=== PATIENT | male | born 1940 | race Caucasian/White ===

== ENCOUNTER 2023-03-07 13:30 | Outpatient (OUT) | payer MEDICARE, OTHER, SELFPAY ==
--- NOTE | 2023-03-07 14:50 | CA_ITS ---
Patient: CHEY DAVENPORT Exam Date: 03/07/2023 : 1940 Gender:M Ordering : DR ANGELINA DEUTSCH M.D. Admission #: [id number] Family : Order #: [id number] CLICK HERE TO VIEW EXAM ECHOCARDIOGRAM REPORT PROCEDURE: CA ECHO DOPPLER COMPLETE INDICATIONS: Mitral valve regurgitation COMPARISON: None. DESCRIPTION: COMPLETE ECHOCARDIOGRAM Real-time transthoracic echocardiography with 2D, M-mode, spectral and color flow Doppler performed. QUALITY: Technical quality was good. LEFT VENTRICLE: Normal chamber size. Borderline left ventricular hypertrophy. LV EF: Global left ventricular systolic function is normal. Visual estimation of left ventricular ejection fraction is 65% DIASTOLIC: Diastolic function is indeterminate. ATRIAL SEPTUM: Inadequately seen. LEFT ATRIUM: Moderate dilatation. RIGHT ATRIUM: Mild dilatation. RIGHT VENTRICLE: Normal chamber size. Normal right ventricular systolic function. TRICUSPID VALVE: Normal mobility and thickness. Mild regurgitation. Mild pulmonary hypertension. RVSP 40mmHg MITRAL VALVE: Normal mobility and thickness. No evidence of mitral valve stenosis. There is no mitral annular calcification. Mild to moderate mitral regurgitation. AORTIC VALVE: Normal trileaflet appearance. Moderately calcified aortic valve. Moderately diminished mobility. Doppler velocity suggests mild to moderate aortic valve stenosis. DVI 0.35, MARQUIS 1.0cm2. Mean gradient 13mmHg, Max velocity 2.7m/s. Moderate aortic regurgitation. AORTIC ROOT: Normal diameter and appearance. PULMONIC VALVE: Normal thickness and mobility. No stenosis. No regurgitation. PERICARDIUM: No evidence of pericardial effusion. IVC: Collapses with inspirations. Normal size. CONCLUSION: 1. Global left ventricular systolic function is normal; visually estimated ejection fraction is 60 to 65%. 2. Borderline left ventricular hypertrophy. 3. Diastolic function is indeterminate. 4. Biatrial enlargement. 5. Right ventricle is normal in size and systolic function. 6. Mild tricuspid regurgitation. Mildly elevated right ventricular systolic pressure. 7. Mild to moderate mitral regurgitation. 8. Mild to moderate aortic valve stenosis. 9. Moderate aortic valve regurgitation. Adult Echocardiography Procedure Report Left Ventricle LVEDD (3.7 - 5.6 cm): 4.44 cm LVESD (2.2 - 4.0 cm): 2.91 cm LVIVS thickness (0.6 - 1.2 cm): 1.12 cm LVPW thickness (0.5 - 1.0 cm): 0.74 cm e': 0.08 m/s E - e': 10.03 LVOT Max Gradient: 3.77 mm[Hg] LVOT Area (cm2): 0.97 m/s Peak Velocity (LVOT): 0.97 m/s Mean Velocity (LVOT): 0.58 m/s LVOT Diameter 1.83 cm Left Ventricular Ejection Fraction: 73.57 % Left Atrium LA Volume Index (2D A2C): 44.00 ml/m2 Left Atrium Systolic Dimension: 4.35 cm Mitral Valve MV E to A Ratio: 1.28 Mitral Valve A-Wave Peak Velocity: 0.66 m/s Mitral Valve E-Wave Peak Velocity: 0.84 m/s Right Ventricle RV Internal Diastolic Dimension: 2.91 cm Aorta AO Root Diam: 3.18 cm Ascending Ao Diam: 3.47 cm Aortic Valve AoV Area (Peak Adolfo): 0.97 cm2, 0.93 cm2, 1.09 cm2, 1.09 cm2 AoV Area (VTI): 1.04 cm2, 1.04 cm2 Deceleration [place]: 2.58 m/s2 Pressure Half-Time: 500.14 ms Peak Velocity(Antegrade Flow): 2.73 m/s, 2.59 m/s, 2.51 m/s, 2.33 m/s Peak Gradient(Antegrade Flow): 29.80 mm[Hg], 26.83 mm[Hg], 25.10 mm[Hg], 21.68 mm[Hg] Mean Velocity(Antegrade Flow): 1.63 m/s, 1.60 m/s, 1.43 m/s Mean Gradient(Antegrade Flow): 12.65 mm[Hg], 12.01 mm[Hg], 10.37 mm[Hg] Velocity Time Integral: 58.16 cm, 54.00 cm, 62.18 cm Tricuspid Valve Peak Velocity (Regurgitant Flow): 3.03 m/s, 3.07 m/s, 2.88 m/s, 2.97 m/s Pulmonic Valve Mean Gradient: 1.53 mm[Hg] Mean Velocity: 0.59 m/s Peak Velocity: 0.77 m/s, 0.71 m/s Peak Gradient: 2.35 mm[Hg], 2.02 mm[Hg] Right Atrium Right Atrium Systolic Pressure: 36.38 ml, 36.38 ml Dictated by: Angelina Deutsch M.D. on 03/08/2023 at 15:31 Approved by: Angelina Deutsch M.D. on 03/08/2023 at 15:36
== END 2023-03-07 13:31 | disposition home or self-care (01) ==
LOC: CARD 13:35
PROVIDERS: PCP Family Medicine; Visit Provider Internal Medicine Interventional Cardiology
DX: I08.3 Combined rheumatic disorders of mitral, aortic and tricuspid valves (principal)
CPT/HCPCS: 93306

== ENCOUNTER 2023-08-12 08:16 | Outpatient (OUT) | payer MEDICARE, OTHER, SELFPAY ==
--- NOTE | 2023-08-12 08:40 | XR_ITS ---
The [address] [address] Patient Name: CHEY DAVENPORT MRN: [id number] date: 1940 Sex: M Assigned Patient Location: LAB Current Patient Location: LAB Accession/Order Number: [id number] Exam Date: 08/12/2023 08:45 Report Date: 08/12/2023 13:48 At the request of: ANG HI Procedure: XR lumbar spine 2-3V EXAM: XR lumbar spine 2-3V HISTORY: Low Back Pain, M54.50. Injury. COMPARISON: Lumbar spine study dated 08/02/2017. TECHNIQUE: 3 views of the lumbar spine were obtained to include AP, lateral, and directed lateral lumbosacral views. FINDINGS: [id number] height loss of the L1 vertebral body similar to the prior study. Mild to moderate disc space narrowing at L3-L4. L5 appears sacralized with a small disc space at L5-S1. Mild anterior spurring at multiple levels. Mild posterior spurring at L3-L4. Moderate to marked degenerative facet changes bilaterally from L3-L4 through L5-S1. No obvious spondylolysis. There is 5 mm anterior offset of L4 vertebral body upon L5 likely related to ligament laxity/degenerative change. No definite acute fracture or dislocation. XR/XR lumbar spine 2-3V IMPRESSION: Lumbar spine study fails to demonstrate definite acute fracture or dislocation. Chronic height loss of L1 vertebral body similar to the prior study. Degenerative changes as noted, overall mildly progressed compared to the prior exam. Follow-up as needed. Electronically authenticated by: YASMEEN LARA Date: 08/12/2023 13:48
[2023-08-12 08:54] LABS: Estimated Average Glucose 111 mg/dL; Glycohemoglobin A1C 5.5 % (4.5-6.2)
[2023-08-12 10:01] LABS: Basophils Absolute Auto 0.1 10^3/uL (0.0-0.1); Basophils Percent Auto 0.6 % (0.2-2.0); Eosinophils Absolute Auto 0.3 10^3/uL (0.0-0.7); Eosinophils Percent Auto 3.9 % (0.9-7.0); Hematocrit 43.3 % (42.0-54.0); Hemoglobin 14.1 g/dL (14.0-18.0); Immature Granulocytes Abs Auto 0.01 10^3/uL (0.00-0.03); Immature Granulocytes Pct Auto 0.1 % (0.0-0.5); Lymphocytes Absolute Auto 2.6 10^3/uL (1.2-3.8); Lymphocytes Percent Auto 31.5 % (20.5-60.0); Mean Corpuscular HGB Conc 32.6 g/dL (29.9-35.2); Mean Corpuscular Hemoglobin 29.9 pg (25.9-34.0); Mean Corpuscular Volume 91.7 fL (80.0-94.0); Mean Platelet Volume 11.9 fL (9.5-13.5); Monocytes Absolute Auto 0.8 10^3/uL (0.3-0.8); Monocytes Percent Auto 9.6 % (1.7-12.0); Neutrophils Absolute Auto 4.5 10^3/uL (1.4-6.5); Neutrophils Percent Auto 54.3 % (43.0-75.0); Platelet Count 144 10^3/uL (150-450); Red Blood Count 4.72 10^6/uL (4.70-6.10); Red Cell Distribution Width 12.7 % (11.0-15.0); White Blood Count 8.3 10^3/uL (4.0-11.0)
[2023-08-12 10:13] LABS: Prostate Specific Antigen Scrn 2.12 ng/mL (<=4.00)
[2023-08-12 11:45] LABS: Alanine Aminotransferase 29 U/L (16-63); Albumin Level 3.3 g/dL (3.4-5.0); Alkaline Phosphatase 61 U/L (46-116); Anion Gap 7.4; Aspartate Amino Transferase 18 U/L (15-37); BUN Creatinine Ratio 20.6; Bilirubin Total 0.8 mg/dL (0.2-1.0); Calcium 8.8 mg/dL (8.5-10.1); Carbon Dioxide 30.1 mmol/L (21.0-32.0); Chloride 110 mmol/L (98-107); Chol HDL Ratio 2.6; Cholesterol 140 mg/dL (<=200); Estimated GFR (African America >60 (>=60); Estimated GFR (Non-African Ame >60 (>=60); Free T3 2.31 pg/mL (2.18-3.98); Globulin 3.4 g/dL; Glucose 97 mg/dL (74-106); HDL Cholesterol 54 mg/dL (40-60); LDL Cholesterol Calculated 72.2 mg/dL; Potassium 4.5 mmol/L (3.5-5.1); Sodium 143 mmol/L (136-145); Thyroid Stimulating Hormone 2.802 uIU/mL (0.358-3.740); Total Protein 6.7 g/dL (6.4-8.2); Triglycerides 69 mg/dL (<=150); VLDL CHOLESTEROL 13.8 mg/dL
== END 2023-08-12 08:17 | disposition home or self-care (01) ==
LOC: LAB 08:18
PROVIDERS: PCP Family Medicine; Visit Provider Family Medicine
DX: M54.50 Low back pain, unspecified (principal); E78.00 Pure hypercholesterolemia, unspecified; I25.10 Atherosclerotic heart disease of native coronary artery without angina pectoris; E78.5 Hyperlipidemia, unspecified; R53.82 Chronic fatigue, unspecified; R73.09 Other abnormal glucose; Z12.5 Encounter for screening for malignant neoplasm of prostate; M47.816 Spondylosis without myelopathy or radiculopathy, lumbar region
CPT/HCPCS: 36415; 72100; 80053; 80061; 83036; 84436; 84443; 84481; 85025; G0103

== ENCOUNTER 2023-08-31 10:30 | Outpatient (OUT) | payer MEDICARE, OTHER, SELFPAY ==
--- OUTSIDE RECORDS SUMMARY | 2023-08-31 10:33 | XMS_ITS | CCD ---
Author Name Unknown Address [id number] [id number] [place] [address] Organization [facility] Care Team Providers Care Appliance Repair Technician Name Role Phone Ang Chilel Primary Care Physician Sotero STEPHEN Attending Unavailable NILLHolli Attending Unavailable Ang Chilel Referring Unavailable NILLHolli Attending Unavailable Sotero STEPHEN Attending Unavailable NILL ., DR DE LA GARZA Admitting Unavailable HOY ., DR FRY Primary Care Unavailable NILL ., DR DE LA GARZA Attending Unavailable NILL ., DR DE LA GARZA Consulting Unavailable HOY ., DR FRY Primary Care Unavailable NILL ., DR DE LA GARZA Admitting Unavailable NILL ., DR DE LA GARZA Attending Unavailable NILL ., DR DE LA GARZA Consulting Unavailable CAYETANO, VAUGHN MORENO Consulting Unava ilable GEMBUS, MERI Consulting Unavailable HOY ., DR FRY Admitting Unavailable HOY ., DR FRY Attending Unavailable HOY ., DR FRY Consulting Unavailable HOY ., DR FRY Primary Care Unavailable ZIFAIZA VARGAS Consulting Unavailable ELTAHAWY, DR ALFARO Attending Unavailable ELTAHAWY, DR ALFARO Consulting Unavailable ELTAHAWY, DR ALFARO Admitting Unavailable HOY ., DR FRY Primary Care Unavailable SOTERO STEPHEN Admitting Unavailable HOY ., DR FRY Primary Care Unavailable SOTERO STEPHEN Attending Unavailable SOTERO STEPHEN Consulting Unavailable HOY ., DR FRY Primary Care Unavailable HOY ., DR FRY Admitting Unavailable HOY ., DR FRY Attending Unavailable HOY ., DR FRY Consulting Unavailable HOY ., DR FRY Admitting Unavailable HOY ., DR FRY Attending Unavailable HOY ., DR FRY Consulting Unavailable HOY ., DR FRY Primary Care Unavailable FAIZA ARECHIGA Consulting Unavailable ELTAHAWLENKA Giles Attending Unavailable Medications Current Medications Medication Drug Class(es) Dates Sig (Normalized) Sig (Original) aspirin 81 mg oral tablet (2 sources) Platelet Aggregation Inhibitor, Nonsteroidal Anti-inflammatory Drug Start: 01-29-2019 take 1 tablet by mouth once daily aspirin 81 mg oral tablet 81 mg = 1 tab(s), Oral, Daily Start Date: 01/29/19 Status: Ordered clopidogrel 75 mg oral tablet (2 sources) [id number] Platelet Inhibitor Start: 01-29-2019 take 1 tablet by mouth once daily Plavix 75 mg Tab 75 mg = 1 tab(s), Oral, Daily Start Date: 01/29/19 Status: Ordered CoQ10 (2 sources) Start: 01-29-2019 take 1 mg by mouth once daily CoQ10 mg, Oral, Daily Start Date: 01/29/19 Status: Ordered lovastatin 40 mg oral tablet (2 sources) HMG-CoA Reductase Inhibitor Start: 01-29-2019 take 2 tablets by mouth once daily for hyperlipidemia lovastatin 40 mg oral tablet TAKE 2 TABLETS BY MOUTH ONCE DAILY FOR CHOLESTEROL Start Date: 01/29/19 Status: Ordered metoprolol tartrate 25 mg oral tablet (2 sources) beta-Adrenergic Amt Start: 05-27-2022 Metoprolol tartrate 25 mg Tab 12.5 mg = 0.5 tab(s), Oral, BID, Refills(s) 0 Start Date: 05/27/22 Status: Ordered Nature's Bounty Red Krill Oil (2 sources) Start: 01-29-2019 take 1 mg by mouth once daily Nature's Bounty Red Krill Oil 1 mg, Oral, Daily Start Date: 01/29/19 Status: Ordered nitroglycerin 0.4 mg sublingual tablet (2 sources) Nitrate Vasodilator Start: 05-27-2022 nitroglycerin 0.4 mg sublingual Tab 0.4 mg = 1 tab(s), SubLingual, q5min, PRN for chest pain, Refills(s) 0 Start Date: 05/27/22 Status: Ordered Vitamin D (2 sources) Start: 01-29-2019 Vitamin D Oral Start Date: 01/29/19 Status: Ordered Completed/Discontinued Medications Medication Drug Class(es) Dates Sig (Normalized) Sig (Original) potassium bicarbonate 20 meq effervescent oral tablet (2 sources) Start: 05-17-2022 take 1 tablet by mouth twice daily Effer-K 20 mEq oral tablet, effervescent 20 mEq = 1 tab(s), Oral, BID, # 60 tab(s), Refills(s) , DAGO, Pharmacy: [facility], 160.3, cm, 08/31/21 9:38:00 EST, Height/Length Dosing, 71, kg, 08/31/21 9:38:00 EST, Weight Dosing Start Date: 05/17/22 Status: Ordered Problems Active Problems Problem Classification Problem Date Documented Da te Episodic/Chronic Calculus of urinary tract (9 sources) History of calculus of kidney; Translations: [Kidney stone] Onset: 09-03-2022 08-18-2020 Episodic Coronary atherosclerosis and other heart disease (7 sources) Coronary arteriosclerosis; Translations: [Ischemic heart disease] Onset: 07-01-2022 05-27-2022 Chronic Disorders of lipid metabolism (4 sources) Hyperlipidemia; Translations: [Pure hypercholesterolemi a, unspecified] Onset: 07-01-2022 01-29-2019 Chronic Essential hypertension (3 sources) Hypertensive disorder; Translations: [Essential (primary) hypertension] Onset: 07-01-2022 01-29-2019 Chronic Gastrointestinal hemorrhage (2 sources) Rectal hemorrhage 05-27-2022 Episodic Genitourinary symptoms and ill-defined conditions (5 sources) Microscopic hematuria; Translations: [Urgent desire to urinate] Onset: 09-03-2022 08-18-2020 Episodic Gout and other crystal arthropathies (2 sources) Gout 05-27-2022 Chronic Heart valve disorders (10 sources) Aortic valve regurgitation; Translations: [Aortic valve sclerosis] Onset: 02-10-2022 05-27-2022 Chronic Hyperplasia of prostate (3 sources) Benign prostatic hypertrophy with outflow obstruction; Translations: [Benign prostatic hyperplasia with lower urinary tract symptoms] Onset: 09-03-2022 12-23-2018 Chronic Malaise and fatigue (4 sources) Chronic fatigue, unspecified; Translations: [CHRONIC FATIGUE UNSPECIFIED] Onset: 11-17-2022 Chronic Nutritional deficiencies (2 sources) Vitamin D deficiency 05-27-2022 Chronic Other male genital disorders (2 sources) 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 Other nutritional; endocrine; and metabolic disorders (2 sources) Overweight in adulthood with body mass index of 25 or more but less than 30 06-01-2022 Episodic Other screening for suspected conditions (not mental disorders or infectious disease) (6 sources) Screening for malignant neoplasm of colon done; Translations: [Encounter for screening for malignant neoplasm of colon] Onset: 06-01-2022 Episodic Other upper respiratory disease (2 sources) Allergic rhinitis 05-27-2022 Chronic Spondylosis; intervertebral disc disorders; other back problems (4 sources) Cervical disc disorder; Translations: [Lumbar spondylosis] 05-27-2022 Chronic Unclassified (2 sources) Patient encounter status 06-01-2022 Unclassified (1 source) Asymptomatic microscopic hematuria 09-03-2022 Unclassified (1 source) CONTACT W/AND (SUSP) EXPOS COVID-19; Translations: [CONTACT W/AND (SUSP) EXPOS COVID-19] Onset: 06-26-2022 Viral infection (2 sources) Genital herpes simplex 05-27-2022 Chronic Past or Other Problems Problem Classification Problem Date Documented Da te Episodic/Chronic Inflammatory conditions of male genital organs (2 sources) Epididymitis Resolved: 01-29-2019 01-29-2019 Episodic Other aftercare (1 source) 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 representative (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) use of antithrombotics/ant iplatelets; Translations: [SKILLED NURSING ANTITHROMBOT/ANTIPL ATLETS] Onset: 07-01-2022 Episodic Other aftercare (1 source) penitentiary (current) use of aspirin; Translations: [SKILLED NURSING CURRENT USE OF ASPIRIN] Onset: 07-01-2022 Episodic Other aftercare (1 source) Other 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 representative (current) drug therapy; Translations: [OTH DIESEL MACHINIST CURRENT DRUG THERAPY] Onset: 07-01-2022 Episodic Other non-traumatic joint disorders (4 sources) Pain in left shoulder; Translations: [PAIN IN LEFT SHOULDER] Onset: 12-17-2021 Episodic Screening and history of mental health and substance abuse codes (1 source) Personal history of nicotine dependence; Translations: [PERSONAL HISTORY OF NICOTINE DEPEND] Onset: 07-01-2022 Episodic Results Test Name Value Interpretation Reference Range Facility Orders Onlyon 04-15-2023 Orders Only [id number] Chey Freire 1940 M Date Provider Department Center 04/15/2023 [facility] Family History Problem Relation Age of Onset Other Mother Hypertension Mother Heart attack Father Family Status - Relation Status Age at Mother Father Normal [facility] Office Visiton 04-06-2023 Follow-up visit [id number] Chey Freire 1940 M Date Provider Department Center 04/06/2023 Richi-TOMMYVIVIANAPAULAChanLENKA [facility] Family History Problem Relation Age of Onset Other Mother Hypertension Mother Heart attack Father Family Status - Relation Status Age at Mother Father Level of Service:62255 HI OFFICE/OUTPATIENT ESTABLISHED LOW MDM 20-29 MIN Normal [facility] CBC AUTO DIFFon 11-17-2022 BASO # 0.0 103/ul Normal 0.0-0.1 [facility] Comment on above: Performed By: #### C BC #### [facility] [address] [place] [address] Dr. Miguel Angel Cassidy Basophils/100 WBC (Bld) 0.4 % Normal 0.2-2.0 [facility] Comment on above: Performed By: #### C BC #### [facility] [address] [place] [address] Dr. Miguel Angel Cassidy EO # 0.2 103/ul Normal 0.0-0.7 [facility] Comment on above: Performed By: #### C BC #### [facility] [address] [place] [address] Dr. Miguel Angel Cassidy Eosinophils/100 WBC (Bld) 2.4 % Normal 0.9-7.0 [facility] Comment on above: Performed By: #### C BC #### [facility] [address] [place] [address] Dr. Miguel Angel Cassidy Erythrocyte distribution width (RBC) [Ratio] 12.5 % Normal 11.0-15.0 [facility] Comment on above: Performed By: #### C BC #### [facility] [address] [place] [address] Dr. Miguel Angel Cassidy Hematocrit (Bld) [Volume fraction] 44.1 % Normal 42.0-54.0 [facility] Comment on above: Performed By: #### C BC #### [facility] [address] [place] [address] Dr. Miguel Angel Cassidy Hemoglobin (Bld) [Mass/Vol] 14.4 g/dL Normal 14.0-18.0 [facility] Comment on above: Performed By: #### C BC #### [facility] [address] [place] [address] Dr. Miguel Angel Cassidy IG # 0.02 10e3/ul Normal 0.00-0.03 [facility] Comment on above: Performed By: #### C BC #### [facility] [address] [place] [address] Dr. Miguel Angel Cassidy IG % 0.3 % Normal 0.0-0.5 [facility] Comment on above: Performed By: #### C BC #### [facility] [address] [place] [address] Dr. Miguel Angel Cassidy LYMPH # 3.0 103/ul Normal 1.2-3.8 [facility] Comment on above: Performed By: #### C BC #### [facility] [address] [place] [address] Dr. Miguel Angel Cassidy Lymphocytes/100 WBC (Bld) 38.3 % Normal 20.5-60.0 [facility] Comment on above: Performed By: #### C BC #### [facility] [address] [place] [address] Dr. Miguel Angel Cassidy MANUAL DIFF REQ NO Normal [facility] Comment on above: Performed By: #### C BC #### [facility] [address] [place] [address] Dr. Miguel Angel Cassidy MCH (RBC) [Entitic mass] 29.3 pg Normal 25.9-34.0 [facility] Comment on above: Performed By: #### C BC #### [facility] [address] [place] [address] Dr. Miguel Angel Cassidy MCHC (RBC) [Mass/Vol] 32.7 g/dL Normal 29.9-35.2 [facility] Comment on above: Performed By: #### C BC #### [facility] [address] [place] [address] Dr. Miguel Angel Cassidy MCV (RBC) [Entitic vol] 89.6 fL Normal 80.0-94.0 [facility] Comment on above: Performed By: #### C BC #### [facility] [address] [address] [address] Miguel Angel Cassidy MONO # 0.8 103/ul Normal 0.3-0.8 [facility] Comment on above: Performed By: #### C BC #### [facility] [address] [address] [address] Miguel Angel Cassidy Monocytes/100 WBC (Bld) 10.2 % Normal 1.7-12.0 [facility] Comment on above: Performed By: #### C BC #### [facility] [address] [place] [address] Dr. Miguel Angel Cassidy NEUT # 3.9 103/ul Normal 1.4-6.5 [facility] Comment on above: Performed By: #### C BC #### [facility] [address] [place] [address] Dr. Miguel Angel Cassidy Neutrophils/100 WBC (Bld) 48.4 % Normal 43.0-75.0 [facility] Comment on above: Performed By: #### C BC #### [facility] [address] [place] [address] Dr. Miguel Angel Cassidy Platelet mean volume (Bld) [Entitic vol] 11.6 fL Normal 9.5-13.5 [facility] Comment on above: Performed By: #### C BC #### [facility] [address] [place] [address] Dr. Miguel Angel Cassidy PLT 148 103/ul Critically low 150-450 [facility] Comment on above: Performed By: #### C BC #### [facility] [address] [place] [address] Dr. Miguel Angel Cassidy RBC 4.92 106/ul Normal 4.70-6.10 [facility] Comment on above: Performed By: #### C BC #### [facility] [address] [place] [address] Dr. Miguel Angel Cassidy WBC 7.9 103/ul Normal 4.0-11.0 [facility] Comment on above: Performed By: #### C BC #### [facility] [address] [address] [address] Miguel Angel Cassidy FREE THYROXINE INDEX T7on FTI 1.75 Normal 1.30-4.50 [facility] Comment on above: Performed By: #### U YESI 24 #### [facility] [address] [place] [address] Dr. Miguel Angel Cassidy T3U 33.0 % Normal 33.0-40.0 [facility] Comment on above: Performed By: #### U YESI 24 #### [facility] [address] [place] [address] Dr. Miguel Angel Cassidy T4 [Mass/Vol] 5.30 ug/dL Normal 4.50-12.10 [facility] Comment on above: Performed By: #### U YESI 24 #### [facility] [address] [place] [address] Dr. Miguel Angel Cassidy LIPID PROFILEon 11-17-2022 CHOL-HDL RATIO NORM SEE BELOW Normal [facility] Comment on above: Result Comment: 3.3 - 4.4 LOW RISK 4.4 - 7.1 AVERAGE RISK 7.1 - 11.0 MODERATE RISK >11.0 HIGH RISK Performed By: #### U YESI 24 #### [facility] [address] [place] [address] Dr. Miguel Angel Cassidy Cholesterol [Mass/Vol] 141 mg/dL Normal <=200 [facility] Comment on above: Performed By: #### U YESI 24 #### [facility] [address] [place] [address] Dr. Miguel Angel Cassidy Cholesterol in HDL [Mass/Vol] 48 mg/dL Normal 40-60 [facility] Comment on above: Performed By: #### U YESI 24 #### [facility] [address] [place] [address] Dr. Miguel Angel Cassidy Cholesterol in LDL [Mass/Vol] 80.4 mg/dL Normal [facility] Comment on above: Performed By: #### U YESI 24 #### [facility] [address] [place] [address] Dr. Miguel Angel Cassidy Cholesterol.total/C holesterol in HDL [Mass ratio] 2.9 {ratio} Normal [facility] Comment on above: Performed By: #### U YESI 24 #### [facility] [address] [address] [address] Miguel Angel Cassidy HDL NORMAL > or = 60 mg/dl - LO W CARDIOVASCULAR RISK <40 mg/dl - HIGH CARDIOVASCULAR RISK Normal [facility] Comment on above: Performed By: #### U YESI 24 #### [facility] [address] [address] [address] Miguel Angel Cassidy LDL CALC NORMAL SEE BELOW Normal [facility] Comment on above: Result Comment: <100 mg/dl OPTIMAL 100 - 129 mg/dl NEAR OR ABOVE OPTIMAL 130 - 159 mg/dl BORDERLINE HIGH 160 - 189 mg/dl HIGH >190 mg/dl VERY HIGH Performed By: #### U YESI 24 #### [facility] [address] [address] [address] Miguel Angel Cassidy Triglyceride [Mass/Vol] 63 mg/dL Normal <=150 [facility] Comment on above: Performed By: #### U YESI 24 #### [facility] [address] [address] [address] Miguel Angel Cassidy VLDL CALC 12.6 mg/dL Normal [facility] Comment on above: Performed By: #### U YESI 24 #### [facility] [address] [place] [address] Dr. Miguel Angel Cassidy PROF CHEM 8 (BAS METB)on Anion gap [Moles/Vol] 13.1 mmol/L Normal [facility] Comment on above: Performed By: #### U YESI 24 #### [facility] [address] [address] [address] Miguel Angel Cassidy Calcium [Mass/Vol] 8.8 mg/dL Normal 8.5-10.1 [facility] Comment on above: Performed By: #### U YESI 24 #### [facility] [address] [address] [address] Miguel Angel Cassidy Chloride [Moles/Vol] 108 mmol/L Critically high 98-107 [facility] Comment on above: Performed By: #### U YESI 24 #### [facility] [address] [address] [address] Miguel Angel Cassidy CO2 [Moles/Vol] 29.7 mmol/L Normal 21.0-32.0 [facility] Comment on above: Performed By: #### U YESI 24 #### [facility] [address] [address] [address] Miguel Angel Cassidy Creatinine [Mass/Vol] 1.03 mg/dL Normal 0.70-1.30 [facility] Comment on above: Performed By: #### U YESI 24 #### [facility] [address] [address] [address] Miguel Angel Cassidy EGFR-AF BRUNEIAN >60 Normal >=60 [facility] Comment on above: Performed By: #### U YESI 24 #### [facility] [address] [place] [address] Dr. Miguel Angel Cassidy EGFR-NON AF BRUNEIAN >60 Normal >=60 [facility] Comment on above: Performed By: #### U YESI 24 #### [facility] [address] [place] [address] Dr. Miguel Angel Cassidy Glucose [Mass/Vol] 106 mg/dL Normal 74-106 [facility] Comment on above: Performed By: #### U YESI 24 #### [facility] [address] [place] [address] Dr. iMguel Angel Cassidy Potassium [Moles/Vol] 4.8 mmol/L Normal 3.5-5.1 [facility] Comment on above: Performed By: #### U YESI 24 #### [facility] [address] [address] [address] Miguel Angel Cassidy Sodium [Moles/Vol] 146 mmol/L Critically high 136-145 [facility] [place] Comment on above: Performed By: #### U YESI 24 #### [facility] [address] [address] [address] Miguel Angel Cassidy Urea nitrogen [Mass/Vol] 14.0 mg/dL Normal 7.0-18.0 [facility] Comment on above: Performed By: #### U YESI 24 #### [facility] [address] [place] [address] Dr. Miguel Angel Cassiyd Urea nitrogen/Creatinine [Mass ratio] 13.6 mg/mg Normal [facility] Comment on above: Performed By: #### U YESI 24 #### [facility] [address] [place] [address] Dr. Miguel Angel Cassidy TSHon 11-17-2022 TSH 2.017 uIU/mL Normal 0.358-3.740 [facility] Comment on above: Performed By: #### U YESI 24 #### [facility] [address] [place] [address] Dr. Miguel Angel Cassidy Lab Reportson 09-27-2022 Lab Reports [id number] Normal [facility] OXALATE 24HR URINEon 023 Oxalates, Urine 34 mg/L Normal Undefined [facility] Comment on above: Performed By: #### O X24HR #### [facility] [address] [place] [address] Dr. Miguel Angel Cassidy Oxalates, Urine 24hr 34 mg/24 hr Normal 7-44 [facility] Comment on above: Performed By: #### O X24HR #### [facility] [address] [place] [address] Dr. Miguel Angel Cassidy CITRATE URINE 24HRon 023 Citric Acid, U, 24hr 1169 mg/24 hr Normal 320-1240 [facility] Comment on above: Result Comment: This test was developed and its performance characteristics determined by [facility]. It has not been cleared or approved by the Food and Drug Administration. Performed By: #### C ITRATU #### [facility] [address] [place] [address] Dr. Miguel Angel Cassidy Citric Acid, Urine 1169 mg/L Normal Undefined [facility] Comment on above: Performed By: #### C ITRATU #### [facility] [address] [place] [address] Dr. Miguel Angel Cassidy MAGNESIUM 24HR URINEon 09-09 Magnesium 24hr Urine 88.0 mg/24 hr Normal 12.0-293.0 [facility] Comment on above: Performed By: #### C ITRATU #### [facility] [address] [place] [address] Dr. Miguel Angel Cassidy Magnesium UR 8.8 mg/dL Normal Not Estab. [facility] Comment on above: Performed By: #### C ITRATU #### [facility] [address] [place] [address] Dr. Miguel Angel Cassidy PHOSPHORUS 24HR URINEon 08-19 Phosphorus, Urine 97.8 mg/dL Normal Not Estab. [facility] Comment on above: Performed By: #### C ITRATU #### [facility] [address] [place] [address] Dr. Miguel Angel Cassidy Phosphorus, Urine 24hr 978 mg/24 hr Normal 390-1425 [facility] Comment on above: Performed By: #### C ITRATU #### [facility] [address] [place] [address] Dr. Miguel Angel Cassidy PTH INTACTon 09-09-2022 PTH, Intact 15 pg/mL Normal 15-65 [facility] Comment on above: Performed By: #### U YESI 24 #### [facility] [address] [place] [address] Dr. Miguel Angel Cassidy URIC ACID 24 HR URINEon 08-19 Uric Acid, Urine 43.6 mg/dL Normal Not Estab. [facility] Comment on above: Performed By: #### U YESI 24 #### [facility] [address] [place] [address] Dr. Miguel Angel Cassidy Uric Acid, Urine 24hr 436.0 mg/24 hr Normal 136.1-771.1 [facility] Comment on above: Performed By: #### U YESI 24 #### [facility] [address] [place] [address] Dr. Miguel Angel Cassidy BUNon 09-08-2022 Urea nitrogen [Mass/Vol] 13.0 mg/dL Normal 7.0-18.0 [facility] Comment on above: Performed By: #### U YESI 24 #### [facility] [address] [place] [address] Dr. Miguel Angel Cassidy CALCIUMon 09-08-2022 Calcium [Mass/Vol] 8.9 mg/dL Normal 8.5-10.1 [facility] Comment on above: Performed By: #### U YESI 24 #### [facility] [address] [place] [address] Dr. Miguel Angel Cassidy CALCIUM 24 HR URINEon 2022 CALC, 24 HR UR 138.0 mg/24 hr Normal 100.0-300.0 [facility] Comment on above: Performed By: #### U YESI 24 #### [facility] [address] [place] [address] Dr. Miguel Angle Cassidy UR CALCIUM 13.8 mg/dL Normal 5.1-21.0 [facility] Comment on above: Performed By: #### U YESI 24 #### [facility] [address] [place] [address] Dr. Miguel Angel Cassidy UR TOT VOL 1000 ml/[address] [facility] Comment on above: Performed By: #### U YESI 24 #### [facility] [address] [place] [address] Dr. Miguel Angel Cassidy Performed By: #### C ITRATU #### [facility] [address] [place] [address] Dr. Miguel Angel Cassidy CHLORIDEon 09-08-2022 Chloride [Moles/Vol] 107 mmol/L Normal 98-107 [facility] Comment on above: Performed By: #### B UN, CL, CO2, CREA, K, URIC, CA, NA #### [facility] [address] [place] [address] Dr. Miguel Angel Cassidy CO2on 09-08-2022 CO2 [Moles/Vol] 31.6 mmol/L Normal 21.0-32.0 [facility] Comment on above: Performed By: #### B UN, CL, CO2, CREA, K, URIC, CA, NA #### [facility] [address] [place] [address] Dr. Miguel Angel Cassidy CREA 24 HR URINEon 3 CREA, 24 HR UR 1343.30 mg/24 hr Normal 1,000.00- 2,000 .00 [facility] Comment on above: Performed By: #### C ITRATU #### [facility] [address] [place] [address] Dr. Miguel Angel Cassidy URINE CREAT 134.33 mg/dL Normal 20.00-300.00 [facility] Comment on above: Performed By: #### C ITRATU #### [facility] [address] [place] [address] Dr. Miguel Angel Cassidy CREATININEon 09-08-2022 Creatinine [Mass/Vol] 0.89 mg/dL Normal 0.70-1.30 [facility] Comment on above: Performed By: #### B UN, CL, CO2, CREA, K, URIC, CA, NA #### [facility] [address] [place] [address] Dr. Miguel Angel Cassidy EGFR-AF BRUNEIAN >60 Normal >=60 [facility] Comment on above: Performed By: #### B UN, CL, CO2, CREA, K, URIC, CA, NA #### [facility] [address] [place] [address] Dr. Miguel Angel Cassidy EGFR-NON AF BRUNEIAN >60 Normal >=60 [facility] Comment on above: Performed By: #### B UN, CL, CO2, CREA, K, URIC, CA, NA #### [facility] [address] [place] [address] Dr. Miguel Angel Cassidy NAon 09-08-2022 Sodium [Moles/Vol] 143 mmol/L Normal 136-145 [facility] Comment on above: Performed By: #### B UN, CL, CO2, CREA, K, URIC, CA, NA #### [facility] [address] [place] [address] Dr. Miguel Angel Cassidy POTASSIUMon 09-08-2022 Potassium [Moles/Vol] 4.3 mmol/L Normal 3.5-5.1 [facility] Comment on above: Performed By: #### B UN, CL, CO2, CREA, K, URIC, CA, NA #### [facility] [address] [address] [address] Miguel Angel Cassidy SODIUM 24 HR URINEon 023 NA, 24 HR UR 127 mmol/24 hr Normal 40-220 [facility] Comment on above: Performed By: #### C ITRATU #### [facility] [address] [address] [address] Miguel Angel Cassidy Sodium (U) [Moles/Vol] 127 mmol/L Critically high 30-90 [facility] Comment on above: Performed By: #### C ITRATU #### [facility] [address] [address] [address] Miguel Angel Cassidy URIC ACID SERUMon 09-08-2022 Urate [Mass/Vol] 5.3 mg/dL Normal 3.5-7.2 [facility] Comment on above: Performed By: #### U YESI 24 #### [facility] [address] [address] [address] Miguel Angel Cassidy Ambulatory Visit Summaryon 0 09-03-2022 Ambulatory Visit Summary ETHEL CHEY C :1940 Visit Date:09/03/2022 Ambulatory Visit Instructions Your Diagnosis BPH with urinary obstruction Kidney stone Asymptomatic microscopic hematuria Tests Performed Urnls Dip Stick Auto w/o Microscopy POC 09713 XR Abdomen 1 View -- Results Pending -- Please visit your patient portal for your results or contact your primary care physician. Your Care Team Attending Physician - Sotero STEPHEN MD Primary Care Physician - Ang Chilel MD This Is Your Medications List potassium bicarbonate (Effer-K 20 mEq oral tablet, effervescent) Contact prescribing physician if questions or concerns aspirin (aspirin 81 mg oral tablet) clopidogrel (Plavix 75 mg Tab) ergocalciferol (Vitamin D) lovastatin (lovastatin 40 mg oral tablet) metoprolol (Metoprolol tartrate 25 mg Tab) nitroglycerin (nitroglycerin 0.4 mg sublingual Tab) omega-3 polyunsaturated fatty acids ([employer]'s Bounty Red Krill Oil) ubiquinone (CoQ10) Procedures Performed cysto w/ stent removal (03/20/2019), ESWL - Extracorporeal shockwave lithotripsy for renal calculus (09/11/2015), ESWL - Extracorporeal shockwave lithotripsy for renal calculus (04/03/2015), Placement of stent in cardiac conduit (2009), History of thoracic spine surgery, Kidney stone, Repair of left inguinal hernia, Tonsillectomy. Discharge Vitals Heart Rate (Peripheral) 70 Respiratory Rate 16 Blood Pressure 130/71 Height 160.3 cm Height 63 in Weight 71.3 kg Weight 156.86 lb BMI 27.75 What to do next You Need to Schedule the Following Appointments Follow Up with TIANA CLAYTON, JAMAAL Hdz When: Where: [address] [place], [place] [id number]- Medications What How Much When Instructions Unchanged potassium bicarbonate (Effer-K 20 mEq oral tablet, effervescent) 1 Tablets By Mouth 2 times a day Unchanged aspirin (aspirin 81 mg oral tablet) 1 Tablets By Mouth Every day Contact prescribing physician if questions or concerns Unchanged clopidogrel (Plavix 75 mg Tab) 1 Tablets By Mouth Every day Contact prescribing physician if questions or concerns Unchanged ergocalciferol (Vitamin D) By Mouth Contact prescribing physician if questions or concerns Unchanged lovastatin (lovastatin 40 mg oral tablet) TAKE 2 TABLETS BY MOUTH ONCE DAILY FOR CHOLESTEROL Contact prescribing physician if questions or concerns Unchanged metoprolol (Metoprolol tartrate 25 mg Tab) 0.5 Tablets By Mouth 2 times a day Contact prescribing physician if questions or concerns Unchanged nitroglycerin (nitroglycerin 0.4 mg sublingual Tab) 1 Tablets Sublingual Every 5 minutes as needed for for chest pain Contact prescribing physician if questions or concerns Unchanged omega-3 polyunsaturated fatty acids (Nature's Bounty Red Krill Oil) 1 Milligram By Mouth Every day Contact prescribing physician if questions or concerns Unchanged ubiquinone (CoQ10) By Mouth Every day Contact prescribing physician if questions or concerns Test Results Urnls Dip Stick Auto w/o Microscopy POC 00614 (09/03/2022) Bilirubin Urine Dipstick - Negative Blood Urine Dipstick - 1+ Small Glucose Urine Dipstick - Trace 100 mg/dl Ketones Urine Dipstick - Negative Leukocytes Urine Dipstick - Negative Nitrite Urine Dipstick - Negative Protein Urine Dipstick - Negative Specific Merom Urine Dipstick - 1.020 Urine Appearance Urine Dipstick - Clear Urine Color Urine Dipstick - Yellow Urobilinogen Urine Dipstick - Normal 0.2-1 EU/dl pH Urine Dipstick - 6 Allergies No Known Allergies Problems Ongoing - Any problem that you are currently receiving treatment for. Allergic rhinitis Aortic insufficiency Aortic valve sclerosis Asymptomatic microscopic hematuria BMI 26.0-26.9,adult BPH with urinary obstruction CAD (coronary artery disease) Cervical disc disease Genital herpes Gout History of kidney stones Hyperlipidemia Hypertension Ischemic heart disease Kidney stone Lumbar spondylosis Microscopic hematuria Mitral valve prolapse Peyronie's disease Rectal bleeding Screening for malignant neoplasm of colon Urgency of urination Vitamin D deficiency Historical - Any problem that you are no longer receiving treatment for. Epididymitis Education Materials Kidney Stones Kidney stones are rock-like masses that form inside of the kidneys. Kidneys are organs that make pee (urine). A kidney stone may move into other parts of the urinary tract, including: ? The tubes that connect the kidneys to the bladder (ureters). ? The bladder. ? The tube that carries urine out of the body (urethra). Kidney stones can cause very bad pain and can block the flow of pee. The stone usually leaves your body (passes) through your pee. You may need to have a doctor take out the stone. What are the causes? Kidney stones may be caused by: ? A condition in which certain glands make too much parathy (more content not included)... Normal [facility] Patient Educationon 09-03-19 Patient Education Urology Kidney Stones Kidney stones are rock-like masses that form inside of the kidneys. Kidneys are organs that make pee (urine). A kidney stone may move into other parts of the urinary tract, including: ? The tubes that connect the kidneys to the bladder (ureters). ? The bladder. ? The tube that carries urine out of the body (urethra). Kidney stones can cause very bad pain and can block the flow of pee. The stone usually leaves your body (passes) through your pee. You may need to have a doctor take out the stone. What are the causes? Kidney stones may be caused by: ? A condition in which certain glands make too much parathyroid hormone (primary hyperparathyroidism). ? A buildup of a type of crystals in the bladder made of a chemical called uric acid. The body makes uric acid when you eat certain foods. ? Narrowing (stricture) of one or both of the ureters. ? A kidney blockage that you were born with. ? Past surgery on the kidney or the ureters, such as gastric bypass surgery. What increases the risk? You are more likely to develop this condition if: ? You have had a kidney stone in the past. ? You have a family history of kidney stones. ? You do not drink enough water. ? You eat a diet that is high in protein, salt (sodium), or sugar. ? You are overweight or very overweight (obese). What are the signs or symptoms? Symptoms of a kidney stone may include: ? Pain in the side of the belly, right below the ribs (flank pain). Pain usually spreads (radiates) to the groin. ? Needing to pee often or right away (urgently). ? Pain when going pee (urinating). ? Blood in your pee (hematuria). ? Feeling like you may vomit (nauseous). ? Vomiting. ? Fever and chills. How is this treated? Treatment depends on the size, location, and makeup of the kidney stones. The stones will often pass out of the body through peeing. You may need to: ? Drink more fluid to help pass the stone. In some cases, you may be given fluids through an IV tube put into one of your veins at the hospital. ? Take medicine for pain. ? Make changes in your diet to help keep kidney stones from coming back. Sometimes, medical procedures are needed to remove a kidney stone. This may involve: ? A procedure to break up kidney stones using a beam of light (laser) or shock waves. ? Surgery to remove the kidney stones. Follow these instructions at home: Medicines ? Take eoyo-oje-lzfxayt and prescription medicines only as told by your doctor. ? Ask your doctor if the medicine prescribed to you requires you to avoid driving or using heavy machinery. Eating and drinking ? Drink enough fluid to keep your pee pale yellow. You may be told to drink at least 8?10 glasses of water each day. This will help you pass the stone. ? If told by your doctor, change your diet. This may include: ? Limiting how much salt you eat. ? Eating more fruits and vegetables. ? Limiting how much meat, poultry, fish, and eggs you eat. ? Follow instructions from your doctor about eating or drinking restrictions. General instructions ? Collect pee samples as told by your doctor. You may need to collect a pee sample: ? 24 hours after a stone comes out. ? 8?12 weeks after a stone comes out, and every 6?12 months after that. ? Strain your pee every time you pee (urinate), for as long as told. Use the strainer that your doctor recommends. ? Do not throw out the stone. Keep it so that it can be tested by your doctor. ? Keep all follow-up visits as told by your doctor. This is important. You may need follow-up tests. How is this prevented? To prevent another kidney stone: ? Drink enough fluid to keep your pee pale yellow. This is the best way to prevent kidney stones. ? Eat healthy foods. ? Avoid certain foods as told by your doctor. You may be told to eat less protein. ? Stay at a healthy weight. Where to find more information ? National Kidney Foundation (NKF): www.kidney.org ? [employer] (UCF): www.urologyhealth.org Contact a doctor if: ? You have pain that gets worse or does not get better with medicine. Get help right away if: ? You have a fever or chills. ? You get very bad pain. ? You get new pain in your belly (abdomen). ? You pass out (faint). ? You cannot pee. Summary ? Kidney stones are rock-like masses that form inside of the kidneys. ? Kidney stones can cause very bad pain and can block the flow of pee. ? The stones will often pass out of the body through peeing. ? Drink enough fluid to keep your pee pale yellow. This information is not intended to replace advice given to you by your health care provider. Make sure you discuss any questions you have with your health care provider. Document Released: 12/20/2008 Document Revised: 11/20/2019 Document Reviewed: 11/20/2019 [employer] Patient Education ? 2019 [employer] Normal [facility] Urology Office/Clinic Noteon 09-03-2022 Urology Office/Clinic Note Chief Complaint kidney stone HPI Staff Pt is here for 2 year f/u with KUB. Previous dx of BPH with urinary obstruction (Rezum 2017) and kidney stone. Pt continues taking Effer-k 20mEq BID. Dysuria: no Incomplete bladder emptying: no Hematuria: no Frequency: no Urgency: no Nocturia: pt does not get Stream: no Leaking: no Post void dripping: no Wearing pads/ Depends: no Urge incontinence: no Stress incontinence: no Incontinence without Sensory Awareness: no Abdominal pain: no Flank pain: pt states that he has back pain from a bad back Sexual complaints: no History of Present Illness Tests reviewed: reviewed UA, kidney/bladder US, and KUB. I have reviewed the previous health record information and history for this patient from Dr. Stephen. I have reviewed and verified the staff HPI to be accurate for this encounter. There have been no associated fever, chills, flank pain, or blood in the urine. Denies any urinary infections since last encounter. Review of Systems PHQ Score Initial Depression Screen Score: 0 ROS - Provider Constitutional: denies weight loss, denies hot flashes. Eyes: denies eye problems. Gastrointestinal: denies nausea, denies vomiting. Cardiovascular: denies chest pain or angina. Integumentary: no dryness Musculoskeletal: denies musculoskeletal symptoms. ENMT: denies otolaryngeal symptoms. Respiratory: no shortness of breath. Heme/Lymph: denies easy bleeding tendency, denies easy bruising tendency. Psychiatric: no confusion, no anxiety. Genitourinary: denies dysuria, denies hematuria, denies discharge, denies urinary frequency, denies urinary hesitancy, denies nocturia, denies incontinence, denies genital sores, denies decreased libido, and denies erectile dysfunction. Physical Exam Vitals & Measurements HR: 70(Peripheral) RR: 16 BP: 130/71 HT: 63 in HT: 160.3 cm WT: 71.3 kg WT: 156.86 lb BMI: 27.75 General Appearance: alert, no distress, well nourished, well developed male. Genitourinary: normal scrotum, normal testes, normal urethra, normal epididymis, normal vas deferens/spermatic cord. Flank Pain: none. Bladder: nonpalpable. Assessment/Plan 1. BPH with urinary obstruction (N40.1: Benign prostatic hyperplasia with lower urinary tract symptoms) S/p REZUM done 04/22/2017. Patient not currently taking any prostate medications. Pt very happy with results of Rezum procedure and has no urinary issues at this time. 2. Kidney stone (N20.0: Calculus of kidney) Latest KUB done 02/05/22 shows a few small calcifications within left kidney. No visible ureteral stones. Stable lower left pelvic calcification compatible w/ a phlebolith. US kidneys/bladder done the same day shows 9 x 8 x 6 mm echogenic structures suspected represent a nonobstructing stone within inferior pole. Minimal cortical thinning. Left kidney - mild hydro. Minimal cortical thinning. Pt states he was experiencing pain at the time of imaging done in January. States he ended up passing the stone. Continues Effer-K 20mEq BID therapy. Metabolic work up last done in 2015. I advised pt that we should repeat testing. Will move forward with met w/up. Pt will be notified of results. Follow up in 1 year w/ KUB. All questions/concerns were discussed. Pt. to call the office if heencounters any issues prior. Pt. acknowledges understanding. 3. Asymptomatic microscopic hematuria (R31.21: Asymptomatic microscopic hematuria) UA today shows SMALL blood. Denies gross hematuria. Pt aware to call our office if he would witness gross blood. Discussed w/ the pt. that there is a possibility that a stone is causing hematuria. Follow-up With When Contact Information TIANA CLAYTON, Sotero Mejia, URL [address] [place] [address]- Additional Instructions: 1 year w/ KUB Patient Education Kidney Stones, Ekfw-zj-Tyfi I, Carolyne Samuel, personally scribed for Dr. Stephen on 09/03/2022 09:46:45. . Documentation recorded by the scribe, Carolyne Samuel, accurately reflects the services(s) I performed and decisions made by me. Authenticated by Dr. Stephen on 09/03/2022 09:49:43. Problem List/Past Medical History Ongoing Allergic rhinitis Aortic insufficiency Aortic valve sclerosis Asymptomatic microscopic hematuria BMI 26.0-26.9,adult BPH with urinary obstruction CAD (coronary artery disease) Cervical disc disease Genital herpes Gout History of kidney stones Hyperlipidemia Hypertension Ischemic heart disease Kidney stone Lumbar spondylosis Microscopic hematuria Mitral valve prolapse Peyronie's disease Rectal bleeding Screening for malignant neoplasm of colon Urgency of urination Vitamin D deficiency Historical Epididymitis Procedure/Surgical History cysto w/ stent removal (03/20/2019), ESWL - Extracorporeal shockwave lithotripsy for renal calculus (09/11/2015), ESWL - Extracorporeal shockwave lithotripsy for david (more content not included)... Normal [facility] Comment on above: Result Comment: Elec tronically Signed By: Sotero STEPHEN MD\.br\Date and Time Signed: 09/03/22 09:50 EST\.br\Electronically Co-Signed By: Carolyne Samuel\.br\Date and Time Co-Signed: 09/03/22 09:47 EST Outside Colonoscopyon 2021 Outside Colonoscopy [id number] .00CD:127 Normal [facility] Lab Reportson 06-23-2022 Lab Reports [id number] .00CD:127 Normal [facility] Covid-19 PCR ([facility])on SARS-CoV-2 (COVID-19) RNA SILVIA+probe Ql (Unsp spec) Not detected Normal NOT DETECTED [facility] Comment on above: Result Comment: This test is not yet approved or cleared by the [place] FDA. When there are no FDA-approved or cleared tests available, and other criteria are met, FDA can make tests available under an emergency access mechanism called an Emergency Use Authorization (EUA). The EUA for this test is supported by the [employer] of Health and Human Service's (HHS's) declaration that circumstances exist to justify the emergency use of in vitro diagnostics for the detection and/or diagnosis of the virus that causes COVID-19. This EUA will remain in effect (meaning this test can be used) for the duration of the COVID-19 declaration justifying emergency of IVDs, unless it is terminated or revoked by FDA (after which the test may no longer be used). When diagnostic testing is negative, the possibility of a false negative should be considered in the context of a patient's recent exposures and the presence of clinical signs and symptoms consistent with SARS-CoV-2. Performed By: #### U YESI 24 #### [facility] [address] [place] [address] Dr. Miguel Angel Cassidy Consent for Procedure/Surger yon 06-02-2022 Consent for Procedure/Surgery [id number] .00CD:127 [facility] Ambulatory Visit Summaryon 1 08-01-2021 Ambulatory Visit Summary CHEY FREIRE :1940 Visit Date:06/01/2022 Ambulatory Visit Instructions Your Care Team Attending Physician - SERGIO CLAYTON, Holli Mejia Primary Care Physician - Ang Chilel MD Referring Physician - Ang Chilel MD This Is Your Medications List Contact prescribing physician if questions or concerns aspirin (aspirin 81 mg oral tablet) clopidogrel (Plavix 75 mg Tab) ergocalciferol (Vitamin D) lovastatin (lovastatin 40 mg oral tablet) metoprolol (Metoprolol tartrate 25 mg Tab) nitroglycerin (nitroglycerin 0.4 mg sublingual Tab) omega-3 polyunsaturated fatty acids ([employer] B[employer] Red Krill Oil) potassium bicarbonate (Effer-K 20 mEq oral tablet, effervescent) ubiquinone (CoQ10) Procedures Performed cysto w/ stent removal (03/20/2019), ESWL - Extracorporeal shockwave lithotripsy for renal calculus (09/11/2015), ESWL - Extracorporeal shockwave lithotripsy for renal calculus (04/03/2015), Placement of stent in cardiac conduit (2009), History of thoracic spine surgery, Kidney stone, Repair of left inguinal hernia, Tonsillectomy. Discharge Vitals Heart Rate (Peripheral) 68 Respiratory Rate 16 Blood Pressure 130/62 Height 160.3 cm Height 63 in Weight 67.4 kg Weight 148.28 lb BMI 26.23 What to do next Scheduled Follow-Up Appointments Tuesday 9:45 AM EST With: TIANA CLAYTON, Sotero Mejia Where: [facility] Physician Referralon 022 Physician Referral [id number] .00CD:127 [facility] RAD - MISCon 02-16-2022 RAD - MISC [id number] .00CD:127 Normal [facility] RAD - Ultrasound Reporton RAD - Ultrasound Report [id number] .00CD:127 Normal [facility] ECHOCARDIO M/2D COMPLETEon 0 02-10-2022 ECHOCARDIO M/2D COMPLETE Patient: CHEY FREIRE Exam Date: 02/10/2022 : 1940 Gender:M Ordering : DR LENKA DEUTSCH M.D. Admission #: [id number] Family : ANG CHILEL . Order #: [id number] CLICK HERE TO VIEW EXAM ECHOCARDIOGRAM REPORT PROCEDURE: CARDIO PULMONARY ECHOCARDIO M/2D COMP INDICATIONS: Mitral valve regurgitation, H/O Stent COMPARISON: None. DESCRIPTION: COMPLETE ECHOCARDIOGRAM Real-time transthoracic echocardiography with 2D, M-mode, spectral and color flow Doppler performed. QUALITY: Technical quality was good. 64 148# 130/46 HR 87 LEFT VENTRICLE: Normal chamber size. Normal left ventricular wall thickness. Global left ventricular systolic function is normal. No regional wall motion abnormalities. LV EF: Visual estimation of left ventricular ejection fraction is 65%. DIASTOLIC: Normal diastolic function. ATRIAL SEPTUM: LEFT ATRIUM: Moderate dilatation. RIGHT ATRIUM: Normal chamber size. RIGHT VENTRICLE: Normal chamber size. Normal right ventricular systolic function. TRICUSPID VALVE: Normal mobility and thickness. No stenosis with trivial regurgitation. Doppler studies reveal mildly (35-45) elevated right sided pressures. RVSP is 38 mmHg MITRAL VALVE: Normal mobility and thickness. No evidence of mitral valve stenosis. Mild mitral regurgitation. AORTIC VALVE: Normal trileaflet appearance. Severely calcified aortic valve. Doppler velocity suggest moderate aortic valve stenosis. Mean gradient 16 mmHg. Aortic valve area 1.3 cm?. DVI 0.42 AI jet/ LVOT 25%. Mild to moderate aortic regurgitation. AORTIC ROOT: Normal diameter and appearance. Ascending aorta is normal in size. PULMONIC VALVE: Not well visualized. No stenosis. Trivial regurgitation. PERICARDIUM: No evidence of pericardial effusion. IVC: Collapses with inspirations. IVC is normal in size. PLEURA: CONCLUSION: 1. Normal ventricular systolic function. LVEF is 65%. 2. Normal diastolic function. 3. Moderate aortic valve stenosis. 4. Mild to moderate aortic valve regurgitation. 5. Mild mitral regurgitation. 6. Mildly elevated right-sided pressures. Adult Echocardiography Procedure Report Left Ventricle Left Atrium Mitral Valve Right Ventricle Aorta Aortic Valve Peak Velocity (Antegrade Flow): 2.87 m/s, 2.88 m/s, 2.87 m/s, 2.88 m/s AoV Area (Peak Adolfo): 1.28 cm2, 1.28 cm2, 1.28 cm2, 1.28 cm2, 1.28 cm2, 1.28 cm2, 1.28 cm2, 1.28 cm2 AoV Area (VTI): 1.37 cm2, 1.37 cm2 Peak Velocity(Antegrade Flow): 2.88 m/s, 2.88 m/s Peak Gradient(Antegrade Flow): 33.20 mm[Hg], 33.20 mm[Hg] Mean Velocity(Antegrade Flow): 1.88 m/s Mean Gradient(Antegrade Flow): 16.27 mm[Hg] Velocity Time Integral: 62.70 cm Tricuspid Valve Peak Velocity (Regurgitant Flow): 2.94 m/s Peak Velocity: 0.36 m/s Pulmonic Valve PV Max Adolfo (0.6 - 0.9 m per sec): 0.85 m/s PV Max Gradient: 2.91 mm[Hg] Right Atrium Dictated by: Devang Daniel M.D. on 02/10/2022 at 15:45 Approved by: Devang Daniel M.D. on 02/10/2022 at 15:50 Normal [facility] US KIDNEYS BLADDERon 07-24-2 022 KIDNEYS BLADDER EXAMINATION: US KIDNEYS BLADDER HISTORY: Kidney stone COMPARISON: No relevant comparison available. TECHNIQUE: Ultrasound examination was performed of the kidneys and urinary bladder. FINDINGS: RIGHT KIDNEY: 9 x 8 x 6 mm echogenic structures suspected represent a nonobstructing stone within inferior pole. Minimal cortical thinning. Color Doppler demonstrates blood flow within the kidney. Kidney: 9.8 x 5.1 x 5.7 cm LEFT KIDNEY: Mild hydronephrosis. No appreciable stones or mass. Minimal cortical thinning. Color Doppler demonstrates blood flow within the kidney. Kidney: 11.6 x 5.1 x 5.0 cm BLADDER: Wall thickness at upper limits of normal. No appreciable focal wall thickening or mass.Prevoid volume: 173 mL. Post void residual: 17 mL URETERAL JETS: Visualized bilaterally. IMPRESSION: 1. Suspect nonobstructing right nephrolithiasis. 2. Mild left hydronephrosis without identifiable cause; possible ureteral stone. Consider CT imaging of the abdomen and pelvis without and with IV contrast for further evaluation. Electronically authenticated by: FAIZA ARECHIGA Date: 2022-02-07 08:09 Normal [facility] XR KUB 1 VIEWon 02-05-2022 XR KUB 1 VIEW EXAMINATION: XR KUB 1 VIEW HISTORY: Kidney stone ; bilateral flank pain COMPARISON: XR KUB 08/29/2021, 08/18/2020 FINDINGS: KIDNEY/URETER - RIGHT: No visible renal or ureteral calcifications. KIDNEY/URETER - LEFT: A few small calcifications within left kidney. PELVIS: No visible ureteral stones. Stable lower left pelvic calcification compatible with a phlebolith. BOWEL: No abnormal dilation or deviation. BONES: L1 compression fracture, grossly stable. OTHER: Negative. No abnormal gaseous collections. IMPRESSION: 1. Left nephrolithiasis, containing fewer calcifications than seen on the prior study. 2. No visible ureteral stones. 3. Limited evaluation due to dense overlying bowel content. Electronically authenticated by: FAIZA ARECHIGA Date: 2022-02-05 12:59 Normal [facility] Vital Signs Date Time Vital Sign Value Performing Clinician Juliette gamble 09-03-2022 09:18-0500 Blood Pressure Location Sotero STEPHEN [facility] 09-03-2022 09:18-0500 Diastolic blood pressure 71 mm[Hg] Sotero STEPHEN [facility] 09-03-2022 09:18-0500 Heart rate 70 /min Sotero STEPHEN [facility] 09-03-2022 09:18-0500 Respiratory rate 16 /min Sotero STEPHEN [facility] 09-03-2022 09:18-0500 Systolic blood pressure 130 mm[Hg] Sotero STEPHEN [facility] 06-01-2022 15:52-0500 Blood Pressure Location Holli BATEMAN [facility] 06-01-2022 15:52-0500 Diastolic blood pressure 62 mm[Hg] Holli BATEMAN [facility] 06-01-2022 15:52-0500 Heart rate 68 /min Holli BATEMAN [facility] 06-01-2022 15:52-0500 Respiratory rate 16 /min Holli BATEMAN [facility] 06-01-2022 15:52-0500 Systolic blood pressure 130 mm[Hg] Holli BATEMAN [facility] Encounters Encounter Date Encounter Type Care Provider Facility Start: 09-02-2023 ambulatory Sotero STEPHEN [facility] ty:[facility] Start: 04-06-2023 End: 04-06-[address] [facility] Start: 11-17-2022 End: 11-18-[address] ANG CHILEL . Facility:[facility] Start: 09-08-2022 End: 09-09-2022 ambulatory SOTERO STEPHEN Facility: Start: 09-03-2022 End: 09-04-2022 ambulatory Sotero STEPHEN Facility:[facility] Start: 09-03-2022 End: 09-03-2022 Patient encounter procedure Sotero STEPHEN [facility] Start: 06-26-2022 Encounter for preprocedural laboratory examination DR HOLLI Escalante [facility] Start: 06-25-2022 End: 06-26-2022 ambulatory Holli BATEMAN Facility:[id number] Start: 06-22-2022 End: 06-23-[address] HOLLI Escalante Facility:[facility] Start: 06-22-2022 End: 06-23-2022 Encounter for preprocedural laboratory examination DR HOLLI BATEMAN . Facility: Start: 06-01-2022 End: 06-02-2022 ambulatory Holli BATEMAN Facility: [facility] Start: 06-01-2022 End: 06-01-2022 Patient encounter procedure Holli BATEMAN [facility] Start: 05-27-2022 [facility] Start: 05-26-2022 ambulatory Sotero STEPHEN Facility : [facility] Start: 02-10-2022 End: 02-11-[address] LENKA DEUTSCH Facility: Start: 02-05-2022 End: 02-06-[address] ANG CHILEL . Facility: Start: 12-17-2021 End: 12-18-[address] ANG CHILEL . Facility: Procedures Date Procedure Procedure Detail Performing Clinician Start: 11-17-[address] MARIELA BATEMAN . Comment on above: Performed By: #### P [facility] #### [facility] [address] [place] [address] Dr. Miguel Angel Cassidy Start: 03-20-2019 cysto w/ stent removal Holli BATEMAN Start: 09-11-2015 Extracorporeal shock wave lithotripsy of calculus of kidney Holli BATEMAN Start: 04-03-2015 Extracorporeal shock wave lithotripsy of calculus of kidney Holli BATEMAN Start: 07-18-2009 Placement of stent i n cardiac conduit Holli BATEMAN History of operative procedure on thoracic spinal structure Holli KENTL Kidney stone (disorder) Flako BATEMAN Comment on above: Surgery per Dr. Webster Repair of left ingui nal hernia Holli BATEMAN Tonsillectomy Holli KENTL Immunizations Immunization Date Immunization Notes Care Provider Fa cility 07-18-2020 SARS-CoV-2 (COVID-19 ) [id number] vaccine Holli BATEMAN [facility] Comment on above: Result Comment: Pt s jordan he has had 3 shots to date but does not have his card for the dates today 03-10-2020 influenza virus vaccine, unspecified formulation Holli BATEMAN [facility] Payers Date Payer Category Payer Medicare [id number] 1957 Unknown [id number] 1940 Unknown [id number] 2.16.8 [id number] 1940 Unknown [id number] 2.16.8 [id number] 1942 Unknown [id number] 2.16.8 [id number] 1942 Unknown [id number] 2.16.8 [id number] 1942 Unknown [id number] 2.16.84 [id number] 1942 Unknown [id number] 2.16.84 [id number] 1942 Unknown [id number] 2.16.84 [id number] 1942 Unknown [id number] 2.16.84 [id number] 1942 Unknown [id number] 2.16.84 [id number] 1942 Unknown [id number] 2.16.84 [id number] 1942 Unknown [id number] 2.16.84 [id number] Social History Date Type Detail Facility Start: 06-01-2022 Tobacco smoking status Ex-smoker (fi nding) [facility] Tobacco smoking status Never [facility] Sex Assigned At Male [facility] Functional Status Date Assessment Result Facility 09-03-2022 Functional Status N/A [facility] 06-01-2022 Functional Status N/A [facility] Progress note 04-06-2023 Note Date & Type Note Facility 04-06-2023 Note [facility] Note Chief Complaint: Patient here for 1 year follow up aortic valve disorder, CAD, and mitral valve regurgitation. Had echo last month. He walks an hour on his treadmill every morning. Doing great. Denies chest pain, SOB, and palpitations. HPI: Chey Freire is a 82 y.o. male with a history of coronary artery disease and prior stent placement as well as valvular heart disease here in routine follow-up He is doing well and has no new cardiac Cardiology ROS: Review of Systems All other systems reviewed and are negative. Past Medical History He has no past medical history on file. Surgical History He has no past surgical history on file. Social History He has no history on file for tobacco use, alcohol use, and drug use. Family History No family history on file. Allergies Patient has no allergy information on record. Medications No current outpatient medications on file. Last Recorded Vitals BP 147/56 (BP Location: Left arm, Patient Position: Sitting) Pulse (!) 48 Ht 1.626 m (5' 4 ) Wt 63.5 kg (140 lb) SpO2 99% BMI 24.03 kg/m??? Physical Examination: GENERAL: alert and oriented x3, well developed, in no acute distress. HEAD: atraumatic, normocephalic. EYES: JEANIE, EOMI. NECK: trachea midline, no JVD present, no carotid bruits present. CARDIAC: S1, S2 present. RRR. No murmur, rubs, or gallops. RESPIRATORY: CTAB, no increased effort of breathing, no rales, rhonchi, or wheezing. ABDOMEN: soft, nontender, nondistended. EXTREMITIES: no lower extremity edema, peripheral pulses are 2+ bilaterally. No rash/skin discoloration present. NEURO: strength/sensation equal and symmetric in bilateral upper and lower extremities. PSYCH: appropriate mood, affect, and judgement. Investigations: Echocardiogram 01/12/2019 Global left ventricular systolic function is normal. Normal right ventricular systolic function. Mild to moderate right regurgitation. Mild aortic valve stenosis. Mild aortic valve regurgitation. Doppler study suggest normal right-sided pressures. Treadmill stress test 12/17/2020 SUMMARY: Myocardial perfusion imaging study is NORMAL. CONCLUSION: 1. No reversible ischemia, normal myocardial profusion scan 2. Abnormal exercise test secondary to EKG changes Echocardiogram 02/10/2022: CONCLUSION: 1. Normal ventricular systolic function. LVEF is 65%. 2. Normal diastolic function. 3. Moderate aortic valve stenosis. 4. Mild to moderate aortic valve regurgitation. 5. Mild mitral regurgitation. 6. Mildly elevated right-sided pressures. Echocardiogram 03/07/2023: Global left ventricular systolic function is normal; EF 60 to 65%. Borderline left ventricular hypertrophy. Diastolic function is indeterminate. Biatrial enlargement. The right ventricle is normal in size and systolic function. Mild tricuspid regurgitation. Mildly elevated right ventricular systolic pressure. Mild to moderate mitral regurgitation. Mild to moderate aortic valve stenosis. Moderate aortic valve regurgitation. Assessment: 1. Coronary atherosclerosis - S/p PCI/stents I25.10: Atherosclerotic heart disease of [place] coronary artery without angina pectoris 2. 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 Mitral valve regurgitation - Mild to moderate 2018 I34.0: Nonrheumatic mitral (valve) insufficiency MITRAL VALVE REGURGITATION: CARE INSTRUCTIONS 4. Systolic murmur R01.1: Cardiac murmur, unspecified 5. Cardiovascular stress test abnormal - EKG changes, normal perfusion R94.39: Abnormal result of other cardiovascular function study Plan: Continue medical therapy for coronary artery disease including aspirin, statin, and a beta-mat It has been a number of years since his stent placement; we can discontinue his Plavix He will need serial monitoring for his valvular heart disease; we will repeat an echocardiogram in a year or sooner should he have any worsening symptoms Return to clinic in 1 year or sooner should problems arise Lenka Deutsch MD, MPH, FACC, [facility], [facility] Interventional Cardiology Pager Email: [email or web address] Discharge instructions 09-03-2022 Note Date & Type Note Facility 09-03-2022 Hospital Discharg e instructions Patient Education 09/03/2022 09:39:28 Kidney Stones, [id number] Kidney Stones Kidney stones are rock-like masses that form inside of the kidneys. Kidneys are organs that make pee (urine). A kidney stone may move into other parts of the urinary tract, including: The tubes that connect the kidneys to the bladder (ureters). The bladder. The tube that carries urine out of the body (urethra). Kidney stones can cause very bad pain and can block the flow of pee. The stone usually leaves your body (passes) through your pee. You may need to have a doctor take out the stone. What are the causes? Kidney stones may be caused by: A condition in which certain glands make too much parathyroid hormone (primary hyperparathyroidism). A buildup of a type of crystals in the bladder made of a chemical called uric acid. The body makes uric acid when you eat certain foods. Narrowing (stricture) of one or both of the ureters. A kidney blockage that you were born with. Past surgery on the kidney or the ureters, such as gastric bypass surgery. What increases the risk? You are more likely to develop this condition if: You have had a kidney stone in the past. You have a family history of kidney stones. You do not drink enough water. You eat a diet that is high in protein, salt (sodium), or sugar. You are overweight or very overweight (obese). What are the signs or symptoms? Symptoms of a kidney stone may include: Pain in the side of the belly, right below the ribs (flank pain). Pain usually spreads (radiates) to the groin. Needing to pee often or right away (urgently). Pain when going pee (urinating). Blood in your pee (hematuria). Feeling like you may vomit (nauseous). Vomiting. Fever and chills. How is this treated? Treatment depends on the size, location, and makeup of the kidney stones. The stones will often pass out of the body through peeing. You may need to: Drink more fluid to help pass the stone. In some cases, you may be given fluids through an IV tube put into one of your veins at the hospital. Take medicine for pain. Make changes in your diet to help keep kidney stones from coming back. Sometimes, medical procedures are needed to remove a kidney stone. This may involve: A procedure to break up kidney stones using a beam of light (laser) or shock waves. Surgery to remove the kidney stones. Follow these instructions at home: Medicines Take qzjs-oov-auityfy and prescription medicines only as told by your doctor. Ask your doctor if the medicine prescribed to you requires you to avoid driving or using heavy machinery. Eating and drinking Drink enough fluid to keep your pee pale yellow. You may be told to drink at least 8 10 glasses of water each day. This will help you pass the stone. If told by your doctor, change your diet. This may include: ?Limiting how much salt you eat. ?Eating more fruits and vegetables. ?Limiting how much meat, poultry, fish, and eggs you eat. Follow instructions from your doctor about eating or drinking restrictions. General instructions Collect pee samples as told by your doctor. You may need to collect a pee sample: ?24 hours after a stone comes out. ?8 12 weeks after a stone comes out, and every 6 12 months after that. Strain your pee every time you pee (urinate), for as long as told. Use the strainer that your doctor recommends. Do not throw out the stone. Keep it so that it can be tested by your doctor. Keep all follow-up visits as told by your doctor. This is important. You may need follow-up tests. How is this prevented? To prevent another kidney stone: Drink enough fluid to keep your pee pale yellow. This is the best way to prevent kidney stones. Eat healthy foods. Avoid certain foods as told by your doctor. You may be told to eat less protein. Stay at a healthy weight. Where to find more information National Kidney Foundation (NKF): www.kidney.org [employer] (UCF): www.urologyhealth.org Contact a doctor if: You have pain that gets worse or does not get better with medicine. Get help right away if: You have a fever or chills. You get very bad pain. You get new pain in your belly (abdomen). You pass out (faint). You cannot pee. Summary Kidney stones are rock-like masses that form inside of the kidneys. Kidney stones can cause very bad pain and can block the flow of pee. The stones will often pass out of the body through peeing. Drink enough fluid to keep your pee pale yellow. This information is not intended to replace advice given to you by your health care provider. Make sure you discuss any questions you have with your health care provider. Document Released: 12/20/2008 Document Revised: 11/20/2019 Document Reviewed: 11/20/2019 [employer] Patient Education 2019 [employer]. Follow Up Care 08/31/2021 10:41:08 With:TIANA CLAYTON, Sotero Mejia, URL Address: [address] [place] [id number] When: Unknown [facility] Clinical Note 06-25-2022 Note Date & Type Note Facility 06-25-2022 Note OPERATIVE NOTE OPERATION DATE: 06/25/2022 PREOPERATIVE DIAGNOSIS: Colorectal screening. POSTOPERATIVE DIAGNOSIS: Normal colon. PROCEDURE: Colonoscopy to cecum. SURGEON: Holli Bateman M.D. ANESTHESIA: Monitored anesthesia care. ESTIMATED BLOOD LOSS: Zero. INDICATIONS AND CONSENT: Patient is an 82-year-old male who presents for colorectal screening. Indications, risks, benefits, alternatives of proceeding with colonoscopy were explained extensively to the patient, including the risks of bleeding, colon perforation or anesthetic complications. All of his questions were answered. Informed consent was obtained. PROCEDURE: Patient brought to the operating room, placed in the left lateral decubitus position. Monitored anesthesia care was provided. Rectal exam was performed which showed no masses or blood. The scope was inserted into the anal canal. Under direct visualization was advanced. It was advanced to the cecum where cecal markings were clearly identified. There was noted to be a good prep. Upon withdrawal of the scope, mucosal surfaces were carefully examined. There were no mass lesions or polyps. No inflammatory changes or ulcerations. No significant diverticulosis. The scope was retroflexed in the anal canal. There was no significant hemorrhoidal disease. Scope was then withdrawn. Patient tolerated procedure well, was sent to recovery room in good condition. Patient should not require further screening. CC: Ang Chilel M.D. [facility] Clinical Note 06-01-2022 Note Date & Type Note Facility 06-01-2022 Note Chief Complaint consultation for rectal bleeding HPI Staff 81 year old male presents on consultation from Dr. Chilel for rectal bleeding. Reports one time episode of blood on toilet tissue with wiping after straining for bowel movement. Denies abdominal or rectal pain. No change in bowel habits. No nausea or vomiting. No unexplained weight loss. Last colonoscopy completed 01/2011, for complaint of rectal bleeding, was normal. No known family history of colon cancer. History of Present Illness 81 yo male with h/o CAD, htn, hyperlipidemia, referred for colorectal screening; had one episode of minimal blood on toilet paper after episodes of diarrhea; none since, no melena or hematochezia; no abdominal complaints; on plavix and baby asa daily; no NSAIDs; last colonoscopy 2010, wnl; abdominal operations significant for LIHR; no fmhx of GI malignancy or IBD. no tobacco use. Review of Systems PHQ Score Initial Depression Screen Score: 0 ROS - Provider Constitutional: no fever, no sweats, no weight loss. Eyes: no glasses, no blurred vision, no visual loss. ENMT: no dentures, no hoarseness, no swallowing difficulties, no hearing loss, no ear infection(s), no nose bleeds. Cardiovascular: normal blood pressure, no chest pain, regular heartbeat, no heart murmur. Respiratory: no shortness of breath, no cough, no asthma, no wheezing. Gastrointestinal: no nausea, no vomiting, no diarrhea, no constipation, no blood in stool, no change in bowel habits, no abdominal pain, no hepatitis. Genitourinary: no kidney stones, no urine infection, no dysuria. Musculoskeletal: no pain, no weakness. Skin: no changing moles, no rash, no skin lumps. Neurologic: no seizures, no epilepsy, no headache. Psychiatric: no emotional or psychiatric problem. Heme/Lymph: no bleeding problems, no anemia, no blood clots, no transfusions. Allergy/Immunologic: no swollen lymph nodes/glands, no IV drug abuse. Other: Additional ROS info: Except as noted in the above Review of Systems and in the History of Present Illness, all other systems have been reviewed and are negative or noncontributory. Physical Exam Vitals & Measurements HR: 68(Peripheral) RR: 16 BP: 130/62 HT: 63 in HT: 160.3 cm WT: 67.4 kg WT: 148.28 lb BMI: 26.23 HEENT: normal conjunctiva, sclera clear, no scleral icterus, EOM intact, PERRLA, oral mucosa moist without lesions. Neck: trachea midline, no mass, symmetric, no thyromegaly or nodules, no adenopathy Respiratory: lungs CTA, respirations non labored. Cardiovascular: regular rate and rhythm, no murmur, no pedal edema or varicosities. Gastrointestinal: soft, non distended, no tenderness, no masses, no palpable hernias, diastasis recti no, no hepatosplenomegaly; normal bs Lymphatic: no cervical adenopathy, no axillary adenopathy, no inguinal adenopathy. Musculoskeletal: normal gait, digits and nails without infection, nodes, cyanosis, clubbing. Skin: no rashes, no lesions, no ulcers, no subcutaneous nodules, induration. Psychiatric/Neuro: oriented to time, place, person, judgement normal, affect appropriate for age, insight intact, no focal deficits. Tests: review of old records completed, Discussed surgical options, risks, and possible complications with patient. Assessment/Plan 1. Screening for malignant neoplasm of colon (Z12.11: Encounter for screening for malignant neoplasm of colon) plan colonoscopy under anesthesia, informed consent obtained. Follow-up No qualifying data available Problem List/Past Medical History Ongoing Allergic rhinitis Aortic insufficiency Aortic valve sclerosis BMI 26.0-26.9,adult BPH with urinary obstruction CAD (coronary artery disease) Cervical disc disease Genital herpes Gout History of kidney stones Hyperlipidemia Hypertension Ischemic heart disease Kidney stone Lumbar spondylosis Microscopic hematuria Mitral valve prolapse Peyronie's disease Rectal bleeding Screening for malignant neoplasm of colon Urgency of urination Vitamin D deficiency Historical Epididymitis Procedure/Surgical History cysto w/ stent removal (03/20/2019), ESWL - Extracorporeal shockwave lithotripsy for renal calculus (09/11/2015), ESWL - Extracorporeal shockwave lithotripsy for renal calculus (04/03/2015), Placement of stent in cardiac conduit (2009), History of thoracic spine surgery, Kidney stone, Repair of left inguinal hernia, Tonsillectomy. Medications aspirin 81 mg oral tablet, 81 mg= 1 tab(s), Oral, Daily CoQ10, Oral, Daily Effer-K 20 mEq oral tablet, effervescent, 20 mEq= 1 tab(s), Oral, BID, 11 refills lovastatin 40 mg oral tablet Metoprolol tartrate 25 mg Tab, 12.5 mg= 0.5 tab(s), Oral, BID Nature's Bounty Red Krill Oil, 1 mg, Oral, Daily nitroglycerin 0.4 mg sublingual Tab, 0.4 mg= 1 tab(s), SubLingual, q5min, PRN Plavix 75 mg Tab, 75 mg= 1 tab(s), Oral, Daily Vitamin D, Oral Allergies No Known Allergies Social History Alcohol - Denies Alcohol Use, (more content not included)... [facility] Comment on above: Result Comment: Elec tronically Signed By: SERGIO CLAYTON, Holli Carballo.felipe\Date and Time Signed: 06/01/22 17:30 EST Clinical Note 12-17-2021 Note Date & Type Note Facility 12-17-2021 Note PROCEDURE: XR SHOULD ER LT 2V or > HISTORY: Pain of left shoulder joint ; chronic lateral shoulder pain at muscle insertion COMPARISON: None. FINDINGS: BONES:Mild degenerative change of the glenohumeral joint without fracture or dislocation. Narrowing of the acromioclavicular joint with small undersurface osteophytes. SOFT TISSUES:No visible soft tissue swelling. EFFUSION:None visible. OTHER: Negative. IMPRESSION: 1. Mild-moderate degenerative changes of the left shoulder without acute or suspicious bone abnormality. 2. Consider MRI of the left shoulder for possible soft tissue injury if symptoms persist. Electronically authenticated by: FAIZA ARECHIGA Date: 2021-12-17 17:22 [facility] Evaluation + Plan note Note Date & Type Note Facility Evaluation + Plan note Future Appointments Appointment Date:09/03/2022 09:45:00 AM Scheduled Provider:Sotero STEPHEN MD Location:[facility] Appointment Type:URO Office Visit General [facility] Evaluation + Plan note Note Date & Type Note Facility Evaluation + Plan note Future Appointments Appointment Date:09/02/2023 09:30:00 AM Scheduled Provider:Sotero STEPHEN MD Location:[facility] Appointment Type:URO Office Visit [facility] Hospital course Narrative Note Date & Type Note Facility Hospital course Narrative No data available for this section [facility] Discharge instructions Note Date & Type Note Facility Hospital Discharge instructions No data available for this section [facility] note Note Date & Type Note Facility Progress note No data available for this section [facility] Summary Purpose Family History No Family History Records FoundNo Family History Records FoundNo Family History Records Found Advance Directives No Advanced Directives Records FoundNo Advanced Directives Records FoundNo Advanced Directives Records Found Additional Source Comments Patient Care team informatio n (unrecognized section and content) Personnel Name: Ang Chilel MD Address: Address: [address] [place] [address] (unrecognized sect ion and content) No Status Records FoundNo Status Records FoundNo Status Records Found INFORMATION SOURCE (unrecogn ized section and content) DATE CREATED AUTHOR 09/26/2022 [facility] DATE CREATED AUTHOR AUTHOR'S ORGANIZ ATION 11/25/2022 [facility] DATE CREATED AUTHOR AUTHOR'S ORGANIZ ATION 04/22/2023 [facility] FOR RECORDS PERTAINING TO PATIENTS WHO ARE OR HAVE BEEN ENROLLED IN A CHEMICAL DEPENDENCY/SUBSTANCEABUSE PROGRAM, SOME INFORMATION MAY BE OMITTED. This clinical summary was aggregated from multiple sources. Caution should be exercised in using it in the provision of clinical care. This summary normalizes information from multiple sources, and as a consequence, information in this document may materially change the coding, format and clinical context of patient data. In addition, data may be omitted in some cases. CLINICAL DECISIONS SHOULD BE BASED ON THE PRIMARY CLINICAL RECORDS. [facility] [employer] [facility]. provides no warranty or guarantee of the accuracy or completeness of information in this document.
--- NOTE | 2023-08-31 10:42 | XR_ITS ---
The [address] [address] Patient Name: CHEY DAVENPORT MRN: [id number] date: 1940 Sex: M Assigned Patient Location: RAD Current Patient Location: [facility] Accession/Order Number: [id number] Exam Date: 08/31/2023 10:38 Report Date: 08/31/2023 21:36 At the request of: PAPO MONTIEL Procedure: XR abdomen 1V EXAM: XR abdomen 1V CLINICAL INDICATION: Kidney Stones N20.0 COMPARISON: None TECHNIQUE: 1 supine view(s) of the abdomen FINDINGS: Bowel: There is a nonobstructive bowel gas pattern. Mild diffuse colonic stool burden. Peritoneum: No evidence of pneumoperitoneum noting limited evaluation on supine view. Osseous/calcific structures: Probable 5 mm lower pole left renal calculus. Evaluation for urinary calculi is limited due to overlying bowel contents. XR/XR abdomen 1V IMPRESSION: Probable 5 mm lower pole left renal calculus. Evaluation for urinary calculi is limited due to overlying bowel contents. Nonspecific bowel gas pattern without signs of obstruction. Mild diffuse colonic stool burden may reflect constipation. Electronically authenticated by: CATRINA OG Date: 08/31/2023 21:36
== END 2023-08-31 10:31 | disposition home or self-care (01) ==
LOC: RAD 10:31
PROVIDERS: PCP Family Medicine; Visit Provider Urology
DX: N20.0 Calculus of kidney (principal)
CPT/HCPCS: 74018

== ENCOUNTER 2024-03-13 13:32 | Outpatient (OUT) | payer MEDICARE, OTHER, SELFPAY ==
--- NOTE | 2024-03-13 | VEIN_ITS ---
The [address] [address] Patient Name: CHEY DAVENPORT MRN: [id number] date: 1940 Sex: M Assigned Patient Location: Current Patient Location: Accession/Order Number: [id number] Exam Date: 03/13/2024 13:48 Report Date: 03/13/2024 18:35 At the request of: ANG HI Procedure: VC SEGMENTAL PRESSURES EXAM: VC SEGMENTAL PRESSURES HISTORY: R09.89 peripheral vascular disease. Rest pain. COMPARISON: None TECHNIQUE: Resting ABIs and segmental limb pressures. FINDINGS: Right resting ZOEY 1.34. Left resting ZOEY 1.26. Waveforms multiphasic. Toe brachial indices are normal. No pressure gradients were demonstrated. VEIN/VC SEGMENTAL PRESSURES IMPRESSION: Normal resting ABIs. No pressure gradients. Electronically authenticated by: Roger CARDONA Date: 03/13/2024 18:35
--- OUTSIDE RECORDS SUMMARY | 2024-03-13 13:49 | XMS_ITS | CCD ---
Author Organization [facility] CliniSynj Care Team Providers Care Security Compliance Engineer Name Role Phone Ang Chilel Primary Care Physician NILL ., DR DE LA GARZA Admitting [...] Consulting Unavailable CAYETANO, VAUGHN MORENO Consulting Unava emigdioable GEMJOSE GUADALUPE, MERI Consulting Unavailable HOY ., DR FRY [...] Unavailable SOTERO STEPHEN Attending Unavailable SOTERO STEPHEN Unavailable HOY ., DR FRY Primary Care Unavailable HOY ., DR FRY Admitting Unavailable HOY ., DR FRY Attending Unavailable HOY ., DR FRY Consulting Unavailable HOY ., DR FRY Admitting Unavailable HOY ., DR FRY Attending Unavailable HOY ., DR RFY Consulting Unavailable HOY ., DR FRY Primary Care Unavailable FAIZA ARECHIGA Consulting Unavailable ELTAHAWLENKA Giles Attending Unavailable Sotero STEPHEN Attending Unavailable Sotero STEPHEN Attending Unavailable Medications Current Medications Medication Drug Class(es) Dates Sig (Normalized) Sig (Original) aspirin 81 mg oral tablet (3 sources) Platelet Aggregation Inhibitor, Nonsteroidal Anti-inflammatory Drug [...] Daily Start Date: 01/29/19 Status: Ordered CoQ10 (3 sources) Start: 01-29-2019 take 1 mg by mouth once daily CoQ10 mg, Oral, Daily Start Date: 01/29/19 Status: Ordered lovastatin 40 mg oral tablet (3 sources) HMG-CoA Reductase Inhibitor Start: 01-29-2019 take 2 tablets by mouth once daily for hyperlipidemia lovastatin 40 mg oral tablet TAKE 2 TABLETS BY MOUTH ONCE DAILY FOR CHOLESTEROL Start Date: 01/29/19 Status: Ordered metoprolol tartrate 25 mg oral tablet (3 sources) beta-Adrenergic Mat Start: 05-27-2022 Metoprolol tartrate 25 mg Tab 12.5 mg = 0.5 tab(s), Oral, BID, Refills(s) 0 Start Date: 05/27/22 Status: Ordered Nature's Bounty Red Krill Oil (3 sources) Start: 01-29-2019 take 1 mg by mouth once daily Nature's Bounty Red Krill Oil 1 mg, Oral, Daily Start Date: 01/29/19 Status: Ordered nitroglycerin 0.4 mg sublingual tablet (3 sources) Nitrate Vasodilator Start: 05-27-2022 nitroglycerin 0.4 mg sublingual Tab 0.4 mg = 1 tab(s), SubLingual, q5min, PRN for chest pain, Refills(s) 0 Start Date: 05/27/22 Status: Ordered Vitamin D (3 sources) Start: 01-29-2019 Vitamin D Oral Start Date: 01/29/19 Status: Ordered Completed/Discontinued Medications Medication Drug Class(es) Dates Sig (Normalized) Sig (Original) potassium bicarbonate 20 meq effervescent oral tablet (3 sources) Start: 09-02-2023 take 1 tablet by mouth twice daily Effer-K 20 mEq oral tablet, effervescent 20 mEq = 1 tab(s), Oral, BID, # 60 tab(s), Refills(s) 11, DAGO, Pharmacy: [facility], 160, cm, 09/02/23 10:00:00 EST, Height/Length Dosing, 63.2, kg, 09/02/23 10:00:00 EST, Weight Dosing Start Date: 09/02/23 Status: Ordered Start: 05-17-2022 take 1 tablet by kassidy twice daily Effer-K 20 mEq oral tablet, effervescent 20 mEq = 1 tab(s), Oral, BID, # 60 tab(s), Refills(s) 11, DAGO, Pharmacy: [facility], 160.3, cm, 08/31/21 9:38:00 EST, Height/Length Dosing, 71, kg, 08/31/21 9:38:00 EST, Weight Dosing Start Date: 05/17/22 Status: Ordered Problems Active Problems Problem Classification Problem Date Documented Da te Episodic/Chronic Calculus of urinary tract (12 sources) History of calculus of kidney; Translations: [Kidney stone] Onset: 09-03-2022 08-18-2020 Episodic Coronary atherosclerosis and other heart disease (9 sources) Coronary arteriosclerosis; Translations: [Ischemic heart disease] Onset: 07-01-2022 05-27-2022 Chronic Disorders of lipid metabolism (5 sources) Hyperlipidemia; Translations: [Pure hypercholesterolemi a, unspecified] Onset: 07-01-2022 01-29-2019 Chronic Essential hypertension (4 sources) Hypertensive disorder; Translations: [Essential (primary) hypertension] Onset: 07-01-2022 01-29-2019 Chronic Gastrointestinal hemorrhage (3 sources) Rectal hemorrhage 05-27-2022 Episodic Genitourinary symptoms and ill-defined conditions (8 sources) Microscopic hematuria; Translations: [Urgent desire to urinate] Onset: 09-03-2022 08-18-2020 Episodic Gout and other crystal arthropathies (3 sources) Gout 05-27-2022 Chronic Heart valve disorders (13 sources) Aortic valve regurgitation; Translations: [Aortic valve sclerosis] Onset: 02-10-2022 05-27-2022 Chronic Hyperplasia of prostate (5 sources) Benign prostatic hypertrophy with outflow obstruction; Translations: [Benign prostatic hyperplasia with lower urinary tract symptoms] Onset: 09-03-2022 12-23-2018 Chronic Malaise and fatigue (4 sources) Chronic fatigue, unspecified; Translations: [CHRONIC FATIGUE UNSPECIFIED] Onset: 11-17-2022 Chronic Nutritional deficiencies (3 sources) Vitamin D deficiency 05-27-2022 Chronic Other male genital disorders (3 sources) 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 Other nutritional; endocrine; and metabolic disorders (3 sources) Overweight in adulthood with body mass index of 25 or more but less than 30 06-01-2022 Episodic Other screening for suspected conditions (not mental disorders or infectious disease) (6 sources) Screening for malignant neoplasm of colon done; Translations: [Encounter for screening for malignant neoplasm of colon] Onset: 06-01-2022 Episodic Other upper respiratory disease (3 sources) Allergic rhinitis 05-27-2022 Chronic Spondylosis; intervertebral disc disorders; other back problems (6 sources) Cervical disc disorder; Translations: [Lumbar spondylosis] 05-27-2022 Chronic Unclassified (3 sources) Patient encounter status 06-01-2022 Unclassified (2 sources) Asymptomatic microscopic hematuria 09-03-2022 Unclassified (1 source) CONTACT W/AND (SUSP) EXPOS COVID-19; Translations: [CONTACT W/AND (SUSP) EXPOS COVID-19] Onset: 06-26-2022 Viral infection (3 sources) Genital herpes simplex 05-27-2022 Chronic Past or Other Problems Problem Classification Problem Date Documented Da te Episodic/Chronic Inflammatory conditions of male genital organs (3 sources) Epididymitis Resolved: 01-29-2019 01-29-2019 Episodic Other aftercare (1 source) senior living (current) use of antithrombotics/ant iplatelets; Translations: [CHILLER OPERATOR ANTITHROMBOT/ANTIPL ATLETS] Onset: 07-01-2022 Episodic Other aftercare (1 source) senior living (current) use of aspirin; Translations: [CHILLER OPERATOR CURRENT USE OF ASPIRIN] Onset: 07-01-2022 Episodic Other aftercare (1 source) Other senior living (current) drug therapy; Translations: [OTH CHILLER OPERATOR CURRENT DRUG THERAPY] Onset: 07-01-2022 Episodic Other non-traumatic joint disorders (4 sources) Pain in left shoulder; Translations: [PAIN IN LEFT SHOULDER] Onset: 12-17-2021 Episodic Screening and history of mental health and substance abuse codes (1 source) Personal history of nicotine dependence; Translations: [PERSONAL HISTORY OF NICOTINE DEPEND] Onset: 07-01-2022 Episodic Results Test Name Value Interpretation Reference Range Facility Ambulatory Visit Summaryon 0 09-02-2023 Ambulatory Visit Summary CHEY FREIRE :1940 Visit Date:09/02/2023 Ambulatory Visit Instructions Your Diagnosis BPH with urinary obstruction Kidney stone Asymptomatic microscopic hematuria Tests Performed XR Abdomen 1 View -- Results Pending [...] concerns aspirin (aspirin 81 mg oral tablet) ergocalciferol (Vitamin D) lovastatin (lovastatin 40 mg [...] hernia, Tonsillectomy. Discharge Vitals Heart Rate (Peripheral) 65 Respiratory Rate 16 Blood Pressure 122/64 Height 160.0 cm Height 63 in Weight 63.2 kg Weight 139.04 lb BMI 24.69 What to do next Scheduled Follow-Up Appointments Tuesday 9:45 AM EST With: Sotero STEPHEN MD Where: [facility] Patient Educationon 09-02-19 24 Patient Education Nephrology Dietary Guidelines to Help Prevent Kidney Stones Kidney stones are deposits of minerals and salts that form inside your kidneys. Your risk of developing kidney stones may be greater depending on your diet, your lifestyle, the medicines you take, and whether you have certain medical conditions. Most people can lower their risks of developing kidney stones by following these dietary guidelines. Your dietitian may give you more specific instructions depending on your overall health and the type of kidney stones you tend to develop. What are tips for following this plan? Reading food labels ? Choose foods with no salt added or low-salt labels. Limit your salt (sodium) intake to less than 1,500 mg a day. ? Choose foods with calcium for each meal and snack. Try to eat about 300 mg of calcium at each meal. Foods that contain 200?500 mg of calcium a serving include: ? 8 oz (237 mL) of milk, wopipxb-rmlnrvyagxwy-b airy milk, and calcium-fortifiedfruit juice. Calcium-fortified means that calcium has been added to these drinks. ? 8 oz (237 mL) of kefir, yogurt, and soy yogurt. ? 4 oz (114 g) of tofu. ? 1 oz (28 g) of cheese. ? 1 cup (150 g) of dried figs. ? 1 cup (91 g) of cooked broccoli. ? One 3 oz (85 g) can of sardines or mackerel. Most people need 1,000?1,500 mg of calcium a day. Talk to your dietitian about how much calcium is recommended for you. Shopping ? Buy plenty of fresh fruits and vegetables. Most people do not need to avoid fruits and vegetables, even if these foods contain nutrients that may contribute to kidney stones. ? When shopping for convenience foods, choose: ? Whole pieces of fruit. ? Pre-made salads with dressing on the side. ? Low-fat fruit and yogurt smoothies. ? Avoid buying frozen meals or prepared deli foods. These can be high in sodium. ? Look for foods with live cultures, such as yogurt and kefir. ? Choose high-fiber grains, such as whole-wheat breads, oat bran, and wheat cereals. Cooking ? Do not add salt to food when cooking. Place a salt shaker on the table and allow each person to add their own salt to taste. ? Use vegetable protein, such as beans, textured vegetable protein (TVP), or tofu, instead of meat in pasta, casseroles, and soups. Meal planning ? Eat less salt, if told by your dietitian. To do this: ? Avoid eating processed or pre-made food. ? Avoid eating fast food. ? Eat less animal protein, including cheese, meat, poultry, or fish, if told by your dietitian. To do this: ? Limit the number of times you have meat, poultry, fish, or cheese each week. Eat a diet free of meat at least 2 days a week. ? Eat only one serving each day of meat, poultry, fish, or seafood. ? When you prepare animal proteins, cut pieces into small portion sizes. For most meat and fish, one serving is about the size of the palm of your hand. ? Eat at least five servings of fresh fruits and vegetables each day. To do this: ? Keep fruits and vegetables on hand for snacks. ? Eat one piece of fruit or a handful of berries with breakfast. ? Have a salad and fruit at lunch. ? Have two kinds of vegetables at dinner. ? You may be told to limit foods that are high in a substance called oxalate. These include: ? Spinach (cooked), rhubarb, beets, sweet potatoes, and [place]er chard. ? Peanuts. ? Potato chips, nepali fries, and baked potatoes with skin on. ? Nuts and nut products. ? Chocolate. ? If you regularly take a diuretic medicine, make sure to eat at least 1 or 2 servings of fruits or vegetables that are high in potassium each day. These include: ? Avocado. ? Banana. ? [place], prune, carrot, or tomato juice. ? Baked potato. ? Cabbage. ? Beans and split peas. Lifestyle ? Drink enough fluid to keep your urine pale yellow. This is the most important thing you can do. Spread your fluid intake throughout the day. ? If you drink alcohol: ? Limit how much you have to: ? 0?1 drink a day for women who are not . ? 0?2 drinks a day for men. ? Know how much alcohol is in your drink. In the [place] one drink equals one 12 oz bottle of beer (355 mL), one 5 oz glass of wine (148 mL), or one 1? oz glass of hard liquor (44 mL). ? Lose weight if told by your health care provider. Work with your dietitian to find an eating plan and weight loss strategies that work best for you. General information ? Talk to your health care provider and dietitian about taking daily supplements. Depending on your health and the cause of your kidney stones, you may be told: ? Do not take high-dose supplements of vitamin C (1,000 mg a day or more). ? To take a calcium supplement. ? To take a daily probiotic supplement. ? To take other supplements such as magnesium, fish oil, or vitamin B6. ? Take sqcw-lku-tytgrdb and prescription medicines only as told by your health care provider. These include supplements. What foods sh (more content not included)... Normal [facility] Urology Office/Clinic Noteon 09-02-2023 Urology Office/Clinic Note Chief Complaint kidney stone HPI Staff 83 yo male here for 1 yr f/u w/ KUB. Previous Dx: BPH with obstruction, kidney stone, microscopic hematuria. *Effer-K 20mEq bid S/p Rezum 04/22/17. Metabolic workup done 09/08/22. Results discussed over the phone, pt was advised to increase fluid intake given low urine volume. Dysuria: no Incomplete bladder emptying: no Hematuria: no Frequency: no Urgency: no Nocturia: pt does not get up Stream: no straining or intermittency Leaking: no Post void dripping: yes Wearing pads/ Depends: no Urge incontinence: no Stress incontinence: no Incontinence without Sensory Awareness: no Abdominal pain: no Flank pain: pt states he has a bad back Sexual complaints: no History of Present Illness Tests reviewed: reviewed UA and KUB. I have reviewed the previous health record information and history for this patient from Dr. Stephen. I have reviewed and verified the staff HPI to be accurate for this encounter. There have been no associated fever, chills, flank pain, or blood in the urine. Denies any urinary infections since last encounter. Review of Systems PHQ Score Initial Depression Screen Score: 0 SCORE ROS - Provider Constitutional: denies weight loss, denies hot flashes. Eyes: denies eye problems. Gastrointestinal: denies nausea, denies vomiting. Cardiovascular: denies chest pain or angina. Integumentary: no dryness Musculoskeletal: denies musculoskeletal symptoms. ENMT: denies otolaryngeal symptoms. Respiratory: no shortness of breath. Heme/Lymph: denies easy bleeding tendency, denies easy bruising tendency. Psychiatric: no confusion, no anxiety. Genitourinary: See HPI. Physical Exam Vitals & Measurements HR: 65(Peripheral) RR: 16 BP: 122/64 HT: 63 in HT: 160.0 cm WT: 63.2 kg WT: 139.04 lb BMI: 24.69 General Appearance: alert, no distress, well nourished, well developed male. Assessment/Plan 1. BPH with urinary obstruction (N40.1: Benign prostatic hyperplasia with lower urinary tract symptoms) S/p REZUM 04/22/17. Not taking any BPH meds. No urinary concerns. Very happy with REZUM. UA today negative. 2. Kidney stone (N20.0: Calculus of kidney) Hx of ESWL. Has passed stones on his own. Taking Effer-K 20mEq bid. Refill sent. Metabolic workup done 09/08/22. Results discussed over the phone, pt was advised to increase fluid intake given low urine volume. KUB 08/31/23 shows probable 5 mm lower pole left renal calculus. Eval is limited due to overlying bowel contents. Reports he more than likely passed a stone since last encounter. Denies pain currently. Will continue to monitor stone. -Continue Effer-K -KUB in 1 year 3. Asymptomatic microscopic hematuria (R31.21: Asymptomatic microscopic hematuria) UA today negative. Denies gross hematuria. Follow-up With When Contact Information TIANA CLAYTON, Sotero Mejia, [place] [id number]- Additional Instructions: 1 year with KUB Patient Education Dietary Guidelines to Help Prevent Kidney Stones Carolyne Morris, personally scribed for Dr. Stephen on 09/02/2023 11:01:27. . Documentation recorded by the scribeCarolyne, accurately reflects the services(s) I performed and decisions made by me. Authenticated by Dr. Stephen on 09/02/2023 11:04:42. Problem List/Past Medical History Ongoing Allergic rhinitis [...] 0.4 mg= 1 tab(s), SubLingual, q5min, PRN Vitamin D, Oral Allergies No Known Allergies Social History Alcohol - Denies Alcohol Use, 01/29/2019 Current, 1-2 times per year, 06/18/2019 Substance Abuse - Denies Substance Abuse, 06/01/2022 Tobacco (more content not included)... Normal [facility] Comment on above: Result Comment: Elec tronically Signed By: Sotero STEPHEN MD\.br\Date and Time Signed: 09/02/23 11:04 EST\.br\Electronically Co-Signed By: Carolyne Samuel.br\Date and Time Co-Signed: 09/02/23 11:01 EST RAD - MISCon 09-01-2023 RAD - MISC [id number] 20 [id number] [facility] Orders Onlyon 04-15-2023 Orders Only [id number] Chey Freire 1940 M Date Provider Department Center 04/15/2023 [facility] Family History Problem Relation Age of Onset Other Mother Hypertension Mother Heart attack Father Family Status - Relation Status Age at Mother Father Normal [facility] Office Visiton 04-06-2023 Follow-up visit [id number] Chey Freire 1940 M Date Provider Department Center 04/06/2023 Richi-TOMMYVIVIANAPAULAChanLENKA CARD [facility] Family History Problem Relation Age of Onset Other Mother Hypertension Mother Heart attack Father Family Status - Relation Status Age at Mother Father Level of Service:86187 SC OFFICE/OUTPATIENT ESTABLISHED LOW MDM 20-29 MIN Normal [facility] CBC AUTO DIFFon 11-17-2022 BASO # 0.0 103/ul Normal 0.0-0.1 [facility] Comment on above: Performed By: #### C BC #### [facility] [address] [place] [address] Dr. Miguel Angel Cassidy Basophils/100 WBC (Bld) 0.4 % Normal 0.2-2.0 [facility] Comment on above: Performed By: #### C BC #### [facility] [address] [place] [address] Dr. Miguel Angel Cassidy EO # 0.2 103/ul Normal 0.0-0.7 [facility] Comment on above: Performed By: #### C BC #### [facility] [address] [place] [address] Dr. Miguel Angel Cassidy Eosinophils/100 WBC (Bld) 2.4 % Normal 0.9-7.0 [facility] Comment on above: Performed By: #### C BC #### [facility] [address] [place] [address] Dr. Miguel Angel Cassidy Erythrocyte distribution width (RBC) [Ratio] 12.5 % Normal 11.0-15.0 [facility] Comment on above: Performed By: #### C BC #### [facility] [address] [place] [address] Dr. Miguel Angel Cassidy Hematocrit (Bld) [Volume fraction] 44.1 % Normal 42.0-54.0 [facility] Comment on above: Performed By: #### C BC #### [facility] [address] [place] [address] Dr. Miguel Angel Cassidy Hemoglobin (Bld) [Mass/Vol] 14.4 g/dL Normal 14.0-18.0 [facility] Comment on above: Performed By: #### C BC #### [facility] [address] [place] [address] Dr. Miguel Angel Cassidy IG # 0.02 10e3/ul Normal 0.00-0.03 [facility] Comment on above: Performed By: #### C BC #### [facility] [address] [place] [address] Dr. Miguel Angel Cassidy IG % 0.3 % Normal 0.0-0.5 [facility] Comment on above: Performed By: #### C BC #### [facility] [address] [place] [address] Dr. Miguel Angel Cassidy LYMPH # 3.0 103/ul Normal 1.2-3.8 [facility] Comment on above: Performed By: #### C BC #### [facility] [address] [place] [address] Dr. Miguel Angel Cassidy Lymphocytes/100 WBC (Bld) 38.3 % Normal 20.5-60.0 [facility] Comment on above: Performed By: #### C BC #### [facility] [address] [place] [address] Dr. Miguel Angel Cassidy MANUAL DIFF REQ NO Normal [facility] Comment on above: Performed By: #### C BC #### [facility] [address] [place] [address] Dr. Miguel Angel Cassidy MCH (RBC) [Entitic mass] 29.3 pg Normal 25.9-34.0 [facility] Comment on above: Performed By: #### C BC #### [facility] [address] [place] [address] Dr. Miguel Angel Cassidy MCHC (RBC) [Mass/Vol] 32.7 g/dL Normal 29.9-35.2 [facility] Comment on above: Performed By: #### C BC #### [facility] [address] [place] [address] Dr. Miguel Angel Cassidy MCV (RBC) [Entitic vol] 89.6 fL Normal 80.0-94.0 [facility] Comment on above: Performed By: #### C BC #### [facility] [address] [address] [address] Miguel Angel Cassidy MONO # 0.8 103/ul Normal 0.3-0.8 [facility] Comment on above: Performed By: #### C BC #### [facility] [address] [address] [address] Miguel Angel Cassidy Monocytes/100 WBC (Bld) 10.2 % Normal 1.7-12.0 [facility] Comment on above: Performed By: #### C BC #### [facility] [address] [place] [address] Dr. Miguel Angel Cassidy NEUT # 3.9 103/ul Normal 1.4-6.5 [facility] Comment on above: Performed By: #### C BC #### [facility] [address] [place] [address] Dr. Miguel Angel Cassidy Neutrophils/100 WBC (Bld) 48.4 % Normal 43.0-75.0 [facility] Comment on above: Performed By: #### C BC #### [facility] [address] [place] [address] Dr. Miguel Angel Cassidy Platelet mean volume (Bld) [Entitic vol] 11.6 fL Normal 9.5-13.5 [facility] Comment on above: Performed By: #### C BC #### [facility] [address] [place] [address] Dr. Miguel Angel Cassidy PLT 148 103/ul Critically low 150-450 [facility] Comment on above: Performed By: #### C BC #### [facility] [address] [place] [address] Dr. Miguel Angel Cassidy RBC 4.92 106/ul Normal 4.70-6.10 [facility] Comment on above: Performed By: #### C BC #### [facility] [address] [place] [address] Dr. Miguel Angel Cassidy WBC 7.9 103/ul Normal 4.0-11.0 [facility] Comment on above: Performed By: #### C BC #### [facility] [address] [address] [address] Miguel Angel Cassidy FREE THYROXINE INDEX T7on FTI 1.75 Normal 1.30-4.50 [facility] Comment on above: Performed By: #### U YESI 24 #### [facility] [address] [place] [address] Dr. Miguel Angel Cassidy T3U 33.0 % Normal 33.0-40.0 [facility] Comment on above: Performed By: #### U YESI 24 #### [facility] [address] [place] [address] Dr. Miguel Angel Cassidy T4 [Mass/Vol] 5.30 ug/dL Normal 4.50-12.10 [facility] Comment on above: Performed By: #### U YEIS 24 #### [facility] [address] [place] [address] Dr. Miguel Angel Cassidy LIPID PROFILEon 11-17-2022 CHOL-HDL RATIO NORM SEE BELOW Normal [facility] Comment on above: Result Comment: 3.3 - 4.4 LOW RISK 4.4 - 7.1 AVERAGE RISK 7.1 - 11.0 MODERATE RISK >11.0 HIGH RISK Performed By: #### U YESI 24 #### [facility] [address] [place] [address] Dr. Miguel Angel Cassidy Cholesterol [Mass/Vol] 141 mg/dL Normal <=200 [facility] Comment on above: Performed By: #### U YESI 24 #### [facility] [address] [place] [address] Dr. Miguel Angel Cassidy Cholesterol in HDL [Mass/Vol] 48 mg/dL Normal 40-60 [facility] Comment on above: Performed By: #### U YESI 24 #### [facility] [address] [place] [address] Dr. Miguel Angel Cassidy Cholesterol in LDL [Mass/Vol] 80.4 mg/dL Normal [facility] Comment on above: Performed By: #### U YESI 24 #### [facility] [address] [place] [address] Dr. Miguel Angel Cassidy Cholesterol.total/ Cholesterol in HDL [Mass ratio] 2.9 {ratio} Normal [facility] Comment on above: Performed By: #### U YESI 24 #### [facility] [address] [address] [address] Miguel Angel Cassidy HDL NORMAL > or = 60 mg/dl - LO W CARDIOVASCULAR RISK <40 mg/dl - HIGH CARDIOVASCULAR RISK Normal [facility] Comment on above: Performed By: #### U YESI 24 #### [facility] [address] [address] [address] Miguel Angel Cassidy LDL CALC NORMAL SEE BELOW Normal [facility] Comment on above: Result Comment: <100 mg/dl OPTIMAL 100 - 129 mg/dl NEAR OR ABOVE OPTIMAL 130 - 159 mg/dl BORDERLINE HIGH 160 - 189 mg/dl HIGH >190 mg/dl VERY HIGH Performed By: #### U YESI 24 #### [facility] [address] [place] [address] Dr. Miguel Angel Cassidy Triglyceride [Mass/Vol] 63 mg/dL Normal <=150 [facility] Comment on above: Performed By: #### U YESI 24 #### [facility] [address] [address] [address] Miguel Angel Cassidy VLDL CALC 12.6 mg/dL Normal [facility] Comment on above: Performed By: #### U YESI 24 #### [facility] [address] [place] [address] Dr. Miguel Angel Cassidy PROF CHEM 8 (BAS METB)on Anion gap [Moles/Vol] 13.1 mmol/L Normal [facility] Comment on above: Performed By: #### U YESI 24 #### [facility] [address] [address] [address] Miguel Angel Cassidy Calcium [Mass/Vol] 8.8 mg/dL Normal 8.5-10.1 [facility] Comment on above: Performed By: #### U YESI 24 #### [facility] [address] [place] [address] Dr. Miguel Angel Cassidy Chloride [Moles/Vol] 108 mmol/L Critically high 98-107 [facility] Comment on above: Performed By: #### U YESI 24 #### [facility] [address] [address] [address] Miguel Angel Cassidy CO2 [Moles/Vol] 29.7 mmol/L Normal 21.0-32.0 [facility] Comment on above: Performed By: #### U YESI 24 #### [facility] [address] [address] [address] Miguel Angel Cassidy Creatinine [Mass/Vol] 1.03 mg/dL Normal 0.70-1.30 [facility] Comment on above: Performed By: #### U YESI 24 #### [facility] [address] [address] [address] Miguel Angel Cassidy EGFR-AF NAURUAN >60 Normal >=60 [facility] Comment on above: Performed By: #### U YESI 24 #### [facility] [address] [place] [address] Dr. Miguel Angel Cassidy EGFR-NON AF NAURUAN >60 Normal >=60 [facility] Comment on above: Performed By: #### U YESI 24 #### [facility] [address] [place] [address] Dr. Miguel Angel Cassidy Glucose [Mass/Vol] 106 mg/dL Normal 74-106 [facility] Comment on above: Performed By: #### U YESI 24 #### [facility] [address] [place] [address] Dr. Miguel Angel Cassidy Potassium [Moles/Vol] 4.8 mmol/L Normal 3.5-5.1 [facility] Comment on above: Performed By: #### U YESI 24 #### [facility] [address] [place] [address] Dr. Miguel Angel Cassidy Sodium [Moles/Vol] 146 mmol/L Critically high 136-145 [facility] Comment on above: Performed By: #### U YESI 24 #### [facility] [address] [address] [address] Miguel Angel Cassidy Urea nitrogen [Mass/Vol] 14.0 mg/dL Normal 7.0-18.0 [facility] Comment on above: Performed By: #### U YESI 24 #### [facility] [address] [place] [address] Dr. Miguel Angel Cassidy Urea nitrogen/Creatinin e [Mass ratio] 13.6 mg/mg Normal [facility] Comment on above: Performed By: #### U YESI 24 #### [facility] [address] [place] [address] Dr. Miguel Angel Cassidy TSHon 11-17-2022 TSH 2.017 uIU/mL Normal 0.358-3.740 [facility] Comment on above: Performed By: #### U YESI 24 #### [facility] [address] [place] [address] Dr. Miguel Angel Cassidy Lab Reportson 09-27-2022 Lab Reports [id number] Normal [facility] OXALATE 24HR URINEon 023 Oxalates, Urine 34 mg/L Normal Undefined [facility] Comment on above: Performed By: #### O X24HR #### [facility] [address] [place] [address] Dr. Miguel Angel Cassidy Oxalates, Urine 24hr 34 mg/24 hr Normal 7-44 [facility] Comment on above: Performed By: #### O X24HR #### [facility] [address] [place] [address] Dr. Miguel Angel Cassidy CITRATE URINE 24HRon 023 Citric Acid, U, 24hr 1169 mg/24 hr Normal 320-1240 [facility] Comment on above: Result Comment: This test was developed and its performance characteristics determined by [facility]. It has not been cleared or approved by the Food and Drug Administration. Performed By: #### C ITRATU #### [facility] [address] [place] [address] Dr. Miguel Angel Cassidy Citric Acid, Urine 1169 mg/L Normal Undefined [facility] Comment on above: Performed By: #### C ITRATU #### [facility] [address] [place] [address] Dr. Miguel Angel Cassidy MAGNESIUM 24HR URINEon 09-09 Magnesium 24hr Urine 88.0 mg/24 hr Normal 12.0-293.0 [facility] Comment on above: Performed By: #### C ITRATU #### [facility] [address] [place] [address] Dr. Miguel Angel Cassidy Magnesium UR 8.8 mg/dL Normal Not Estab. [facility] Comment on above: Performed By: #### C ITRATU #### [facility] [address] [place] [address] Dr. Miguel Angel Cassidy PHOSPHORUS 24HR URINEon 08-19 Phosphorus, Urine 97.8 mg/dL Normal Not Estab. The [facility] Comment on above: Performed By: #### C ITRATU #### [facility] [address] [place] [address] Dr. Miguel Angel Cassidy Phosphorus, Urine 24hr 978 mg/24 hr Normal 390-1425 [facility] Comment on above: Performed By: #### C ITRATU #### [facility] [address] [place] [address] Dr. Miguel Angel Cassidy PTH INTACTon 09-09-2022 PTH, Intact 15 pg/mL Normal 15-65 [facility] Comment on above: Performed By: #### U YESI 24 #### [facility] [address] [place] [address] Dr. Miguel Angel Cassidy URIC ACID 24 HR URINEon 08-19 Uric Acid, Urine 43.6 mg/dL Normal Not Estab. The [facility] Comment on above: Performed By: #### U YESI 24 #### [facility] [address] [place] [address] Dr. Miguel Angel Cassidy Uric Acid, Urine 24hr 436.0 mg/24 hr Normal 136.1-771.1 [facility] Comment on above: Performed By: #### U YESI 24 #### [facility] [address] [place] [address] Dr. Miguel Angel Cassidy BUNon 09-08-2022 Urea nitrogen [Mass/Vol] 13.0 mg/dL Normal 7.0-18.0 [facility] Comment on above: Performed By: #### U YESI 24 #### [facility] [address] [address] [address] Miguel Angel Cassidy CALCIUMon 09-08-2022 Calcium [Mass/Vol] 8.9 mg/dL Normal 8.5-10.1 [facility] Comment on above: Performed By: #### U YESI 24 #### [facility] [address] [place] [address] Dr. Miguel Angel Cassidy CALCIUM 24 HR URINEon 2022 CALC, 24 HR UR 138.0 mg/24 hr Normal 100.0-300.0 [facility] Comment on above: Performed By: #### U YESI 24 #### [facility] [address] [place] [address] Dr. Miguel Angel Cassidy UR CALCIUM 13.8 mg/dL Normal 5.1-21.0 [facility] Comment on above: Performed By: #### U YESI 24 #### [facility] [address] [place] [address] Dr. Miguel Angel Cassidy UR TOT VOL 1000 ml/24 HR Normal [facility] Comment on above: Performed By: #### U YESI 24 #### [facility] [address] [place] [address] Dr. Miguel Angel Cassidy Performed By: #### C ITRATU #### [facility] [address] [place] [address] Dr. Miguel Angel Cassidy CHLORIDEon 09-08-2022 Chloride [Moles/Vol] 107 mmol/L Normal 98-107 [facility] Comment on above: Performed By: #### B UN, CL, CO2, CREA, K, URIC, CA, NA #### [facility] [address] [place] [address] Dr. Miguel Angel Cassidy CO2on 09-08-2022 CO2 [Moles/Vol] 31.6 mmol/L Normal 21.0-32.0 [facility] Comment on above: Performed By: #### B UN, CL, CO2, CREA, K, URIC, CA, NA #### [facility] [address] [place] [address] Dr. Miguel Angel Cassidy CREA 24 HR URINEon CREA, 24 HR UR 1343.30 mg/24 hr Normal 1,000.00- 2,000 .00 [facility] Comment on above: Performed By: #### C ITRATU #### [facility] [address] [place] [address] Dr. Miguel Angel Cassidy URINE CREAT 134.33 mg/dL Normal 20.00-300.00 [facility] Comment on above: Performed By: #### C ITRATU #### [facility] [address] [place] [address] Dr. Miguel Angel Cassidy CREATININEon 09-08-2022 Creatinine [Mass/Vol] 0.89 mg/dL Normal 0.70-1.30 [facility] Comment on above: Performed By: #### B UN, CL, CO2, CREA, K, URIC, CA, NA #### [facility] [address] [place] [address] Dr. Miguel Angel Cassidy EGFR-AF NAURUAN >60 Normal >=60 [facility] Comment on above: Performed By: #### B UN, CL, CO2, CREA, K, URIC, CA, NA #### [facility] [address] [place] [address] Dr. Miguel Angel Cassidy EGFR-NON AF NAURUAN >60 Normal >=60 [facility] Comment on above: Performed By: #### B UN, CL, CO2, CREA, K, URIC, CA, NA #### [facility] [address] [place] [address] Dr. Miguel Angel Cassidy NAon 09-08-2022 Sodium [Moles/Vol] 143 mmol/L Normal 136-145 [facility] Comment on above: Performed By: #### B UN, CL, CO2, CREA, K, URIC, CA, NA #### [facility] [address] [place] [address] Dr. Miguel Angel Cassidy POTASSIUMon 09-08-2022 Potassium [Moles/Vol] 4.3 mmol/L Normal 3.5-5.1 [facility] Comment on above: Performed By: #### B UN, CL, CO2, CREA, K, URIC, CA, NA #### [facility] [address] [address] [address] Miguel Angel Cassidy SODIUM 24 HR URINEon 023 NA, 24 HR UR 127 mmol/24 hr Normal 40-220 [facility] Comment on above: Performed By: #### C ITRATU #### [facility] [address] [address] [address] Miguel Angel Cassidy Sodium (U) [Moles/Vol] 127 mmol/L Critically high 30-90 [facility] Comment on above: Performed By: #### C ITRATU #### [facility] [address] [address] [address] Miguel Angel Cassidy URIC ACID SERUMon 09-08-2022 Urate [Mass/Vol] 5.3 mg/dL Normal 3.5-7.2 [facility] Comment on above: Performed By: #### U YESI 24 #### [facility] [address] [place] [address] Dr. Miguel Angel Cassidy Covid-19 PCR ([facility])on SARS-CoV-2 (COVID-19) RNA SILVIA+probe Ql (Unsp [...] for this test is supported by the [employer] of Health and Human Service's (HHS's) declaration [...] 24 #### [facility] [address] [place], [place] [address] Dr. Miguel Angel Cassidy ECHOCARDIO M/2D COMPLETEon 0 02-10-2022 ECHOCARDIO M/2D COMPLETE Patient: CHEY FREIRE Exam Date: 02/10/2022 : 1940 Gender:M Ordering : DR LENKA DEUTSCH M.D. Admission #: [id number] Family : ANG PENAChan . Order #: [id number] CLICK HERE TO VIEW EXAM ECHOCARDIOGRAM REPORT [...] Daniel M.D. on 02/10/2022 at 15:50 Normal [facility] US KIDNEYS BLADDERon 07-24-2 022 US KIDNEYS BLADDER EXAMINATION: US KIDNEYS BLADDER HISTORY: [...] by: FAIZA ARECHIGA Date: 2022-02-07 08:09 Normal [facility] XR KUB 1 VIEWon 02-05-2022 XR [...] by: FAIZA ARECHIGA Date: 2022-02-05 12:59 Normal [facility] Vital Signs Date Time Vital Sign Value Performing Clinician Juliette gamble 09-02-2023 09:58-0500 Blood Pressure Location Sotero STEPHEN [facility] 09-02-2023 09:58-0500 Diastolic blood pressure 64 mm[Hg] Sotero STEPHEN [facility] 09-02-2023 09:58-0500 Heart rate 65 /min Sotero STEPHEN [facility] 09-02-2023 09:58-0500 Respiratory rate 16 /min Sotero STEPHEN [facility] 09-02-2023 09:58-0500 Systolic blood pressure 122 mm[Hg] Sotero STEPHEN [facility] 09-03-2022 09:18-0500 Blood Pressure Location Sotero STEPHEN [facility] 09-03-2022 09:18-0500 Diastolic blood pressure 71 mm[Hg] Sotero STEPHEN [facility] 09-03-2022 09:18-0500 Heart rate 70 /min Sotero STEPHEN [facility] 09-03-2022 09:18-0500 Respiratory rate 16 /min Sotero STEPHEN [facility] 09-03-2022 09:18-0500 Systolic blood pressure 130 mm[Hg] Sotero STEPHEN [facility] 06-01-2022 15:52-0500 Blood Pressure Location Holli YOLIL [facility] [place] 06-01-2022 15:52-0500 Diastolic blood pressure 62 mm[Hg] Holli KENTL [facility] [place] 06-01-2022 15:52-0500 Heart rate 68 /min Holli NILL [facility] [place] 06-01-2022 15:52-0500 Respiratory rate 16 /min Holli NILL [facility] [place] 06-01-2022 15:52-0500 Systolic blood pressure 130 mm[Hg] Holli NILL [facility] Encounters Encounter Date Encounter Type Care Provider Facility Start: 09-03-2024 ambulatory Sotero STEPHEN Facili ty:[facility] [place] Start: 09-02-2023 End: 09-03-2023 ambulatory Sotero STEPHEN Facility:[facility] Start: 09-02-2023 End: 09-02-2023 Patient encounter procedure Sotero STEPHEN [facility] Start: 04-06-2023 End: 04-06-2023 ambulatory [facility] Start: 11-17-2022 End: 11-18-[address] ANG CHILEL . Facility:[facility] Start: 09-08-2022 End: 09-09-2022 ambulatory SOTERO STEPHEN Facility:[facility] Start: 09-03-2022 End: 09-03-2022 Patient encounter procedure Sotero STEPHEN [facility] Start: 06-26-2022 Encounter for preprocedural laboratory examination DR HOLLI BATEMAN . [facility] Start: 06-25-2022 End: 06-25-[address] ANG CHILEL . Facility:[facility] Start: 06-22-2022 End: 06-23-[address] HOLLI BATEMAN . Facility:[facility] Start: 06-22-2022 End: 06-23-2022 Encounter for preprocedural laboratory examination DR HOLLI BATEMAN . Facility:[facility] Start: 06-01-2022 End: 06-01-2022 Patient encounter procedure Holli BATEMAN [facility] [place] Start: 02-10-2022 End: 02-11-[address] LENKA DEUTSCH Facility:[facility] Start: 02-05-2022 End: 02-06-[address] ANG CHILEL . Facility:[facility] Start: 12-17-2021 End: 12-18-[address] ANG CHILEL . Facility:[facility] Procedures Date Procedure Procedure Detail Performing Clinician Start: 11-17-[address] MARIELA BATEMAN . Comment on above: Performed By: #### P [facility] #### [facility] [address] [place] [address] Dr. Miguel Angel Cassidy Start: 03-20-2019 cysto w/ stent removal Holli BATEMAN Start: 09-11-2015 Extracorporeal shock wave lithotripsy of calculus of kidney Holli BATEMAN Start: 04-03-2015 Extracorporeal shock wave lithotripsy of calculus of kidney Holli NILL Start: 07-18-2009 Placement of stent i n cardiac conduit Holli KENTL History of operative procedure on thoracic spinal structure Holli KENTL Kidney stone (disorder) Flako KENTL Comment on above: Surgery per Dr. Webster Repair of left ingui nal hernia Holli KENTL Tonsillectomy Holli KENTL Immunizations Immunization Date Immunization Notes Care Provider Fa cility 07-18-2020 SARS-CoV-2 (COVID-19 ) [id number] vaccine Holli BATEMAN [facility] Comment on above: Result Comment: Pt s tates he has had 3 shots to date but does not have his card for the dates today 03-10-2020 influenza virus vaccine, unspecified formulation Holli BATEMAN [facility] Payers Date Payer Category Payer Medicare [id number] 1957 Unknown [id number] 1940 Unknown [id number] 2.16.84 [id number] 1940 Unknown [id number] 2.16.84 [id number] 1940 Unknown [id number] 2.16.84 [id number] 1940 Unknown [id number] 2.16.84 [id number] 1940 Unknown [id number] 2.16.84 [id number] 1940 Unknown [id number] 2.16.84 [id number] 1940 Unknown [id number] 2.16.84 [id number] 1940 Unknown [id number] 2.16.8 [id number] 1940 Unknown [id number] 2.16.8 [id number] Social History Date Type Detail Facility Start: 06-01-2022 Tobacco smoking status Ex-smoker (fi nding) [facility] [place] Tobacco smoking status Never [facility] [place] Sex Assigned At Male [facility] Functional Status Date Assessment Result Facility 09-02-2023 Functional Status N/A [facility] 09-03-2022 Functional Status N/A [facility] 06-01-2022 Functional Status N/A [facility] Clinical Notes 12-17-2021 to 09-02-2023 Note Date & Type Note Facility 09-02-2023 Hospital Discharge instructions Patient Education 09/02/2023 10:57:30 Dietary Guidelines to Help Prevent Kidney Stones Dietary Guidelines to Help Prevent Kidney Stones Kidney stones are deposits of minerals and salts that form inside your kidneys. Your risk of developing kidney stones may be greater depending on your diet, your lifestyle, the medicines you take, and whether you have certain medical conditions. Most people can lower their risks of developing kidney stones by following these dietary guidelines. Your dietitian may give you more specific instructions depending on your overall health and the type of kidney stones you tend to develop. What are tips for following this plan? Reading food labels Choose foods with no salt added or low-salt labels. Limit your salt (sodium) intake to less than 1,500 mg a day. Choose foods with calcium for each meal and snack. Try to eat about 300 mg of calcium at each meal. Foods that contain 200 500 mg of calcium a serving include: ?8 oz (237 mL) of milk, yqlpkjw-olhwsuijkkse-igmlt milk, and calcium-fortifiedfruit juice. Calcium-fortified means that calcium has been added to these drinks. ?8 oz (237 mL) of kefir, yogurt, and soy yogurt. ?4 oz (114 g) of tofu. ?1 oz (28 g) of cheese. ?1 cup (150 g) of dried figs. ?1 cup (91 g) of cooked broccoli. ?One 3 oz (85 g) can of sardines or mackerel. Most people need 1,000 1,500 mg of calcium a day. Talk to your dietitian about how much calcium is recommended for you. Shopping Buy plenty of fresh fruits and vegetables. Most people do not need to avoid fruits and vegetables, even if these foods contain nutrients that may contribute to kidney stones. When shopping for convenience foods, choose: ?Whole pieces of fruit. ?Pre-made salads with dressing on the side. ?Low-fat fruit and yogurt smoothies. Avoid buying frozen meals or prepared deli foods. These can be high in sodium. Look for foods with live cultures, such as yogurt and kefir. Choose high-fiber grains, such as whole-wheat breads, oat bran, and wheat cereals. Cooking Do not add salt to food when cooking. Place a salt shaker on the table and allow each person to add their own salt to taste. Use vegetable protein, such as beans, textured vegetable protein (TVP), or tofu, instead of meat in pasta, casseroles, and soups. Meal planning Eat less salt, if told by your dietitian. To do this: ?Avoid eating processed or pre-made food. ?Avoid eating fast food. Eat less animal protein, including cheese, meat, poultry, or fish, if told by your dietitian. To do this: ?Limit the number of times you have meat, poultry, fish, or cheese each week. Eat a diet free of meat at least 2 days a week. ?Eat only one serving each day of meat, poultry, fish, or seafood. ?When you prepare animal proteins, cut pieces into small portion sizes. For most meat and fish, one serving is about the size of the palm of your hand. Eat at least five servings of fresh fruits and vegetables each day. To do this: ?Keep fruits and vegetables on hand for snacks. ?Eat one piece of fruit or a handful of berries with breakfast. ?Have a salad and fruit at lunch. ?Have two kinds of vegetables at dinner. You may be told to limit foods that are high in a substance called oxalate. These include: ?Spinach (cooked), rhubarb, beets, sweet potatoes, and [place]er chard. ?Peanuts. ?Potato chips, nepali fries, and baked potatoes with skin on. ?Nuts and nut products. ?Chocolate. If you regularly take a diuretic medicine, make sure to eat at least 1 or 2 servings of fruits or vegetables that are high in potassium each day. These include: ?Avocado. ?Banana. ?[place], prune, carrot, or tomato juice. ?Baked potato. ?Cabbage. ?Beans and split peas. Lifestyle Drink enough fluid to keep your urine pale yellow. This is the most important thing you can do. Spread your fluid intake throughout the day. If you drink alcohol: ?Limit how much you have to: ?0 1 drink a day for women who are not . ?0 2 drinks a day for men. ?Know how much alcohol is in your drink. In the [place] one drink equals one 12 oz bottle of beer (355 mL), one 5 oz glass of wine (148 mL), or one 1 oz glass of hard liquor (44 mL). Lose weight if told by your health care provider. Work with your dietitian to find an eating plan and weight loss strategies that work best for you. General information Talk to your health care provider and dietitian about taking daily supplements. Depending on your health and the cause of your kidney stones, you may be told: ?Do not take high-dose supplements of vitamin C (1,000 mg a day or more). ?To take a calcium supplement. ?To take a daily probiotic supplement. ?To take other supplements such as magnesium, fish oil, or vitamin B6. Take qchc-gwj-cpjejdm and prescription medicines only as told by your health care provider. These include supplements. What foods should I limit? Limit your intake of the following foods, or eat them as told by your dietitian. Vegetables Spinach. Rhubarb. Beets. Canned vegetables. Pickles. Olives. Baked potatoes with skin. Grains Wheat bran. Baked goods. Salted crackers. Cereals high in sugar. Meats and other proteins Nuts. Nut butters. Large portions of meat, poultry, or fish. Salted, precooked, or cured meats, such as sausages, meat loaves, and hot dogs. Dairy Cheeses. Beverages Regular soft drinks. Regular vegetable juice. Seasonings and condiments Seasoning blends with salt. Salad dressings. Soy sauce. Ketchup. Barbecue sauce. Other foods Canned soups. Canned pasta sauce. Casseroles. Pizza. Lasagna. Frozen meals. Potato chips. Belarusian fries. The items listed above may not be a complete list of foods and beverages you should limit. Contact a dietitian for more information. What foods should I avoid? Talk to your dietitian about specific foods you should avoid based on the type of kidney stones you have and your overall health. Fruits Grapefruit. The item listed above may not be a complete list of foods and beverages you should avoid. Contact a dietitian for more information. Summary Kidney stones are deposits of minerals and salts that form inside your kidneys. You can lower your risk of kidney stones by making changes to your diet. The most important thing you can do is drink enough fluid. Drink enough fluid to keep your urine pale yellow. Talk to your dietitian about how much calcium you should have each day, and eat less salt and animal protein as told by your dietitian. This information is not intended to replace advice given to you by your health care provider. Make sure you discuss any questions you have with your health care provider. Document Revised: 10/14/2022 Document Reviewed: 10/14/2022 [employer] Patient Education 2022 [employer]. 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 Aortic [...] problems arise Lenka Deutsch MD, MPH, FACC, [facility], [facility] Interventional Cardiology Pager Email: [email or web address] 09-03-2022 Hospital Discharge instructions Patient Education 09/03/2022 09:39:28 Kidney Stones, Ujcq-qd-Zxkt Kidney Stones Kidney stones are rock-like masses [...] Follow these instructions at home: Medicines Take aank-qud-spzicrz and prescription medicines only as told by [...] 12/20/2008 Document Revised: 11/20/2019 Document Reviewed: 11/20/2019 [employer] Patient Education 2020 [employer]. Follow Up Care 08/31/2021 10:41:08 With:TIANA CLAYTON, Sotero Mejia, URL Address: [address] [place], [place] [id number]- When: Unknown [facility] 06-25-2022 Note OPERATIVE NOTE OPERATION DATE: 06/25/2022 [...] require further screening. CC: Ang Chilel M.D. [facility] 12-17-2021 Note PROCEDURE: XR SHOULD ER LT [...] authenticated by: FAIZA ARECHIGA Date: 2021-12-17 17:22 [facility] Evaluation + Plan note Future Appointments Appointment Date:09/03/2022 09:45:00 AM Scheduled Provider:Sotero STEPHEN MD Location:[facility] Appointment Type:URO Office Visit General Surgery [place] Evaluation + Plan note Future Appointments Appointment Date:09/02/2023 09:30:00 AM Scheduled Provider:Sotero STEPHEN MD Location:[facility] Appointment Type:URO Office Visit [facility] Evaluation + Plan note Future Appointments Appointment Date:09/03/2024 09:45:00 AM Scheduled Provider:Sotero STEPHEN MD Location:[facility] Appointment Type:URO Office Visit [facility] Hospital course Narrative No data available for this section General Surgery [place] [facility] Discharge instructions No data available for this section General Surgery [place] Progress note No data available for this section General Surgery [place] Summary Purpose Family History No Family History Records FoundNo Family History Records Found No data available for this section No Family History Records Found Advance Directives No Advanced Directives Records FoundNo Advanced Directives Records FoundNo Advanced Directives Records Found Additional Source Comments Patient Care team informatio n (unrecognized section and content) Personnel Name: Ang Chilel MD Address: Address: [address] [place] [address] Personnel Name: Ang Chilel MD Address: Address: [address] [place] [address] (unrecognized sect ion and content) No Status Records FoundNo Status Records FoundNo Status Records Found INFORMATION SOURCE (unrecogn ized section and content) DATE CREATED AUTHOR 11/25/2022 [facility] DATE CREATED AUTHOR AUTHOR'S ORGANIZ ATION 04/22/2023 [facility] DATE CREATED AUTHOR AUTHOR'S ORGANIZ ATION 09/04/2023 [facility] FOR RECORDS PERTAINING TO PATIENTS WHO [...] BE BASED ON THE PRIMARY CLINICAL RECORDS. [employer] provides no warranty or guarantee of the accuracy or completeness of information in this document.
== END 2024-03-13 13:33 | disposition home or self-care (01) ==
LOC: VC 13:32
PROVIDERS: PCP Family Medicine; Visit Provider Family Medicine
DX: R09.89 Other specified symptoms and signs involving the circulatory and respiratory systems (principal)
CPT/HCPCS: 93923

== ENCOUNTER 2024-04-11 13:25 | Outpatient (OUT) | payer MEDICARE, OTHER, SELFPAY ==
--- OUTSIDE RECORDS SUMMARY | 2024-04-11 13:32 | XMS_ITS | CCD ---
Author Organization [facility] Care Team Providers [facility] Name Role Phone Ang Chilel Primary Care Physician [phone] ., [address] DE LA GARZA Admitting [...] Consulting Unavailable CAYETANO, VAUGHN MORENO Consulting Unava MERI Rosado Consulting Unavailable HOY ., DR FRY Admitting [...] STEPHEN Attending Unavailable Sotero STEPHEN Attending Unavailable Abelino Garcia Attending Unavailable Abelino Garcia Attending Unavailable Allergies Allergy Classification Reported Allergen(s) Allergy Type Date of Onset Reaction(s) Facility (2 sources) Bee/Wasp/Ant venom; Translations: [Bee Stings] Propensity to adverse reactions (disorder) Anaphylactic reaction [facility] Repository Medications Current Medications Medication Drug Class(es) Dates Sig (Normalized) Sig (Original) aspirin 81 mg oral tablet (4 sources) Platelet Aggregation Inhibitor, Nonsteroidal Anti-inflammatory Drug [...] Daily Start Date: 01/29/19 Status: Ordered CoQ10 (4 sources) Start: 01-29-2019 take 1 mg by mouth once daily CoQ10 mg, Oral, Daily Start Date: 01/29/19 Status: Ordered lovastatin 40 mg oral tablet (4 sources) HMG-CoA Reductase Inhibitor Start: 01-29-2019 take 2 tablets by mouth once daily for hyperlipidemia lovastatin 40 mg oral tablet TAKE 2 TABLETS BY MOUTH ONCE DAILY FOR CHOLESTEROL Start Date: 01/29/19 Status: Ordered metoprolol tartrate 25 mg oral tablet (4 sources) beta-Adrenergic Mat Start: 05-27-2022 Metoprolol tartrate 25 mg Tab 12.5 mg = 0.5 tab(s), Oral, BID, Refills(s) 0 Start Date: 05/27/22 Status: Ordered Nature's Bounty Red Krill Oil (4 sources) Start: 01-29-2019 take 1 mg by mouth once daily Nature's Bounty Red Krill Oil 1 mg, Oral, Daily Start Date: 01/29/19 Status: Ordered nitroglycerin 0.4 mg sublingual tablet (4 sources) Nitrate Vasodilator Start: 05-27-2022 nitroglycerin 0.4 mg sublingual Tab 0.4 mg = 1 tab(s), SubLingual, q5min, PRN for chest pain, Refills(s) 0 Start Date: 05/27/22 Status: Ordered predniSONE 50 mg oral tablet (1 source) Start: 03-19-2024 End: 03-26-2024 take 1 tablet by mouth once daily predniSONE 50 mg Tab 50 mg = 1 tab(s), Oral, Daily, X 7 day(s), # 7 tab(s), Refills(s) 0, Pharmacy: [facility], 160, cm, 03/19/24 14:08:00 EDT, Height/Length Dosing, 63.3, kg, 03/19/24 14:08:00 EDT, Weight Dosing Start Date: 03/19/24 Stop Date: 03/26/24 Status: Ordered Vitamin D (4 sources) Start: 01-29-2019 Vitamin D Oral Start Date: 01/29/19 Status: Ordered Completed/Discontinued Medications Medication Drug Class(es) Dates Sig (Normalized) Sig (Original) potassium bicarbonate 20 meq effervescent oral tablet (4 sources) Start: 09-02-2023 take 1 tablet by mouth twice daily Effer-K 20 mEq oral tablet, effervescent 20 mEq = 1 tab(s), Oral, BID, # 60 tab(s), Refills(s) , , Pharmacy: [facility], 160, cm, 09/02/23 10:00:00 EST, Height/Length Dosing, 63.2, kg, 09/02/23 10:00:00 EST, Weight Dosing Start Date: 09/02/23 Status: Ordered Start: 05-17-2022 take 1 tablet by kassidy th twice daily Effer-K 20 mEq oral tablet, effervescent 20 mEq = 1 tab(s), Oral, BID, # 60 tab(s), Refills(s) , , Pharmacy: [facility], 160.3, cm, 08/31/21 9:38:00 EST, Height/Length Dosing, 71, kg, 08/31/21 9:38:00 EST, Weight Dosing Start Date: 05/17/22 Status: Ordered Problems Active Problems Problem Classification Problem Date Documented Da te Episodic/Chronic Calculus of urinary tract (14 sources) History of calculus of kidney; Translations: [Kidney stone] Onset: 09-03-2022 08-18-2020 Episodic Coronary atherosclerosis and other heart disease (11 sources) Coronary arteriosclerosis; Translations: [Ischemic heart disease] Onset: 07-01-2022 05-27-2022 Chronic Disorders of lipid metabolism (6 sources) Hyperlipidemia; Translations: [Pure hypercholesterolemi a, unspecified] Onset: 07-01-2022 01-29-2019 Chronic Essential hypertension (5 sources) Hypertensive disorder; Translations: [Essential (primary) hypertension] Onset: 07-01-2022 01-29-2019 Chronic Gastrointestinal hemorrhage (4 sources) Rectal hemorrhage 05-27-2022 Episodic Genitourinary symptoms and ill-defined conditions (10 sources) Microscopic hematuria; Translations: [Urgent desire to urinate] Onset: 09-03-2022 08-18-2020 Episodic Gout and other crystal arthropathies (4 sources) Gout 05-27-2022 Chronic Heart valve disorders (16 sources) Aortic valve regurgitation; Translations: [Aortic valve sclerosis] Onset: 02-10-2022 05-27-2022 Chronic Hyperplasia of prostate (6 sources) Benign prostatic hypertrophy with outflow obstruction; Translations: [Benign prostatic hyperplasia with lower urinary tract symptoms] Onset: 09-03-2022 12-23-2018 Chronic Malaise and fatigue (4 sources) Chronic fatigue, unspecified; Translations: [CHRONIC FATIGUE UNSPECIFIED] Onset: 11-17-2022 Chronic Nutritional deficiencies (4 sources) Vitamin D deficiency 05-27-2022 Chronic Other male genital disorders (4 sources) 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 Other nutritional; endocrine; and metabolic disorders (4 sources) Overweight in adulthood with body mass index of 25 or more but less than 30 06-01-2022 Episodic Other screening for suspected conditions (not mental disorders or infectious disease) (6 sources) Screening for malignant neoplasm of colon done; Translations: [Encounter for screening for malignant neoplasm of colon] Onset: 06-01-2022 Episodic Other upper respiratory disease (4 sources) Allergic rhinitis 05-27-2022 Chronic Poisoning by nonmedicinal substances (1 source) Poisoning by bee sting; Translations: [Toxic effect of venom of bees, accidental (unintentional), initial encounter] Onset: 03-19-2024 Episodic Spondylosis; intervertebral disc disorders; other back problems (8 sources) Cervical disc disorder; Translations: [Lumbar spondylosis] 05-27-2022 Chronic Unclassified (4 sources) Patient encounter status 06-01-2022 Unclassified (3 sources) Asymptomatic microscopic hematuria 09-03-2022 Unclassified (1 source) CONTACT W/AND (SUSP) EXPOS COVID-19; Translations: [CONTACT W/AND (SUSP) EXPOS COVID-19] Onset: 06-26-2022 Viral infection (4 sources) Genital herpes simplex 05-27-2022 Chronic Past or Other Problems Problem Classification Problem Date Documented Da te Episodic/Chronic Inflammatory conditions of male genital organs (4 sources) Epididymitis Resolved: 01-29-2019 01-29-2019 Episodic Other aftercare (1 source) emt intermediate (current) use of antithrombotics/ant iplatelets; Translations: [DIGITAL ASSET COORDINATOR ANTITHROMBOT/ANTIPL ATLETS] Onset: 07-01-2022 Episodic Other aftercare (1 source) nursing home (current) use of aspirin; Translations: [DIGITAL ASSET COORDINATOR CURRENT USE OF ASPIRIN] Onset: 07-01-2022 Episodic Other aftercare (1 source) Other [facility] (current) drug therapy; Translations: [OTH [facility]ISON CURRENT DRUG THERAPY] Onset: 07-01-2022 Episodic Other non-traumatic joint disorders (4 sources) Pain in left shoulder; Translations: [PAIN IN LEFT SHOULDER] Onset: 12-17-2021 Episodic Screening and history of mental health and substance abuse codes (1 source) Personal history of nicotine dependence; Translations: [PERSONAL HISTORY OF NICOTINE DEPEND] Onset: 07-01-2022 Episodic Results Test Name Value Interpretation Reference Range Facility ED Note-Physicianon 03-22-20 ED Note-Physician ED Note-Physician Basic Information Time Seen: Clint GOFF, Jeromy Duran. 03/19/2024 14:08 Chief Complaint Pt presents to ED after being stung by numerous bees in the lip, head and hand. Pt denies RR distress, c/o lump feeling in chest. IM epi administered, oxygen applied. History of Present Illness 83-year-old male reports to the emergency department with complaints of numerous bee stings in his lip, head, and his hand. He states that he feels a lump like sensation in his chest. He states that he also has some abdominal pain. Reports the rash started all over his body. Denies any feeling that his throat is closing. Denies any known allergies to bees ever before. States he is never needed EpiPen before. States otherwise doing okay. Review of Systems No other aggravating or relieving factors no other associated symptoms no other prior treatments or complaints. Family: Reviewed and noncontributory Social: lives at home Review of systems negative unless otherwise specified in the HPI. Physical Exam Vitals & Measurements T: 36.5 ?C(Oral) HR: 60(Monitored) RR: 16 BP: 139/63 SpO2: 96% HT: 160 cm WT: 63.3 kg BMI: 24.73 General: The patient appears well and in no apparent distress. Patient is resting comfortably on bed. Afebrile erythematous rash located patient's chest, abdomen, around his lips. Skin: Warm, dry, no pallor noted. Head: Normocephalic, atraumatic Neck: No JVD Eye: PERRLA, EOMI ENT: Moist mucus membranes. Mild swelling of the lower lip. No oropharyngeal swelling. Cardiovascular: Regular rate normal peripheral perfusion Respiratory: No respiratory distress no accessory muscle use no obvious audible wheezing. Lung sounds clear Chest Wall: no deformity Musculoskeletal: normal ROM, no deformity, no swelling GI: No obvious distention soft mild tenderness generalized throughout the abdomen. Nondistended no guarding rebounding or rigidity Neurological: A&O moves all extremities equal strength and symmetry Psychiatric: Cooperative and appropriate Medical Decision Making MEDICAL DECISION MAKING Number and Complexity of Problems Differential Diagnosis: [] [facility] Data External documents reviewed: [] My EKG interpretation: Reviewed My CT interpretation: [] My X-ray interpretation: Reviewed My Ultrasound interpretation: [] Decision rules/scores evaluated: [] Discussed with: [] Treatment and Disposition ED Course: 83-year-old male reports emergency department with complaints of bee stings. He states that he does have a lump sensation in his chest, his lips are swelling, he is somewhat abdominal discomfort, as well as has a rash spread throughout the body. On initial donation, concern for anaphylaxis. Due to this, we did administer epinephrine, as well as did give the patient Solu-Medrol, Pepcid, and Benadryl. Did greatly improve his symptoms. Patient stated that he did have resolution within 10 minutes. Due to this, we did do lab work. Laboratory noted. No acute changes seen. I discussed the patient I would like to observe him based on his age and new anaphylaxis. Patient was observed for 4 hours, with no return of his symptoms. Patient did feel comfortable going home. Discussed strict return precautions. Follow-up with your primary care provider in 3 to 5 days. If symptoms worsen, do not improve, or new symptoms arise please report back to emergency department for further evaluation. The patient was understanding and agreeable to plan moving forward. Shared decision making: [] Code status: [] Assessment/Plan Bee sting-induced anaphylaxis (T63.441A: Toxic effect of venom of bees, accidental (unintentional), initial encounter) Orders: diphenhydrAMINE, 50 mg = 1 mL, Injection, IV Push, Once, Stop date 03/19/24 14:08:00 EDT, STAT, Start date 03/19/24 14:08:00 EDT, 03/19/24 14:08:00 EDT epinephrine, 0.3 mg = 0.3 mL, Injection, IntraMuscular, Once, Stop date 03/19/24 14:09:00 EDT, STAT, Start date 03/19/24 14:09:00 EDT, 03/19/24 14:09:00 EDT epinephrine, 0.15 mg, SubCutaneous, Once, PRN for anaphylaxis, # 1 EA, Refills(s) 0, Pharmacy: [id number], 160, cm, 03/19/24 14:08:00 EDT, Height/Length Dosing, 63.3, kg, 03/19/24 14:08:00 EDT, Weight Dosing famotidine, 20 mg = 2 mL, Soln-IV, IV Push, Once, Stop date 03/19/24 14:08:00 EDT, STAT, Start date 03/19/24 14:08:00 EDT, 03/19/24 14:08:00 EDT methylPREDNISolone, 125 mg = 2 mL, Injection, IV Push, Once, Stop date 03/19/24 14:08:00 EDT, STAT, Start date 03/19/24 14:08:00 EDT, 03/19/24 14:08:00 EDT predniSONE, 50 mg = 1 tab(s), Oral, Daily, X 7 day(s), # 7 tab(s), Refills(s) 0, Pharmacy: [id number], 160, cm, 03/19/24 14:08:00 EDT, Height/Length Dosing, 63.3, kg, 03/19/24 14:08:00 EDT, Weight Dosing Basic Metabolic Panel CBC w/ Auto Diff ECG 12 Lead Adult ED Cardiac Monitoring eGFR Extra SST Tube Oxygen Saturation Oxygen Therapy PT & PTT Saline Lock Insert Troponin 0 Hr. Troponin 1 Hr. XR Chest Sing (more content not included)... Normal [facility] Comment on above: Result Comment: Elec tronically Signed By: Jeromy Jaramillo PA-C\.br\Date and Time Signed: 03/19/24 18:40 EDT\.br\Electronically Co-Signed By: Abelino Garcia MD\.br\Date and Time Co-Signed: 03/22/24 05:55 EDT BMPon 03-19-2024 Anion gap [Moles/Vol] 9 mmol/L Normal 6-16 [facility] Comment on above: Performed By: #### 2 [id number] #### [facility] [address] [place] [address] Calcium [Mass/Vol] 9.2 mg/dL Normal 8.9-11.1 [facility] Comment on above: Performed By: #### 2 [id number] #### [facility] [address] [place] [address] Chloride [Moles/Vol] 106 mmol/L Normal 101-111 [facility] Comment on above: Performed By: #### 2 [id number] #### [facility] [address] [place] [address] CO2 [Moles/Vol] 32 mmol/L High 21-31 [facility] Comment on above: Performed By: #### 2 [id number] #### [facility] [address] [place] [address] Creatinine [Mass/Vol] 1.1 mg/dL Normal 0.5-1.3 [facility] Comment on above: Performed By: #### 2 [id number] #### [facility] [address] [place] [address] Glucose [Mass/Vol] 134 mg/dL Normal 55-199 [facility] Comment on above: Performed By: #### 2 [id number] #### [facility] [address] [place] [address] Potassium [Moles/Vol] 4.0 mmol/L Normal 3.5-5.3 [facility] Comment on above: Performed By: #### 2 [id number] #### [facility] [address] [place] [address] Sodium [Moles/Vol] 143 mmol/L Normal 135-145 [facility] Comment on above: Performed By: #### 2 [id number] #### [facility] [address] [place] [address] Urea nitrogen [Mass/Vol] 17 mg/dL Normal 5-21 [facility] Comment on above: Performed By: #### 2 [id number] #### [facility] [address] [place] [address] Urea nitrogen/Creatinine [Mass ratio] 16 No Units Normal 10-20 [facility] Comment on above: Performed By: #### 2 [id number] #### [facility] [address] [place] [address] CBC w/ Auto Diffon 4 Basophils/100 WBC (Bld) 0.5 % Normal 0.0-2.0 [facility] Comment on above: Performed By: #### 2 [id number] #### [facility] [address] [place] [address] Basophils/Leukocytes Auto (Bld) [Pure # fraction] 0.0 E9/L Normal 0.0-0.2 [facility] Comment on above: Performed By: #### 2 [id number] #### [facility] [address] [place] [address] Eosinophils (Bld) [#/Vol] 0.2 E9/L Normal 0.0-0.5 [facility] Comment on above: Performed By: #### 2 [id number] #### [facility] [address] [place] [address] Eosinophils/100 WBC (Bld) 3.4 % Normal 0.0-8.0 [facility] Comment on above: Performed By: #### 2 [id number] #### [facility] [address] [place] [address] Erythrocyte distribution width (RBC) [Ratio] 13.7 % Normal 10.9-14.2 [facility] Comment on above: Performed By: #### 2 [id number] #### [facility] [address] [place] [address] Hematocrit (Bld) [Volume fraction] 41.8 % Normal 37.7-49.0 [facility] Comment on above: Performed By: #### 2 [id number] #### [facility] [address] [place] [address] Hemoglobin (Bld) [Mass/Vol] 14.4 g/dL Normal 13.5-17.5 [facility] Comment on above: Performed By: #### 2 [id number] #### [facility] [address] [place] [address] Lymphocytes (Bld) [#/Vol] 2.4 E9/L Normal 1.0-4.0 [facility] Comment on above: Performed By: #### 2 [id number] #### [facility] [address] [place] [address] Lymphocytes/100 WBC (Bld) 40.4 % Normal 14.0-50.0 [facility] Comment on above: Performed By: #### 2 [id number] #### [facility] [address] [place] [address] MCH (RBC) [Entitic mass] 30.6 pg Normal 27.0-34.0 [facility] Comment on above: Performed By: #### 2 [id number] #### [facility] [address] [place] [address] MCHC (RBC) [Mass/Vol] 34.4 g/dL Normal 31.4-36.0 [facility] Comment on above: Performed By: #### 2 [id number] #### [facility] [address] [place] [address] MCV (RBC) [Entitic vol] 88.9 fL Normal 80.0-100.0 [facility] Comment on above: Performed By: #### 2 [id number] #### [facility] [address] [place] [address] Monocytes (Bld) [#/Vol] 0.4 E9/L Normal 0.2-1.0 [facility] Comment on above: Performed By: #### 2 [id number] #### [facility] [address] [place] [address] Neutrophils (Bld) [#/Vol] 2.9 E9/L Normal 2.0-7.5 [facility] Comment on above: Performed By: #### 2 [id number] #### [facility] [address] [place] [address] Neutrophils/100 WBC (Bld) 49.2 % Normal 36.0-75.0 [facility] Comment on above: Performed By: #### 2 [id number] #### [facility] [address] [place] [address] Platelet 183.0 E9/L Normal 150.0-500.0 [facility] Comment on above: Performed By: #### 2 [id number] #### [facility] [address] [place] [address] Platelet mean volume (Bld) [Entitic vol] 9.1 fL Normal 6.4-10.8 [facility] Comment on above: Performed By: #### 2 [id number] #### [facility] [address] [place] [address] RBC (Bld) [#/Vol] 4.7 E12/L Normal 4.3-5.9 [facility] Comment on above: Performed By: #### 2 [id number] #### [facility] [address] [place] [address] WBC corrected for nucl RBC Auto (Bld) [#/Vol] 5.9 E9/L Normal 4.0-11.0 [facility] Comment on above: Performed By: #### 2 [id number] #### [facility] [address] [place] [address] CHEMISTRYOrdered By: SYSTEM SYSTEM on 03-19-2024 Troponin HS 4.90 pg/mL Low 15.90 - 38.40 pg/mL [facility] Comment on above: Interpretive Data: T he 95% CI (Confidence Interval) PPV (Positive Predictive Value) for myocardial infarction in females is 38 pg/mL, in males 51 pg/mL. The results should be used in conjunction with clinical conditions of myocardial infarction. (Access High Sensitivity Troponin I Instructions For Use, [employer], February 2018) Anion gap [Moles/Vol] 9 mmol/L Normal 6 - 16 mEq/L R emisol Chem Calcium [Mass/Vol] 9.2 mg/dL Normal 8.9 - 11. 1 mg/dL [facility] Chloride [Moles/Vol] 106 mmol/L Normal 101 - 1 11 mmol/L [facility] CO2 [Moles/Vol] 32 mmol/L High 21 - 31 mmol/L [facility] Creatinine [Mass/Vol] 1.1 mg/dL Normal 0.5 - 1.3 mg/dL [facility] eGFR 67 mL/min/1.73 m2 Normal >=59mL/min /1 .73 m2 [facility] Glucose [Mass/Vol] 134 mg/dL Normal 55 - 199 mg/dL [facility] Potassium [Moles/Vol] 4.0 mmol/L Normal 3.5 - 5.3 mmol/L [facility] Sodium [Moles/Vol] 143 mmol/L Normal 135 - 145 mmol/L [facility] Troponin HS 4.20 pg/mL Low 15.90 - 38.40 pg/mL [facility] Comment on above: Interpretive Data: T he 95% CI (Confidence Interval) PPV (Positive Predictive Value) for myocardial infarction in females is 38 pg/mL, in males 51 pg/mL. The results should be used in conjunction with clinical conditions of myocardial infarction. (Access High Sensitivity Troponin I Instructions For Use, [employer], February 2018) Urea nitrogen [Mass/Vol] 17 mg/dL Normal 5 - 21 mg/dL [facility] Urea nitrogen/Creatinine [Mass ratio] 16 mg/mg Normal 10 - 20 [facility] COAGULATIONOrdered By: Aurelio Mix on 03-19-2024 aPTT Coag (PPP) [Time] 26.4 s Normal 25.1 - 36.5 second(s) [facility] Comment on above: Interpretive Data: P arameter 15 days - 4 weeks 1 - 5 months 6 - 11 months 1 - 5 years 6 - 10 years 11 - 17 years PTT Mean: 35.4 (27.6-45.6) Mean: 33.5 (24.8-40.7) Mean: 32.4 (25.1-40.7) Mean: 31.6 (24.0-39.2) Mean: 31.6 (26.9-38.7) Mean: 31.0 (24.6-38.4) Pediatric Reference ranges were obtained from a study by klaus Curran al. prepared from 1437 samples obtained at 7 different centers using the same coagulation reagent and instrumentation as [facility]. Currently there are no coagulation studies available worldwide for children to 14 days, and no normal ranges. Heparin therapeutic range (represented by Anti-Factor Xa activity of 0.2 - 0.4 U/mL) corresponds to PTT of 56.6 - 109.0 sec. INR Coag (PPP) [Relative time] 1.13 {INR} Invalid Interpretation Code [facility] Comment on above: Interpretive Data: I NR results are specifically intended to assess patients stabilized on long-term Anticoagulation therapy suggested INR s Less Intensive Anticoagulation 2.0 3.0 Conventional Range 3.0 4.5 PT Coag (PPP) [Time] 12.7 s High 9.4 - 1 2.5 second(s) [facility] Comment on above: Interpretive Data: 1 5 days - 4 weeks 1 - 5 months 6 -11 months 1-5 years 6-10 years 11 -17 years Mean: 11.2 (9.5-12.6) Mean: 11.0 (9.7-12.8) Mean: 11.0 (9.8-13.0) Mean: 11.3 (9.9-13.4) Mean: 11.7 (10.0-14.6) Mean: 11.8 (10.0 - 14.1) Pediatric Reference ranges were obtained from a study by hernan Curran prepared from 1437 samples obtained at 7 different centers using the same coagulation reagent and instrumentation as [facility]. Currently there are no coagulation studies available worldwide for children to 14 days, and no normal ranges. ED Clinical Summaryon 2023 ED Clinical Summary ED Clinical Summary [address] [address] ED Clinical Summary Person Information Name: CHEY FREIRE [place] Age: 83 Years : 1940 Sex: Male Language: Yakut PCP: Ang Chilel MD Marital Status: Visit Id: Visit Reason: Allergic reaction - major; Bee sting; BE STING - POSS ALERGIC REACTION Speciality: Acuity: 1 Enc Type: Emergency Med Service: Emergency Arrival: 03/19/2024 14:01:03 Discharge: 03/19/2024 17:59:52 LOS: 000 03:58 Checkin: 03/19/2024 14:01:03 Checkout: 03/19/2024 17:59:52 Dispo Type: Home (Routine DC) EVENTS: Event Name Event Status Request Date/Time Start Date/Time Complete Date/Time Arrive Complete 03/19/2024 14:01:03 03/19/2024 14:01:03 03/19/2024 14:01:03 Document Home Meds Request 03/19/2024 14:01:03 Triage Complete 03/19/2024 14:01:03 03/19/2024 14:08:05 03/19/2024 14:08:05 Bed Assign Complete 03/19/2024 14:02:21 03/19/2024 14:02:21 03/19/2024 14:02:21 Dr Exam Complete 03/19/2024 14:02:21 03/19/2024 14:08:56 03/19/2024 14:08:56 RN Exam Complete 03/19/2024 14:02:21 03/19/2024 14:24:28 03/19/2024 14:24:28 EKG Complete 03/19/2024 14:08:15 03/19/2024 14:12:01 Pending Labs Complete 03/19/2024 14:08:15 03/19/2024 16:14:49 Lab Complete 03/19/2024 14:08:15 03/19/2024 14:53:38 Patient Care Request 03/19/2024 14:08:15 RT Request 03/19/2024 14:08:15 X-Ray Complete 03/19/2024 14:08:15 03/19/2024 14:15:24 03/19/2024 14:43:12 Meds Admin Complete 03/19/2024 14:08:50 03/19/2024 14:10:06 Registration Complete 03/19/2024 14:08:56 03/19/2024 14:33:18 03/19/2024 14:33:18 Meds Admin Complete 03/19/2024 14:09:24 03/19/2024 14:11:16 Meds Admin Cancel 03/19/2024 14:21:32 03/19/2024 14:22:46 Pending Labs Complete 03/19/2024 14:26:10 03/19/2024 14:26:10 03/19/2024 14:53:38 Lab Complete 03/19/2024 14:26:10 03/19/2024 14:26:10 03/19/2024 14:53:38 Reg Complete Request 03/19/2024 14:33:18 Reg Bed Request Complete 03/19/2024 14:33:18 03/19/2024 14:33:18 03/19/2024 14:33:18 Wet Read Request 03/19/2024 14:43:12 Pending Labs Complete 03/19/2024 17:16:41 03/19/2024 17:16:41 03/19/2024 17:16:41 Discharge Complete 03/19/2024 17:50:04 03/19/2024 17:59:57 03/19/2024 17:59:57 Transfer Complete 03/19/2024 17:59:57 03/19/2024 17:59:57 03/19/2024 17:59:57 ADDRESS: [address] [place] [address] [place] [id number] PHYS DOC NOTES: MEDICAL INFORMATION: Prescriptions Given: New Medications [facility] 1986, [address] [place], [place] [id number], [phone] predniSONE (predniSONE 50 mg Tab) 1 Tablets By Mouth every day for 7 Days. Refills: 0. Medications to Continue with No Changes Other Medications aspirin (aspirin 81 mg oral tablet) 1 Tablets By Mouth every day. ergocalciferol (Vitamin D) By Mouth. lovastatin (lovastatin 40 mg oral tablet) TAKE 2 TABLETS BY MOUTH ONCE DAILY FOR CHOLESTEROL. metoprolol (Metoprolol tartrate 25 mg Tab) 0.5 Tablets By Mouth 2 times a day. nitroglycerin (nitroglycerin 0.4 mg sublingual Tab) 1 Tablets Sublingual every 5 minutes as needed for chest pain. omega-3 polyunsaturated fatty acids ([employer]'s Bounty Red Krill Oil) 1 Milligram By Mouth every day. potassium bicarbonate (Effer-K 20 mEq oral tablet, effervescent) 1 Tablets By Mouth 2 times a day. Refills: 11. ubiquinone (CoQ10) By Mouth every day. PATIENT EDUCATION INFORMATION: Instructions: Anaphylactic Reaction, Adult, Wurr-ph-Jizh Follow up: With: Address: When: Ang Chilel [address] [place], [place] [id number] Business () In 3 days 03/22/2024 Comments: Call Dr for diagnosis based follow up DIAGNOSIS: Bee sting-induced anaphylaxis Normal [facility] ED Patient Summaryon 024 ED Patient Summary ED Patient Summary [place] [id number] Patient Discharge Instructions Person Information Name: CHEY FREIRE Age: 83 Years Arrival Date: 03/19/2024 14:01:03 Discharge Diagnosis: Bee sting-induced anaphylaxis Primary Care Physician: Ang Chilel MD Provider Information Primary Provider: Advanced Patch Driller:None The exam and treatment you received in the Emergency Department were for an urgent problem and are not intended as complete care. It is important that you follow up with a doctor, nurse practitioner, or physician?s ortho assistant for ongoing care. If your symptoms become worse or you do not improve as expected and you are unable to reach your usual health care provider, you should return to the Emergency Department. We are available 24 hours a day. CHEY FREIRE has been given the following list of patient education materials, prescriptions and follow-up instructions: Follow-up Instructions: With: Address: When: Ang Sheth [facility], [address] [place] [id number] Business (1) In 3 days 03/22/2024 Comments: Call Dr for diagnosis based follow up In the event that this physician does not participate in your insurance network, please consult with your insurance company to find a nearby participating provider. Patient Education Materials: Anaphylactic Reaction, Adult, Awiz-xf-Qkua A MESSAGE TO ALL PATIENTS REGARDING OPIOIDS PRESCRIPTION OPIOIDS: WHAT YOU NEED TO KNOW Prescription opioids can be used to help relieve ahmqtsoy-up-jweuwm pain and are often prescribed following a surgery or injury, or for certain health conditions. These medications can be an important part of the treatment but also come with serious risks. It is important to work with your healthcare provider to make sure you are getting the safest, most effective care. WHAT ARE THE RISKS AND SIDE EFFECTS OF OPIOID USE? Prescription opioids carry serious risks of addiction and overdose, especially with prolonged use. An opioid overdose, often marked by slowed breathing, can cause sudden . The use of prescription opioids can have a number of side effects as well, even when taken as directed: ? Tolerance?meaning you might need to take more of the medication for the same pain relief ? Physical dependence?meaning you have symptoms of withdrawal when a medication is stopped ? Increased sensitivity to pain ? Constipation ? Nausea, vomiting, and dry mouth ? Sleepiness and dizziness ? Confusion ? Depression ? Low levels of testosterone that can result in lower sex drive, energy, and strength ? Itching and sweating RISKS ARE GREATER WITH: ? History of drug misuse, substance use disorder, or overdose ? Mental health conditions (such as depression or anxiety) ? Sleep apnea ? Older age (65 years and older) ? Avoid alcohol while taking prescription opioids. Also, unless specifically advised by your health care provider, medications to avoid include: ? Benzodiazepines (such as Xanax or Valium) ? Muscle relaxants (such as Soma or Flexeril) ? Hypnotics (such as Ambien or Lunesta) ? Other prescription opioids KNOW YOUR OPTIONS Talk to your health care provider about ways to manage your pain that don?t involve prescription opioids. Some of these options may actually work better and have fewer risks and side effects. Options may include: ? Pain relievers such as acetaminophen, ibuprofen, and naproxen ? Some medication that are also used for depression or seizures ? Physical therapy and exercise ? Cognitive behavioral therapy, a psychological, goal-directed approach, in which patients learn how to modify physical, behavioral, and emotional triggers of pain and stress. IF YOU ARE PRESCRIBED OPIOIDS FOR PAIN: ? Never take opioids in greater amounts or more often than prescribed. ? Follow up with your primary health care provider. o Work together to create a plan on how to manage your pain. o Talk about ways to help manage your pain that don?t involve prescription opioids. o Talk about any and all concerns and side effects. ? Help prevent misuse and abuse o Never sell or share prescription opioids. o Never use another person?s prescription opioids. ? Store prescription opioids in a secure place and out of reach of others (this may include visitors, children, friends, and family). ? Safely dispose of unused prescription opioids: Find your community drug take-back program or your pharmacy mail-back program, or flush them down the toilet, following guidance from the Food and Drug Administration (www.fda.gov/Drugs/R esourcesForYou). ? Visit www.cdc.gov/drugover dose to learn about the risks of opioids abuse and overdose. ? If you believe you may be struggling with addiction, tell your health career services representative and ask for guidance or c (more content not included)... Normal [facility] HEMATOLOGYOrdered By: SYSTEM SYSTEM on 03-19-2024 Basophils/100 WBC (Bld) 0.5 % Normal 0.0 - 2.0 % Remisol Heme Basophils/Leukocytes Auto (Bld) [Pure # fraction] 0.0 E9/L Normal 0.0 - 0.2 E9/L Remisol Heme Eosinophils (Bld) [#/Vol] 0.2 E9/L Normal 0.0 - 0.5 E9/L Remisol Heme Eosinophils/100 WBC (Bld) 3.4 % Normal 0.0 - 8.0 % Remisol Heme Erythrocyte distribution width (RBC) [Ratio] 13.7 % Normal 10.9 - 14.2 % Remisol Heme Hematocrit (Bld) [Volume fraction] 41.8 % Normal 37.7 - 49.0 % Remisol Heme Hemoglobin (Bld) [Mass/Vol] 14.4 g/dL Normal 13.5 - 17.5 gm/dL Remisol Heme Lymphocytes (Bld) [#/Vol] 2.4 E9/L Normal 1.0 - 4.0 E9/L Remisol Heme Lymphocytes/100 WBC (Bld) 40.4 % Normal 14.0 - 50.0 % Remisol Heme MCH (RBC) [Entitic mass] 30.6 pg Normal 27.0 - 34.0 pg Remisol Heme MCHC (RBC) [Mass/Vol] 34.4 g/dL Normal 31.4 - 36.0 gm/dL Remisol Heme MCV (RBC) [Entitic vol] 88.9 fL Normal 80.0 - 100.0 fL Remisol Heme Monocytes (Bld) [#/Vol] 0.4 E9/L Normal 0.2 - 1.0 E9/L Remisol Heme Monocytes/100 WBC (Bld) 6.5 % Normal 4.0 - 14.0 % Remisol Heme Neutrophils (Bld) [#/Vol] 2.9 E9/L Normal 2.0 - 7.5 E9/L Remisol Heme Neutrophils/100 WBC (Bld) 49.2 % Normal 36.0 - 75.0 % Remisol Heme Platelet 183.0 E9/L Normal 150.0 - 500.0 E9/L Remisol Heme Platelet mean volume (Bld) [Entitic vol] 9.1 fL Normal 6.4 - 10.8 fL Remisol Heme RBC (Bld) [#/Vol] 4.7 E12/L Normal 4.3 - 5.9 E12/L Remisol Heme WBC corrected for nucl RBC Auto (Bld) [#/Vol] 5.9 E9/L Normal 4.0 - 11.0 E9/L Remisol Heme PT & PTTon 03-19-2024 aPTT Coag (PPP) [Time] 26.4 second(s) Normal 25.1-36.5 [facility] Comment on above: Result Comment: Para meter 15 days - 4 weeks 1 - 5 months 6 - 11 months 1 - 5 years 6 - 10 years 11 - 17 years PTT Mean: 35.4 (27.6-45.6) Mean: 33.5 (24.8-40.7) Mean: 32.4 (25.1-40.7) Mean: 31.6 (24.0-39.2) Mean: 31.6 (26.9-38.7) Mean: 31.0 (24.6-38.4) Pediatric Reference ranges were obtained from a study by klaus Curran al. prepared from 1437 samples obtained at 7 different centers using the same coagulation reagent and instrumentation as [facility]. Currently there are no coagulation studies available worldwide for children to 14 days, and no normal ranges. Heparin therapeutic range (represented by Anti-Factor Xa activity of 0.2 - 0.4 U/mL) corresponds to PTT of 56.6 - 109.0 sec. Performed By: #### 1 [id number] #### [facility] [address] [place] [address] INR Coag (PPP) [Relative time] 1.13 {INR} Invalid Interpretation Code [facility] Comment on above: Result Comment: INR results are specifically intended to assess patients stabilized on long-term Anticoagulation therapy suggested INR?s ?Less Intensive Anticoagulation? 2.0 ? 3.0 Conventional Range 3.0 ? 4.5 Performed By: #### 1 [id number] #### [facility] [address] [place] [address] PT Coag (PPP) [Time] 12.7 second(s) High 9.4-12.5 [facility] Comment on above: Result Comment: 15 d ays - 4 weeks 1 - 5 months 6 -11 months 1- 5 years 6-10 years 11 -17 years Mean: 11.2 (9.5-12.6) Mean: 11.0 (9.7-12.8) Mean: 11.0 (9.8-13.0) Mean: 11.3 (9.9-13.4) Mean: 11.7 (10.0-14.6) Mean: 11.8 (10.0 - 14.1) Pediatric Reference ranges were obtained from a study by klaus Curran al. prepared from 1437 samples obtained at 7 different centers using the same coagulation reagent and instrumentation as [facility]. Currently there are no coagulation studies available worldwide for children to 14 days, and no normal ranges. Performed By: #### 1 [id number] #### [facility] [address] [place] [address] Troponin 0 Hr.on 03-19-2024 Troponin HS 4.20 pg/mL Low 15.90-38.40 [facility] Comment on above: Result Comment: The 95% CI (Confidence Interval) PPV (Positive Predictive Value) for myocardial infarction in females is 38 pg/mL, in males 51 pg/mL. The results should be used in conjunction with clinical conditions of myocardial infarction. (Access High Sensitivity Troponin I Instructions For Use, [employer], February 2018) Performed By: #### 1 [id number] #### [facility] [address] [place] [address] Troponin 1 Hr.on 03-19-2024 Troponin HS 4.90 pg/mL Low 15.90-38.40 [facility] Comment on above: Result Comment: The 95% CI (Confidence Interval) PPV (Positive Predictive Value) for myocardial infarction in females is 38 pg/mL, in males 51 pg/mL. The results should be used in conjunction with clinical conditions of myocardial infarction. (Access High Sensitivity Troponin I Instructions For Use, [employer], February 2018) Performed By: #### 1 [id number] #### [facility] [address] [place] [address] XR Chest Single Viewon 03-19 XR Chest Single View Exam Date/Time: 03/19/2024 14:43 EDT Reason for Exam: Chest pain Report IMPRESSION: NO EVIDENCE OF ACTIVE CARDIOPULMONARY DISEASE, BY PORTABLE CHEST RADIOGRAPHY. EXAM: XR Chest Single View DATE: 03/19/2024 2:15 PM CLINICAL HISTORY: Chest pain. COMPARISON: None available. TECHNIQUE: A portable upright AP radiograph of the chest was obtained. FINDINGS: There are shallow inspiratory volumes, without significant pulmonary infiltrate, cardiomegaly, vascular congestion, sizable pleural effusion, pneumothorax, or displaced fractures identified. Ordering Provider: Jeromy Jaramillo FINAL REPORT Dictated: 03/19/2024 3:50 pm Julius Winkler MD Signed (Electronic Signature): 03/19/2024 3:50 pm Signed by: Julius Winkler MD Transcribed by: NIMA Technologist: ANTHONY Technical Comments Radiation Dose: Ka,r in mGy = . DAP = . Normal [facility] eGFRon 03-19-2024 eGFR 67 mL/min/1.73 m2 Normal >=59 [facility] Comment on above: Order Comment: Order added by Discern Expert. Performed By: #### 1 [id number] #### [facility] [address] [place] [address] Ambulatory Visit Summaryon 0 09-02-2023 Ambulatory Visit [...] mg sublingual Tab) omega-3 polyunsaturated fatty acids ([employer]'s Bounty Red Krill Oil) ubiquinone (CoQ10) Procedures [...] CLAYTON, Sotero Mejia Where: [facility] Patient Educationon 09-02-19 24 Patient Education Nephrology [...] ? 8 oz (237 mL) of milk, calcium-fortifiednon -dairy milk, and calcium-fortifiedfru it juice. Calcium-fortified means that calcium has been [...] Spinach (cooked), rhubarb, beets, sweet potatoes, and Italian chard. ? Peanuts. ? Potato chips, burundian fries, and baked potatoes with skin on. ? Nuts and nut products. ? Chocolate. ? If you regularly take a diuretic medicine, make sure to eat at least 1 or 2 servings of fruits or vegetables that are high in potassium each day. These include: ? Avocado. ? Banana. ? [place], prune, carrot, or tomato juice. ? Baked [...] fish oil, or vitamin B6. ? Take tsen-tlx-sqbqbdi and prescription medicines only as told by your health care provider. These include supplements. What foods sh (more content not included)... Normal [facility] Urology Office/Clinic Noteon 09-02-2023 Urology [...] Contact Information TIANA CLAYTON, Sotero Mejia, URL [address] [place] [id number]- Additional Instructions: 1 year with [facility] Patient Education Dietary Guidelines to Help Prevent Kidney Stones I, Carolyne Samuel, personally scribed for Dr. Stephen on 09/02/2023 11:01:27. . Documentation recorded by the scribe, Carolyne [...] 06/01/2022 Tobacco (more content not included)... Normal [facility] Comment on above: Result Comment: Elec tronically Signed By: Sotero STEPHEN MD\.br\Date and Time Signed: 09/02/23 11:04 EST\.br\Electronically Co-Signed By: Carolyne Samuel.br\Date and Time Co-Signed: 09/02/23 11:01 EST RAD - MISCon 09-01-2023 RAD - MISC [id number] #[id number] [facility] Orders Onlyon 04-15-2023 Orders Only [id number] Chey Freire 1940 M Date Provider Department Center 04/15/2023 Bernarda5HAYDER REID CARD [facility] Family History Problem Relation Age of Onset Other Mother Hypertension Mother Heart attack Father Family Status - Relation Status Age at Mother Father Normal [facility] Office Visiton 04-06-2023 Follow-up visit [id number] Chey Freire 1940 M Date Provider Department Center 04/06/2023 LENKA WIGGINS CARD [facility] Family History Problem Relation Age of Onset Other Mother Hypertension Mother Heart attack Father Family Status - Relation Status Age at Mother Father Level of Service:38961 MI OFFICE/OUTPATIENT ESTABLISHED LOW MDM 20-29 MIN Normal [facility] CBC AUTO DIFFon 11-17-2022 BASO # 0.0 103/ul Normal 0.0-0.1 [facility] Comment on above: Performed By: #### C BC #### [facility] [address] [place] [address] Dr. Miguel Angel Cassidy Basophils/100 WBC (Bld) 0.4 % Normal 0.2-2.0 [facility] Comment on above: Performed By: #### C BC #### [facility] [address] [place] [address] Dr. Miguel Angel Cassidy EO # 0.2 103/ul Normal 0.0-0.7 [facility] Comment on above: Performed By: #### C BC #### [facility] [address] [place] [address] Dr. Miguel Angel Cassidy Eosinophils/100 WBC (Bld) 2.4 % Normal 0.9-7.0 [facility] Comment on above: Performed By: #### C BC #### [facility] [address] [place] [address] Dr. Miguel Angel Cassidy Erythrocyte distribution width (RBC) [Ratio] 12.5 % Normal 11.0-15.0 [facility] Comment on above: Performed By: #### C BC #### [facility] [address] [place] [address] Dr. Miguel Angel Cassidy Hematocrit (Bld) [Volume fraction] 44.1 % Normal 42.0-54.0 [facility] Comment on above: Performed By: #### C BC #### [facility] [address] [place] [address] [address] Miguel Angel Cassidy Hemoglobin (Bld) [Mass/Vol] 14.4 g/dL Normal 14.0-18.0 [facility] Comment on above: Performed By: #### C BC #### [facility] [address] [place] [address] [address] Miguel Angel Cassidy IG # 0.02 10e3/ul Normal 0.00-0.03 [facility] Comment on above: Performed By: #### C BC #### [facility] [address] [place] [address] Dr. Miguel Angel Cassidy IG % 0.3 % Normal 0.0-0.5 [facility] Comment on above: Performed By: #### C BC #### [facility] [address] [place] [address] Dr. Miguel Angel Cassidy LYMPH # 3.0 103/ul Normal 1.2-3.8 [facility] Comment on above: Performed By: #### C BC #### [facility] [address] [place] [address] Dr. Miguel Angel Cassidy Lymphocytes/100 WBC (Bld) 38.3 % Normal 20.5-60.0 [facility] Comment on above: Performed By: #### C BC #### [facility] [address] [place] [address] Dr. Miguel Angel Cassidy MANUAL DIFF REQ NO Normal [facility] Comment on above: Performed By: #### C BC #### [facility] [address] [place] [address] Dr. Miguel Angel Cassidy MCH (RBC) [Entitic mass] 29.3 pg Normal 25.9-34.0 [facility] Comment on above: Performed By: #### C BC #### [facility] [address] [place] [address] Dr. Miguel Angel Cassidy MCHC (RBC) [Mass/Vol] 32.7 g/dL Normal 29.9-35.2 [facility] Comment on above: Performed By: #### C BC #### [facility] [address] [place] [address] [address] Miguel Angel Cassidy MCV (RBC) [Entitic vol] 89.6 fL Normal 80.0-94.0 [facility] Comment on above: Performed By: #### C BC #### [facility] [address] [place] [address] [address] Miguel Angel Cassidy MONO # 0.8 103/ul Normal 0.3-0.8 [facility] Comment on above: Performed By: #### C BC #### [facility] [address] [place] [address] [address] Miguel Angel Cassidy Monocytes/100 WBC (Bld) 10.2 % Normal 1.7-12.0 [facility] Comment on above: Performed By: #### C BC #### [facility] [address] [place] [address] [address] Miguel Angel Cassidy NEUT # 3.9 103/ul Normal 1.4-6.5 [facility] Comment on above: Performed By: #### C BC #### [facility] [address] [place] [address] [address] Miguel Angel Cassidy Neutrophils/100 WBC (Bld) 48.4 % Normal 43.0-75.0 [facility] Comment on above: Performed By: #### C BC #### [facility] [address] [place] [address] [address] Miguel Angel Cassidy Platelet mean volume (Bld) [Entitic vol] 11.6 fL Normal 9.5-13.5 [facility] Comment on above: Performed By: #### C BC #### [facility] [address] [place] [address] [address] Miguel Angel Cassidy PLT 148 103/ul Critically low 150-450 [facility] Comment on above: Performed By: #### C BC #### [facility] [address] [place] [address] [address] Miguel Angel Cassidy RBC 4.92 106/ul Normal 4.70-6.10 [facility] Comment on above: Performed By: #### C BC #### [facility] [address] [place] [address] [address] Miguel Angel Cassidy WBC 7.9 103/ul Normal 4.0-11.0 [facility] Comment on above: Performed By: #### C BC #### [facility] [address] [place] [address] Dr. Miguel Angel Cassidy FREE THYROXINE INDEX T7on FTI 1.75 Normal 1.30-4.50 [facility] Comment on above: Performed By: #### U YESI 24 #### [facility] [address] [place] [address] [address] Miguel Angel Cassidy T3U 33.0 % Normal 33.0-40.0 [facility] Comment on above: Performed By: #### U YESI 24 #### [facility] [address] [place] [address] Dr. Miguel Angel Cassidy T4 [Mass/Vol] 5.30 ug/dL Normal 4.50-12.10 [facility] Comment on above: Performed By: #### U YESI 24 #### [facility] [address] [place] [address] Dr. Miguel Angel Cassidy LIPID PROFILEon 11-17-2022 CHOL-HDL RATIO NORM SEE BELOW Normal [facility] Comment on above: Result Comment: 3.3 - 4.4 LOW RISK 4.4 - 7.1 AVERAGE RISK 7.1 - 11.0 MODERATE RISK >11.0 HIGH RISK Performed By: #### U YESI 24 #### [facility] [address] [place] [address] Dr. Miguel Angel Cassidy Cholesterol [Mass/Vol] 141 mg/dL Normal <=200 [facility] Comment on above: Performed By: #### U YESI 24 #### [facility] [address] [place] [address] [address] Miguel Angel Cassidy Cholesterol in HDL [Mass/Vol] 48 mg/dL Normal 40-60 [facility] Comment on above: Performed By: #### U YESI 24 #### [facility] [address] [place] [address] [address] Miguel Angel Cassidy Cholesterol in LDL [Mass/Vol] 80.4 mg/dL Normal [facility] Comment on above: Performed By: #### U YESI 24 #### [facility] [address] [place] [address] [address] Miguel Angel Cassidy Cholesterol.total/Chol esterol in HDL [Mass ratio] 2.9 {ratio} Normal [facility] Comment on above: Performed By: #### U YESI 24 #### [facility] [address] [place] [address] [address] Miguel Angel Cassidy HDL NORMAL > or = 60 mg/dl - LOW CARDIOVASCULAR RISK <40 mg/dl - HIGH CARDIOVASCULAR RISK Normal [facility] Comment on above: Performed By: #### U YESI 24 #### [facility] [address] [place] [address] Dr. Miguel Angel Cassidy LDL CALC NORMAL SEE BELOW Normal [facility] Comment on above: Result Comment: <100 mg/dl OPTIMAL 100 - 129 mg/dl NEAR OR ABOVE OPTIMAL 130 - 159 mg/dl BORDERLINE HIGH 160 - 189 mg/dl HIGH >190 mg/dl VERY HIGH Performed By: #### U YESI 24 #### [facility] [address] [place] [address] Dr. Miguel Angel Cassidy Triglyceride [Mass/Vol] 63 mg/dL Normal <=150 [facility] Comment on above: Performed By: #### U YESI 24 #### [facility] [address] [place] [address] Dr. Miguel Angel Cassidy VLDL CALC 12.6 mg/dL Normal [facility] Comment on above: Performed By: #### U YESI 24 #### [facility] [address] [address] [address] Miguel Angel Cassidy PROF CHEM 8 (BAS METB)on Anion gap [Moles/Vol] 13.1 mmol/L Normal [facility] Comment on above: Performed By: #### U YESI 24 #### [facility] [address] [place] [address] Dr. Miguel Angel Cassidy Calcium [Mass/Vol] 8.8 mg/dL Normal 8.5-10.1 [facility] Comment on above: Performed By: #### U YESI 24 #### [facility] [address] [address] [address] Miguel Angel Cassidy Chloride [Moles/Vol] 108 mmol/L Critically high 98-107 [facility] Comment on above: Performed By: #### U YESI 24 #### [facility] [address] [address] [address] Miguel Angel Cassidy CO2 [Moles/Vol] 29.7 mmol/L Normal 21.0-32.0 [facility] Comment on above: Performed By: #### U YESI 24 #### [facility] [address] [address] [address] Miguel Angel Cassidy Creatinine [Mass/Vol] 1.03 mg/dL Normal 0.70-1.30 [facility] Comment on above: Performed By: #### U YESI 24 #### [facility] [address] [address] [address] Miguel Angel Cassidy EGFR-AF BELARUSIAN >60 Normal >=60 [facility] Comment on above: Performed By: #### U YESI 24 #### [facility] [address] [place] [address] Dr. Miguel Angel Cassidy EGFR-NON AF BELARUSIAN >60 Normal >=60 [facility] Comment on above: Performed By: #### U YESI 24 #### [facility] [address] [address] [address] Miguel Angel Cassidy Glucose [Mass/Vol] 106 mg/dL Normal 74-106 [facility] Comment on above: Performed By: #### U YESI 24 #### [facility] [address] [address] [address] Miguel Angel Cassidy Potassium [Moles/Vol] 4.8 mmol/L Normal 3.5-5.1 [facility] Comment on above: Performed By: #### U YESI 24 #### [facility] [address] [address] [address] Miguel Angel Cassidy Sodium [Moles/Vol] 146 mmol/L Critically high 136-145 [facility] Comment on above: Performed By: #### U YESI 24 #### [facility] [address] [address] [address] Miguel Angel Cassidy Urea nitrogen [Mass/Vol] 14.0 mg/dL Normal 7.0-18.0 [facility] Comment on above: Performed By: #### U YESI 24 #### [facility] [address] [place] [address] Dr. Miguel Angel Cassidy Urea nitrogen/Creatinine [Mass ratio] 13.6 mg/mg Normal [facility] Comment on above: Performed By: #### U YESI 24 #### [facility] [address] [place] [address] Dr. Miguel Angel Cassidy TSHon 11-17-2022 TSH 2.017 uIU/mL Normal 0.358-3.740 [facility] Comment on above: Performed By: #### U YESI 24 #### [facility] [address] [place] [address] Dr. Miguel Angel Cassidy OXALATE 24HR URINEon 023 Oxalates, Urine 34 mg/L Normal Undefined [facility] Comment on above: Performed By: #### O X24HR #### [facility] [address] [place] [address] Dr. Miguel Angel Cassidy Oxalates, Urine 24hr 34 mg/24 hr Normal 7-44 [facility] Comment on above: Performed By: #### O X24HR #### [facility] [address] [place] [address] Dr. Miguel Angel Cassidy CITRATE URINE 24HRon 023 Citric Acid, U, 24hr 1169 mg/24 hr Normal 320-1240 T [facility] Comment on above: Result Comment: This test was developed and its performance characteristics determined by [employer]. It has not been cleared or approved by the Food and Drug Administration. Performed By: #### C ITRATU #### [facility] [address] [place] [address] Dr. Miguel Angel Cassidy Citric Acid, Urine 1169 mg/L Normal Undefined [facility] Comment on above: Performed By: #### C ITRATU #### [facility] [address] [place] [address] Dr. Miguel Angel Cassidy MAGNESIUM 24HR URINEon 02-23 -2023 Magnesium 24hr Urine 88.0 mg/24 hr Normal 12.0-293.0 T [facility] Comment on above: Performed By: #### C ITRATU #### [facility] [address] [place] [address] Dr. Miguel Angel Cassidy Magnesium UR 8.8 mg/dL Normal Not Estab. The [facility] Comment on above: Performed By: #### C ITRATU #### [facility] [address] [place] [address] Dr. Miguel Angel Cassidy PHOSPHORUS 24HR URINEon 08-19 Phosphorus, Urine 97.8 mg/dL Normal Not Estab. The [facility] Comment on above: Performed By: #### C ITRATU #### [facility] [address] [place] [address] Dr. Miguel Angel Cassidy Phosphorus, Urine 24hr 978 mg/24 hr Normal 390-1425 [facility] Comment on above: Performed By: #### C ITRATU #### [facility] [address] [place] [address] Dr. Miguel Angel Cassidy PTH INTACTon 09-09-2022 PTH, Intact 15 pg/mL Normal 15-65 [facility] Comment on above: Performed By: #### U YESI 24 #### [facility] [address] [place] [address] Dr. Miguel Angel Cassidy URIC ACID 24 HR URINEon 08-19 Uric Acid, Urine 43.6 mg/dL Normal Not Estab. The [facility] Comment on above: Performed By: #### U YESI 24 #### [facility] [address] [place] [address] Dr. Miguel Angel Cassidy Uric Acid, Urine 24hr 436.0 mg/24 hr Normal 136.1-771. 1 The [facility] Comment on above: Performed By: #### U YESI 24 #### [facility] [address] [place] [address] Dr. Miguel Angel Cassidy BUNon 09-08-2022 Urea nitrogen [Mass/Vol] 13.0 mg/dL Normal 7.0-18.0 [facility] Comment on above: Performed By: #### U YESI 24 #### [facility] [address] [place] [address] Dr. Miguel Angel Cassidy CALCIUMon 09-08-2022 Calcium [Mass/Vol] 8.9 mg/dL Normal 8.5-10.1 [facility] Comment on above: Performed By: #### U YESI 24 #### [facility] [address] [place] [address] Dr. Miguel Angel Cassidy CALCIUM 24 HR URINEon 2022 CALC, 24 HR UR 138.0 mg/24 hr Normal 100.0-300.0 [facility] Comment on above: Performed By: #### U YESI 24 #### [facility] [address] [place] [address] Dr. Miguel Angel Cassidy UR CALCIUM 13.8 mg/dL Normal 5.1-21.0 [facility] Comment on above: Performed By: #### U YESI 24 #### [facility] [address] [place] [address] Dr. Miguel Angel Cassidy UR TOT VOL 1000 ml/24 HR Normal [facility] Comment on above: Performed By: #### U YESI 24 #### [facility] [address] [place] [address] Dr. Miguel Angel Cassidy Performed By: #### C ITRATU #### [facility] [address] [place] [address] Dr. Miguel Angel Cassidy CHLORIDEon 09-08-2022 Chloride [Moles/Vol] 107 mmol/L Normal 98-107 [facility] Comment on above: Performed By: #### B UN, CL, CO2, CREA, K, URIC, CA, NA #### [facility] [address] [place] [address] Dr. Miguel Angel Cassidy CO2on 09-08-2022 CO2 [Moles/Vol] 31.6 mmol/L Normal 21.0-32.0 [facility] Comment on above: Performed By: #### B UN, CL, CO2, CREA, K, URIC, CA, NA #### [facility] [address] [place] [address] Dr. Miguel Angel Cassidy CREA 24 HR URINEon CREA, 24 HR UR 1343.30 mg/24 hr Normal 1,000.00- 2,0 00.00 [facility] Comment on above: Performed By: #### C ITRATU #### [facility] [address] [place] [address] Dr. Miguel Angel Cassidy URINE CREAT 134.33 mg/dL Normal 20.00-300.00 [facility] Comment on above: Performed By: #### C ITRATU #### [facility] [address] [place] [address] Dr. Miguel Angel Cassidy CREATININEon 09-08-2022 Creatinine [Mass/Vol] 0.89 mg/dL Normal 0.70-1.30 [facility] Comment on above: Performed By: #### B UN, CL, CO2, CREA, K, URIC, CA, NA #### [facility] [address] [place] [address] Dr. Miguel Angel Cassidy EGFR-AF BELARUSIAN >60 Normal >=60 [facility] Comment on above: Performed By: #### B UN, CL, CO2, CREA, K, URIC, CA, NA #### [facility] [address] [place] [address] Dr. Miguel Angel Cassidy EGFR-NON AF BELARUSIAN >60 Normal >=60 [facility] Comment on above: Performed By: #### B UN, CL, CO2, CREA, K, URIC, CA, NA #### [facility] [address] [place] [address] Dr. Miguel Angel Cassidy NAon 09-08-2022 Sodium [Moles/Vol] 143 mmol/L Normal 136-145 [facility] Comment on above: Performed By: #### B UN, CL, CO2, CREA, K, URIC, CA, NA #### [facility] [address] [place] [address] Dr. Miguel Angel Cassidy POTASSIUMon 09-08-2022 Potassium [Moles/Vol] 4.3 mmol/L Normal 3.5-5.1 [facility] Comment on above: Performed By: #### B UN, CL, CO2, CREA, K, URIC, CA, NA #### [facility] [address] [address] [address] Miguel Angel Cassidy SODIUM 24 HR URINEon 023 NA, 24 HR UR 127 mmol/24 hr Normal 40-220 [facility] Comment on above: Performed By: #### C ITRATU #### [facility] [address] [place] [address] Dr. Miguel Angel Cassidy Sodium (U) [Moles/Vol] 127 mmol/L Critically high 30-90 The [facility] Comment on above: Performed By: #### C ITRATU #### [facility] [address] [place] [address] Dr. Miguel Angel Cassidy URIC ACID SERUMon 09-08-2022 Urate [Mass/Vol] 5.3 mg/dL Normal 3.5-7.2 [facility] Comment on above: Performed By: #### U YESI 24 #### [facility] [address] [place] [address] Dr. Miguel Angel Cassidy Covid-19 PCR ([facility])on SARS-CoV-2 (COVID-19) RNA SILVIA+probe Ql (Unsp spec) Not detected Normal NOT DETECTED The [facility] Comment on above: Result Comment: This test is not yet approved or cleared by the [place] FDA. When there are no FDA-approved or cleared tests available, and other criteria are met, FDA can make tests available under an emergency access mechanism called an Emergency Use Authorization (EUA). The EUA for this test is supported by the Membership Administrator of Health and Human Service's (HHS's) declaration [...] Performed By: #### U YESI 24 #### [facility] [address] [address] [address] Miguel Angel Cassidy ECHOCARDIO M/2D COMPLETEon 0 02-10-2022 ECHOCARDIO M/2D COMPLETE Patient: CHEY FREIRE Exam Date: 02/10/2022 : 1940 Gender:M Ordering : DR LENKA DEUTSCH M.D. Admission #: [id number] Family : ANG CHILEL . Order #: [id number] CLICK HERE TO VIEW EXAM ECHOCARDIOGRAM REPORT [...] Daniel M.D. on 02/10/2022 at 15:50 Normal [facility] US KIDNEYS BLADDERon 07-24-2 022 US [...] by: FAIZA ARECHIGA Date: 2022-02-07 08:09 Normal [facility] XR KUB 1 VIEWon 02-05-2022 XR [...] by: FAIZA ARECHIGA Date: 2022-02-05 12:59 Normal [facility] Vital Signs Date Time Vital Sign Value Performing Clinician Juliette gamble 03-19-2024 17:58-0400 Diastolic blood pressure 63 mm[Hg] Abelino Garcia [facility] 03-19-2024 17:58-0400 Heart rate 60 /min Abelino Garcia [facility] 03-19-2024 17:58-0400 Mean blood pressure 88 mm[Hg] Abelino Garcia [facility] 03-19-2024 17:58-0400 Respiratory rate 16 /min Abelino Garcia [facility] 03-19-2024 17:58-0400 SaO2% (BldA) [Mass fraction] 96 % Abelino Garcia [facility] 03-19-2024 17:58-0400 Systolic blood pressure 139 mm[Hg] Abelino Garcia [facility] 03-19-2024 17:00-0400 Heart rate 56 /min Abelino Jose [facility] 03-19-2024 17:00-0400 Mean blood pressure 81 mm[Hg] Abelino Jose [facility] 03-19-2024 17:00-0400 SaO2% (BldA) [Mass fraction] 99 % Abelino Jose [facility] 03-19-2024 17:00-0400 Systolic blood pressure 132 mm[Hg] Abelino Jose [facility] 03-19-2024 16:30-0400 Diastolic blood pressure 56 mm[Hg] Abelino Jose [facility] 03-19-2024 16:30-0400 Heart rate 54 /min Abelino Jose [facility] 03-19-2024 16:30-0400 Mean blood pressure 83 mm[Hg] Abelino Jose [facility] 03-19-2024 16:30-0400 Respiratory rate 19 /min Abelino Jose [facility] 03-19-2024 16:30-0400 SaO2% (BldA) [Mass fraction] 98 % Abelino Jose [facility] 03-19-2024 16:30-0400 Systolic blood pressure 138 mm[Hg] Abelino Jsoe [facility] 03-19-2024 14:13-0400 Respiratory rate 18 /min Abelino Jose [facility] 03-19-2024 14:00-0400 Body temperature 97.7 [degF] Abelino Jose [facility] 03-19-2024 14:00-0400 Heart rate 53 /min Abelino Jose [facility] 03-19-2024 14:00-0400 Respiratory rate 20 /min Abelino Jose [facility] 09-02-2023 09:58-0500 Blood Pressure Location Soteroaminta STEPHEN [facility] 09-02-2023 09:58-0500 Diastolic blood pressure 64 mm[Hg] Sotero STEPHEN [facility] 09-02-2023 09:58-0500 Heart rate 65 /min Sotero STEPHEN [facility] 09-02-2023 09:58-0500 Respiratory rate 16 /min Soteroaminta STEPHEN [facility] 09-02-2023 09:58-0500 Systolic blood pressure 122 mm[Hg] Sotero STEPHEN [facility] 09-03-2022 09:18-0500 Blood Pressure Location Soteroaminta STEPHEN [facility] 09-03-2022 09:18-0500 Diastolic blood pressure 71 mm[Hg] Sotero STEPHEN [facility] 09-03-2022 09:18-0500 Heart rate 70 /min Sotero STEPHEN [facility] 09-03-2022 09:18-0500 Respiratory rate 16 /min Sotero STEPHEN [facility] 09-03-2022 09:18-0500 Systolic blood pressure 130 mm[Hg] Sotero STEPHEN [facility] 06-01-2022 15:52-0500 Blood Pressure Location Holli BATEMAN [facility] 06-01-2022 15:52-0500 Diastolic blood pressure 62 mm[Hg] Holli BATEMAN [facility] [place] 06-01-2022 15:52-0500 Heart rate 68 /min Holli YOLIL [facility] [place] 06-01-2022 15:52-0500 Respiratory rate 16 /min Holli BATEMAN [facility] [place] 06-01-2022 15:52-0500 Systolic blood pressure 130 mm[Hg] Holli BATEMAN [facility] [place] Encounters Encounter Date Encounter Type Care Provider Facility Start: 09-03-2024 [facility] Start: 03-19-2024 End: 03-19-2024 Emergency department patient visit Abelino Garcia Facility:[facility] Start: 09-02-2023 End: 09-02-2023 ambulatory Sotero STEPHEN Facility:[facility] Start: 09-02-2023 End: 09-02-2023 Patient encounter procedure Sotero STEPHEN [facility] Start: 04-06-2023 End: 04-06-2023 ambulatory LENKA [facility] Start: 11-17-2022 End: 11-18-[address] ANG CHILEL . Facility: Start: 09-08-2022 End: 09-09-2022 ambulatory SOTERO STEPHEN Facility: Start: 09-03-2022 End: 09-03-2022 Patient encounter procedure Sotero STEPHEN [facility] Start: 06-26-2022 Encounter for preprocedural laboratory examination DR HOLLI BATEMAN . The [facility] Start: 06-25-2022 End: 06-25-[address] ANG CHILEL . Facility: Start: 06-22-2022 End: 06-23-[address] HOLLI BATEMAN . Facility:[facility] Start: 06-22-2022 End: 06-23-2022 Encounter for preprocedural laboratory examination DR HOLLI BATEMAN . Facility:[facility] Start: 06-01-2022 End: 06-01-2022 Patient encounter procedure Holli BATEMAN [facility] Start: 02-10-2022 End: 02-11-[address] LENKA DEUTSCH Facility:[facility] Start: 02-05-2022 End: 02-06-[address] ANG CHILEL . Facility:[facility] Start: 12-17-2021 End: 12-18-[address] ANG CHILEL . Facility:[facility] Procedures Date Procedure Procedure Detail Performing Clinician Start: 11-17-[address] MARIELA BATEMAN . Comment on above: Performed By: #### P [facility] #### [facility] [address] [place] [address] Dr. Miguel Angel Cassidy Start: 03-20-2019 cysto w/ stent removal Holli BATEMAN Start: 09-11-2015 Extracorporeal shock wave lithotripsy of calculus of kidney Holli BATEMAN Start: 04-03-2015 Extracorporeal shock wave lithotripsy of calculus of kidney Holli BATEMAN Start: 07-18-2009 Placement of stent i n cardiac conduit Holli BATEMAN History of operative procedure on thoracic spinal structure Holli BATEMAN Kidney stone (disorder) Flako BATEMAN Comment on above: Surgery per Dr. Webster Repair of left ingui nal hernia Holli BATEMAN Tonsillectomy Holli BATEMAN Immunizations Immunization Date Immunization Notes Care Provider Fa cility 07-18-2020 SARS-CoV-2 (COVID-19 ) mRNA-1273 vaccine Holli BATEMAN [facility] Comment on above: Result Comment: Pt rohit ortega he has had 3 shots to date but does not have his card for the dates today 03-10-2020 influenza virus vaccine, unspecified formulation Holli SERGIO [facility] Payers Date Payer Category Payer Medicare [id number] 1957 Unknown [id number] 1940 Unknown [id number] 2.16.84 [id number] 1940 Unknown [id number] 2.16.84 [id number] 1940 Unknown [id number] 2.16.84 [id number] 1940 Unknown [id number] 2.16.84 [id number] 1940 Unknown [id number] 2.16.84 [id number] 1940 Unknown [id number] 2.16.84 [id number] 1940 Unknown [id number] 2.16.84 [id number] 1940 Unknown [id number] 2.16.8 [id number] 1940 Unknown [id number] 2.16.8 [id number] 1940 Unknown [id number] 2.16.8 [id number] 1940 Unknown [id number] 2.16.8 [id number] 1940 Unknown [id number] 2.16.8 [id number] Social History Date Type Detail Facility Start: 06-01-2022 Tobacco smoking status Ex-smoker (fi nding) [facility] [place] Tobacco smoking status Never [facility] [place] Sex Assigned At Male [facility] Functional Status Date Assessment Result Facility 03-19-2024 Functional Status N/A [facility] 09-02-2023 Functional Status N/A [facility] 09-03-2022 Functional Status N/A [facility] 06-01-2022 Functional Status N/A [facility] Clinical Notes 12-17-2021 to 03-19-2024 Note Date & Type Note Facility 03-19-2024 Hospital Discharge instructions Patient Education 03/19/2024 17:59:58 Anaphylactic Reaction, Adult, [id number] Anaphylactic Reaction, Adult An anaphylactic reaction is a sudden and very bad allergic reaction. It must be treated right away. What are the causes? Being exposed to things you are allergic to (allergens). These may be: ?Foods, like peanuts, wheat, shellfish, milk, or eggs. ?Medicines. ?Insect bites or stings. ?Blood or parts of blood that have been given to you for treatment (transfusions). ?Chemicals. These include latex and dyes used in food and medical tests. What increases the risk? Having allergies. Having had this kind of reaction before. Having a family history of this kind of reaction. Having asthma or eczema. What are the signs or symptoms? Feeling lesson instructor the face (flushed). Your face may turn red. Hives. These are itchy, red, swollen areas of skin. Swelling of the eyes, lips, face, mouth, tongue, or throat. Trouble breathing or speaking. Trouble swallowing. Feeling dizzy or fainting. Pain or cramps in your belly (abdomen). Vomiting or watery poop (diarrhea). How is this treated? If you are having a bad allergic reaction, you should: Give yourself a shot using a device filled with epinephrine (auto-injector pen). Your doctor will teach you how to use the pen. Call for help. If you use an auto-injector pen, you must still get treated in the hospital. You may be given: ?Medicines. ?Oxygen. ?Fluids in an IV tube. Follow these instructions at home: Safety Always keep an auto-injector pen with you. If you can, carry two pens. Use the pen as told by your doctor. After you use the pen, get more medicine for it right away. Do not drive after you have a reaction. Wait until your doctor says it is safe to drive. Make sure that you, the people who live with you, and your employer know: ?What you are allergic to. ?How to use your auto-injector pen. If told by your doctor, wear a bracelet or necklace that says you have an allergy. Learn the signs of a very bad allergic reaction. Work with your doctors to make a plan for what to do if you have a very bad reaction. General instructions Take [id number] and prescription medicines only as told by your doctor. If you have a rash or itchy skin: ?Use an allergy medicine as told by your doctor. ?Put cold, wet cloths on your skin. ?Take a cool bath or shower. Do not use hot water. Tell all of your doctors that you have an allergy. How is this prevented? Avoid things that have given you a bad reaction before. Tell your food and beverage server about your allergy when you go out to eat. If you are not sure if your meal contains food that you are allergic to, ask your food and beverage server before you eat it. Where to find more information [place] [employer], [employer] (AAAAI): aaaai.org Contact a doctor if: Your auto-injector pen is . Get help right away if: You have a bad allergic reaction. You use your auto-injector pen. You must go to the hospital even if the medicine seems to be working. These symptoms may be an emergency. Use the auto-injector pen right away. Then call 911. Do not wait to see if the symptoms will go away. Do not drive yourself to the hospital. This information is not intended to replace advice given to you by your health care provider. Make sure you discuss any questions you have with your health care provider. Document Revised: 03/18/2023 Document Reviewed: 03/18/2023 [employer] Patient Education 2023 [employer]. Follow Up Care 03/19/2024 14:02:06 With:Ang Chilel Address: [address] [place] [address] [place] [address]- Business (1) When:03/22/2024 17:49:01 Comments:Call Dr for diagnosis based follow up [facility] 03-19-2024 Note ED Patient Education Note Immunology Anaphylactic Reaction, Adult An anaphylactic reaction is a sudden and very bad allergic reaction. It must be treated right away. What are the causes? ? Being exposed to things you are allergic to (allergens). These may be: ? Foods, like peanuts, wheat, shellfish, milk, or eggs. ? Medicines. ? Insect bites or stings. ? Blood or parts of blood that have been given to you for treatment (transfusions). ? Chemicals. These include latex and dyes used in food and medical tests. What increases the risk? ? Having allergies. ? Having had this kind of reaction before. ? Having a family history of this kind of reaction. ? Having asthma or eczema. What are the signs or symptoms? ? Feeling lesson instructor the face (flushed). Your face may turn red. ? Hives. These are itchy, red, swollen areas of skin. ? Swelling of the eyes, lips, face, mouth, tongue, or throat. ? Trouble breathing or speaking. ? Trouble swallowing. ? Feeling dizzy or fainting. ? Pain or cramps in your belly (abdomen). ? Vomiting or watery poop (diarrhea). How is this treated? If you are having a bad allergic reaction, you should: ? Give yourself a shot using a device filled with epinephrine (auto-injector pen). Your doctor will teach you how to use the pen. ? Call for help. If you use an auto-injector pen, you must still get treated in the hospital. You may be given: ? Medicines. ? Oxygen. ? Fluids in an IV tube. Follow these instructions at home: Safety ? Always keep an auto-injector pen with you. If you can, carry two pens. Use the pen as told by your doctor. After you use the pen, get more medicine for it right away. ? Do not drive after you have a reaction. Wait until your doctor says it is safe to drive. ? Make sure that you, the people who live with you, and your employer know: ? What you are allergic to. ? How to use your auto-injector pen. ? If told by your doctor, wear a bracelet or necklace that says you have an allergy. ? Learn the signs of a very bad allergic reaction. ? Work with your doctors to make a plan for what to do if you have a very bad reaction. General instructions ? Take gdxa-rhb-wutaefs and prescription medicines only as told by your doctor. ? If you have a rash or itchy skin: ? Use an allergy medicine as told by your doctor. ? Put cold, wet cloths on your skin. ? Take a cool bath or shower. Do not use hot water. ? Tell all of your doctors that you have an allergy. How is this prevented? ? Avoid things that have given you a bad reaction before. ? Tell your food and beverage server about your allergy when you go out to eat. If you are not sure if your meal contains food that you are allergic to, ask your food and beverage server before you eat it. Where to find more information ? [employer], [employer] (AAAAI): aaaai.org Contact a doctor if: ? Your auto-injector pen is . Get help right away if: ? You have a bad allergic reaction. ? You use your auto-injector pen. You must go to the hospital even if the medicine seems to be working. These symptoms may be an emergency. Use the auto-injector pen right away. Then call 911. ? Do not wait to see if the symptoms will go away. ? Do not drive yourself to the hospital. This information is not intended to replace advice given to you by your health care provider. Make sure you discuss any questions you have with your health care provider. Document Revised: 03/18/2023 Document Reviewed: 03/18/2023 Elsevier Patient Education ? 2023 [employer]. [facility] 09-02-2023 Hospital Discharge instructions Patient Education 09/02/2023 [...] include: ?8 oz (237 mL) of milk, isekewp-qjlxdttrdnlp-xgnxd milk, and calcium-fortifiedfruit juice. Calcium-fortified means that [...] ?Spinach (cooked), rhubarb, beets, sweet potatoes, and Italian chard. ?Peanuts. ?Potato chips, burundian fries, and baked potatoes with skin on. ?Nuts and nut products. ?Chocolate. If you regularly take a diuretic medicine, make sure to eat at least 1 or 2 servings of fruits or vegetables that are high in potassium each day. These include: ?Avocado. ?Banana. ?[place], prune, carrot, or tomato juice. ?Baked potato. [...] magnesium, fish oil, or vitamin B6. Take buae-ols-tqwenlx and prescription medicines only as told by [...] Casseroles. Pizza. Lasagna. Frozen meals. Potato chips. Frisian fries. The items listed above may not [...] provider. Document Revised: 10/14/2022 Document Reviewed: 10/14/2022 Elsevier Patient Education 2022 [employer]. Follow Up Care 09/03/2022 09:56:31 With:TIANA CLAYTON, Sotero Mejia, URL Address: [address] [place], [place] [id number]- When: Unknown [facility] 04-06-2023 Note [facility] Cardiology Clinic Note Chief Complaint: Patient here [...] S/p PCI/stents I25.10: Atherosclerotic heart disease of [place] coronary artery without angina pectoris 2. Aortic [...] problems arise Lenka Deutsch MD, MPH, FACC, [facility] Interventional Cardiology Pager Email: [email or web address] 09-03-2022 Hospital Discharge instructions Patient Education 09/03/2022 09:39:28 Kidney Stones, Dlys-fx-Bzsd Kidney Stones Kidney stones are rock-like masses [...] Follow these instructions at home: Medicines Take gxkx-goq-nayyxfj and prescription medicines only as told by [...] 12/20/2008 Document Revised: 11/20/2019 Document Reviewed: 11/20/2019 [employer] Patient Education 2019 [employer]. Follow Up Care 08/31/2021 10:41:08 With:TIANA CLAYTON, PALMIRA HdzL Address: [address] [place], [place] [id number]- When: Unknown [facility] 06-25-2022 Note OPERATIVE NOTE OPERATION DATE: 06/25/2022 [...] further screening. CC: Ang Chilel M.D. [facility] 12-17-2021 Note PROCEDURE: XR SHOULD ER LT [...] authenticated by: FAIZA ARECHIGA Date: 2021-12-17 17:22 [facility] Evaluation + Plan note Future Appointments Appointment Date:09/03/2022 09:45:00 AM Scheduled Provider:Sotero STEPHEN MD Location:[facility] Appointment Type:URO Office Visit [facility] [place] Evaluation + Plan note Future Appointments Appointment Date:09/02/2023 09:30:00 AM Scheduled Provider:Sotero STEPHEN MD Location:[facility] Appointment Type:URO Office Visit [facility] Evaluation + Plan note Future Appointments Appointment Date:09/03/2024 09:45:00 AM Scheduled Provider:Sotero STEPHEN MD Location:[facility] Appointment Type:URO Office Visit [facility] Hospital course Narrative No data available for this section [facility] [place] [facility] Discharge instructions No data available for this section General Surgery [place] Progress note No data available for this section [facility] [place] Summary Purpose Family History No Family History Records FoundNo Family History Records Found No data available for this section No Family History Records FoundNo Family History [...] Personnel Name: Ang Chilel MD Address: Address: [address] [place], [place] [address], [place] [address]- Personnel Name: Ang Chilel MD Address: Address: [address] [place] [address] [place] [address]- Personnel Name: Ang Chilel MD Address: Address: [address] [place] [address] [place] [address]- (unrecognized sect ion and content) No Status Records FoundNo Status Records FoundNo Status Records FoundNo Status Records FoundNo Status Records FoundNo Status Records FoundNo Status Records FoundNo Status Records FoundNo Status Records FoundNo Status Records Found INFORMATION SOURCE (unrecogn ized section and content) DATE CREATED AUTHOR 11/25/2022 [facility] DATE CREATED AUTHOR AUTHOR'S ORGANIZ ATION 04/22/2023 [facility] DATE CREATED AUTHOR AUTHOR'S ORGANIZ ATION 03/19/2024 [facility] DATE CREATED AUTHOR AUTHOR'S ORGANIZ ATION 03/23/2024 [facility] FOR RECORDS PERTAINING TO PATIENTS WHO [...] BE BASED ON THE PRIMARY CLINICAL RECORDS. [facility] [employer] [facility]. provides no warranty or guarantee of the accuracy or completeness of information in this document.
--- NOTE | 2024-04-11 14:00 | CA_ITS ---
Patient Name: CHEY DAVENPORT MR#: [id number] : 1940 Exam Date: 04/11/2024 Ordering Doctor: DR LENKA DEUTSCH M.D. ECHOCARDIOGRAM REPORT PROCEDURE: CA ECHO DOPPLER COMPLETE INDICATIONS: Aortic valve disorder I35.9, Heart disease, unspec I51.9, hypertension COMPARISON: None. DESCRIPTION: COMPLETE ECHOCARDIOGRAM Real-time transthoracic echocardiography with 2D, M-mode, spectral and color flow Doppler performed. QUALITY: Technical quality was good. LEFT VENTRICLE: Normal chamber size. Mild concentric left ventricular hypertrophy. LV EF: Global left ventricular systolic function is hyperdynamic; visually estimated ejection fraction is 65-70%. No wall motion abnormalities. DIASTOLIC: Diastolic function is indeterminate. ATRIAL SEPTUM: Visually appears intact. LEFT ATRIUM: Mild dilatation. RIGHT ATRIUM: Normal chamber size. RIGHT VENTRICLE: Normal chamber size. Normal right ventricular systolic function. TRICUSPID VALVE: Normal mobility and thickness. No stenosis with mild regurgitation. No evidence of pulmonary hypertension. RVSP 27 mmHg MITRAL VALVE: Normal mobility and thickness. No evidence of mitral valve stenosis. There is no mitral annular calcification. Moderate mitral regurgitation. AORTIC VALVE: Normal trileaflet appearance. Moderately calcified aortic valve with diminished mobility. Doppler velocity suggests mild to moderate aortic stenosis; velocities may be overestimated due to hyperdynamic left ventricular systolic function. DVI 0.35, mean gradient 17 mmHg, max velocity 3.0 m/s. Mild to moderate aortic regurgitation. AORTIC ROOT: Normal diameter and appearance. Ascending aorta is normal in size. PULMONIC VALVE: Normal thickness and mobility. No stenosis. No regurgitation. PERICARDIUM: No evidence of pericardial effusion. CONCLUSION: 1. Global left ventricular systolic function is hyperdynamic; visually estimated ejection fraction is 65 to 70% 2. Normal right ventricular size and systolic function 3. Mild left ventricular hypertrophy 4. The left atrium is mildly dilated 5. Mild tricuspid regurgitation 6. Moderate mitral regurgitation 7. Mild to moderate aortic valve stenosis; mild to moderate aortic valve regurgitation Adult Echocardiography Procedure Report Left Ventricle LVEDD (3.7 - 5.6 cm): 4.71 cm LVESD (2.2 - 4.0 cm): 2.67 cm LVIVS thickness (0.6 - 1.2 cm): 1.20 cm LVPW thickness (0.5 - 1.0 cm): 1.08 cm e': 0.09 m/s E - e': 8.84 LVOT Max Gradient: 4.38 mm[Hg] LVOT Area (cm2): 1.05 m/s Peak Velocity (LVOT): 1.05 m/s Mean Velocity (LVOT): 0.74 m/s LVOT Diameter 1.92 cm Left Atrium LA Volume Index (2D A2C): 37.81 ml/m2 Left Atrium Systolic Dimension: 3.51 cm Mitral Valve MV E to A Ratio: 1.02 Mitral Valve A-Wave Peak Velocity: 0.77 m/s Mitral Valve E-Wave Peak Velocity: 0.79 m/s Right Ventricle Aorta AO Root Diam: 3.39 cm Ascending Ao Diam: 3.18 cm Aortic Valve AoV Area (Peak Adolfo): 1.00 cm2, 1.14 cm2 AoV Area (VTI): 1.01 cm2, 1.18 cm2 Deceleration [place]: 2.12 m/s2, 1.84 m/s2 Pressure Half-Time: 570.49 ms, 614.32 ms Peak Velocity(Antegrade Flow): 2.66 m/s, 3.02 m/s, 2.79 m/s Peak Gradient(Antegrade Flow): 28.34 mm[Hg], 36.58 mm[Hg], 31.16 mm[Hg] Mean Velocity(Antegrade Flow): 1.81 m/s, 1.72 m/s, 1.92 m/s Mean Gradient(Antegrade Flow): 14.72 mm[Hg], 14.94 mm[Hg], 16.72 mm[Hg] Velocity Time Integral: 58.80 cm, 56.84 cm, 68.65 cm Tricuspid Valve Peak Velocity (Regurgitant Flow): 2.47 m/s Pulmonic Valve Peak Velocity: 0.72 m/s Peak Gradient: 2.06 mm[Hg] Right Atrium Right Atrium Systolic Pressure: 37.33 ml, 37.33 ml Dictated by: Lenka Deutsch M.D. on 04/12/2024 at 17:27 Approved by: Lenka Deutshc M.D. on 04/12/2024 at 17:32
== END 2024-04-11 13:26 | disposition home or self-care (01) ==
LOC: CARD 13:25
PROVIDERS: PCP Family Medicine; Visit Provider Internal Medicine Interventional Cardiology
DX: I35.9 Nonrheumatic aortic valve disorder, unspecified (principal); I51.9 Heart disease, unspecified
CPT/HCPCS: 93306

== ENCOUNTER 2024-06-09 08:03 | Outpatient (OUT) | payer MEDICARE, OTHER, SELFPAY ==
--- NOTE | 2024-06-09 | XR_ITS ---
The [address] [address] Patient Name: CHEY DAVENPROT MRN: [id number] date: 1940 Sex: M Assigned Patient Location: LAB Current Patient Location: LAB Accession/Order Number: [id number] Exam Date: 06/09/2024 08:28 Report Date: 06/09/2024 09:19 At the request of: ANG HI Procedure: XR chest 2V EXAMINATION: XR chest 2V HISTORY: I25.10 Atherosclerotic heart disease COMPARISON: No relevant comparison available. FINDINGS: LUNGS: Mild chronic interstitial changes. No acute infiltrates or mass. VASCULATURE: No increased pulmonary vasculature. PLEURA: No pneumothorax, effusion, or pleural thickening. CARDIAC: No cardiomegaly or cardiac silhouette abnormality. MEDIASTINUM: No visible mass or adenopathy. BONES: No fracture or visible bone lesion. OTHER: Negative. XR/XR chest 2V IMPRESSION: 1. No acute cardiac pulmonary process or suspicious findings. 2. Mild chronic, likely age related, changes. Electronically authenticated by: FAIZA ARECHIGA Date: 06/09/2024 09:19
--- OUTSIDE RECORDS SUMMARY | 2024-06-09 08:08 | XMS_ITS | CCD ---
Author Organization [facility] CliniSyme Care Team Providers Care Sample Box Maker Name Role Phone Ang Chilel Primary Care Physician [phone] ., DR DE LA GARZA Admitting [...] HOY ., DR FRY Primary Care Unavailable ZIEBFAIZA VELEZ Consulting Unavailable ELTAHAWY, DR ALFARO Attending Unavailable [...] Primary Care Unavailable FAIZA ARECHIGA Consulting Unavailable Sotero STEPHEN Attending Unavailable Sotero STEPHEN Attending Unavailable Abelino Garcia Attending Unavailable Abelino Garcia Attending Unavailable ELTAANGELINA MATA Attending Unavailable Allergies Allergy Classification Reported Allergen(s) Allergy Type Date of Onset Reaction(s) Facility (2 sources) Bee/Wasp/Ant venom; Translations: [Bee Stings] Propensity to adverse reactions (disorder) Anaphylactic reaction [facility] Repository Medications Current Medications Medication Drug Class(es) [...] day(s), # 7 tab(s), Refills(s) 0, Pharmacy: [facility], 160, cm, 03/19/24 14:08:00 EDT, [...] # 60 tab(s), Refills(s) , DAGO, Pharmacy: [facility], 160, cm, 09/02/23 10:00:00 EST, Height/Length Dosing, 63.2, kg, 09/02/23 10:00:00 EST, Weight Dosing Start Date: 09/02/23 Status: Ordered Start: 05-17-2022 take 1 tablet by kassidy th twice daily Effer-K 20 mEq oral tablet, effervescent 20 mEq = 1 tab(s), Oral, BID, # 60 tab(s), Refills(s) , DAGO, Pharmacy: [facility], 160.3, cm, 08/31/21 9:38:00 EST, [...] sources) Gout 05-27-2022 Chronic Heart valve disorders (18 sources) Aortic valve regurgitation; Translations: [Aortic valve [...] 01-29-2019 01-29-2019 Episodic Other aftercare (1 source) 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; Translations: [ASSISTED LIVING ADMINISTRATOR ANTITHROMBOT/ANTIPL ATLETS] Onset: 07-01-2022 Episodic Other aftercare (1 source) USP (current) use of aspirin; Translations: [HALFWAY CURRENT USE OF ASPIRIN] Onset: 07-01-2022 Episodic Other aftercare (1 source) Other senior living (current) drug therapy; Translations: [OTH HALFWAY CURRENT DRUG THERAPY] Onset: 07-01-2022 Episodic Other non-traumatic joint disorders (4 sources) Pain in left shoulder; Translations: [PAIN IN LEFT SHOULDER] Onset: 12-17-2021 Episodic Screening and history of mental health and substance abuse codes (1 source) Personal history of nicotine dependence; Translations: [PERSONAL HISTORY OF NICOTINE DEPEND] Onset: 07-01-2022 Episodic Results Test Name Value Interpretation Reference Range Facility Office Visiton 05-14-2024 Follow-up visit [id number] Chey Freire 1940 M Date Provider Department Center 05/14/2024 Richi-ANGELINA ZIMMERMAN [facility] Family History Problem Relation Age of Onset Other Mother Hypertension Mother Heart attack Father Family Status - Relation Status Age at Mother Father Level of Service:61851 [place] OFFICE/OUTPATIENT ESTABLISHED LOW MDM 20 MIN Normal [facility] ED Note-Physicianon 03-22-20 ED Note-Physician ED Note-Physician [...] and Complexity of Problems Differential Diagnosis: [] [facility] Data External documents reviewed: [] My EKG [...] anaphylaxis, # 1 EA, Refills(s) 0, Pharmacy: [facility], 160, cm, 03/19/24 14:08:00 EDT, [...] day(s), # 7 tab(s), Refills(s) 0, Pharmacy: [facility], 160, cm, 03/19/24 14:08:00 EDT, Height/Length Dosing, 63.3, kg, 03/19/24 14:08:00 EDT, Weight Dosing Basic Metabolic Panel CBC w/ Auto Diff ECG 12 Lead Adult ED Cardiac Monitoring eGFR Extra SST Tube Oxygen Saturation Oxygen Therapy PT & PTT Saline Lock Insert Troponin 0 Hr. Troponin 1 Hr. XR Chest Sing (more content not included)... Normal [facility] Comment on above: Result Comment: Elec tronically Signed By: Clint GOFF, Jeromy Gamino\.br\Date and Time Signed: 03/19/24 18:40 EDT\.br\Electronically Co-Signed By: Abelino Garcia MD\.br\Date and Time Co-Signed: 03/22/24 05:55 EDT BMPon 03-19-2024 Anion gap [Moles/Vol] 9 mmol/L Normal 6-16 [facility] Comment on above: Performed By: #### 2 [id number] #### [facility] [address] [place] [address] Calcium [Mass/Vol] 9.2 mg/dL Normal 8.9-11.1 [facility] Comment on above: Performed By: #### 2 [id number] #### [facility] [address] [place] [address] Chloride [Moles/Vol] 106 mmol/L Normal 101-111 [facility] Comment on above: Performed By: #### 2 [id number] #### [facility] [address] [place] [address] CO2 [Moles/Vol] 32 mmol/L High 21-31 [facility] Comment on above: Performed By: #### 2 [id number] #### [facility] [address] [place] [address] Creatinine [Mass/Vol] 1.1 mg/dL Normal 0.5-1.3 [facility] Comment on above: Performed By: #### 2 [id number] #### [facility] [address] [place] [address] Glucose [Mass/Vol] 134 mg/dL Normal 55-199 [facility] Comment on above: Performed By: #### 2 [id number] #### [facility] [address] [place] [address] Potassium [Moles/Vol] 4.0 mmol/L Normal 3.5-5.3 [facility] Comment on above: Performed By: #### 2 [id number] #### [facility] [address] [place] [address] Sodium [Moles/Vol] 143 mmol/L Normal 135-145 [facility] Comment on above: Performed By: #### 2 [id number] #### [facility] [address] [place] [address] Urea nitrogen [Mass/Vol] 17 mg/dL Normal 5-21 [facility] Comment on above: Performed By: #### 2 [id number] #### [facility] [address] [place] [address] Urea nitrogen/Creatinine [Mass ratio] 16 No Units Normal 10-20 [facility] Comment on above: Performed By: #### 2 [id number] #### [facility] [address] [place] [address] CBC w/ Auto Diffon 4 Basophils/100 WBC (Bld) 0.5 % Normal 0.0-2.0 [facility] Comment on above: Performed By: #### 2 [id number] #### [facility] [address] [place] [address] Basophils/Leukocytes Auto (Bld) [Pure # fraction] 0.0 E9/L Normal 0.0-0.2 [facility] Comment on above: Performed By: #### 2 [id number] #### [facility] [address] [place] [address] Eosinophils (Bld) [#/Vol] 0.2 E9/L Normal 0.0-0.5 [facility] Comment on above: Performed By: #### 2 [id number] #### [facility] [address] [place] [address] Eosinophils/100 WBC (Bld) 3.4 % Normal 0.0-8.0 [facility] Comment on above: Performed By: #### 2 [id number] #### [facility] [address] [place] [address] Erythrocyte distribution width (RBC) [Ratio] 13.7 % Normal 10.9-14.2 [facility] Comment on above: Performed By: #### 2 [id number] #### [facility] [address] [place] [address] Hematocrit (Bld) [Volume fraction] 41.8 % Normal 37.7-49.0 [facility] Comment on above: Performed By: #### 2 [id number] #### [facility] [address] [place] [address] Hemoglobin (Bld) [Mass/Vol] 14.4 g/dL Normal 13.5-17.5 [facility] Comment on above: Performed By: #### 2 [id number] #### [facility] [address] [place] [address] Lymphocytes (Bld) [#/Vol] 2.4 E9/L Normal 1.0-4.0 [facility] Comment on above: Performed By: #### 2 [id number] #### [facility] [address] [place] [address] Lymphocytes/100 WBC (Bld) 40.4 % Normal 14.0-50.0 [facility] Comment on above: Performed By: #### 2 [id number] #### [facility] [address] [place] [address] MCH (RBC) [Entitic mass] 30.6 pg Normal 27.0-34.0 [facility] Comment on above: Performed By: #### 2 [id number] #### [facility] [address] [place] [address] MCHC (RBC) [Mass/Vol] 34.4 g/dL Normal 31.4-36.0 [facility] Comment on above: Performed By: #### 2 [id number] #### [facility] [address] [place] [address] MCV (RBC) [Entitic vol] 88.9 fL Normal 80.0-100.0 [facility] Comment on above: Performed By: #### 2 [id number] #### [facility] [address] [place] [address] Monocytes (Bld) [#/Vol] 0.4 E9/L Normal 0.2-1.0 [facility] Comment on above: Performed By: #### 2 [id number] #### [facility] [address] [place] [address] Neutrophils (Bld) [#/Vol] 2.9 E9/L Normal 2.0-7.5 [facility] Comment on above: Performed By: #### 2 [id number] #### [facility] [address] [place] [address] Neutrophils/100 WBC (Bld) 49.2 % Normal 36.0-75.0 [facility] Comment on above: Performed By: #### 2 [id number] #### [facility] [address] [place] [address] Platelet 183.0 E9/L Normal 150.0-500.0 [facility] Comment on above: Performed By: #### 2 [id number] #### [facility] [address] [place] [address] Platelet mean volume (Bld) [Entitic vol] 9.1 fL Normal 6.4-10.8 [facility] Comment on above: Performed By: #### 2 [id number] #### [facility] [address] [place] [address] RBC (Bld) [#/Vol] 4.7 E12/L Normal 4.3-5.9 [facility] Comment on above: Performed By: #### 2 [id number] #### [facility] [address] [place] [address] WBC corrected for nucl RBC Auto (Bld) [#/Vol] 5.9 E9/L Normal 4.0-11.0 [facility] Comment on above: Performed By: #### 2 [id number] #### [facility] [address] [place] [address] CHEMISTRYOrdered By: SYSTEM SYSTEM on 03-19-2024 Troponin [...] High Sensitivity Troponin I Instructions For Use, gantto, February 2018) Anion gap [Moles/Vol] 9 mmol/L [...] High Sensitivity Troponin I Instructions For Use, gantto, February 2018) Urea nitrogen [Mass/Vol] 17 mg/dL Normal 5 - 21 mg/dL [facility] Urea nitrogen/Creatinine [Mass ratio] 16 mg/mg Normal 10 - 20 [facility] COAGULATIONOrdered By: Aurelio Mix on 03-19-2024 aPTT Coag (PPP) [Time] 26.4 s Normal 25.1 - 36.5 second(s) [facility] Auto Coag Comment on above: Interpretive Data: Magdy russell 15 days - 4 weeks 1 - 5 months 6 - 11 months 1 - 5 years 6 - 10 years 11 - 17 years PTT Mean: 35.4 (27.6-45.6) Mean: 33.5 (24.8-40.7) Mean: 32.4 (25.1-40.7) Mean: 31.6 (24.0-39.2) Mean: 31.6 (26.9-38.7) Mean: 31.0 (24.6-38.4) Pediatric Reference ranges were obtained from a study by Anthony Dwyer et al. prepared from 1437 samples obtained at 7 different centers using the same coagulation reagent and instrumentation as [facility]. Currently there are no coagulation studies available worldwide for children to 14 days, and no normal ranges. Heparin therapeutic range (represented by Anti-Factor Xa activity of 0.2 - 0.4 U/mL) corresponds to PTT of 56.6 - 109.0 sec. INR Coag (PPP) [Relative time] 1.13 {INR} Invalid Interpretation Code [facility] Comment on above: Interpretive Data: I NR results are specifically intended to assess patients stabilized on long-term Anticoagulation therapy suggested INR s Less Intensive Anticoagulation 2.0 3.0 Conventional Range 3.0 4.5 PT Coag (PPP) [Time] 12.7 s High 9.4 - 1 2.5 second(s) [facility] Comment on above: Interpretive Data: 1 5 days - 4 weeks 1 - 5 months 6 -11 months 1-5 years 6-10 years 11 -17 years Mean: 11.2 (9.5-12.6) Mean: 11.0 (9.7-12.8) Mean: 11.0 (9.8-13.0) Mean: 11.3 (9.9-13.4) Mean: 11.7 (10.0-14.6) Mean: 11.8 (10.0 - 14.1) Pediatric Reference ranges were obtained from a study by Anthony Dwyer et al. prepared from 1437 samples obtained at 7 different centers using the same coagulation reagent and instrumentation as [facility]. Currently there are no coagulation studies available worldwide for children to 14 days, and no normal ranges. ED Clinical Summaryon 2023 ED Clinical Summary ED Clinical Summary [place] [id number] ED Clinical Summary Person Information Name: CHEY FREIRE [facility] Age: 83 Years : 1940 Sex: Male Language: Turkmen PCP: Ang Chilel MD Marital Status: Visit [...] 03/19/2024 17:59:57 03/19/2024 17:59:57 03/19/2024 17:59:57 ADDRESS: [id number] [facility] [place] [id number] PHYS DOC NOTES: MEDICAL INFORMATION: Prescriptions Given: New Medications [facility], [address] [place], [place] [id number], [phone] predniSONE (predniSONE 50 mg Tab) 1 Tablets [...] for chest pain. omega-3 polyunsaturated fatty acids (ZuzuChe's Bounty Red Krill Oil) 1 Milligram By Mouth every day. potassium bicarbonate (Effer-K 20 mEq oral tablet, effervescent) 1 Tablets By Mouth 2 times a day. Refills: 11. ubiquinone (CoQ10) By Mouth every day. PATIENT EDUCATION INFORMATION: Instructions: Anaphylactic Reaction, Adult, [id number] Follow up: With: Address: When: Ang Chilel [address] [place] [address], [facility] [place] [address] Business (1) In 3 days 03/22/2024 Comments: Call Dr for diagnosis based follow up DIAGNOSIS: Bee sting-induced anaphylaxis Normal [facility] ED Patient Summaryon 024 ED Patient Summary ED Patient Summary [address] [address] Patient Discharge Instructions Person Information Name: CHEY FREIRE Age: 83 Years Arrival Date: 03/19/2024 14:01:03 Discharge Diagnosis: Bee sting-induced anaphylaxis Primary Care Physician: Ang Chilel MD Provider Information Primary Provider: Advanced Stripper Cutter Machine:None The exam and treatment you received in the Emergency Department were for an urgent problem and are not intended as complete care. It is important that you follow up with a doctor, nurse practitioner, or physician?s personal banking assistant for ongoing care. If your symptoms become worse or you do not improve as expected and you are unable to reach your usual health care provider, you should return to the Emergency Department. We are available 24 hours a day. CHEY FREIRE has been given the following list of patient education materials, prescriptions and follow-up instructions: Follow-up Instructions: With: Address: When: Ang Chilel [facility] [facility], [place] [address] Business (1) In 3 days 03/22/2024 Comments: Call Dr for diagnosis based follow up In the event that this physician does not participate in your insurance network, please consult with your insurance company to find a nearby participating provider. Patient Education Materials: Anaphylactic Reaction, Adult, Iqkj-pz-Egtg A MESSAGE TO ALL PATIENTS REGARDING OPIOIDS PRESCRIPTION OPIOIDS: WHAT YOU NEED TO KNOW Prescription opioids can be used to help relieve waktbgxz-ey-bsuaxh pain and are often prescribed following a [...] be struggling with addiction, tell your health residential child care counselor and ask for guidance or c (more content not included)... Normal [facility] HEMATOLOGYOrdered By: SYSTEM SYSTEM on 03-19-2024 Basophils/100 [...] Coag (PPP) [Time] 26.4 second(s) Normal 25.1-36.5 [facility] Comment on above: Result Comment: Para meter [...] the same coagulation reagent and instrumentation as [facility]. Currently there are no coagulation studies available worldwide for children to 14 days, and no normal ranges. Heparin therapeutic range (represented by Anti-Factor Xa activity of 0.2 - 0.4 U/mL) corresponds to PTT of 56.6 - 109.0 sec. Performed By: #### 1 [id number] #### [facility] [address] [place] [address] INR Coag (PPP) [Relative time] 1.13 {INR} Invalid Interpretation Code [facility] Comment on above: Result Comment: INR results are specifically intended to assess patients stabilized on long-term Anticoagulation therapy suggested INR?s ?Less Intensive Anticoagulation? 2.0 ? 3.0 Conventional Range 3.0 ? 4.5 Performed By: #### 1 [id number] #### [facility] [address] [place] [address] PT Coag (PPP) [Time] 12.7 second(s) High 9.4-12.5 [facility] Comment on above: Result Comment: 15 d [...] the same coagulation reagent and instrumentation as [facility]. Currently there are no coagulation studies available worldwide for children to 14 days, and no normal ranges. Performed By: #### 1 [id number] #### [facility] [address] [place] [address] Troponin 0 Hr.on 03-19-2024 Troponin HS 4.20 pg/mL Low 15.90-38.40 [facility] Comment on above: Result Comment: The 95% CI (Confidence Interval) PPV (Positive Predictive Value) for myocardial infarction in females is 38 pg/mL, in males 51 pg/mL. The results should be used in conjunction with clinical conditions of myocardial infarction. (Access High Sensitivity Troponin I Instructions For Use, gantto, February 2018) Performed By: #### 1 [id number] #### [facility] [address] [place] [address] Troponin 1 Hr.on 03-19-2024 Troponin HS 4.90 pg/mL Low 15.90-38.40 [facility] Comment on above: Result Comment: The 95% CI (Confidence Interval) PPV (Positive Predictive Value) for myocardial infarction in females is 38 pg/mL, in males 51 pg/mL. The results should be used in conjunction with clinical conditions of myocardial infarction. (Access High Sensitivity Troponin I Instructions For Use, gantto, February 2018) Performed By: #### 1 [id number] #### [facility] [address] [place] [address] XR Chest Single Viewon 03-19 XR Chest [...] NIMA Technologist: ANTHONY Technical Comments Radiation Dose: patel Wharton in mGy = . DAP = . Normal [facility] eGFRon 03-19-2024 eGFR 67 mL/min/1.73 m2 Normal >=59 [facility] Comment on above: Order Comment: Order added by Discern Expert. Performed By: #### 1 [id number] #### [facility] [address] [place] [address] Ambulatory Visit Summaryon 0 09-02-2023 Ambulatory Visit [...] mg sublingual Tab) omega-3 polyunsaturated fatty acids (ZuzuChe's Bounty Red Krill Oil) ubiquinone (CoQ10) Procedures [...] CLAYTON, Sotero Mejia Where: [facility] Diana Hairston [facility] Patient Educationon 09-02-19 Patient Education Nephrology Dietary Guidelines to Help [...] Spinach (cooked), rhubarb, beets, sweet potatoes, and Macanese chard. ? Peanuts. ? Potato chips, libyan fries, and baked potatoes with skin on. ? Nuts and nut products. ? Chocolate. ? If you regularly take a diuretic medicine, make sure to eat at least 1 or 2 servings of fruits or vegetables that are high in potassium each day. These include: ? Avocado. ? Banana. ? Mcleod, prune, carrot, or tomato juice. ? Baked [...] fish oil, or vitamin B6. ? Take srvu-rmq-maxtlkm and prescription medicines only as told by your health care provider. These include supplements. What foods sh (more content not included)... Normal [facility] Urology Office/Clinic Noteon 09-02-2023 Urology Office/Clinic Note [...] Contact Information TIANA CLAYTON, Sotero Mejia, URL [address] [place] [phone]- Additional Instructions: 1 year with [facility] Patient Education Dietary Guidelines to Help Prevent Kidney Stones I, Carolyne Samuel, personally scribed for Dr. Stephen on 09/02/2023 11:01:27. . Documentation recorded by the Carolyne warren, accurately reflects the services(s) I performed and [...] 06/01/2022 Tobacco (more content not included)... Normal [facility] Comment on above: Result Comment: Elec tronically Signed By: TIANA CLAYTON, Sotero Mejia\.br\Date and Time Signed: 09/02/23 11:04 EST\.br\Electronically Co-Signed By: Carolyne Samuel\Date and Time Co-Signed: 09/02/23 11:01 EST RAD - MISCon 09-01-2023 RAD - MISC [id number] #[id number] Normal [facility] CBC AUTO DIFFon 11-17-2022 BASO # 0.0 103/ul Normal 0.0-0.1 [facility] Comment on above: Performed By: #### C BC #### [facility] [address] [address] [address] Miguel Angel Cassidy Basophils/100 WBC (Bld) 0.4 % Normal 0.2-2.0 [facility] Comment on above: Performed By: #### C BC #### [facility] [address] [address] [address] Miguel Angel Cassidy EO # 0.2 103/ul Normal 0.0-0.7 [facility] Comment on above: Performed By: #### C BC #### [facility] [address] [place] [address] Dr. Miguel Angel Cassidy Eosinophils/100 WBC (Bld) 2.4 % Normal 0.9-7.0 [facility] Comment on above: Performed By: #### C BC #### [facility] [address] [address] [address] Miguel Angel Cassidy Erythrocyte distribution width (RBC) [Ratio] 12.5 % Normal 11.0-15.0 [facility] Comment on above: Performed By: #### C BC #### [facility] [address] [place] [address] Dr. Miguel Angel Cassidy Hematocrit (Bld) [Volume fraction] 44.1 % Normal 42.0-54.0 [facility] Comment on above: Performed By: #### C BC #### [facility] [address] [place] [address] Dr. Miguel Angel Cassidy Hemoglobin (Bld) [Mass/Vol] 14.4 g/dL Normal 14.0-18.0 [facility] Comment on above: Performed By: #### C BC #### [facility] [address] [place] [address] Dr. Miguel Angel Cassidy IG # 0.02 10e3/ul Normal 0.00-0.03 [facility] Comment on above: Performed By: #### C BC #### [facility] [address] [place] [address] Dr. Miguel Angel Cassidy IG % 0.3 % Normal 0.0-0.5 [facility] Comment on above: Performed By: #### C BC #### [facility] [address] [place] [address] Dr. Miguel Angel Cassidy LYMPH # 3.0 103/ul Normal 1.2-3.8 [facility] Comment on above: Performed By: #### C BC #### [facility] [address] [place] [address] Dr. Miguel Angel Cassidy Lymphocytes/100 WBC (Bld) 38.3 % Normal 20.5-60.0 [facility] Comment on above: Performed By: #### C BC #### [facility] [address] [place] [address] Dr. Miguel Angel Cassidy MANUAL DIFF REQ NO Normal [place] Comment on above: Performed By: #### C BC #### [facility] [address] [place] [address] Dr. Miguel Angel Cassidy MCH (RBC) [Entitic mass] 29.3 pg Normal 25.9-34.0 [facility] Comment on above: Performed By: #### C BC #### [facility] [address] [place] [address] Dr. Miguel Angel Cassidy MCHC (RBC) [Mass/Vol] 32.7 g/dL Normal 29.9-35.2 [facility] Comment on above: Performed By: #### C BC #### [facility] [address] [place] [address] Dr. Miguel Angel Cassidy MCV (RBC) [Entitic vol] 89.6 fL Normal 80.0-94.0 [facility] Comment on above: Performed By: #### C BC #### [facility] [address] [place] [address] Dr. Miguel Angel Cassidy MONO # 0.8 103/ul Normal 0.3-0.8 [facility] Comment on above: Performed By: #### C BC #### [facility] [address] [place] [address] Dr. Miguel Angel Cassidy Monocytes/100 WBC (Bld) 10.2 % Normal 1.7-12.0 [facility] Comment on above: Performed By: #### C BC #### [facility] [address] [place] [address] Dr. Miguel Angel Cassidy NEUT # 3.9 103/ul Normal 1.4-6.5 [facility] Comment on above: Performed By: #### C BC #### [facility] [address] [place] [address] Dr. Miguel Angel Cassidy Neutrophils/100 WBC (Bld) 48.4 % Normal 43.0-75.0 [facility] Comment on above: Performed By: #### C BC #### [facility] [address] [place] [address] Dr. Miguel Angel Cassidy Platelet mean volume (Bld) [Entitic vol] 11.6 fL Normal 9.5-13.5 [facility] Comment on above: Performed By: #### C BC #### [facility] [address] [place] [address] Dr. Miguel Angel Cassidy PLT 148 103/ul Critically low 150-450 [facility] Comment on above: Performed By: #### C BC #### [facility] [address] [place] [address] Dr. Miguel Angel Cassidy RBC 4.92 106/ul Normal 4.70-6.10 [facility] Comment on above: Performed By: #### C BC #### [facility] [address] [place] [address] Dr. Miguel Angel Cassidy WBC 7.9 103/ul Normal 4.0-11.0 [facility] Comment on above: Performed By: #### C BC #### [facility] [address] [place] [address] Dr. Miguel Angel Cassidy FREE THYROXINE INDEX T7on FTI 1.75 Normal 1.30-4.50 [facility] Comment on above: Performed By: #### U YESI 24 #### [facility] [address] [place] [address] Dr. Miguel Angel Cassidy T3U 33.0 % Normal 33.0-40.0 [facility] Comment on above: Performed By: #### U YESI 24 #### [facility] [address] [place] [address] Dr. Miguel Angel Cassidy T4 [Mass/Vol] 5.30 ug/dL Normal 4.50-12.10 [facility] Comment on above: Performed By: #### U YESI 24 #### [facility] [address] [place] [address] Dr. Miguel Angel Cassidy LIPID PROFILEon 11-17-2022 CHOL-HDL RATIO NORM SEE BELOW Normal [facility] Comment on above: Result Comment: 3.3 - 4.4 LOW RISK 4.4 - 7.1 AVERAGE RISK 7.1 - 11.0 MODERATE RISK >11.0 HIGH RISK Performed By: #### U YESI 24 #### [facility] [address] [place] [address] Dr. Miguel Angel Cassidy Cholesterol [Mass/Vol] 141 mg/dL Normal <=200 [facility] Comment on above: Performed By: #### U YESI 24 #### [facility] [address] [place] [address] Dr. Miguel Angel Cassidy Cholesterol in HDL [Mass/Vol] 48 mg/dL Normal 40-60 [facility] Comment on above: Performed By: #### U YESI 24 #### [facility] [address] [place] [address] Dr. Miguel Angel Cassidy Cholesterol in LDL [Mass/Vol] 80.4 mg/dL Normal [facility] Comment on above: Performed By: #### U YESI 24 #### [facility] [address] [place] [address] Dr. Miguel Angel Cassidy Cholesterol.total/Chol esterol in HDL [Mass ratio] 2.9 {ratio} Normal [facility] Comment on above: Performed By: #### U YESI 24 #### [facility] [address] [address] [address] Miguel Angel Cassidy HDL NORMAL > or = 60 mg/dl - LOW CARDIOVASCULAR RISK <40 mg/dl - HIGH CARDIOVASCULAR RISK Normal [facility] Comment on above: Performed By: #### U YESI 24 #### [facility] [address] [address] [address] Miguel Angel Cassidy LDL CALC NORMAL SEE BELOW Normal [place] Comment on above: Result Comment: <100 mg/dl OPTIMAL 100 - 129 mg/dl NEAR OR ABOVE OPTIMAL 130 - 159 mg/dl BORDERLINE HIGH 160 - 189 mg/dl HIGH >190 mg/dl VERY HIGH Performed By: #### U YESI 24 #### [facility] [address] [address] [address] Miguel Angel Cassidy Triglyceride [Mass/Vol] 63 mg/dL Normal <=150 [facility] Comment on above: Performed By: #### U YESI 24 #### [facility] [address] [address] [address] Miguel Angel Cassidy VLDL CALC 12.6 mg/dL Normal [facility] Comment on above: Performed By: #### U YESI 24 #### [facility] [address] [address] [address] Miguel Angel Cassidy PROF CHEM 8 (BAS METB)on Anion gap [Moles/Vol] 13.1 mmol/L Normal [facility] Comment on above: Performed By: #### U YESI 24 #### [facility] [address] [address] [address] Miguel Angel Cassidy Calcium [Mass/Vol] 8.8 mg/dL Normal 8.5-10.1 [facility] Comment on above: Performed By: #### U YESI 24 #### [facility] [address] [address] [address] Miguel Angel Cassidy Chloride [Moles/Vol] 108 mmol/L Critically high 98-107 [facility] Comment on above: Performed By: #### U YESI 24 #### [facility] [address] [address] [address] Miguel Angel Cassidy CO2 [Moles/Vol] 29.7 mmol/L Normal 21.0-32.0 [facility] Comment on above: Performed By: #### U YESI 24 #### [facility] [address] [address] [address] Miguel Angel Cassidy Creatinine [Mass/Vol] 1.03 mg/dL Normal 0.70-1.30 [facility] Comment on above: Performed By: #### U YESI 24 #### [facility] [address] [address] [address] Miguel Angel Cassidy EGFR-AF PAPUA NEW GUINEAN >60 Normal >=60 [facility] Comment on above: Performed By: #### U YESI 24 #### [facility] [address] [address] [address] Miguel Angel Cassidy EGFR-NON AF PAPUA [place]AN >60 Normal >=60 [facility] Comment on above: Performed By: #### U YESI 24 #### [facility] [address] [place] [address] Dr. Miguel Angel Cassidy Glucose [Mass/Vol] 106 mg/dL Normal 74-106 [facility] Comment on above: Performed By: #### U YESI 24 #### [facility] [address] [address] [address] Miguel Angel Cassidy Potassium [Moles/Vol] 4.8 mmol/L Normal 3.5-5.1 [facility] Comment on above: Performed By: #### U YESI 24 #### [facility] [address] [address] [address] Miguel Angel Cassidy Sodium [Moles/Vol] 146 mmol/L Critically high 136-145 [facility] Comment on above: Performed By: #### U YESI 24 #### [facility] [address] [address] [address] Miguel Angel Cassidy Urea nitrogen [Mass/Vol] 14.0 mg/dL Normal 7.0-18.0 [facility] Comment on above: Performed By: #### U YESI 24 #### [facility] [address] [place] [address] Dr. Miguel Angel Cassidy Urea nitrogen/Creatinine [Mass ratio] 13.6 mg/mg Normal [facility] Comment on above: Performed By: #### U YESI 24 #### [facility] [address] [place] [address] Dr. Miguel Angel Cassidy TSHon 11-17-2022 TSH 2.017 uIU/mL Normal 0.358-3.740 [facility] Comment on above: Performed By: #### U YESI 24 #### [facility] [address] [place] [address] Dr. Miguel Angel Cassidy OXALATE 24HR URINEon 023 Oxalates, Urine 34 mg/L Normal Undefined [place] Comment on above: Performed By: #### O X24HR #### [facility] [address] [place] [address] Dr. Miguel Angel Cassidy Oxalates, Urine 24hr 34 mg/24 hr Normal 7-44 [facility] Comment on above: Performed By: #### O X24HR #### [facility] [address] [place] [address] Dr. Miguel Angel Cassidy CITRATE URINE 24HRon 023 Citric Acid, U, 24hr 1169 mg/24 hr Normal 320-1240 [facility] Comment on above: Result Comment: This test was developed and its performance characteristics determined by [employer]. It has not been cleared or approved by the Food and Drug Administration. Performed By: #### C ITRATU #### [facility] [address] [place] [address] Dr. Miguel Angel Cassidy Citric Acid, Urine 1169 mg/L Normal Undefined [facility] Comment on above: Performed By: #### C ITRATU #### [facility] [address] [place] [address] Dr. Miguel Angel Cassidy MAGNESIUM 24HR URINEon 09-09 Magnesium 24hr Urine 88.0 mg/24 hr Normal 12.0-293.0 [facility] Comment on above: Performed By: #### C ITRATU #### [facility] [address] [place] [address] Dr. Miguel Angel Cassidy Magnesium UR 8.8 mg/dL Normal Not Estab. [facility] Comment on above: Performed By: #### C ITRATU #### [facility] [address] [place] [address] Dr. Miguel Angel Cassidy PHOSPHORUS 24HR URINEon 08-19 Phosphorus, Urine 97.8 mg/dL Normal Not Estab. [facility] Comment on above: Performed By: #### C ITRATU #### [facility] [address] [place] [address] Dr. Miguel Angel Cassidy Phosphorus, Urine 24hr 978 mg/24 hr Normal 390-1425 [facility] Comment on above: Performed By: #### C ITRATU #### [facility] [address] [place] [address] Dr. Miguel Angel Cassidy PTH INTACTon 09-09-2022 PTH, Intact 15 pg/mL Normal 15-65 [facility] Comment on above: Performed By: #### U YESI 24 #### [facility] [address] [place] [address] Dr. Miguel Angel Cassidy URIC ACID 24 HR URINEon 08-19 Uric Acid, Urine 43.6 mg/dL Normal Not Estab. [facility] Comment on above: Performed By: #### U YESI 24 #### [facility] [address] [place] [address] Dr. Miguel Angel Cassidy Uric Acid, Urine 24hr 436.0 mg/24 hr Normal 136.1-771. 1 [facility] Comment on above: Performed By: #### U YESI 24 #### [facility] [address] [place] [address] Dr. Miguel Angel Cassidy BUNon 09-08-2022 Urea nitrogen [Mass/Vol] 13.0 mg/dL Normal 7.0-18.0 [facility] Comment on above: Performed By: #### U YESI 24 #### [facility] [address] [place] [address] Dr. Miguel Angel Cassidy CALCIUMon 09-08-2022 Calcium [Mass/Vol] 8.9 mg/dL Normal 8.5-10.1 [facility] Comment on above: Performed By: #### U YESI 24 #### [facility] [address] [place] [address] Dr. Miguel Angel Cassidy CALCIUM 24 HR URINEon 2022 CALC, 24 HR UR 138.0 mg/24 hr Normal 100.0-300.0 [facility] Comment on above: Performed By: #### U YESI 24 #### [facility] [address] [place] [address] Dr. Miguel Angel Cassidy UR CALCIUM 13.8 mg/dL Normal 5.1-21.0 [facility] Comment on above: Performed By: #### U YESI 24 #### [facility] [address] [place] [address] Dr. Miguel Angel Cassidy UR TOT VOL 1000 ml/24 HR Normal [facility] Comment on above: Performed By: #### U YESI 24 #### [facility] [address] [place] [address] Dr. Miguel Angel Cassidy Performed By: #### C ITRATU #### [facility] [address] [place] [address] Dr. Miguel Angel Cassidy CHLORIDEon 09-08-2022 Chloride [Moles/Vol] 107 mmol/L Normal 98-107 [facility] Comment on above: Performed By: #### B UN, CL, CO2, CREA, K, URIC, CA, NA #### [facility] [address] [place] [address] Dr. Miguel Angel Cassidy CO2on 09-08-2022 CO2 [Moles/Vol] 31.6 mmol/L Normal 21.0-32.0 [facility] Comment on above: Performed By: #### B UN, CL, CO2, CREA, K, URIC, CA, NA #### [facility] [address] [place] [address] Dr. Miguel Angel Cassidy CREA 24 HR URINEon CREA, 24 HR UR 1343.30 mg/24 hr Normal 1,000.00- 2,0 00.00 [facility] Comment on above: Performed By: #### C ITRATU #### [facility] [address] [place] [address] Dr. Miguel Angel Cassidy URINE CREAT 134.33 mg/dL Normal 20.00-300.00 [place] Comment on above: Performed By: #### C ITRATU #### [facility] [address] [place] [address] Dr. Miguel Angel Cassidy CREATININEon 09-08-2022 Creatinine [Mass/Vol] 0.89 mg/dL Normal 0.70-1.30 [facility] Comment on above: Performed By: #### B UN, CL, CO2, CREA, K, URIC, CA, NA #### [facility] [address] [place] [address] Dr. Miguel Angel Cassidy EGFR-AF PAPUA NEW GUINEAN >60 Normal >=60 [facility] Comment on above: Performed By: #### B UN, CL, CO2, CREA, K, URIC, CA, NA #### [facility] [address] [place] [address] Dr. Miguel Angel Cassidy EGFR-NON AF PAPUA NEW GUINEAN >60 Normal >=60 [facility] Comment on above: Performed By: #### B UN, CL, CO2, CREA, K, URIC, CA, NA #### [facility] [address] [place] [address] Dr. Miguel Angel Cassidy NAon 09-08-2022 Sodium [Moles/Vol] 143 mmol/L Normal 136-145 [facility] Comment on above: Performed By: #### B UN, CL, CO2, CREA, K, URIC, CA, NA #### [facility] [address] [place] [address] Dr. Miguel Angel Cassidy POTASSIUMon 09-08-2022 Potassium [Moles/Vol] 4.3 mmol/L Normal 3.5-5.1 [facility] Comment on above: Performed By: #### B UN, CL, CO2, CREA, K, URIC, CA, NA #### [facility] [address] [place] [address] Dr. Miguel Angel Cassidy SODIUM 24 HR URINEon 023 NA, 24 HR UR 127 mmol/24 hr Normal 40-220 [facility] Comment on above: Performed By: #### C ITRATU #### [facility] [address] [place], [place] [id number] Dr. Miguel Angel Cassidy Sodium (U) [Moles/Vol] 127 mmol/L Critically high 30-90 [facility] Comment on above: Performed By: #### C ITRATU #### [facility] [address] [place] [address] Dr. Miguel Angel Cassidy URIC ACID SERUMon 09-08-2022 Urate [Mass/Vol] 5.3 mg/dL Normal 3.5-7.2 [facility] Comment on above: Performed By: #### U YESI 24 #### [facility] [address] [place] [address] Dr. Miguel Angel Cassidy [facility]on SARS-CoV-2 (COVID-19) RNA SILVIA+probe Ql (Unsp spec) Not detected Normal NOT DETECTED [facility] Comment on above: Result Comment: This test is not yet approved or cleared by the [place] FDA. When there are no FDA-approved or cleared tests available, and other criteria are met, FDA can make tests available under an emergency access mechanism called an Emergency Use Authorization (EUA). The EUA for this test is supported by the [place] of Health and Human Service's (HHS's) declaration [...] Performed By: #### U YESI 24 #### [facility] [address] [place] [address] Dr. Miguel Angel Cassidy ECHOCARDIO M/2D COMPLETEon 0 02-10-2022 ECHOCARDIO M/2D COMPLETE Patient: CHEY FREIRE Exam Date: 02/10/2022 : 1940 Gender:M Ordering : DR ANGELINA ZIMMERMAN M.D. Admission #: [id number] Family : DR ANG CHILEL . Order #: [id number] CLICK HERE TO VIEW EXAM ECHOCARDIOGRAM REPORT [...] Daniel M.D. on 02/10/2022 at 15:50 Normal [facility] US KIDNEYS BLADDERon 022 US KIDNEYS BLADDER EXAMINATION: US KIDNEYS [...] by: FAIZA ARECHIGA Date: 2022-02-07 08:09 Normal [facility] XR KUB 1 VIEWon 02-05-2022 XR KUB [...] by: FAIZA ARECHIGA Date: 2022-02-05 12:59 Normal [facility] Vital Signs Date Time Vital Sign Value Performing Clinician Juliette gamble 03-19-2024 17:58-0400 Diastolic blood pressure 63 mm[Hg] Abelino Garcia [facility] 03-19-2024 17:58-0400 Heart rate 60 /min Abelino Garcia [facility] 03-19-2024 17:58-0400 Mean blood pressure 88 mm[Hg] Abelino Garcia [facility] 03-19-2024 17:58-0400 Respiratory rate 16 /min Abelino Garcia [facility] 03-19-2024 17:58-0400 SaO2% (BldA) [Mass fraction] 96 % Abelino Garcia [facility] 03-19-2024 17:58-0400 Systolic blood pressure 139 mm[Hg] Abelino Garcia [facility] 03-19-2024 17:00-0400 Heart rate 56 /min Abelino Garcia [facility] 03-19-2024 17:00-0400 Mean blood pressure 81 mm[Hg] Abelino Garcia [facility] 03-19-2024 17:00-0400 SaO2% (BldA) [Mass fraction] 99 % Abelino Garcia [facility] 03-19-2024 17:00-0400 Systolic blood pressure 132 mm[Hg] Abelino Jose [facility] 03-19-2024 16:30-0400 Diastolic blood pressure 56 mm[Hg] Abelino Jose [facility] 03-19-2024 16:30-0400 Heart rate 54 /min Abelino Jose [facility] 03-19-2024 16:30-0400 Mean blood pressure 83 mm[Hg] Abelino Jose [facility] 03-19-2024 16:30-0400 Respiratory rate 19 /min Abelino Jose [facility] 03-19-2024 16:30-0400 SaO2% (BldA) [Mass fraction] 98 % Abelino Jose [facility] 03-19-2024 16:30-0400 Systolic blood pressure 138 mm[Hg] Abelino Jose [facility] 03-19-2024 14:13-0400 Respiratory rate 18 /min Abelino Jose [facility] 03-19-2024 14:00-0400 Body temperature 97.7 [degF] Abelino Jose [facility] 03-19-2024 14:00-0400 Heart rate 53 /min Abelino Jose [facility] 03-19-2024 14:00-0400 Respiratory rate 20 /min Abelino Jose [facility] 09-02-2023 09:58-0500 Blood Pressure Location Sotero STEPHEN [facility] 09-02-2023 09:58-0500 Diastolic blood pressure 64 mm[Hg] Sotero STEPHEN [facility] 09-02-2023 09:58-0500 Heart rate 65 /min Sotero STEPHEN [facility] 09-02-2023 09:58-0500 Respiratory rate 16 /min Sotero STEPHEN [facility] 09-02-2023 09:58-0500 Systolic blood pressure 122 mm[Hg] Sotero STEPHEN [facility] 09-03-2022 09:18-0500 Blood Pressure Location Sotero STEPHEN [facility] 09-03-2022 09:18-0500 Diastolic blood pressure 71 mm[Hg] Sotero STEPHEN [facility] 09-03-2022 09:18-0500 Heart rate 70 /min Sotero STEPHEN [facility] 09-03-2022 09:18-0500 Respiratory rate 16 /min Sotero STEPHEN [facility] 09-03-2022 09:18-0500 Systolic blood pressure 130 mm[Hg] Sotero STEPHEN [facility] 06-01-2022 15:52-0500 Blood Pressure Location Holli BATEMAN [facility] 06-01-2022 15:52-0500 Diastolic blood pressure 62 mm[Hg] Holli BATEMAN [facility] 06-01-2022 15:52-0500 Heart rate 68 /min Holli BATEMAN [facility] [place] 06-01-2022 15:52-0500 Respiratory rate 16 /min Holli BATEMAN [facility] [place] 06-01-2022 15:52-0500 Systolic blood pressure 130 mm[Hg] Holli BATEMAN [facility] [place] Encounters Encounter Date Encounter Type Care Provider Facility Start: 09-03-2024 ambulatory Sotero Dormani ty:[facility] [place] Start: 05-14-2024 End: 05-14-2024 ambulatory AB [facility] Start: 03-19-2024 End: 03-19-2024 Emergency department patient visit Abelino Garcia Facility:[facility] Start: 09-02-2023 End: 09-02-2023 ambulatory Sotero STEPHEN Facility:[facility] Start: 09-02-2023 End: 09-02-2023 Patient encounter procedure Sotero STEPHEN [facility] Start: 11-17-2022 End: 11-18-[address] ANG CHILEL . Facility:[facility] Start: 09-08-2022 End: 09-09-2022 ambulatory SOTERO STEPHEN Facility:[facility] Start: 09-03-2022 End: 09-03-2022 Patient encounter procedure Sotero STEPHEN [facility] Start: 06-26-2022 Encounter for preprocedural laboratory examination DR HOLLI BATEMAN . [facility] Start: 06-25-2022 End: 06-25-[address] ANG CHILEL . Facility:[facility] Start: 06-22-2022 End: 06-23-[address] HOLLI BATEMAN . Facility:[facility] Start: 06-22-2022 End: 06-23-2022 Encounter for preprocedural laboratory examination DR HOLLI BATEMAN . Facility:[facility] Start: 06-01-2022 End: 06-01-2022 Patient encounter procedure Holli BATEMAN General Surgery [facility] Start: 02-10-2022 End: 02-11-[address] ANGELINA ZIMMERMAN Facility:[facility] Start: 02-05-2022 End: 02-06-[address] ANG CHILEL . Facility:[facility] Start: 12-17-2021 End: 12-18-[address] ANG CHILEL . Facility:[facility] Procedures Date Procedure Procedure Detail Performing Clinician Start: 11-17-[address] MARIELA BATEMAN . Comment on above: Performed By: #### P [facility] #### [facility] [address] [address] [address] Miguel Angel Cassidy Start: 03-20-2019 cysto w/ stent removal Holli NILL Start: 09-11-2015 Extracorporeal shock wave lithotripsy of calculus of kidney Holli NILL Start: 04-03-2015 Extracorporeal shock wave lithotripsy of calculus of kidney Holli NILL Start: 07-18-2009 Placement of stent i n cardiac conduit Holli NILL History of operative procedure on thoracic spinal structure Holli NILL Kidney stone (disorder) Flako KENTL Comment on above: Surgery per Dr. Webster Repair of left ingui nal hernia Holli NILL Tonsillectomy Holli NILL Immunizations Immunization Date Immunization Notes Care Provider Shoshana walsh 07-18-2020 SARS-CoV-2 (COVID-19 ) [id number] vaccine Holli NILL [facility] Comment on above: Result Comment: Pt s jordan he has had 3 shots to date but does not have his card for the dates today 03-10-2020 influenza virus vaccine, unspecified formulation Holli KENTL [facility] Payers Date Payer Category Payer Medicare [id number] 1957 Unknown [id number] 1940 Unknown [id number] 2.16.84 [id number] 1940 Unknown [id number] 2.16.84 [id number] 1940 Unknown [id number] 2.16.84 [id number] 1940 Unknown [id number] 2.16.84 [id number] 1940 Unknown [id number] 2.16.84 [id number] 1940 Unknown [id number] 2.16.84 [id number] 1940 Unknown [id number] 2.16.84 [id number] 1940 Unknown [id number] 2.16.8 [id number] 1940 Unknown [id number] 2.16.8 [id number] 1940 Unknown [id number] 2.16.8 [id number] 1940 Unknown [id number] 2.16.8 [id number] 1940 Unknown [id number] 2.16.8 [id number] Social History Date Type Detail Facility Start: 06-01-2022 Tobacco smoking status Ex-smoker (fi nding) [facility] [place] Tobacco smoking status Never Gener al [facility] [place] Sex Assigned At Male [facility] Functional Status Date Assessment Result Facility 03-19-2024 Functional Status N/A [facility] 09-02-2023 Functional Status N/A [facility] 09-03-2022 Functional Status N/A [facility] 06-01-2022 Functional Status N/A [facility] [place] Clinical Notes 12-17-2021 to 05-14-2024 Note Date & Type Note Facility 05-14-2024 Note [facility] Cardiology Clinic Note Chief Complaint: Patient here for 1 year follow up aortic valve disorder, CAD, and valve disorder. Had echo last month, and routine labs w/ lipid panel in Jul 2023. Still denies chest pain, SOB, and palpitations. Doing very well. HPI: Chey Freire is a 83 y.o. male with a history of coronary artery disease and prior stent placement as well as valvular heart disease here in routine follow-up He is doing well and has no new cardiac symptoms Cardiology ROS: Review of Systems All other systems reviewed and are negative. Past Medical History He has a past medical history of COPD (chronic obstructive pulmonary disease) (CMS/HCC), Coronary artery disease, Heart murmur, Heart valve disease, and Pulmonary hypertension (CMS/HCC). Surgical History He has a past surgical history that includes Cardiac catheterization; Hernia mesh removal; and Kidney stone surgery. Social History He reports that he has quit smoking. His smoking use included cigarettes. He has never used smokeless tobacco. He reports that he does not currently use alcohol. No history on file for drug use. Family History Family History Problem Relation Name Age of Onset Other (brain bleed) Mother Hypertension Mother Heart attack Father Allergies Patient has no known allergies. Medications Current Outpatient Medications: aspirin 81 mg chewable tablet, Chew 1 tablet every day by oral route., Disp: , Rfl: carvedilol (Coreg) 6.25 mg tablet, Take 1 tablet by mouth twice daily, Disp: 180 tablet, Rfl: 3 cholecalciferol, vitamin D3, 50 mcg (2,000 unit) capsule, Take 1 capsule every day by oral route., Disp: , Rfl: clopidogrel (Plavix) 75 mg tablet, Take 1 tablet by mouth in the morning., Disp: , Rfl: lovastatin (Mevacor) 40 mg tablet, Take 2 tablets by mouth in the morning., Disp: , Rfl: potassium bicarb-citric acid (Effer-K) 20 mEq tablet, effervescent, DISSOLVE & TAKE 1 TABLET BY MOUTH TWICE DAILY, Disp: , Rfl: Last Recorded Vitals BP 138/58 (BP Location: Right arm, Patient Position: Sitting) Pulse 58 Ht 1.626 m (5' 4 ) Wt 62.1 kg (137 lb) SpO2 97% BMI 23.52 kg/m??? Physical Examination: GENERAL: alert and oriented [...] aortic valve stenosis. Moderate aortic valve regurgitation. Labs 08/12/2023: Triglycerides 69, cholesterol 140, HDL 54, VLDL 13.8 LFTs normal Echocardiogram 04/13/2024: Global left ventricular systolic function is hyperdynamic; visually estimated ejection fraction is 65 to 70% Normal right ventricular size and systolic function Mild left ventricular branch free The left atrium is mildly dilated Mild tricuspid regurgitation Moderate mitral regurgitation Mild to moderate aortic valve stenosis; mild to moderate aortic valve regurgitation Assessment: 1. Coronary atherosclerosis - S/p PCI/stents I25.10: Atherosclerotic heart disease of [place] coronary artery without angina pectoris 2. 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 Mitral valve regurgitati (more content not included)... [facility] 03-19-2024 Hospital Discharge instructions Patient Education 03/19/2024 17:59:58 Anaphylactic Reaction, Adult, [place] Anaphylactic Reaction, Adult An anaphylactic reaction is [...] What are the signs or symptoms? 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 Your face may turn [...] a very bad reaction. General instructions Take eyzw-lym-zjvommp and prescription medicines only as told by [...] you a bad reaction before. Tell your gravity prospecting observer about your allergy when you go out to eat. If you are not sure if your meal contains food that you are allergic to, ask your gravity prospecting observer before you eat it. Where to find more information [place] [employer] (AAAAI): [...] provider. Document Revised: 03/18/2023 Document Reviewed: 03/18/2023 [place] Patient Education 2023 [employer]. Follow Up Care 03/19/2024 14:02:06 With:Ang Chilel Address: [address] [place] [id number]- Business (1) When:03/22/2024 17:49:01 Comments:Call for diagnosis based follow up [facility] 03-19-2024 Note ED Patient Education Note Immunology [...] are the signs or symptoms? ? 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 Your face may turn [...] very bad reaction. General instructions ? Take qmfu-eei-msryplq and prescription medicines only as told by [...] a bad reaction before. ? Tell your gravity prospecting observer about your allergy when you go out to eat. If you are not sure if your meal contains food that you are allergic to, ask your gravity prospecting observer before you eat it. Where to find more information ? [place] [employer], [employer] (AAAAI): [...] provider. Document Revised: 03/18/2023 Document Reviewed: 03/18/2023 [place] Patient Education ? 2023 [employer]. [facility] 09-02-2023 Hospital Discharge instructions Patient Education 09/02/2023 [...] include: ?8 oz (237 mL) of milk, nbycenj-dchrxjzdimej-qgilt milk, and calcium-fortifiedfruit juice. Calcium-fortified means that [...] ?Spinach (cooked), rhubarb, beets, sweet potatoes, and Macanese chard. ?Peanuts. ?Potato chips, libyan fries, and baked potatoes with skin on. ?Nuts and nut products. ?Chocolate. If you regularly take a diuretic medicine, make sure to eat at least 1 or 2 servings of fruits or vegetables that are high in potassium each day. These include: ?Avocado. ?Banana. ?Mcleod, prune, carrot, or tomato juice. ?Baked potato. [...] magnesium, fish oil, or vitamin B6. Take nvms-nkl-ppjnsiq and prescription medicines only as told by [...] Casseroles. Pizza. Lasagna. Frozen meals. Potato chips. Angolan fries. The items listed above may not [...] provider. Document Revised: 10/14/2022 Document Reviewed: 10/14/2022 [place] Patient Education 2022 [employer]. Follow Up Care 09/03/2022 09:56:31 With:TIANA CLAYTONSotero, URL Address: [address] [place] [id number]- When: Unknown [facility] 09-03-2022 Hospital Discharge instructions Patient Education 09/03/2022 09:39:28 Kidney Stones, Dldy-rg-Iyti Kidney Stones Kidney stones are rock-like masses [...] Follow these instructions at home: Medicines Take lopg-hbh-druvxyk and prescription medicines only as told by [...] 12/20/2008 Document Revised: 11/20/2019 Document Reviewed: 11/20/2019 [place] Patient Education 2019 [employer]. Follow Up Care 08/31/2021 10:41:08 With:TIANA CLAYTON, Sotero Mejia, URL Address: [address] [place] [address]- When: Unknown [facility] 06-25-2022 Note OPERATIVE NOTE OPERATION DATE: 06/25/2022 [...] further screening. CC: Ang Chilel M.D. [facility] 12-17-2021 Note PROCEDURE: XR SHOULD ER LT [...] authenticated by: FAIZA ARECHIGA Date: 2021-12-17 17:22 [facility] Evaluation + Plan note Future Appointments Appointment Date:09/03/2022 09:45:00 AM Scheduled Provider:Sotero STEPHEN MD Location:[facility] Appointment Type:URO Office Visit [facility] [place] Evaluation + Plan note Future Appointments Appointment Date:09/02/2023 09:30:00 AM Scheduled Provider:Sotero STEPHEN MD Location:[facility] Appointment Type:URO Office Visit [facility] Evaluation + Plan note Future Appointments Appointment Date:09/03/2024 09:45:00 AM Scheduled Provider:Sotero STEPHEN MD Location:[facility] Appointment Type:URO Office Visit [facility] Hospital course Narrative No data available for this section General [facility] [place] [facility] Discharge instructions No data available for this section General Surgery [place] Progress note No data available for this section General [facility] [place] Summary Purpose Family History No Family History Records Found No data available [...] Personnel Name: Ang Chilel MD Address: Address: [address] [place] [address] Personnel Name: Ang Chilel MD Address: Address: [address] [place] [address] Personnel Name: Ang Chilel MD Address: Address: [address] [place] [address] (unrecognized sect ion and content) No Status Records FoundNo Status Records FoundNo Status Records FoundNo Status Records FoundNo Status Records FoundNo Status Records FoundNo Status Records FoundNo Status Records FoundNo Status Records FoundNo Status Records Found INFORMATION SOURCE (unrecogn ized section and content) DATE CREATED AUTHOR 11/25/2022 [facility] DATE CREATED AUTHOR AUTHOR'S ORGANIZ ATION 03/19/2024 [facility] DATE CREATED AUTHOR AUTHOR'S ORGANIZ ATION 03/23/2024 [facility] DATE CREATED AUTHOR AUTHOR'S ORGANIZ ATION 05/15/2024 [facility] FOR RECORDS PERTAINING TO PATIENTS WHO [...] BE BASED ON THE PRIMARY CLINICAL RECORDS. [facility]. provides no warranty or guarantee of the accuracy or completeness of information in this document.
[2024-06-09 08:24] LABS: Basophils Absolute Auto 0.1 10^3/uL (0.0-0.1); Basophils Percent Auto 0.7 % (0.2-2.0); Eosinophils Absolute Auto 0.2 10^3/uL (0.0-0.7); Eosinophils Percent Auto 3.1 % (0.9-7.0); Hematocrit 43.2 % (42.0-54.0); Hemoglobin 14.2 g/dL (14.0-18.0); Immature Granulocytes Abs Auto 0.01 10^3/uL (0.00-0.03); Immature Granulocytes Pct Auto 0.1 % (0.0-0.5); Lymphocytes Absolute Auto 2.8 10^3/uL (1.2-3.8); Lymphocytes Percent Auto 37.7 % (20.5-60.0); Mean Corpuscular HGB Conc 32.9 g/dL (29.9-35.2); Mean Corpuscular Hemoglobin 29.7 pg (25.9-34.0); Mean Corpuscular Volume 90.4 fL (80.0-94.0); Mean Platelet Volume 10.7 fL (9.5-13.5); Monocytes Absolute Auto 0.7 10^3/uL (0.3-0.8); Monocytes Percent Auto 8.9 % (1.7-12.0); Neutrophils Absolute Auto 3.7 10^3/uL (1.4-6.5); Neutrophils Percent Auto 49.5 % (43.0-75.0); Platelet Count 148 10^3/uL (150-450); Red Blood Count 4.78 10^6/uL (4.70-6.10); Red Cell Distribution Width 12.7 % (11.0-15.0); White Blood Count 7.4 10^3/uL (4.0-11.0)
[2024-06-09 08:38] LABS: Estimated Average Glucose 123 mg/dL; Glycohemoglobin A1C 5.9 % (4.5-6.2)
[2024-06-09 08:50] LABS: Alanine Aminotransferase 30 U/L (16-63); Albumin Globulin Ratio 1.1; Albumin Level 3.1 g/dL (3.4-5.0); Alkaline Phosphatase 62 U/L (46-116); Anion Gap 11.8; Aspartate Amino Transferase 21 U/L (15-37); BUN Creatinine Ratio 13.4; Bilirubin Total 0.8 mg/dL (0.2-1.0); Calcium 8.5 mg/dL (8.5-10.1); Carbon Dioxide 30.4 mmol/L (21.0-32.0); Chloride 109 mmol/L (98-107); Chol HDL Ratio 2.8; Cholesterol 163 mg/dL (<=200); Estimated GFR (African America >60 (>=60 mL/min/1.73m^2); Estimated GFR (Non-African Ame >60 (>=60 mL/min/1.73m^2); Globulin 2.9 g/dL; Glucose 99 mg/dL (74-106); HDL Cholesterol 58 mg/dL (40-60); LDL Cholesterol Calculated 90.2 mg/dL; Potassium 4.2 mmol/L (3.5-5.1); Sodium 147 mmol/L (136-145); Triglycerides 74 mg/dL (<=150); VLDL CHOLESTEROL 14.8 mg/dL
[2024-06-09 09:15] LABS: Prostate Specific Antigen Scrn 2.27 ng/mL (<=4.00)
== END 2024-06-09 08:04 | disposition home or self-care (01) ==
LOC: LAB 08:05
PROVIDERS: PCP Family Medicine; Visit Provider Family Medicine
DX: I25.10 Atherosclerotic heart disease of native coronary artery without angina pectoris (principal); E78.00 Pure hypercholesterolemia, unspecified; M54.50 Low back pain, unspecified; I10 Essential (primary) hypertension; R53.83 Other fatigue; R73.09 Other abnormal glucose; Z12.12 Encounter for screening for malignant neoplasm of rectum; E03.9 Hypothyroidism, unspecified; Z12.5 Encounter for screening for malignant neoplasm of prostate
CPT/HCPCS: 36415; 71046; 80053; 80061; 83036; 84436; 84443; 84481; 85025; G0103

== ENCOUNTER 2024-06-11 12:37 | Outpatient (REF) | payer MEDICARE, OTHER, SELFPAY ==
--- OUTSIDE RECORDS SUMMARY | 2024-06-11 12:56 | XMS_ITS | CCD ---
Author Organization [facility] CliniSyri Care Team Providers Care Shop Estimator Name Role Phone Ang Chilel Primary Care [...] Propensity to adverse reactions (disorder) Anaphylactic reaction [facility] Repository Medications Current Medications Medication Drug Class(es) [...] day(s), # 7 tab(s), Refills(s) 0, Pharmacy: [facility], 160, cm, 03/19/24 14:08:00 EDT, [...] # 60 tab(s), Refills(s) , DAGO, Pharmacy: [facility], 160, cm, 09/02/23 10:00:00 EST, Height/Length Dosing, 63.2, kg, 09/02/23 10:00:00 EST, Weight Dosing Start Date: 09/02/23 Status: Ordered Start: 05-17-2022 take 1 tablet by kassidy th twice daily Effer-K 20 mEq oral tablet, effervescent 20 mEq = 1 tab(s), Oral, BID, # 60 tab(s), Refills(s) , DAGO, Pharmacy: [facility], 160.3, cm, 08/31/21 9:38:00 EST, [...] 01-29-2019 01-29-2019 Episodic Other aftercare (1 source) 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 antithrombotics/ant iplatelets; Translations: [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 ANTITHROMBOT/ANTIPL ATLETS] Onset: 07-01-2022 Episodic Other aftercare (1 source) care home (current) use of aspirin; Translations: [[facility] CURRENT USE OF ASPIRIN] Onset: 07-01-2022 Episodic Other aftercare (1 source) Other [facility] (current) drug therapy; Translations: [[facility] CURRENT DRUG THERAPY] Onset: 07-01-2022 Episodic Other non-traumatic joint disorders (4 sources) Pain in left shoulder; Translations: [PAIN IN LEFT SHOULDER] Onset: 12-17-2021 Episodic Screening and history of mental health and substance abuse codes (1 source) Personal history of nicotine dependence; Translations: [PERSONAL HISTORY OF NICOTINE DEPEND] Onset: 07-01-2022 Episodic Results Test Name Value Interpretation Reference Range Facility Office Visiton 05-14-2024 Follow-up visit [id number] Chey Freire 1940 M Date Provider Department Center 05/14/2024 Richi-ANGELINA ZIMMERMAN [facility] Family History Problem Relation Age of Onset Other Mother Hypertension Mother Heart attack Father Family Status - Relation Status Age at Mother Father Level of Service:41935 [place] OFFICE/OUTPATIENT ESTABLISHED LOW MDM 20 MIN Normal [facility] ED Note-Physicianon 03-22-20 ED Note-Physician ED [...] and Complexity of Problems Differential Diagnosis: [] [facility] Data External documents reviewed: [] My EKG [...] anaphylaxis, # 1 EA, Refills(s) 0, Pharmacy: [facility], 160, cm, 03/19/24 14:08:00 EDT, [...] day(s), # 7 tab(s), Refills(s) 0, Pharmacy: [facility], 160, cm, 03/19/24 14:08:00 EDT, Height/Length Dosing, 63.3, kg, 03/19/24 14:08:00 EDT, Weight Dosing Basic Metabolic Panel CBC w/ Auto Diff ECG 12 Lead Adult ED Cardiac Monitoring eGFR Extra SST Tube Oxygen Saturation Oxygen Therapy PT & PTT Saline Lock Insert Troponin 0 Hr. Troponin 1 Hr. XR Chest Sing (more content not included)... Normal [facility] Comment on above: Result Comment: Elec tronically Signed By: Clint GOFF, Jeromy Gamino\.br\Date and Time Signed: 03/19/24 18:40 EDT\.br\Electronically Co-Signed By: Abelino Garcia MD\.br\Date and Time Co-Signed: 03/22/24 05:55 EDT BMPon 03-19-2024 Anion gap [Moles/Vol] 9 mmol/L Normal 6-16 [facility] Comment on above: Performed By: #### 2 [id number] #### [facility] [address] [place] [address] Calcium [Mass/Vol] 9.2 mg/dL Normal 8.9-11.1 [facility] Comment on above: Performed By: #### 2 [id number] #### [facility] [address] [place] [address] Chloride [Moles/Vol] 106 mmol/L Normal 101-111 [facility] Comment on above: Performed By: #### 2 [id number] #### [facility] [address] [place] [address] CO2 [Moles/Vol] 32 mmol/L High 21-31 [facility] Comment on above: Performed By: #### 2 [id number] #### [facility] [address] [place] [address] Creatinine [Mass/Vol] 1.1 mg/dL Normal 0.5-1.3 [facility] Comment on above: Performed By: #### 2 [id number] #### [facility] [address] [place] [address] Glucose [Mass/Vol] 134 mg/dL Normal 55-199 [facility] Comment on above: Performed By: #### 2 [id number] #### [facility] [address] [place] [address] Potassium [Moles/Vol] 4.0 mmol/L Normal 3.5-5.3 [facility] Comment on above: Performed By: #### 2 [id number] #### [facility] [address] [place] [address] Sodium [Moles/Vol] 143 mmol/L Normal 135-145 [facility] Comment on above: Performed By: #### 2 [id number] #### [facility] [address] [place] [address] Urea nitrogen [Mass/Vol] 17 mg/dL Normal 5-21 [facility] Comment on above: Performed By: #### 2 [id number] #### [facility] [address] [place] [address] Urea nitrogen/Creatinine [Mass ratio] 16 No Units Normal 10-20 [facility] Comment on above: Performed By: #### 2 [id number] #### [facility] [address] [place] [address] CBC w/ Auto Diffon 4 Basophils/100 WBC (Bld) 0.5 % Normal 0.0-2.0 [facility] Comment on above: Performed By: #### 2 [id number] #### [facility] [address] [place] [address] Basophils/Leukocytes Auto (Bld) [Pure # fraction] 0.0 E9/L Normal 0.0-0.2 [facility] Comment on above: Performed By: #### 2 [id number] #### [facility] [address] [place] [address] Eosinophils (Bld) [#/Vol] 0.2 E9/L Normal 0.0-0.5 [facility] Comment on above: Performed By: #### 2 [id number] #### [facility] [address] [place] [address] Eosinophils/100 WBC (Bld) 3.4 % Normal 0.0-8.0 [facility] Comment on above: Performed By: #### 2 [id number] #### [facility] [address] [place] [address] Erythrocyte distribution width (RBC) [Ratio] 13.7 % Normal 10.9-14.2 [facility] Comment on above: Performed By: #### 2 237303 #### [facility] [address] [place] [address] Hematocrit (Bld) [Volume fraction] 41.8 % Normal 37.7-49.0 [facility] Comment on above: Performed By: #### 2 [id number] #### [facility] [address] [place] [address] Hemoglobin (Bld) [Mass/Vol] 14.4 g/dL Normal 13.5-17.5 [facility] Comment on above: Performed By: #### 2 [id number] #### [facility] [address] [place] [address] Lymphocytes (Bld) [#/Vol] 2.4 E9/L Normal 1.0-4.0 [facility] Comment on above: Performed By: #### 2 463241 #### [facility] [address] [place] [address] Lymphocytes/100 WBC (Bld) 40.4 % Normal 14.0-50.0 [facility] Comment on above: Performed By: #### 2 544453 #### [facility] [address] [place] [address] MCH (RBC) [Entitic mass] 30.6 pg Normal 27.0-34.0 [facility] Comment on above: Performed By: #### 2 [id number] #### [facility] [address] [place] [address] MCHC (RBC) [Mass/Vol] 34.4 g/dL Normal 31.4-36.0 [facility] Comment on above: Performed By: #### 2 750906 #### [facility] [address] [place] [address] MCV (RBC) [Entitic vol] 88.9 fL Normal 80.0-100.0 [facility] Comment on above: Performed By: #### 2 845299 #### [facility] [address] [place] [address] Monocytes (Bld) [#/Vol] 0.4 E9/L Normal 0.2-1.0 [facility] Comment on above: Performed By: #### 2 [id number] #### [facility] [address] [place] [address] Neutrophils (Bld) [#/Vol] 2.9 E9/L Normal 2.0-7.5 [facility] Comment on above: Performed By: #### 2 890805 #### [facility] [address] [place] [address] Neutrophils/100 WBC (Bld) 49.2 % Normal 36.0-75.0 [facility] Comment on above: Performed By: #### 2 536328 #### [facility] [address] [place] [address] Platelet 183.0 E9/L Normal 150.0-500.0 [facility] Comment on above: Performed By: #### 2 [id number] #### [facility] [address] [place] [address] Platelet mean volume (Bld) [Entitic vol] 9.1 fL Normal 6.4-10.8 [facility] Comment on above: Performed By: #### 2 [id number] #### [facility] [address] [place] [address] RBC (Bld) [#/Vol] 4.7 E12/L Normal 4.3-5.9 [facility] Comment on above: Performed By: #### 2 093156 #### [facility] [address] [place] [address] WBC corrected for nucl RBC Auto (Bld) [#/Vol] 5.9 E9/L Normal 4.0-11.0 [facility] Comment on above: Performed By: #### 2 [id number] #### [facility] [address] [place] [address] CHEMISTRYOrdered By: SYSTEM SYSTEM on 03-19-2024 Troponin [...] High Sensitivity Troponin I Instructions For Use, [employer], February 2018) Anion gap [Moles/Vol] 9 mmol/L [...] High Sensitivity Troponin I Instructions For Use, [employer], February 2018) Urea nitrogen [Mass/Vol] 17 mg/dL Normal 5 - 21 mg/dL Remisol Chem Urea nitrogen/Creatinine [Mass ratio] 16 mg/mg Normal 10 - 20 [facility] COAGULATIONOrdered By: Aurelio Mix on 03-19-2024 aPTT Coag (PPP) [Time] 26.4 s Normal 25.1 - 36.5 second(s) [facility] Auto Coag Comment on above: Interpretive Data: [...] the same coagulation reagent and instrumentation as [facility]. Currently there are no coagulation studies available worldwide for children to 14 days, and no normal ranges. Heparin therapeutic range (represented by Anti-Factor Xa activity of 0.2 - 0.4 U/mL) corresponds to PTT of 56.6 - 109.0 sec. INR Coag (PPP) [Relative time] 1.13 {INR} Invalid Interpretation Code [facility] Auto Coag Comment on above: Interpretive Data: I NR results are specifically intended to assess patients stabilized on long-term Anticoagulation therapy suggested INR s Less Intensive Anticoagulation 2.0 3.0 Conventional Range 3.0 4.5 PT Coag (PPP) [Time] 12.7 s High 9.4 - 1 2.5 second(s) [facility] Auto Coag Comment on above: Interpretive Data: [...] the same coagulation reagent and instrumentation as [facility]. Currently there are no coagulation studies available worldwide for children to 14 days, and no normal ranges. ED Clinical Summaryon 2023 ED Clinical Summary ED Clinical Summary [place] [id number] ED Clinical Summary Person Information Name: CHEY FREIRE [facility] Age: 83 Years : 1940 Sex: Male Language: Occitan PCP: Ang Chilel MD Marital Status: Visit [...] 03/19/2024 17:59:57 03/19/2024 17:59:57 03/19/2024 17:59:57 ADDR[place]: [id number] [facility] [place] [id number] PHYS DOC NOTES: MEDICAL INFORMATION: Prescriptions Given: New Medications [facility], [address] [place], [place] [id number], [phone] predniSONE (predniSONE 50 mg Tab) 1 Tablets [...] for chest pain. omega-3 polyunsaturated fatty acids (PagoPago's Bounty Red Krill Oil) 1 Milligram By Mouth every day. potassium bicarbonate (Effer-K 20 mEq oral tablet, effervescent) 1 Tablets By Mouth 2 times a day. Refills: 11. ubiquinone (CoQ10) By Mouth every day. PATIENT EDUCATION INFORMATION: Instructions: Anaphylactic Reaction, Adult, Aptk-gm-Idjz Follow up: With: Address: When: Ang Chilel [address] [place] [address], [facility] [address] Business (1) In 3 days 03/22/2024 Comments: Call Dr for diagnosis based follow up DIAGNOSIS: Bee sting-induced anaphylaxis Normal [facility] ED Patient Summaryon 024 ED Patient Summary ED Patient Summary [address] [address] Patient Discharge Instructions Person Information Name: CHEY FREIRE Age: 83 Years Arrival Date: 03/19/2024 14:01:03 Discharge Diagnosis: Bee sting-induced anaphylaxis Primary Care Physician: Ang Chilel MD Provider Information Primary Provider: Advanced System Software Programmer:None The exam and treatment you received in the Emergency Department were for an urgent problem and are not intended as complete care. It is important that you follow up with a doctor, nurse practitioner, or physician?s critical care physician assistant for ongoing care. If your symptoms [...] Follow-up Instructions: With: Address: When: Ang Chilel [facility] [facility], [place] [address] Business (1) In 3 days 03/22/2024 Comments: Call Dr for diagnosis based follow up In the event that this physician does not participate in your insurance network, please consult with your insurance company to find a nearby participating provider. Patient Education Materials: Anaphylactic Reaction, Adult, Osmo-hb-Tjxx A MESSAGE TO ALL PATIENTS REGARDING OPIOIDS PRESCRIPTION OPIOIDS: WHAT YOU NEED TO KNOW Prescription opioids can be used to help relieve arwjmttm-cq-hvkjrd pain and are often prescribed following a [...] be struggling with addiction, tell your health critical care specialist and ask for guidance or c (more content not included)... Normal [facility] HEMATOLOGYOrdered By: SYSTEM SYSTEM on 03-19-2024 Basophils/100 [...] Coag (PPP) [Time] 26.4 second(s) Normal 25.1-36.5 [facility] Comment on above: Result Comment: Para meter [...] the same coagulation reagent and instrumentation as [facility]. Currently there are no coagulation studies available worldwide for children to 14 days, and no normal ranges. Heparin therapeutic range (represented by Anti-Factor Xa activity of 0.2 - 0.4 U/mL) corresponds to PTT of 56.6 - 109.0 sec. Performed By: #### 1 [id number] #### [facility] [address] [place] [address] INR Coag (PPP) [Relative time] 1.13 {INR} Invalid Interpretation Code [facility] Comment on above: Result Comment: INR results are specifically intended to assess patients stabilized on long-term Anticoagulation therapy suggested INR?s ?Less Intensive Anticoagulation? 2.0 ? 3.0 Conventional Range 3.0 ? 4.5 Performed By: #### 1 [id number] #### [facility] [address] [place] [address] PT Coag (PPP) [Time] 12.7 second(s) High 9.4-12.5 [facility] Comment on above: Result Comment: 15 d [...] the same coagulation reagent and instrumentation as [facility]. Currently there are no coagulation studies available worldwide for children to 14 days, and no normal ranges. Performed By: #### 1 [id number] #### [facility] [address] [place] [address] Troponin 0 Hr.on 03-19-2024 Troponin HS 4.20 pg/mL Low 15.90-38.40 [facility] Comment on above: Result Comment: The 95% CI (Confidence Interval) PPV (Positive Predictive Value) for myocardial infarction in females is 38 pg/mL, in males 51 pg/mL. The results should be used in conjunction with clinical conditions of myocardial infarction. (Access High Sensitivity Troponin I Instructions For Use, [employer], February 2018) Performed By: #### 1 [id number] #### [facility] [address] [place] [address] Troponin 1 Hr.on 03-19-2024 Troponin HS 4.90 pg/mL Low 15.90-38.40 [facility] Comment on above: Result Comment: The 95% CI (Confidence Interval) PPV (Positive Predictive Value) for myocardial infarction in females is 38 pg/mL, in males 51 pg/mL. The results should be used in conjunction with clinical conditions of myocardial infarction. (Access High Sensitivity Troponin I Instructions For Use, [employer], February 2018) Performed By: #### 1 [id number] #### [facility] [address] [place] [address] XR Chest Single Viewon 03-19 XR Chest [...] mGy = . DAP = . Normal [facility] eGFRon 03-19-2024 eGFR 67 mL/min/1.73 m2 Normal >=59 [facility] Comment on above: Order Comment: Order added by Discern Expert. Performed By: #### 1 [id number] #### [facility] [address] [place] [address] Ambulatory Visit Summaryon 0 09-02-2023 Ambulatory Visit [...] mg sublingual Tab) omega-3 polyunsaturated fatty acids (PagoPago's Bounty Red Krill Oil) ubiquinone (CoQ10) Procedures [...] CLAYTON, Sotero Mejia Where: [facility] Diana Hairston [facility] Patient Educationon 09-02-19 Patient Education Nephrology Dietary [...] Spinach (cooked), rhubarb, beets, sweet potatoes, and Nicaraguan chard. ? Peanuts. ? Potato chips, prydeinig fries, and baked potatoes with skin on. ? Nuts and nut products. ? Chocolate. ? If you regularly take a diuretic medicine, make sure to eat at least 1 or 2 servings of fruits or vegetables that are high in potassium each day. These include: ? Avocado. ? Banana. ? Barry, prune, carrot, or tomato juice. ? Baked [...] fish oil, or vitamin B6. ? Take lknb-cpz-tvnzdkt and prescription medicines only as told by your health care provider. These include supplements. What foods sh (more content not included)... Normal [facility] Urology Office/Clinic Noteon 09-02-2023 Urology Office/Clinic Note [...] Contact Information TIANA CLAYTON, Sotero Mejia, URL [address] [place] [phone]- Additional Instructions: 1 year with KUB Patient [...] 06/01/2022 Tobacco (more content not included)... Normal [facility] Comment on above: Result Comment: Elec tronically Signed By: TIANA CLAYTON, Sotero Mejia\.br\Date and Time Signed: 09/02/23 11:04 EST\.br\Electronically Co-Signed By: Carolyne Samuel\Date and Time Co-Signed: 09/02/23 11:01 EST RAD - MISCon 09-01-2023 RAD - MISC [id number] #[id number] Normal [facility] CBC AUTO DIFFon 11-17-2022 BASO # 0.0 103/ul Normal 0.0-0.1 [facility] Comment on above: Performed By: #### C BC #### [facility] [address] [place] [address] [address] Miguel Angel Cassidy Basophils/100 WBC (Bld) 0.4 % Normal 0.2-2.0 [facility] Comment on above: Performed By: #### C BC #### [facility] [address] [place] [address] [address] Miguel Angel Cassidy EO # 0.2 103/ul Normal 0.0-0.7 [facility] Comment on above: Performed By: #### C BC #### [facility] [address] [place] [address] Dr. Miguel Angel Cassidy Eosinophils/100 WBC (Bld) 2.4 % Normal 0.9-7.0 [facility] Comment on above: Performed By: #### C BC #### [facility] [address] [place] [address] [address] Miguel Angel Cassidy Erythrocyte distribution width (RBC) [Ratio] 12.5 % Normal 11.0-15.0 [facility] Comment on above: Performed By: #### C BC #### [facility] [address] [place] [address] Dr. Miguel Angel Cassidy Hematocrit (Bld) [Volume fraction] 44.1 % Normal 42.0-54.0 [facility] Comment on above: Performed By: #### C BC #### [facility] [address] [place] [address] Dr. Miguel Angel Cassidy Hemoglobin (Bld) [Mass/Vol] 14.4 g/dL Normal 14.0-18.0 [facility] Comment on above: Performed By: #### C BC #### [facility] [address] [place] [address] Dr. Miguel Angel Cassidy IG # 0.02 10e3/ul Normal 0.00-0.03 [facility] Comment on above: Performed By: #### C BC #### [facility] [address] [place] [address] Dr. Miguel Angel Cassidy IG % 0.3 % Normal 0.0-0.5 [facility] Comment on above: Performed By: #### C BC #### [facility] [address] [place] [address] Dr. Miguel Angel Cassidy LYMPH # 3.0 103/ul Normal 1.2-3.8 [facility] Comment on above: Performed By: #### C BC #### [facility] [address] [place] [address] Dr. Miguel Angel Cassidy Lymphocytes/100 WBC (Bld) 38.3 % Normal 20.5-60.0 [facility] Comment on above: Performed By: #### C BC #### [facility] [address] [place] [address] Dr. Miguel Angel Cassidy MANUAL DIFF REQ NO Normal [facility] Comment on above: Performed By: #### C BC #### [facility] [address] [place] [address] Dr. Miguel Angel Cassidy MCH (RBC) [Entitic mass] 29.3 pg Normal 25.9-34.0 [facility] Comment on above: Performed By: #### C BC #### [facility] [address] [place] [address] Dr. Miguel Angel Cassidy MCHC (RBC) [Mass/Vol] 32.7 g/dL Normal 29.9-35.2 [facility] Comment on above: Performed By: #### C BC #### [facility] [address] [place] [address] Dr. Miguel Angel Cassidy MCV (RBC) [Entitic vol] 89.6 fL Normal 80.0-94.0 [facility] Comment on above: Performed By: #### C BC #### [facility] [address] [place] [address] Dr. Miguel Angel Cassidy MONO # 0.8 103/ul Normal 0.3-0.8 [facility] Comment on above: Performed By: #### C BC #### [facility] [address] [place] [address] Dr. Miguel Angel Cassidy Monocytes/100 WBC (Bld) 10.2 % Normal 1.7-12.0 [facility] Comment on above: Performed By: #### C BC #### [facility] [address] [place] [address] Dr. Miguel Angel Cassidy NEUT # 3.9 103/ul Normal 1.4-6.5 [facility] Comment on above: Performed By: #### C BC #### [facility] [address] [place] [address] Dr. Miguel Angel Cassidy Neutrophils/100 WBC (Bld) 48.4 % Normal 43.0-75.0 [facility] Comment on above: Performed By: #### C BC #### [facility] [address] [place] [address] Dr. Miguel Angel Cassidy Platelet mean volume (Bld) [Entitic vol] 11.6 fL Normal 9.5-13.5 [facility] Comment on above: Performed By: #### C BC #### [facility] [address] [place] [address] Dr. Miguel Angel Cassidy PLT 148 103/ul Critically low 150-450 [facility] Comment on above: Performed By: #### C BC #### [facility] [address] [place] [address] Dr. Miguel Angel Cassidy RBC 4.92 106/ul Normal 4.70-6.10 [facility] Comment on above: Performed By: #### C BC #### [facility] [address] [place] [address] Dr. Miguel Angel Cassidy WBC 7.9 103/ul Normal 4.0-11.0 [facility] Comment on above: Performed By: #### C BC #### [facility] [address] [place] [address] Dr. Miguel Angel Cassidy FREE THYROXINE INDEX T7on FTI 1.75 Normal 1.30-4.50 [facility] Comment on above: Performed By: #### U YESI 24 #### [facility] [address] [place] [address] Dr. Miguel Angel Cassidy T3U 33.0 % Normal 33.0-40.0 [facility] Comment on above: Performed By: #### U YESI 24 #### [facility] [address] [place] [address] Dr. Miguel Angel Cassidy T4 [Mass/Vol] 5.30 ug/dL Normal 4.50-12.10 [facility] Comment on above: Performed By: #### U YESI 24 #### [facility] [address] [place] [address] Dr. Miguel Angel Cassidy LIPID PROFILEon 11-17-2022 CHOL-HDL RATIO NORM SEE BELOW Normal [facility] Comment on above: Result Comment: 3.3 - 4.4 LOW RISK 4.4 - 7.1 AVERAGE RISK 7.1 - 11.0 MODERATE RISK >11.0 HIGH RISK Performed By: #### U YESI 24 #### [facility] [address] [place] [address] Dr. Miguel Angel Cassidy Cholesterol [Mass/Vol] 141 mg/dL Normal <=200 [facility] Comment on above: Performed By: #### U YESI 24 #### [facility] [address] [place] [address] Dr. Miguel Angel Cassidy Cholesterol in HDL [Mass/Vol] 48 mg/dL Normal 40-60 [facility] Comment on above: Performed By: #### U YESI 24 #### [facility] [address] [place] [address] Dr. Miguel Angel Cassidy Cholesterol in LDL [Mass/Vol] 80.4 mg/dL Normal [facility] Comment on above: Performed By: #### U YESI 24 #### [facility] [address] [place] [address] Dr. Miguel Angel Cassidy Cholesterol.total/Chol esterol in HDL [Mass ratio] 2.9 {ratio} Normal [facility] Comment on above: Performed By: #### U YESI 24 #### [facility] [address] [address] [address] Miguel Angel Cassidy HDL NORMAL > or = 60 mg/dl - LOW CARDIOVASCULAR RISK <40 mg/dl - HIGH CARDIOVASCULAR RISK Normal [facility] Comment on above: Performed By: #### U YESI 24 #### [facility] [address] [address] [address] Miguel Angel Cassidy LDL CALC NORMAL SEE BELOW Normal [facility] Comment on above: Result Comment: <100 mg/dl OPTIMAL 100 - 129 mg/dl NEAR OR ABOVE OPTIMAL 130 - 159 mg/dl BORDERLINE HIGH 160 - 189 mg/dl HIGH >190 mg/dl VERY HIGH Performed By: #### U YESI 24 #### [facility] [address] [address] [address] Miguel Angel Cassidy Triglyceride [Mass/Vol] 63 mg/dL Normal <=150 [facility] Comment on above: Performed By: #### U YESI 24 #### [facility] [address] [address] [address] Miguel Angel Cassidy VLDL CALC 12.6 mg/dL Normal [facility] Comment on above: Performed By: #### U YESI 24 #### [facility] [address] [address] [address] Miguel Angel Cassidy PROF CHEM 8 (BAS METB)on Anion gap [Moles/Vol] 13.1 mmol/L Normal [facility] Comment on above: Performed By: #### U YESI 24 #### [facility] [address] [address] [address] Miguel Angel Cassidy Calcium [Mass/Vol] 8.8 mg/dL Normal 8.5-10.[address] [facility] Comment on above: Performed By: #### U YESI 24 #### [facility] [address] [address] [address] Miguel Angel Cassidy Chloride [Moles/Vol] 108 mmol/L Critically high 98-107 [facility] Comment on above: Performed By: #### U YESI 24 #### [facility] [address] [address] [address] Miguel Angel Cassidy CO2 [Moles/Vol] 29.7 mmol/L Normal 21.0-32.0 [facility] Comment on above: Performed By: #### U YESI 24 #### [facility] [address] [address] [address] Miguel Angel Cassidy Creatinine [Mass/Vol] 1.03 mg/dL Normal 0.70-1.30 [facility] Comment on above: Performed By: #### U YESI 24 #### [facility] [address] [address] [address] Miguel Angel Cassidy EGFR-AF PARAGUAYAN >60 Normal >=60 [facility] Comment on above: Performed By: #### U YESI 24 #### [facility] [address] [address] [address] Miguel Angel Cassidy EGFR-NON AF PARAGUAYAN >60 Normal >=60 [facility] Comment on above: Performed By: #### U YESI 24 #### [facility] [address] [place] [address] Dr. Miguel Angel Cassidy Glucose [Mass/Vol] 106 mg/dL Normal 74-[address] [facility] Comment on above: Performed By: #### U YESI 24 #### [facility] [address] [address] [address] Miguel Angel Cassidy Potassium [Moles/Vol] 4.8 mmol/L Normal 3.5-5.1 [facility] Comment on above: Performed By: #### U YESI 24 #### [facility] [address] [address] [address] Miguel Angel Cassidy Sodium [Moles/Vol] 146 mmol/L Critically high 136-145 [facility] Comment on above: Performed By: #### U YESI 24 #### [facility] [address] [address] [address] Miguel Angel Cassidy Urea nitrogen [Mass/Vol] 14.0 mg/dL Normal 7.0-18.0 [facility] Comment on above: Performed By: #### U YESI 24 #### [facility] [address] [place] [address] Dr. Miguel Angel Cassidy Urea nitrogen/Creatinine [Mass ratio] 13.6 mg/mg Normal [facility] Comment on above: Performed By: #### U YESI 24 #### [facility] [address] [place] [address] Dr. Miguel Angel Cassidy TSHon 11-17-2022 TSH 2.017 uIU/mL Normal 0.358-3.740 [facility] Comment on above: Performed By: #### U YESI 24 #### [facility] [address] [place] [address] Dr. Miguel Angel Cassidy OXALATE 24HR URINEon 023 Oxalates, Urine 34 mg/L Normal Undefined [facility] Comment on above: Performed By: #### O X24HR #### [facility] [address] [place] [address] Dr. Miguel Angel Cassidy Oxalates, Urine 24hr 34 mg/24 hr Normal 7-44 [facility] Comment on above: Performed By: #### O X24HR #### [facility] [address] [place] [address] Dr. Miguel Angel Cassidy CITRATE URINE 24HRon 023 Citric Acid, U, 24hr 1169 mg/24 hr Normal 320-1240 [facility] Comment on above: Result Comment: This test was developed and its performance characteristics determined by [facility]. It has not been cleared or approved by the Food and Drug Administration. Performed By: #### C ITRATU #### [facility] [address] [place] [address] Dr. Miguel Angel Cassidy Citric Acid, Urine 1169 mg/L Normal Undefined [facility] Comment on above: Performed By: #### C ITRATU #### [facility] [address] [place] [address] Dr. Miguel Angel Cassidy MAGNESIUM 24HR URINEon 09-09 Magnesium 24hr Urine 88.0 mg/24 hr Normal 12.0-293.0 [facility] Comment on above: Performed By: #### C ITRATU #### [facility] [address] [place] [address] Dr. Miguel Angel Cassidy Magnesium UR 8.8 mg/dL Normal Not Estab. [facility] Comment on above: Performed By: #### C ITRATU #### [facility] [address] [place] [address] Dr. Miguel Angel Cassidy PHOSPHORUS 24HR URINEon 08-19 Phosphorus, Urine 97.8 mg/dL Normal Not Estab. [facility] Comment on above: Performed By: #### C ITRATU #### [facility] [address] [place] [address] Dr. Miguel Angel Cassidy Phosphorus, Urine 24hr 978 mg/24 hr Normal 390-1425 [facility] Comment on above: Performed By: #### C ITRATU #### [facility] [address] [place] [address] Dr. Miguel Angel Cassidy PTH INTACTon 09-09-2022 PTH, Intact 15 pg/mL Normal 15-65 [facility] Comment on above: Performed By: #### U YESI 24 #### [facility] [address] [place] [address] Dr. Miguel Angel Cassidy URIC ACID 24 HR URINEon 08-19 Uric Acid, Urine 43.6 mg/dL Normal Not Estab. [facility] Comment on above: Performed By: #### U YESI 24 #### [facility] [address] [place] [address] Dr. Miguel Angel Cassidy Uric Acid, Urine 24hr 436.0 mg/24 hr Normal 136.1-771. 1 [facility] Comment on above: Performed By: #### U YESI 24 #### [facility] [address] [place] [address] Dr. Miguel Angel Cassidy BUNon 09-08-2022 Urea nitrogen [Mass/Vol] 13.0 mg/dL Normal 7.0-18.0 [facility] Comment on above: Performed By: #### U YESI 24 #### [facility] [address] [place] [address] Dr. Miguel Angel Cassidy CALCIUMon 09-08-2022 Calcium [Mass/Vol] 8.9 mg/dL Normal 8.5-10.[address] [facility] Comment on above: Performed By: #### U YESI 24 #### [facility] [address] [place] [address] Dr. Miguel Angel Cassidy CALCIUM 24 HR URINEon 2022 CALC, 24 HR UR 138.0 mg/24 hr Normal 100.0-300.0 [facility] Comment on above: Performed By: #### U YESI 24 #### [facility] [address] [place] [address] Dr. Miguel Angel Cassidy UR CALCIUM 13.8 mg/dL Normal 5.1-21.0 [facility] Comment on above: Performed By: #### U YSEI 24 #### [facility] [address] [place] [address] Dr. Miguel Angel Cassidy UR TOT VOL 1000 ml/24 HR Normal [facility] Comment on above: Performed By: #### U YESI 24 #### [facility] [address] [place] [address] Dr. Miguel Angel Cassidy Performed By: #### C ITRATU #### [facility] [address] [place] [address] Dr. Miguel Angel Cassidy CHLORIDEon 09-08-2022 Chloride [Moles/Vol] 107 mmol/L Normal 98-107 [facility] Comment on above: Performed By: #### B UN, CL, CO2, CREA, K, URIC, CA, NA #### [facility] [address] [place] [address] Dr. Miguel Angel Cassidy CO2on 09-08-2022 CO2 [Moles/Vol] 31.6 mmol/L Normal 21.0-32.0 [facility] Comment on above: Performed By: #### B UN, CL, CO2, CREA, K, URIC, CA, NA #### [facility] [address] [place] [address] Dr. Miguel Angel Cassidy CREA 24 HR URINEon CREA, 24 HR UR 1343.30 mg/24 hr Normal 1,000.00- 2,0 00.00 [facility] Comment on above: Performed By: #### C ITRATU #### [facility] [address] [place] [address] Dr. Miguel Angel Cassidy URINE CREAT 134.33 mg/dL Normal 20.00-300.00 [facility] Comment on above: Performed By: #### C ITRATU #### [facility] [address] [place] [address] Dr. Miguel Angel Cassidy CREATININEon 09-08-2022 Creatinine [Mass/Vol] 0.89 mg/dL Normal 0.70-1.30 [facility] Comment on above: Performed By: #### B UN, CL, CO2, CREA, K, URIC, CA, NA #### [facility] [address] [place] [address] Dr. Miguel Angel Cassidy EGFR-AF PARAGUAYAN >60 Normal >=60 [facility] Comment on above: Performed By: #### B UN, CL, CO2, CREA, K, URIC, CA, NA #### [facility] [address] [place] [address] Dr. Miguel Angel Cassidy EGFR-NON AF PARAGUAYAN >60 Normal >=60 [facility] Comment on above: Performed By: #### B UN, CL, CO2, CREA, K, URIC, CA, NA #### [facility] [address] [place] [address] Dr. Miguel Angel Cassidy NAon 09-08-2022 Sodium [Moles/Vol] 143 mmol/L Normal 136-[address] [facility] Comment on above: Performed By: #### B UN, CL, CO2, CREA, K, URIC, CA, NA #### [facility] [address] [place] [address] Dr. Miguel Angel Cassidy POTASSIUMon 09-08-2022 Potassium [Moles/Vol] 4.3 mmol/L Normal 3.5-5.1 [facility] Comment on above: Performed By: #### B UN, CL, CO2, CREA, K, URIC, CA, NA #### [facility] [address] [place] [address] Dr. Miguel Angel Cassidy SODIUM 24 HR URINEon 023 NA, 24 HR UR 127 mmol/24 hr Normal 40-220 [facility] Comment on above: Performed By: #### C ITRATU #### [facility] [address] [place], [place] [id number] Dr. Miguel Angel Cassidy Sodium (U) [Moles/Vol] 127 mmol/L Critically high 30-90 [facility] Comment on above: Performed By: #### C ITRATU #### [facility] [address] [place] [address] Dr. Miguel Angel Cassidy URIC ACID SERUMon 09-08-2022 Urate [Mass/Vol] 5.3 mg/dL Normal 3.5-7.2 [facility] Comment on above: Performed By: #### U YESI 24 #### [facility] [address] [place] [address] Dr. Miguel Angel Cassidy [facility] SARS-CoV-2 (COVID-19) RNA SILVIA+probe Ql (Unsp spec) Not detected Normal NOT DETECTED [facility] Comment on above: Result Comment: This test is not yet approved or cleared by the [place] FDA. When there are no FDA-approved or cleared tests available, and other criteria are met, FDA can make tests available under an emergency access mechanism called an Emergency Use Authorization (EUA). The EUA for this test is supported by the [place] of Health and Human Service's (HHS's) declaration [...] Performed By: #### U YESI 24 #### [facility] [address] [place] [address] Dr. Miguel Angel Cassidy ECHOCARDIO M/2D COMPLETEon 0 02-10-2022 ECHOCARDIO M/2D COMPLETE Patient: CHEY FREIRE Exam Date: 02/10/2022 : 1940 Gender:M Ordering : DR ANGELINA ZIMMERMAN M.D. Admission #: [id number] Family : DR ANG CHILEL . Order #: [id number] CLICK HERE TO VIEW EXAM ECHOCARDIOGRAM REPORT [...] Daniel M.D. on 02/10/2022 at 15:50 Normal [facility] US KIDNEYS BLADDERon 022 US KIDNEYS BLADDER [...] by: FAIZA ARECHIGA Date: 2022-02-07 08:09 Normal [facility] XR KUB 1 VIEWon 02-05-2022 XR KUB [...] by: FAIZA ARECHIGA Date: 2022-02-05 12:59 Normal [facility] Vital Signs Date Time Vital Sign Value Performing Clinician Juliette gamble 03-19-2024 17:58-0400 Diastolic blood pressure 63 mm[Hg] Abelino Garcia [facility] 03-19-2024 17:58-0400 Heart rate 60 /min Abelino Garcia [facility] 03-19-2024 17:58-0400 Mean blood pressure 88 mm[Hg] Abelino Garcia [facility] 03-19-2024 17:58-0400 Respiratory rate 16 /min Abelino Garcia [facility] 03-19-2024 17:58-0400 SaO2% (BldA) [Mass fraction] 96 % Abelino Garcia [facility] 03-19-2024 17:58-0400 Systolic blood pressure 139 mm[Hg] Abelino Garcia [facility] 03-19-2024 17:00-0400 Heart rate 56 /min Abelino Garcia [facility] 03-19-2024 17:00-0400 Mean blood pressure 81 mm[Hg] Abelino Garcia [facility] 03-19-2024 17:00-0400 SaO2% (BldA) [Mass fraction] 99 % Abelino Garcia [facility] 03-19-2024 17:00-0400 Systolic blood pressure 132 mm[Hg] Abelino Jose [facility] 03-19-2024 16:30-0400 Diastolic blood pressure 56 mm[Hg] Abelino Jose [facility] 03-19-2024 16:30-0400 Heart rate 54 /min Abelino Jose [facility] 03-19-2024 16:30-0400 Mean blood pressure 83 mm[Hg] Abelino Jose [facility] 03-19-2024 16:30-0400 Respiratory rate 19 /min Abelino Jose [facility] 03-19-2024 16:30-0400 SaO2% (BldA) [Mass fraction] 98 % Abelino Jose [facility] 03-19-2024 16:30-0400 Systolic blood pressure 138 mm[Hg] Abelino Jose [facility] 03-19-2024 14:13-0400 Respiratory rate 18 /min Abelino Jose [facility] 03-19-2024 14:00-0400 Body temperature 97.7 [degF] Abelino Jose [facility] 03-19-2024 14:00-0400 Heart rate 53 /min Abelino Jose [facility] 03-19-2024 14:00-0400 Respiratory rate 20 /min Abelino Jose [facility] 09-02-2023 09:58-0500 Blood Pressure Location Sotero STEPHEN [facility] 09-02-2023 09:58-0500 Diastolic blood pressure 64 mm[Hg] Sotero STEPHEN [facility] 09-02-2023 09:58-0500 Heart rate 65 /min Sotero STEPHEN [facility] 09-02-2023 09:58-0500 Respiratory rate 16 /min Sotero STEPHEN [facility] 09-02-2023 09:58-0500 Systolic blood pressure 122 mm[Hg] Sotero STEPHEN [facility] 09-03-2022 09:18-0500 Blood Pressure Location Sotero STEPHEN [facility] 09-03-2022 09:18-0500 Diastolic blood pressure 71 mm[Hg] Sotero STEPHEN [facility] 09-03-2022 09:18-0500 Heart rate 70 /min Sotero STEPHEN [facility] 09-03-2022 09:18-0500 Respiratory rate 16 /min Sotero STEPHEN [facility] 09-03-2022 09:18-0500 Systolic blood pressure 130 mm[Hg] Sotero STEPHEN [facility] 06-01-2022 15:52-0500 Blood Pressure Location Holli BATEMAN [facility] 06-01-2022 15:52-0500 Diastolic blood pressure 62 mm[Hg] Holli BATEMAN [facility] 06-01-2022 15:52-0500 Heart rate 68 /min Holli BATEMAN [facility] 06-01-2022 15:52-0500 Respiratory rate 16 /min Holli BATEMAN [facility] 06-01-2022 15:52-0500 Systolic blood pressure 130 mm[Hg] Holli BATEMAN [facility] Encounters Encounter Date Encounter Type Care Provider Facility Start: 09-03-2024 ambulatory Sotero Dormani ty:[facility] Start: 05-14-2024 End: 05-14-2024 ambulatory AB [facility] Start: 03-19-2024 End: 03-19-2024 Emergency department patient visit Abelino Garcia Facility[facility] Start: 09-02-2023 End: 09-02-2023 ambulatory Sotero STEPHEN Facility:[facility] Start: 09-02-2023 End: 09-02-2023 Patient encounter procedure Sotero STEPHEN [facility] Start: 11-17-2022 End: 11-18-[address] ANG CHILEL . Facility:[facility] Start: 09-08-2022 End: 09-09-2022 ambulatory SOTERO STEPHEN Facility:[facility] Start: 09-03-2022 End: 09-03-2022 Patient encounter procedure Sotero STEPHEN [facility] Start: 06-26-2022 Encounter for preprocedural laboratory examination DR HOLLI BATEMAN . [facility] Start: 06-25-2022 End: 06-25-[address] ANG CHILEL . Facility:[facility] Start: 06-22-2022 End: 06-23-[address] HOLLI BATEMAN . Facility:[facility] Start: 06-22-2022 End: 06-23-2022 Encounter for preprocedural laboratory examination DR HOLLI BATEMAN . Facility:[facility] Start: 06-01-2022 End: 06-01-2022 Patient encounter procedure Holli BATEMAN General Surgery [facility] Start: 02-10-2022 End: 02-11-[address] ANGELINA ZIMMERMAN Facility:[facility] Start: 02-05-2022 End: 02-06-[address] ANG CHILEL . Facility:[facility] Start: 12-17-2021 End: 12-18-[address] ANG CHILEL . Facility:[facility] Procedures Date Procedure Procedure Detail Performing Clinician Start: 11-17-[address] MARIELA BATEMAN . Comment on above: Performed By: #### [facility] #### [facility] [address] [address] [address] Miguel Angel Cassidy Start: 03-20-2019 cysto [...] Provider Shoshana walsh 07-18-2020 SARS-CoV-2 (COVID-19 ) [id number] vaccine Holli NILL [facility] Comment on above: Result Comment: Pt s jordan he has had 3 shots to date but does not have his card for the dates today 03-10-2020 influenza virus vaccine, unspecified formulation Holli KENTL [facility] Payers Date Payer Category Payer Medicare [id number] 1957 Unknown [id number] 1940 Unknown [id number] 2.16.84 [id number] 1940 Unknown [id number] 2.16.84 [id number] 1940 Unknown [id number] 2.16.84 [id number] 1940 Unknown [id number] 2.16.84 [id number] 1940 Unknown [id number] 2.16.84 [id number] 1940 Unknown [id number] 2.16.84 [id number] 1940 Unknown [id number] 2.16.84 [id number] 1940 Unknown [id number] 2.16.8 [id number] 1940 Unknown [id number] 2.16.8 [id number] 1940 Unknown [id number] 2.16.8 [id number] 1940 Unknown [id number] 2.16.8 [id number] 1940 Unknown [id number] 2.16.8 [id number] Social History Date Type Detail Facility Start: 06-01-2022 Tobacco smoking status Ex-smoker (fi nding) [facility] Tobacco smoking status Never Gener al [facility] Sex Assigned At Male [facility] Functional Status Date Assessment Result Facility 03-19-2024 Functional Status N/A [facility] 09-02-2023 Functional Status N/A [facility] 09-03-2022 Functional Status N/A [facility] 06-01-2022 Functional Status N/A [facility] Clinical Notes 12-17-2021 to 05-14-2024 Note Date & Type Note Facility 05-14-2024 Note [facility] Note Chief Complaint: Patient here [...] S/p PCI/stents I25.10: Atherosclerotic heart disease of [place] coronary artery without angina pectoris 2. 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 Mitral valve regurgitati (more content not included)... [facility] 03-19-2024 Hospital Discharge instructions Patient Education 03/19/2024 17:59:58 Anaphylactic Reaction, Adult, Itfx-gv-Ssey Anaphylactic Reaction, Adult An anaphylactic reaction is [...] What are the signs or symptoms? Feeling director sterile processing the face (flushed). Your face may turn [...] a very bad reaction. General instructions Take tise-utf-yaewctk and prescription medicines only as told by [...] you a bad reaction before. Tell your cafeteria food server about your allergy when you go out to eat. If you are not sure if your meal contains food that you are allergic to, ask your cafeteria food server before you eat it. Where to find more information [place] [employer], [employer] (AAAAI): [...] provider. Document Revised: 03/18/2023 Document Reviewed: 03/18/2023 [email or web address] Patient Education 2023 [employer]. Follow Up Care 03/19/2024 14:02:06 With:Ang Chilel Address: [address] [place] [phone] Business (1) When:03/22/2024 17:49:01 Comments:Call for diagnosis based follow up [facility] 03-19-2024 Note ED Patient Education Note Immunology [...] are the signs or symptoms? ? Feeling director sterile processing the face (flushed). Your face may turn [...] very bad reaction. General instructions ? Take pqsz-xgi-cuhbdpc and prescription medicines only as told by [...] a bad reaction before. ? Tell your cafeteria food server about your allergy when you go out to eat. If you are not sure if your meal contains food that you are allergic to, ask your cafeteria food server before you eat it. Where to find more information ? [place] [employer], and [employer] (AAAAI): [...] provider. Document Revised: 03/18/2023 Document Reviewed: 03/18/2023 [email or web address] Patient Education ? 2023 [employer]. [facility] 09-02-2023 Hospital Discharge instructions Patient Education 09/02/2023 [...] include: ?8 oz (237 mL) of milk, lbpseor-vuxvrvnokhsy-shjfi milk, and calcium-fortifiedfruit juice. Calcium-fortified means that [...] ?Spinach (cooked), rhubarb, beets, sweet potatoes, and [place] chard. ?Peanuts. ?Potato chips, prydeinig fries, and baked potatoes with skin on. ?Nuts and nut products. ?Chocolate. If you regularly take a diuretic medicine, make sure to eat at least 1 or 2 servings of fruits or vegetables that are high in potassium each day. These include: ?Avocado. ?Banana. ?Barry, prune, carrot, or tomato juice. ?Baked potato. [...] magnesium, fish oil, or vitamin B6. Take jwuk-mbs-rqhoxgo and prescription medicines only as told by [...] Casseroles. Pizza. Lasagna. Frozen meals. Potato chips. [place] fries. The items listed above may not [...] provider. Document Revised: 10/14/2022 Document Reviewed: 10/14/2022 [email or web address] Patient Education 2022 [employer] [employer]. Follow Up Care 09/03/2022 09:56:31 With:TIANA CLAYTONSotero, URL Address: [address] [place] [id number]- When: Unknown [facility] Diana 09-03-2022 Hospital Discharge instructions Patient Education 09/03/2022 09:39:28 Kidney Stones, [id number] Kidney Stones Kidney stones are rock-like masses [...] Follow these instructions at home: Medicines Take [id number] and prescription medicines only as told by [...] 12/20/2008 Document Revised: 11/20/2019 Document Reviewed: 11/20/2019 [email or web address] Patient Education 2019 [employer]. Follow Up Care 08/31/2021 10:41:08 With:TIANA CLAYTON, Sotero Mejia, URL Address: [address] [place] [address]- When: Unknown [facility] 06-25-2022 Note OPERATIVE NOTE OPERATION DATE: [...] further screening. CC: Ang Chilel M.D. [facility] 12-17-2021 Note PROCEDURE: XR SHOULD [...] authenticated by: FAIZA ARECHIGA Date: 2021-12-17 17:22 [facility] Evaluation + Plan note Future Appointments Appointment Date:09/03/2022 09:45:00 AM Scheduled Provider:Sotero STEPHEN MD Location:[facility] Appointment Type:URO Office Visit General Surgery [facility] Evaluation + Plan note Future Appointments Appointment Date:09/02/2023 09:30:00 AM Scheduled Provider:Sotero STEPHEN MD Location:[facility] Appointment Type:URO Office Visit [facility] Evaluation + Plan note Future Appointments Appointment Date:09/03/2024 09:45:00 AM Scheduled Provider:Sotero STEPHEN MD Location:[facility] Appointment Type:URO Office Visit [facility] Hospital course Narrative No data available for this section General Surgery [facility] Hospital Discharge instructions No data available for this section General Surgery [facility] Progress note No data available for this section General Surgery [facility] Summary Purpose Family History No Family History [...] Personnel Name: Ang Chilel MD Address: Address: [address] [place] [address] Personnel Name: Ang Chilel MD Address: Address: [address] [place] [address] Personnel Name: Ang Chilel MD Address: Address: [address] [place] [address] (unrecognized sect ion and content) No Status Records FoundNo Status Records FoundNo Status Records FoundNo Status Records FoundNo Status Records FoundNo Status Records FoundNo Status Records FoundNo Status Records FoundNo Status Records FoundNo Status Records Found INFORMATION SOURCE (unrecogn ized section and content) DATE CREATED AUTHOR 11/25/[address] [facility] DATE CREATED AUTHOR AUTHOR'S ORGANIZ ATION 03/19/2024 [place] [facility] DATE CREATED AUTHOR AUTHOR'S ORGANIZ ATION 03/23/2024 [place] [facility] DATE CREATED AUTHOR AUTHOR'S ORGANIZ ATION 05/15/2024 [facility] FOR RECORDS PERTAINING TO PATIENTS WHO ARE [...] BE BASED ON THE PRIMARY CLINICAL RECORDS. [employer] [facility]. provides no warranty or guarantee of the accuracy or completeness of information in this document.
[2024-06-11 15:32] LABS: Internal Control Within Normal Limits; Occult Blood Positive
== END 2024-06-11 12:38 | disposition home or self-care (01) ==
LOC: LAB 12:37
PROVIDERS: PCP Family Medicine; Visit Provider Family Medicine
DX: E78.00 Pure hypercholesterolemia, unspecified (principal); I25.10 Atherosclerotic heart disease of native coronary artery without angina pectoris; M54.50 Low back pain, unspecified; R53.83 Other fatigue; R73.09 Other abnormal glucose; I10 Essential (primary) hypertension; Z12.12 Encounter for screening for malignant neoplasm of rectum; E03.9 Hypothyroidism, unspecified; Z12.5 Encounter for screening for malignant neoplasm of prostate
CPT/HCPCS: G0328

== ENCOUNTER 2024-09-01 11:11 | Outpatient (OUT) | payer MEDICARE, SELFPAY ==
--- OUTSIDE RECORDS SUMMARY | 2024-09-01 11:17 | XMS_ITS | CCD ---
Author Organization [facility] CliniSynj Care Team Providers Care Dean Of Students Name Role Phone Ang Chilel Primary Care [...] STEPHEN Attending Unavailable Abelino Garcia Attending Unavailable bAelino Garcia Attending Unavailable ELTAANGELINA MATA Attending Unavailable Allergies Allergy Classification Reported Allergen(s) Allergy Type Date of Onset Reaction(s) Facility (2 sources) Bee/Wasp/Ant venom; Translations: [Bee Stings] Propensity to adverse reactions (disorder) Anaphylactic reaction [facility] Repository Medications Current Medications Medication Drug [...] day(s), # 7 tab(s), Refills(s) 0, Pharmacy: [facility], 160, cm, 03/19/24 [...] # 60 tab(s), Refills(s) , DAGO, Pharmacy: [facility], 160, cm, 09/02/23 10:00:00 EST, Height/Length Dosing, 63.2, kg, 09/02/23 10:00:00 EST, Weight Dosing Start Date: 09/02/23 Status: Ordered Start: 05-17-2022 take 1 tablet by kassidy th twice daily Effer-K 20 mEq oral tablet, effervescent 20 mEq = 1 tab(s), Oral, BID, # 60 tab(s), Refills(s) , DAGO, Pharmacy: [facility], 160.3, cm, 08/31/21 [...] Episodic Other aftercare (1 source) 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/ant iplatelets; Translations: [SEISMIC SURVEY ASSISTANT ANTITHROMBOT/ANTIPL ATLETS] Onset: 07-01-2022 Episodic Other aftercare (1 source) penitentiary (current) use of aspirin; Translations: [SKILLED NURSING CURRENT USE OF ASPIRIN] Onset: 07-01-2022 Episodic Other aftercare (1 source) Other [facility] (current) drug therapy; Translations: [OTH SKILLED NURSING CURRENT DRUG THERAPY] Onset: 07-01-2022 Episodic Other non-traumatic joint disorders (4 sources) Pain in left shoulder; Translations: [PAIN IN LEFT SHOULDER] Onset: 12-17-2021 Episodic Screening and history of mental health and substance abuse codes (1 source) Personal history of nicotine dependence; Translations: [PERSONAL HISTORY OF NICOTINE DEPEND] Onset: 07-01-2022 Episodic Results Test Name Value Interpretation Reference Range Facility Office Visiton 05-14-2024 Follow-up visit [id number] Chey Freire 1940 M Date Provider Department Center 05/14/2024 Richi-ANGELINA ZIMMERMAN [facility] Family History Problem Relation Age of Onset Other Mother Hypertension Mother Heart attack Father Family Status - Relation Status Age at Mother Father Level of Service:49431 NM OFFICE/OUTPATIENT ESTABLISHED LOW MDM 20 MIN Normal [facility] ED Note-Physicianon 03-22-20 ED Note-Physician ED Note-Physician [...] and Complexity of Problems Differential Diagnosis: [] [facility] Data External documents reviewed: [] My EKG [...] anaphylaxis, # 1 EA, Refills(s) 0, Pharmacy: [facility], 160, cm, 03/19/24 [...] day(s), # 7 tab(s), Refills(s) 0, Pharmacy: [facility], 160, cm, 03/19/24 14:08:00 EDT, Height/Length Dosing, 63.3, kg, 03/19/24 14:08:00 EDT, Weight Dosing Basic Metabolic Panel CBC w/ Auto Diff ECG 12 Lead Adult ED Cardiac Monitoring eGFR Extra SST Tube Oxygen Saturation Oxygen Therapy PT & PTT Saline Lock Insert Troponin 0 Hr. Troponin 1 Hr. XR Chest Sing (more content not included)... Normal [facility] Comment on above: Result Comment: Elec tronically Signed By: Clint GOFF, Jeromy Gamino\.br\Date and Time Signed: 03/19/24 18:40 EDT\.br\Electronically Co-Signed By: Abelino Garcia MD\.br\Date and Time Co-Signed: 03/22/24 05:55 EDT BMPon 03-19-2024 Anion gap [Moles/Vol] 9 mmol/L Normal 6-16 [facility] Comment on above: Performed By: #### 2 [id number] #### [facility] [address] [place] [address] Calcium [Mass/Vol] 9.2 mg/dL Normal 8.9-11.1 [facility] Comment on above: Performed By: #### 2 [id number] #### [facility] [address] [place] [address] Chloride [Moles/Vol] 106 mmol/L Normal 101-111 [facility] Comment on above: Performed By: #### 2 [id number] #### [facility] [address] [place] [address] CO2 [Moles/Vol] 32 mmol/L High 21-31 [facility] Comment on above: Performed By: #### 2 [id number] #### [facility] [address] [place] [address] Creatinine [Mass/Vol] 1.1 mg/dL Normal 0.5-1.3 [facility] Comment on above: Performed By: #### 2 [id number] #### [facility] [address] [place] [address] Glucose [Mass/Vol] 134 mg/dL Normal 55-199 [facility] Comment on above: Performed By: #### 2 [id number] #### [facility] [address] [place] [address] Potassium [Moles/Vol] 4.0 mmol/L Normal 3.5-5.3 [facility] Comment on above: Performed By: #### 2 [id number] #### [facility] [address] [place] [address] Sodium [Moles/Vol] 143 mmol/L Normal 135-145 [facility] Comment on above: Performed By: #### 2 [id number] #### [facility] [address] [place] [address] Urea nitrogen [Mass/Vol] 17 mg/dL Normal 5-21 [facility] Comment on above: Performed By: #### 2 [id number] #### [facility] [address] [place] [address] Urea nitrogen/Creatinine [Mass ratio] 16 No Units Normal 10-20 [facility] Comment on above: Performed By: #### 2 [id number] #### [facility] [address] [place] [address] CBC w/ Auto Diffon 4 Basophils/100 WBC (Bld) 0.5 % Normal 0.0-2.0 [facility] Comment on above: Performed By: #### 2 [id number] #### [facility] [address] [place] [address] Basophils/Leukocytes Auto (Bld) [Pure # fraction] 0.0 E9/L Normal 0.0-0.2 [facility] Comment on above: Performed By: #### 2 [id number] #### [facility] [address] [place] [address] Eosinophils (Bld) [#/Vol] 0.2 E9/L Normal 0.0-0.5 [facility] Comment on above: Performed By: #### 2 [id number] #### [facility] [address] [place] [address] Eosinophils/100 WBC (Bld) 3.4 % Normal 0.0-8.0 [facility] Comment on above: Performed By: #### 2 [id number] #### [facility] [address] [place] [address] Erythrocyte distribution width (RBC) [Ratio] 13.7 % Normal 10.9-14.2 [facility] Comment on above: Performed By: #### 2 [id number] #### [facility] [address] [place] [address] Hematocrit (Bld) [Volume fraction] 41.8 % Normal 37.7-49.0 [facility] Comment on above: Performed By: #### 2 [id number] #### [facility] [address] [place] [address] Hemoglobin (Bld) [Mass/Vol] 14.4 g/dL Normal 13.5-17.5 [facility] Comment on above: Performed By: #### 2 [id number] #### [facility] [address] [place] [address] Lymphocytes (Bld) [#/Vol] 2.4 E9/L Normal 1.0-4.0 [facility] Comment on above: Performed By: #### 2 [id number] #### [facility] [address] [place] [address] Lymphocytes/100 WBC (Bld) 40.4 % Normal 14.0-50.0 [facility] Comment on above: Performed By: #### 2 [id number] #### [facility] [address] [place] [address] MCH (RBC) [Entitic mass] 30.6 pg Normal 27.0-34.0 [facility] Comment on above: Performed By: #### 2 [id number] #### [facility] [address] [place] [address] MCHC (RBC) [Mass/Vol] 34.4 g/dL Normal 31.4-36.0 [facility] Comment on above: Performed By: #### 2 [id number] #### [facility] [address] [place] [address] MCV (RBC) [Entitic vol] 88.9 fL Normal 80.0-100.0 [facility] Comment on above: Performed By: #### 2 [id number] #### [facility] [address] [place] [address] Monocytes (Bld) [#/Vol] 0.4 E9/L Normal 0.2-1.0 [facility] Comment on above: Performed By: #### 2 385376 #### [facility] [address] [place] [address] Neutrophils (Bld) [#/Vol] 2.9 E9/L Normal 2.0-7.5 [facility] Comment on above: Performed By: #### 2 [id number] #### [facility] [address] [place] [address] Neutrophils/100 WBC (Bld) 49.2 % Normal 36.0-75.0 [facility] Comment on above: Performed By: #### 2 [id number] #### [facility] [address] [place] [address] Platelet 183.0 E9/L Normal 150.0-500.0 [facility] Comment on above: Performed By: #### 2 [id number] #### [facility] [address] [place] [address] Platelet mean volume (Bld) [Entitic vol] 9.1 fL Normal 6.4-10.8 [facility] Comment on above: Performed By: #### 2 [id number] #### [facility] [address] [place] [address] RBC (Bld) [#/Vol] 4.7 E12/L Normal 4.3-5.9 [facility] Comment on above: Performed By: #### 2 [id number] #### [facility] [address] [place] [address] WBC corrected for nucl RBC Auto (Bld) [#/Vol] 5.9 E9/L Normal 4.0-11.0 [facility] Comment on above: Performed By: #### 2 [id number] #### [facility] [address] [place] [address] CHEMISTRYOrdered By: SYSTEM SYSTEM on 03-19-2024 Troponin [...] High Sensitivity Troponin I Instructions For Use, Bitbar, February 2018) Anion gap [Moles/Vol] 9 mmol/L [...] High Sensitivity Troponin I Instructions For Use, Bitbar, February 2018) Urea nitrogen [Mass/Vol] 17 mg/dL Normal 5 - 21 mg/dL [facility] Urea nitrogen/Creatinine [Mass ratio] 16 mg/mg Normal 10 - 20 [facility] COAGULATIONOrdered By: Aurelio Mix on 03-19-2024 aPTT Coag (PPP) [Time] 26.4 s Normal 25.1 - 36.5 second(s) [facility] Auto Coag Comment on above: Interpretive Data: [...] the same coagulation reagent and instrumentation as [facility]. Currently there are no coagulation studies available worldwide for children to 14 days, and no normal ranges. Heparin therapeutic range (represented by Anti-Factor Xa activity of 0.2 - 0.4 U/mL) corresponds to PTT of 56.6 - 109.0 sec. INR Coag (PPP) [Relative time] 1.13 {INR} Invalid Interpretation Code [facility] Comment on above: Interpretive Data: I NR results are specifically intended to assess patients stabilized on long-term Anticoagulation therapy suggested INR s Less Intensive Anticoagulation 2.0 3.0 Conventional Range 3.0 4.5 PT Coag (PPP) [Time] 12.7 s High 9.4 - 1 2.5 second(s) [facility] Comment on above: Interpretive Data: [...] the same coagulation reagent and instrumentation as [facility]. Currently there are no coagulation studies available worldwide for children to 14 days, and no normal ranges. ED Clinical Summaryon 2023 ED Clinical Summary ED Clinical Summary [place] [id number] ED Clinical Summary Person Information Name: CHEY FREIRE [facility] Age: 83 Years : 1940 Sex: Male Language: Slovak PCP: Ang Chilel MD Marital Status: Visit [...] 03/19/2024 17:59:57 03/19/2024 17:59:57 03/19/2024 17:59:57 ADDRESS: [id number] [address] [facility] [place] [id number] PHYS DOC NOTES: MEDICAL INFORMATION: Prescriptions Given: New Medications [facility], [address] [place], [place] [id number], [phone] predniSONE (predniSONE 50 mg Tab) 1 Tablets [...] for chest pain. omega-3 polyunsaturated fatty acids ([employer]ents[employer]'s Bounty Red Krill Oil) 1 Milligram By Mouth every day. potassium bicarbonate (Effer-K 20 mEq oral tablet, effervescent) 1 Tablets By Mouth 2 times a day. Refills: 11. ubiquinone (CoQ10) By Mouth every day. PATIENT EDUCATION INFORMATION: Instructions: Anaphylactic Reaction, Adult, [id number] Follow up: With: Address: When: Ang Chilel [address] [place] [address], [place] [address] Business (1) In 3 days 03/22/2024 Comments: Call Dr for diagnosis based follow up DIAGNOSIS: Bee sting-induced anaphylaxis Normal [facility] ED Patient Summaryon 024 ED Patient Summary ED Patient Summary [address] [address] Patient Discharge Instructions Person Information Name: CHEY FREIRE Age: 83 Years Arrival Date: 03/19/2024 14:01:03 Discharge Diagnosis: Bee sting-induced anaphylaxis Primary Care Physician: Ang Chilel MD Provider Information Primary Provider: Advanced Trim Operator:None The exam and treatment you received in the Emergency Department were for an urgent problem and are not intended as complete care. It is important that you follow up with a doctor, nurse practitioner, or physician?s financial services assistant for ongoing care. If your symptoms [...] Follow-up Instructions: With: Address: When: Ang Chilel [facility] [facility], [place] [address] Business (1) In 3 days 03/22/2024 Comments: Call Dr for diagnosis based follow up In the event that this physician does not participate in your insurance network, please consult with your insurance company to find a nearby participating provider. Patient Education Materials: Anaphylactic Reaction, Adult, Bdqd-vh-Kpmf A MESSAGE TO ALL PATIENTS REGARDING OPIOIDS PRESCRIPTION OPIOIDS: WHAT YOU NEED TO KNOW Prescription opioids can be used to help relieve jzvqprmh-tj-icuujw pain and are often prescribed following a [...] be struggling with addiction, tell your health intensive care nurse and ask for guidance or c (more content not included)... Normal [facility] HEMATOLOGYOrdered By: SYSTEM SYSTEM on 03-19-2024 [...] Coag (PPP) [Time] 26.4 second(s) Normal 25.1-36.5 [facility] Comment on above: Result Comment: Para [...] the same coagulation reagent and instrumentation as [facility]. Currently there are no coagulation studies available worldwide for children to 14 days, and no normal ranges. Heparin therapeutic range (represented by Anti-Factor Xa activity of 0.2 - 0.4 U/mL) corresponds to PTT of 56.6 - 109.0 sec. Performed By: #### 1 [id number] #### [facility] [address] [place] [address] INR Coag (PPP) [Relative time] 1.13 {INR} Invalid Interpretation Code [facility] Comment on above: Result Comment: INR results are specifically intended to assess patients stabilized on long-term Anticoagulation therapy suggested INR?s ?Less Intensive Anticoagulation? 2.0 ? 3.0 Conventional Range 3.0 ? 4.5 Performed By: #### 1 [id number] #### [facility] [address] [place] [address] PT Coag (PPP) [Time] 12.7 second(s) High 9.4-12.5 [facility] Comment on above: Result Comment: 15 [...] the same coagulation reagent and instrumentation as [facility]. Currently there are no coagulation studies available worldwide for children to 14 days, and no normal ranges. Performed By: #### 1 [id number] #### [facility] [address] [place] [address] Troponin 0 Hr.on 03-19-2024 Troponin HS 4.20 pg/mL Low 15.90-38.40 [facility] Comment on above: Result Comment: The 95% CI (Confidence Interval) PPV (Positive Predictive Value) for myocardial infarction in females is 38 pg/mL, in males 51 pg/mL. The results should be used in conjunction with clinical conditions of myocardial infarction. (Access High Sensitivity Troponin I Instructions For Use, Bitbar, February 2018) Performed By: #### 1 [id number] #### [facility] [address] [place] [address] Troponin 1 Hr.on 03-19-2024 Troponin HS 4.90 pg/mL Low 15.90-38.40 [facility] Comment on above: Result Comment: The 95% CI (Confidence Interval) PPV (Positive Predictive Value) for myocardial infarction in females is 38 pg/mL, in males 51 pg/mL. The results should be used in conjunction with clinical conditions of myocardial infarction. (Access High Sensitivity Troponin I Instructions For Use, Bitbar, February 2018) Performed By: #### 1 [id number] #### [facility] [address] [place] [address] XR Chest Single Viewon 03-19 XR Chest [...] mGy = . DAP = . Normal [facility] eGFRon 03-19-2024 eGFR 67 mL/min/1.73 m2 Normal >=59 [facility] Comment on above: Order Comment: Order added by Discern Expert. Performed By: #### 1 [id number] #### [facility] [address] [place] [address] Ambulatory Visit Summaryon 0 09-02-2023 Ambulatory Visit [...] mg sublingual Tab) omega-3 polyunsaturated fatty acids ([employer]'s Bounty Red Krill Oil) ubiquinone (CoQ10) Procedures [...] Mejia Where: [facility] Diana Hairston [facility] Patient Educationon 09-02-19 Patient Education Nephrology [...] Spinach (cooked), rhubarb, beets, sweet potatoes, and Puerto Rican chard. ? Peanuts. ? Potato chips, cuban fries, and baked potatoes with skin on. ? Nuts and nut products. ? Chocolate. ? If you regularly take a diuretic medicine, make sure to eat at least 1 or 2 servings of fruits or vegetables that are high in potassium each day. These include: ? Avocado. ? Banana. ? [place], prune, carrot, or tomato juice. ? Baked [...] fish oil, or vitamin B6. ? Take rciu-afy-pfntgvp and prescription medicines only as told by your health care provider. These include supplements. What foods sh (more content not included)... Normal [facility] Urology Office/Clinic Noteon 09-02-2023 Urology Office/Clinic [...] Contact Information TIANA CLAYTON, Sotero Mejia, URL [address] [place] [phone]- Additional Instructions: 1 year with KUB Patient [...] 06/01/2022 Tobacco (more content not included)... Normal [facility] Comment on above: Result Comment: Elec tronically Signed By: TIANA CLAYTON, Sotero Mejia\.br\Date and Time Signed: 09/02/23 11:04 EST\.br\Electronically Co-Signed By: Carolyne Samuel\Date and Time Co-Signed: 09/02/23 11:01 EST RAD - MISCon 09-01-2023 RAD - MISC [id number] #[id number] Normal [facility] CBC AUTO DIFFon 11-17-2022 BASO # 0.0 103/ul Normal 0.0-0.1 [facility] Comment on above: Performed By: #### C BC #### [facility] [address] [place] [address] [address] Miguel Angel Cassidy Basophils/100 WBC (Bld) 0.4 % Normal 0.2-2.0 [facility] Comment on above: Performed By: #### C BC #### [facility] [address] [place] [address] [address] Miguel Angel Cassidy EO # 0.2 103/ul Normal 0.0-0.7 [facility] Comment on above: Performed By: #### C BC #### [facility] [address] [place] [address] Dr. Miguel Angel Cassidy Eosinophils/100 WBC (Bld) 2.4 % Normal 0.9-7.0 [facility] Comment on above: Performed By: #### C BC #### [facility] [address] [place] [address] [address] Miguel Angel Cassidy Erythrocyte distribution width (RBC) [Ratio] 12.5 % Normal 11.0-15.0 [facility] Comment on above: Performed By: #### C BC #### [facility] [address] [place] [address] Dr. Miguel Angel Cassidy Hematocrit (Bld) [Volume fraction] 44.1 % Normal 42.0-54.0 [facility] Comment on above: Performed By: #### C BC #### [facility] [address] [place] [address] Dr. Miguel Angel Cassidy Hemoglobin (Bld) [Mass/Vol] 14.4 g/dL Normal 14.0-18.0 [facility] Comment on above: Performed By: #### C BC #### [facility] [address] [place] [address] Dr. Miguel Angel Cassidy IG # 0.02 10e3/ul Normal 0.00-0.03 [facility] Comment on above: Performed By: #### C BC #### [facility] [address] [place] [address] Dr. Miguel Angel Cassidy IG % 0.3 % Normal 0.0-0.5 [facility] Comment on above: Performed By: #### C BC #### [facility] [address] [place] [address] Dr. Miguel Angel Cassidy LYMPH # 3.0 103/ul Normal 1.2-3.8 [facility] Comment on above: Performed By: #### C BC #### [facility] [address] [place] [address] Dr. Miguel Angel Cassidy Lymphocytes/100 WBC (Bld) 38.3 % Normal 20.5-60.0 [facility] Comment on above: Performed By: #### C BC #### [facility] [address] [place] [address] Dr. Miguel Angel Cassidy MANUAL DIFF REQ NO Normal [facility] Comment on above: Performed By: #### C BC #### [facility] [address] [place] [address] Dr. Miguel Angel Cassidy MCH (RBC) [Entitic mass] 29.3 pg Normal 25.9-34.0 [facility] Comment on above: Performed By: #### C BC #### [facility] [address] [place] [address] Dr. Miguel Angel Cassidy MCHC (RBC) [Mass/Vol] 32.7 g/dL Normal 29.9-35.2 [facility] Comment on above: Performed By: #### C BC #### [facility] [address] [place] [address] Dr. Miguel Angel Cassidy MCV (RBC) [Entitic vol] 89.6 fL Normal 80.0-94.0 [facility] Comment on above: Performed By: #### C BC #### [facility] [address] [place] [address] Dr. Miguel Angel Cassidy MONO # 0.8 103/ul Normal 0.3-0.8 [facility] Comment on above: Performed By: #### C BC #### [facility] [address] [place] [address] Dr. Miguel Angel Cassidy Monocytes/100 WBC (Bld) 10.2 % Normal 1.7-12.0 [facility] Comment on above: Performed By: #### C BC #### [facility] [address] [place] [address] Dr. Miguel Angel Cassidy NEUT # 3.9 103/ul Normal 1.4-6.5 [facility] Comment on above: Performed By: #### C BC #### [facility] [address] [place] [address] Dr. Miguel Angel Cassidy Neutrophils/100 WBC (Bld) 48.4 % Normal 43.0-75.0 [facility] Comment on above: Performed By: #### C BC #### [facility] [address] [place] [address] Dr. Miguel Angel Cassidy Platelet mean volume (Bld) [Entitic vol] 11.6 fL Normal 9.5-13.5 [facility] Comment on above: Performed By: #### C BC #### [facility] [address] [place] [address] Dr. Miguel Angel Cassidy PLT 148 103/ul Critically low 150-450 [facility] Comment on above: Performed By: #### C BC #### [facility] [address] [place] [address] Dr. Miguel Angel Cassidy RBC 4.92 106/ul Normal 4.70-6.10 [facility] Comment on above: Performed By: #### C BC #### [facility] [address] [place] [address] Dr. Miguel Angel Cassidy WBC 7.9 103/ul Normal 4.0-11.0 [facility] Comment on above: Performed By: #### C BC #### [facility] [address] [place] [address] Dr. Miguel Angel Cassidy FREE THYROXINE INDEX T7on FTI 1.75 Normal 1.30-4.50 [facility] Comment on above: Performed By: #### U YESI 24 #### [facility] [address] [place] [address] Dr. Miguel Angel Cassidy T3U 33.0 % Normal 33.0-40.0 [facility] Comment on above: Performed By: #### U YESI 24 #### [facility] [address] [place] [address] Dr. Miguel Angel Cassidy T4 [Mass/Vol] 5.30 ug/dL Normal 4.50-12.10 [facility] Comment on above: Performed By: #### U YESI 24 #### [facility] [address] [place] [address] Dr. Miguel Angel Cassidy LIPID PROFILEon 11-17-2022 CHOL-HDL RATIO NORM SEE BELOW Normal [facility] Comment on above: Result Comment: 3.3 - 4.4 LOW RISK 4.4 - 7.1 AVERAGE RISK 7.1 - 11.0 MODERATE RISK >11.0 HIGH RISK Performed By: #### U YESI 24 #### [facility] [address] [place] [address] Dr. Miguel Angel Cassidy Cholesterol [Mass/Vol] 141 mg/dL Normal <=200 [facility] Comment on above: Performed By: #### U YESI 24 #### [facility] [address] [place] [address] Dr. Miguel Angel Cassidy Cholesterol in HDL [Mass/Vol] 48 mg/dL Normal 40-60 [facility] Comment on above: Performed By: #### U YESI 24 #### [facility] [address] [place] [address] Dr. Miguel Angel Cassidy Cholesterol in LDL [Mass/Vol] 80.4 mg/dL Normal [facility] Comment on above: Performed By: #### U YESI 24 #### [facility] [address] [place] [address] Dr. Miguel Angel Cassidy Cholesterol.total/Chol esterol in HDL [Mass ratio] 2.9 {ratio} Normal [facility] Comment on above: Performed By: #### U YESI 24 #### [facility] [address] [address] [address] Miguel Angel Cassidy HDL NORMAL > or = 60 mg/dl - LOW CARDIOVASCULAR RISK <40 mg/dl - HIGH CARDIOVASCULAR RISK Normal [facility] Comment on above: Performed By: #### U YESI 24 #### [facility] [address] [address] [address] Miguel Angel Cassidy LDL CALC NORMAL SEE BELOW Normal [facility] Comment on above: Result Comment: <100 mg/dl OPTIMAL 100 - 129 mg/dl NEAR OR ABOVE OPTIMAL 130 - 159 mg/dl BORDERLINE HIGH 160 - 189 mg/dl HIGH >190 mg/dl VERY HIGH Performed By: #### U YESI 24 #### [facility] [address] [address] [address] Miguel Angel Cassidy Triglyceride [Mass/Vol] 63 mg/dL Normal <=150 [facility] Comment on above: Performed By: #### U YESI 24 #### [facility] [address] [address] [address] Miguel Angel Cassidy VLDL CALC 12.6 mg/dL Normal [facility] Comment on above: Performed By: #### U YESI 24 #### [facility] [address] [address] [address] Miguel Angel Cassidy PROF CHEM 8 (BAS METB)on Anion gap [Moles/Vol] 13.1 mmol/L Normal [facility] Comment on above: Performed By: #### U YESI 24 #### [facility] [address] [address] [address] Miguel Angel Cassidy Calcium [Mass/Vol] 8.8 mg/dL Normal 8.5-10.1 [facility] Comment on above: Performed By: #### U YESI 24 #### [facility] [address] [address] [address] Miguel Angel Cassidy Chloride [Moles/Vol] 108 mmol/L Critically high 98-107 [facility] Comment on above: Performed By: #### U YESI 24 #### [facility] [address] [address] [address] Miguel Angel Cassidy CO2 [Moles/Vol] 29.7 mmol/L Normal 21.0-32.0 [facility] Comment on above: Performed By: #### U YESI 24 #### [facility] [address] [address] [address] Miguel Angel Cassidy Creatinine [Mass/Vol] 1.03 mg/dL Normal 0.70-1.30 [facility] Comment on above: Performed By: #### U YESI 24 #### [facility] [address] [address] [address] Miguel Angel Cassidy EGFR-AF BANGLADESHI >60 Normal >=60 [facility] Comment on above: Performed By: #### U YESI 24 #### [facility] [address] [address] [address] Miguel Angel Cassidy EGFR-NON AF BANGLADESHI >60 Normal >=60 [facility] Comment on above: Performed By: #### U YESI 24 #### [facility] [address] [place] [address] Dr. Miguel Angel Cassidy Glucose [Mass/Vol] 106 mg/dL Normal 74-106 [facility] Comment on above: Performed By: #### U YESI 24 #### [facility] [address] [address] [address] Miguel Angel Cassidy Potassium [Moles/Vol] 4.8 mmol/L Normal 3.5-5.1 [facility] Comment on above: Performed By: #### U YESI 24 #### [facility] [address] [address] [address] Miguel Angel Cassidy Sodium [Moles/Vol] 146 mmol/L Critically high 136-145 [facility] Comment on above: Performed By: #### U YESI 24 #### [facility] [address] [address] [address] Miguel Angel Cassidy Urea nitrogen [Mass/Vol] 14.0 mg/dL Normal 7.0-18.0 [facility] Comment on above: Performed By: #### U YESI 24 #### [facility] [address] [place] [address] Dr. Miguel Angel Cassidy Urea nitrogen/Creatinine [Mass ratio] 13.6 mg/mg Normal [facility] Comment on above: Performed By: #### U YESI 24 #### [facility] [address] [place] [address] Dr. Miguel Angel Cassidy TSHon 11-17-2022 TSH 2.017 uIU/mL Normal 0.358-3.740 [facility] Comment on above: Performed By: #### U YESI 24 #### [facility] [address] [place] [address] Dr. Miguel Angel Cassidy OXALATE 24HR URINEon 023 Oxalates, Urine 34 mg/L Normal Undefined [facility] Comment on above: Performed By: #### O X24HR #### [facility] [address] [place] [address] Dr. Miguel Angel Cassidy Oxalates, Urine 24hr 34 mg/24 hr Normal 7-44 [facility] Comment on above: Performed By: #### O X24HR #### [facility] [address] [place] [address] Dr. Miguel Angel Cassidy CITRATE URINE 24HRon 023 Citric Acid, U, 24hr 1169 mg/24 hr Normal 320-1240 [facility] Comment on above: Result Comment: This test was developed and its performance characteristics determined by [facility]. It has not been cleared or approved by the Food and Drug Administration. Performed By: #### C ITRATU #### [facility] [address] [place] [address] Dr. Miguel Angel Cassidy Citric Acid, Urine 1169 mg/L Normal Undefined [facility] Comment on above: Performed By: #### C ITRATU #### [facility] [address] [place] [address] Dr. Miguel Angel Cassidy MAGNESIUM 24HR URINEon 09-09 Magnesium 24hr Urine 88.0 mg/24 hr Normal 12.0-293.0 [facility] Comment on above: Performed By: #### C ITRATU #### [facility] [address] [place] [address] Dr. Miguel Angel Cassidy Magnesium UR 8.8 mg/dL Normal Not Estab. [facility] Comment on above: Performed By: #### C ITRATU #### [facility] [address] [place] [address] Dr. Miguel Angel Cassidy PHOSPHORUS 24HR URINEon 08-19 Phosphorus, Urine 97.8 mg/dL Normal Not Estab. [facility] Comment on above: Performed By: #### C ITRATU #### [facility] [address] [place] [address] Dr. Miguel Angel Cassidy Phosphorus, Urine 24hr 978 mg/24 hr Normal 390-1425 [facility] Comment on above: Performed By: #### C ITRATU #### [facility] [address] [place] [address] Dr. Miguel Angel Cassidy PTH INTACTon 09-09-2022 PTH, Intact 15 pg/mL Normal 15-65 [facility] Comment on above: Performed By: #### U YESI 24 #### [facility] [address] [place] [address] Dr. Miguel Angel Cassidy URIC ACID 24 HR URINEon 08-19 Uric Acid, Urine 43.6 mg/dL Normal Not Estab. [facility] Comment on above: Performed By: #### U YESI 24 #### [facility] [address] [place] [address] Dr. Miguel Angel Cassidy Uric Acid, Urine 24hr 436.0 mg/24 hr Normal 136.1-771. 1 [facility] Comment on above: Performed By: #### U YESI 24 #### [facility] [address] [place] [address] Dr. Miguel Angel Cassidy BUNon 09-08-2022 Urea nitrogen [Mass/Vol] 13.0 mg/dL Normal 7.0-18.0 [facility] Comment on above: Performed By: #### U YESI 24 #### [facility] [address] [place] [address] Dr. Miguel Angel Cassidy CALCIUMon 09-08-2022 Calcium [Mass/Vol] 8.9 mg/dL Normal 8.5-10.1 [facility] Comment on above: Performed By: #### U YESI 24 #### [facility] [address] [place] [address] Dr. Miguel Angel Cassidy CALCIUM 24 HR URINEon 2022 CALC, 24 HR UR 138.0 mg/24 hr Normal 100.0-300.0 [facility] Comment on above: Performed By: #### U YESI 24 #### [facility] [address] [place] [address] Dr. Miguel Angel Cassidy UR CALCIUM 13.8 mg/dL Normal 5.1-21.0 [facility] Comment on above: Performed By: #### U YESI 24 #### [facility] [address] [place] [address] Dr. Miguel Angel Cassidy UR TOT VOL 1000 ml/24 HR Normal [facility] Comment on above: Performed By: #### U YESI 24 #### [facility] [address] [place] [address] Dr. Miguel Angel Cassidy Performed By: #### C ITRATU #### [facility] [address] [place] [address] Dr. Miguel Angel Cassidy CHLORIDEon 09-08-2022 Chloride [Moles/Vol] 107 mmol/L Normal 98-107 [facility] Comment on above: Performed By: #### B UN, CL, CO2, CREA, K, URIC, CA, NA #### [facility] [address] [place] [address] Dr. Miguel Angel Cassidy CO2on 09-08-2022 CO2 [Moles/Vol] 31.6 mmol/L Normal 21.0-32.0 [facility] Comment on above: Performed By: #### B UN, CL, CO2, CREA, K, URIC, CA, NA #### [facility] [address] [place] [address] Dr. Miguel Angel Cassidy CREA 24 HR URINEon CREA, 24 HR UR 1343.30 mg/24 hr Normal 1,000.00- 2,0 00.00 [facility] Comment on above: Performed By: #### C ITRATU #### [facility] [address] [place] [address] Dr. Miguel Angel Cassidy URINE CREAT 134.33 mg/dL Normal 20.00-300.00 [facility] Comment on above: Performed By: #### C ITRATU #### [facility] [address] [place] [address] Dr. Miguel Angel Cassidy CREATININEon 09-08-2022 Creatinine [Mass/Vol] 0.89 mg/dL Normal 0.70-1.30 [facility] Comment on above: Performed By: #### B UN, CL, CO2, CREA, K, URIC, CA, NA #### [facility] [address] [place] [address] Dr. Miguel Angel Cassidy EGFR-AF BANGLADESHI >60 Normal >=60 [facility] Comment on above: Performed By: #### B UN, CL, CO2, CREA, K, URIC, CA, NA #### [facility] [address] [place] [address] Dr. Miguel Angel Cassidy EGFR-NON AF BANGLADESHI >60 Normal >=60 [facility] Comment on above: Performed By: #### B UN, CL, CO2, CREA, K, URIC, CA, NA #### [facility] [address] [place] [address] Dr. Miguel Angel Cassidy NAon 09-08-2022 Sodium [Moles/Vol] 143 mmol/L Normal 136-145 [facility] Comment on above: Performed By: #### B UN, CL, CO2, CREA, K, URIC, CA, NA #### [facility] [address] [place] [address] Dr. Miguel Angel Cassidy POTASSIUMon 09-08-2022 Potassium [Moles/Vol] 4.3 mmol/L Normal 3.5-5.1 [facility] Comment on above: Performed By: #### B UN, CL, CO2, CREA, K, URIC, CA, NA #### [facility] [address] [place] [address] Dr. Miguel Angel Cassidy SODIUM 24 HR URINEon 023 NA, 24 HR UR 127 mmol/24 hr Normal 40-220 [facility] Comment on above: Performed By: #### C ITRATU #### [facility] [address] [place], [place] [id number] Dr. Miguel Angel Cassidy Sodium (U) [Moles/Vol] 127 mmol/L Critically high 30-90 [facility] Comment on above: Performed By: #### C ITRATU #### [facility] [address] [place] [address] Dr. Miguel Angel Cassidy URIC ACID SERUMon 09-08-2022 Urate [Mass/Vol] 5.3 mg/dL Normal 3.5-7.2 [facility] Comment on above: Performed By: #### U YESI 24 #### [facility] [address] [place] [address] Dr. Miguel Angel Cassidy [facility]on SARS-CoV-2 (COVID-19) RNA SILVIA+probe Ql (Unsp spec) Not detected Normal NOT DETECTED [facility] Comment on above: Result Comment: This test is not yet approved or cleared by the [place] FDA. When there are no FDA-approved or cleared tests available, and other criteria are met, FDA can make tests available under an emergency access mechanism called an Emergency Use Authorization (EUA). The EUA for this test is supported by the [place] of Health and Human Service's (HHS's) declaration [...] Performed By: #### U YESI 24 #### [facility] [address] [place] [address] Dr. Miguel Angel Cassidy ECHOCARDIO M/2D COMPLETEon 0 02-10-2022 ECHOCARDIO M/2D COMPLETE Patient: CHEY FREIRE Exam Date: 02/10/2022 : 1940 Gender:M Ordering : DR ANGELINA ZIMMERMAN M.D. Admission #: [id number] Family : DR ANG CHILEL . Order #: [id number] CLICK HERE TO VIEW EXAM ECHOCARDIOGRAM REPORT [...] Daniel M.D. on 02/10/2022 at 15:50 Normal [facility] US KIDNEYS BLADDERon 022 US KIDNEYS BLADDER [...] by: FAIZA ARECHIGA Date: 2022-02-07 08:09 Normal [facility] XR KUB 1 VIEWon 02-05-2022 [...] by: FAIZA ARECHIGA Date: 2022-02-05 12:59 Normal [facility] Vital Signs Date Time Vital Sign Value Performing Clinician Juliette gamble 03-19-2024 17:58-0400 Diastolic blood pressure 63 mm[Hg] Abelino Garcia [facility] 03-19-2024 17:58-0400 Heart rate 60 /min Abelino Garcia [facility] 03-19-2024 17:58-0400 Mean blood pressure 88 mm[Hg] Abelino Garcia [facility] 03-19-2024 17:58-0400 Respiratory rate 16 /min Abelino Garcia [facility] 03-19-2024 17:58-0400 SaO2% (BldA) [Mass fraction] 96 % Abelino Garcia [facility] 03-19-2024 17:58-0400 Systolic blood pressure 139 mm[Hg] Abelino Garcia [facility] 03-19-2024 17:00-0400 Heart rate 56 /min Abelino Garcia [facility] 03-19-2024 17:00-0400 Mean blood pressure 81 mm[Hg] Abelino Garcia [facility] 03-19-2024 17:00-0400 SaO2% (BldA) [Mass fraction] 99 % Abelino Garcia [facility] 03-19-2024 17:00-0400 Systolic blood pressure 132 mm[Hg] Abelino Jose [facility] 03-19-2024 16:30-0400 Diastolic blood pressure 56 mm[Hg] Abelino Jose [facility] 03-19-2024 16:30-0400 Heart rate 54 /min Abelino Jose [facility] 03-19-2024 16:30-0400 Mean blood pressure 83 mm[Hg] Abelino Jose [facility] 03-19-2024 16:30-0400 Respiratory rate 19 /min Abelino Jose [facility] 03-19-2024 16:30-0400 SaO2% (BldA) [Mass fraction] 98 % Abelino Jose [facility] 03-19-2024 16:30-0400 Systolic blood pressure 138 mm[Hg] Abelino Jose [facility] 03-19-2024 14:13-0400 Respiratory rate 18 /min Abelino Jose [facility] 03-19-2024 14:00-0400 Body temperature 97.7 [degF] Abelino Jose [facility] 03-19-2024 14:00-0400 Heart rate 53 /min Abelino Jose [facility] 03-19-2024 14:00-0400 Respiratory rate 20 /min Abelino Jose [facility] 09-02-2023 09:58-0500 Blood Pressure Location Sotero STEPHEN [facility] 09-02-2023 09:58-0500 Diastolic blood pressure 64 mm[Hg] Sotero STEPHEN [facility] 09-02-2023 09:58-0500 Heart rate 65 /min Sotero STEPHEN [facility] 09-02-2023 09:58-0500 Respiratory rate 16 /min Sotero STEPHEN [facility] 09-02-2023 09:58-0500 Systolic blood pressure 122 mm[Hg] Sotero STEPHEN [facility] 09-03-2022 09:18-0500 Blood Pressure Location Sotero STEPHEN [facility] 09-03-2022 09:18-0500 Diastolic blood pressure 71 mm[Hg] Sotero STEPHEN [facility] 09-03-2022 09:18-0500 Heart rate 70 /min Sotero STEPHEN [facility] 09-03-2022 09:18-0500 Respiratory rate 16 /min Sotero STEPHEN [facility] 09-03-2022 09:18-0500 Systolic blood pressure 130 mm[Hg] Sotero STEPHEN [facility] 06-01-2022 15:52-0500 Blood Pressure Location Holli BATEMAN [facility] 06-01-2022 15:52-0500 Diastolic blood pressure 62 mm[Hg] Holli BATEMAN [facility] 06-01-2022 15:52-0500 Heart rate 68 /min Holli BATEMAN [facility] [place] 06-01-2022 15:52-0500 Respiratory rate 16 /min Holli BATEMAN [facility] [place] 06-01-2022 15:52-0500 Systolic blood pressure 130 mm[Hg] Holli BATEMAN [facility] [place] Encounters Encounter Date Encounter Type Care Provider Facility Start: 09-03-2024 ambulatory Sotero Dormani ty:[facility] [place] Start: 05-14-2024 End: 05-14-2024 ambulatory AB [facility] Start: 03-19-2024 End: 03-19-2024 Emergency department patient visit Abelino Garcia Facility:[facility] Start: 09-02-2023 End: 09-02-2023 ambulatory Sotero STEPHEN Facility:[facility] Start: 09-02-2023 End: 09-02-2023 Patient encounter procedure Sotero STEPHEN [facility] Start: 11-17-2022 End: 11-18-[address] ANG CHILEL . Facility:[facility] Start: 09-08-2022 End: 09-09-2022 ambulatory SOTERO STEPHEN Facility:[facility] Start: 09-03-2022 End: 09-03-2022 Patient encounter procedure Sotero STEPHEN [facility] Start: 06-26-2022 Encounter for preprocedural laboratory examination DR HOLLI BATEMAN . [facility] Start: 06-25-2022 End: 06-25-[address] ANG CHILEL . Facility:[facility] Start: 06-22-2022 End: 06-23-[address] HOLLI BATEMAN . Facility:[facility] Start: 06-22-2022 End: 06-23-2022 Encounter for preprocedural laboratory examination DR HOLLI BATEMAN . Facility:[facility] Start: 06-01-2022 End: 06-01-2022 Patient encounter procedure Holli BATEMAN [facility] Start: 02-10-2022 End: 02-11-[address] ANGELINA ZIMMERMAN Facility:[facility] Start: 02-05-2022 End: 02-06-[address] ANG CHILEL . Facility:[facility] Start: 12-17-2021 End: 12-18-[address] ANG CHILEL . Facility:[facility] Procedures Date Procedure Procedure Detail Performing Clinician Start: 11-17-[address] MARIELA BATEMAN . Comment on above: Performed By: #### P [facility] #### [facility] [address] [address] [address] Miguel Angel Cassidy Start: 03-20-2019 cysto [...] Provider Shoshana walsh 07-18-2020 SARS-CoV-2 (COVID-19 ) [id number] vaccine Holli NILL [facility] Comment on above: Result Comment: Pt s jordan he has had 3 shots to date but does not have his card for the dates today 03-10-2020 influenza virus vaccine, unspecified formulation Holli KENTL [facility] Payers Date Payer Category Payer Medicare [id number] 1957 Unknown [id number] 1940 Unknown [id number] 2.16.84 [id number] 1940 Unknown [id number] 2.16.84 [id number] 1940 Unknown [id number] 2.16.84 [id number] 1940 Unknown [id number] 2.16.84 [id number] 1940 Unknown [id number] 2.16.84 [id number] 1940 Unknown [id number] 2.16.84 [id number] 1940 Unknown [id number] 2.16.84 [id number] 1940 Unknown [id number] 2.16.8 [id number] 1940 Unknown [id number] 2.16.8 [id number] 1940 Unknown [id number] 2.16.8 [id number] 1940 Unknown [id number] 2.16.8 [id number] 1940 Unknown [id number] 2.16.8 [id number] Social History Date Type Detail Facility Start: 06-01-2022 Tobacco smoking status Ex-smoker (fi nding) [facility] [place] Tobacco smoking status Never [facility] [place] Sex Assigned At Male [facility] Functional Status Date Assessment Result Facility 03-19-2024 Functional Status N/A [facility] 09-02-2023 Functional Status N/A [facility] 09-03-2022 Functional Status N/A [facility] 06-01-2022 Functional Status N/A [facility] [place] Clinical Notes 12-17-2021 to 05-14-2024 Note Date & Type Note Facility 05-14-2024 Note [facility] Note Chief Complaint: Patient here [...] S/p PCI/stents I25.10: Atherosclerotic heart disease of [place] coronary artery without angina pectoris 2. 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 Mitral valve regurgitati (more content not included)... [facility] 03-19-2024 Hospital Discharge instructions Patient Education 03/19/2024 17:59:58 Anaphylactic Reaction, Adult, Reql-ny-Gbvc Anaphylactic Reaction, Adult An anaphylactic reaction is [...] What are the signs or symptoms? Feeling paint grinder the face (flushed). Your face may turn [...] a very bad reaction. General instructions Take hyze-xbn-bwtgzwy and prescription medicines only as told by [...] you a bad reaction before. Tell your sql server developer about your allergy when you go out to eat. If you are not sure if your meal contains food that you are allergic to, ask your sql server developer before you eat it. Where to find more information [employer], [employer] (AAAAI): [...] provider. Document Revised: 03/18/2023 Document Reviewed: 03/18/2023 [employer] Patient Education 2023 [employer]. Follow Up Care 03/19/2024 14:02:06 With:Ang Chilel Address: [address] [place] [phone] (1) When:03/22/2024 17:49:01 Comments:Call for diagnosis based follow up [facility] 03-19-2024 Note ED Patient Education Note [...] are the signs or symptoms? ? Feeling paint grinder the face (flushed). Your face may turn [...] very bad reaction. General instructions ? Take bmbh-kad-rewyxms and prescription medicines only as told by [...] a bad reaction before. ? Tell your sql server developer about your allergy when you go out to eat. If you are not sure if your meal contains food that you are allergic to, ask your sql server developer before you eat it. Where to find more information ? [employer], [employer] (AAAAI): [...] provider. Document Revised: 03/18/2023 Document Reviewed: 03/18/2023 [employer] Patient Education ? 2023 [employer]. [facility] 09-02-2023 Hospital Discharge instructions Patient Education [...] include: ?8 oz (237 mL) of milk, xuprenl-wptnmuuijagx-fdkbp milk, and calcium-fortifiedfruit juice. Calcium-fortified means that [...] ?Spinach (cooked), rhubarb, beets, sweet potatoes, and [place] chard. ?Peanuts. ?Potato chips, cuban fries, and baked potatoes with skin on. ?Nuts and nut products. ?Chocolate. If you regularly take a diuretic medicine, make sure to eat at least 1 or 2 servings of fruits or vegetables that are high in potassium each day. These include: ?Avocado. ?Banana. ?[place], prune, carrot, or tomato juice. ?Baked potato. [...] magnesium, fish oil, or vitamin B6. Take ewfi-ybi-swkrqjt and prescription medicines only as told by [...] Casseroles. Pizza. Lasagna. Frozen meals. Potato chips. Belgian fries. The items listed above may not [...] provider. Document Revised: 10/14/2022 Document Reviewed: 10/14/2022 [employer] Patient Education 2022 [employer]. Follow Up Care 09/03/2022 09:56:31 With:TIANA CLAYTONSotero, URL Address: [address] [place] [id number]- When: Unknown [facility] Diana 09-03-2022 Hospital Discharge instructions Patient Education 09/03/2022 09:39:28 Kidney Stones, Mxjw-mr-Ygct Kidney Stones Kidney stones are rock-like masses [...] Follow these instructions at home: Medicines Take wuma-vjj-lufxqne and prescription medicines only as told by [...] 12/20/2008 Document Revised: 11/20/2019 Document Reviewed: 11/20/2019 [employer] Patient Education 2019 [employer]. Follow Up Care 08/31/2021 10:41:08 With:TIANA CLAYTON, Sotero Mejia, URL Address: [address] [place] [address]- When: Unknown [facility] 06-25-2022 Note OPERATIVE NOTE OPERATION DATE: 06/25/2022 [...] further screening. CC: Ang Chilel M.D. [facility] 12-17-2021 Note PROCEDURE: XR SHOULD ER [...] authenticated by: FAIZA ARECHIGA Date: 2021-12-17 17:22 [facility] Evaluation + Plan note Future Appointments Appointment Date:09/03/2022 09:45:00 AM Scheduled Provider:Sotero STEPHEN MD Location:[facility] Appointment Type:URO Office Visit General [facility] [place] Evaluation + Plan note Future Appointments Appointment Date:09/02/2023 09:30:00 AM Scheduled Provider:Sotero STEPHEN MD Location:[facility] Appointment Type:URO Office Visit [facility] Evaluation + Plan note Future Appointments Appointment Date:09/03/2024 09:45:00 AM Scheduled Provider:Sotero STEPHEN MD Location:[facility] Appointment Type:URO Office Visit [facility] Hospital course Narrative No data available for this section General [facility] [place] [facility] Discharge instructions No data available for this section General Surgery [place] Progress note No data available for this section General Surgery [place] Summary Purpose Family History No Family History [...] Personnel Name: Ang Chilel MD Address: Address: [address] [place] [address] Personnel Name: Ang Chilel MD Address: Address: [address] [place] [address] Personnel Name: Ang Chilel MD Address: Address: [address] [place] [address] (unrecognized sect ion and content) No Status Records FoundNo Status Records FoundNo Status Records FoundNo Status Records FoundNo Status Records FoundNo Status Records FoundNo Status Records FoundNo Status Records FoundNo Status Records FoundNo Status Records Found INFORMATION SOURCE (unrecogn ized section and content) DATE CREATED AUTHOR 11/25/2022 [facility] DATE CREATED AUTHOR AUTHOR'S ORGANIZ ATION 03/19/2024 [place] [facility] DATE CREATED AUTHOR AUTHOR'S ORGANIZ ATION 03/23/[address] [place] [facility] DATE CREATED AUTHOR AUTHOR'S ORGANIZ ATION 05/15/2024 [facility] FOR RECORDS PERTAINING TO PATIENTS WHO ARE [...] BE BASED ON THE PRIMARY CLINICAL RECORDS. [employer] [facility]. provides no warranty or guarantee of the accuracy or completeness of information in this document.
--- NOTE | 2024-09-01 11:23 | XR_ITS ---
The [address] [address] Patient Name: CHEY DAVENPORT MRN: [id number] date: 1940 Sex: M Assigned Patient Location: RAD Current Patient Location: [facility] Accession/Order Number: [id number] Exam Date: 09/01/2024 11:48 Report Date: 09/03/2024 17:27 At the request of: PAPO MONTIEL Procedure: XR abdomen 1V EXAM: XR abdomen 1V HISTORY: Kidney stone COMPARISON: 08/31/2023. TECHNIQUE: KUB views of the abdomen. FINDINGS: Scattered gas and stool are seen overlying the renal silhouettes. Stable 5 mm calcification overlies the inferior pole of the left kidney. Small calcification overlies the upper pole of the right kidney, not previously seen. No certain calcifications along the expected course of ureters. No bowel obstruction. Convex right curvature of the lumbar spine with moderate degenerative disc disease. Asymmetric left hip joint osteoarthritis. XR/XR abdomen 1V IMPRESSION: 1. Bilateral nonobstructive renal stones. 2. No bowel obstruction. Electronically authenticated by: ZACH FLORES Date: 09/03/2024 17:27
== END 2024-09-01 11:12 | disposition home or self-care (01) ==
LOC: RAD 11:15
PROVIDERS: PCP Family Medicine; Visit Provider Urology
DX: N20.0 Calculus of kidney (principal)
CPT/HCPCS: 74018

== ENCOUNTER 2025-03-28 09:13 | Outpatient (OUT) | payer MEDICARE, SELFPAY ==
--- OUTSIDE RECORDS SUMMARY | 2025-03-28 09:20 | XMS_ITS | CCD ---
Author Organization [facility] CliniSy[facility] Care Team Providers Care Assembly Inspector Helper Name Role Phone Ang Chilel Primary Care Physician [phone] DE LA GARZA Admitting [...] Unavailable CAYETANO, VAUGHN MORENO Consulting Unava emigdioable GEMMERI SHI Consulting Unavailable HOY ., DR FRY Admitting [...] Primary Care Unavailable FAIZA ARECHIGA Consulting Unavailable Abelino Garcia Attending Unavailable TOMMYTAANGELINA MATA Attending Unavailable Sotero STEPHEN Attending Unavailable Sotero STEPHEN Attending Unavailable Abelino Garcia Attending Unavailable Allergies Allergy Classification Reported Allergen(s) Allergy Type Date of Onset Reaction(s) Facility (5 sources) Bee/Wasp/Ant venom; Translations: [Bee Stings] Propensity to adverse reactions (disorder) Anaphylactic reaction [facility] Repository Medications Current Medications Medication Drug Class(es) Dates Sig (Normalized) Sig (Original) aspirin 81 mg oral tablet (5 sources) Platelet Aggregation Inhibitor, Nonsteroidal Anti-inflammatory Drug [...] Daily Start Date: 01/29/19 Status: Ordered CoQ10 (5 sources) Start: 01-29-2019 take 1 mg by mouth once daily CoQ10 mg, Oral, Daily Start Date: 01/29/19 Status: Ordered lovastatin 40 mg oral tablet (5 sources) HMG-CoA Reductase Inhibitor Start: 01-29-2019 take 2 tablets by mouth once daily for hyperlipidemia lovastatin 40 mg oral tablet TAKE 2 TABLETS BY MOUTH ONCE DAILY FOR CHOLESTEROL Start Date: 01/29/19 Status: Ordered metoprolol tartrate 25 mg oral tablet (5 sources) beta-Adrenergic Mat Start: 05-27-2022 Metoprolol tartrate 25 mg Tab 12.5 mg = 0.5 tab(s), Oral, BID, Refills(s) 0 Start Date: 05/27/22 Status: Ordered Nature's Bounty Red Krill Oil (5 sources) Start: 01-29-2019 take 1 mg by mouth once daily Nature's Bounty Red Krill Oil 1 mg, Oral, Daily Start Date: 01/29/19 Status: Ordered nitroglycerin 0.4 mg sublingual tablet (5 sources) Nitrate Vasodilator Start: 05-27-2022 nitroglycerin 0.4 [...] day(s), # 7 tab(s), Refills(s) 0, Pharmacy: [facility], 160, cm, 03/19/24 14:08:00 EDT, Height/Length Dosing, 63.3, kg, 03/19/24 14:08:00 EDT, Weight Dosing Start Date: 03/19/24 Stop Date: 03/26/24 Status: Ordered Vitamin D (5 sources) Start: 01-29-2019 Vitamin D Oral Start Date: 01/29/19 Status: Ordered Completed/Discontinued Medications Medication Drug Class(es) Dates Sig (Normalized) Sig (Original) potassium bicarbonate 20 meq effervescent oral tablet (5 sources) Start: 09-02-2023 take 1 tablet by mouth twice daily Effer-K 20 mEq oral tablet, effervescent 20 mEq = 1 tab(s), Oral, BID, # 60 tab(s), Refills(s) , , Pharmacy: [facility] 1986, 160, cm, 09/02/23 10:00:00 EST, Height/Length Dosing, 63.2, kg, 09/02/23 10:00:00 EST, Weight Dosing Start Date: 09/02/23 Status: Ordered Start: 05-17-2022 take 1 tablet by kassidy th twice daily Effer-K 20 mEq oral tablet, effervescent 20 mEq = 1 tab(s), Oral, BID, # 60 tab(s), Refills(s) , , Pharmacy: [facility] 1986, 160.3, cm, 08/31/21 9:38:00 EST, Height/Length Dosing, 71, kg, 08/31/21 9:38:00 EST, Weight Dosing Start Date: 05/17/22 Status: Ordered Problems Active Problems Problem Classification Problem Date Documented Da te Episodic/Chronic Calculus of urinary tract (17 sources) History of calculus of kidney; Translations: [Kidney stone] Onset: 09-03-2022 08-18-2020 Episodic Coronary atherosclerosis and other heart disease (13 sources) Coronary arteriosclerosis; Translations: [Ischemic heart disease] Onset: 07-01-2022 05-27-2022 Chronic Disorders of lipid metabolism (7 sources) Hyperlipidemia; Translations: [Pure hypercholesterolemi a, unspecified] Onset: 07-01-2022 01-29-2019 Chronic Essential hypertension (6 sources) Hypertensive disorder; Translations: [Essential (primary) hypertension] Onset: 07-01-2022 01-29-2019 Chronic Gastrointestinal hemorrhage (5 sources) Rectal hemorrhage 05-27-2022 Episodic Genitourinary symptoms and ill-defined conditions (12 sources) Microscopic hematuria; Translations: [Urgent desire to urinate] Onset: 09-03-2022 08-18-2020 Episodic Gout and other crystal arthropathies (5 sources) Gout 05-27-2022 Chronic Heart valve disorders (20 sources) Aortic valve regurgitation; Translations: [Aortic valve sclerosis] Onset: 02-10-2022 05-27-2022 Chronic Hyperplasia of prostate (8 sources) Benign prostatic hypertrophy with outflow obstruction; Translations: [Benign prostatic hyperplasia with lower urinary tract symptoms] Onset: 09-03-2022 12-23-2018 Chronic Malaise and fatigue (4 sources) Chronic fatigue, unspecified; Translations: [CHRONIC FATIGUE UNSPECIFIED] Onset: 11-17-2022 Chronic Nutritional deficiencies (5 sources) Vitamin D deficiency 05-27-2022 Chronic Other male genital disorders (5 sources) 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 Other nutritional; endocrine; and metabolic disorders (5 sources) Overweight in adulthood with body mass index of 25 or more but less than 30 06-01-2022 Episodic Other screening for suspected conditions (not mental disorders or infectious disease) (6 sources) Screening for malignant neoplasm of colon done; Translations: [Encounter for screening for malignant neoplasm of colon] Onset: 06-01-2022 Episodic Other upper respiratory disease (5 sources) Allergic rhinitis 05-27-2022 Chronic Poisoning by nonmedicinal substances (1 source) Poisoning by bee sting; Translations: [Toxic effect of venom of bees, accidental (unintentional), initial encounter] Onset: 03-19-2024 Episodic Spondylosis; intervertebral disc disorders; other back problems (10 sources) Cervical disc disorder; Translations: [Lumbar spondylosis] 05-27-2022 Chronic Unclassified (5 sources) Patient encounter status 06-01-2022 Unclassified (4 sources) Asymptomatic microscopic hematuria 09-03-2022 Unclassified (1 source) CONTACT W/AND (SUSP) EXPOS COVID-19; Translations: [CONTACT W/AND (SUSP) EXPOS COVID-19] Onset: 06-26-2022 Viral infection (5 sources) Genital herpes simplex 05-27-2022 Chronic Past or Other Problems Problem Classification Problem Date Documented Da te Episodic/Chronic Inflammatory conditions of male genital organs (5 sources) Epididymitis Resolved: 01-29-2019 01-29-2019 Episodic Other aftercare (1 source) 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; Translations: [STAFF DEVELOPMENT COORDINATOR RN ANTITHROMBOT/ANTIPL ATLETS] Onset: 07-01-2022 Episodic Other aftercare (1 source) USP (current) use of aspirin; Translations: [STAFF DEVELOPMENT COORDINATOR RN CURRENT USE OF ASPIRIN] Onset: 07-01-2022 Episodic Other aftercare (1 source) Other fci (current) drug therapy; Translations: [OTH SNF CURRENT DRUG THERAPY] Onset: 07-01-2022 Episodic Other non-traumatic joint disorders (4 sources) Pain in left shoulder; Translations: [PAIN IN LEFT SHOULDER] Onset: 12-17-2021 Episodic Screening and history of mental health and substance abuse codes (1 source) Personal history of nicotine dependence; Translations: [PERSONAL HISTORY OF NICOTINE DEPEND] Onset: 07-01-2022 Episodic Results Test Name Value Interpretation Reference Range Facility Ambulatory Visit Summaryon 0 09-03-2024 Ambulatory Visit Summary Ambulatory Visit Summary CHEY FREIRE :1940 Visit Date:09/03/2024 Ambulatory Visit Instructions Your Diagnosis BPH with urinary obstruction Kidney stone Tests Performed XR Abdomen 1 View -- [...] of left inguinal hernia, Tonsillectomy. Discharge Vitals Temperature (Oral) 37 ???C Heart Rate (Peripheral) 58 Blood Pressure 150/56 Height 160 cm Height 63 in Weight 65.2 kg Weight 143.741 lb BMI 25.47 What to do next Scheduled Follow-Up Appointments Tuesday2025 10:45 AM EST With: Sotero STEPHEN MD Where: [facility] [address] [place], [place] [id number]- You Need to Schedule the Following Appointments Follow Up with Sotero STEPHEN MD, URL When: Comments: 1 yr w/ KUB Where: [facility] [address], [place] [address] [phone] Medications What How Much When Instructions Unchanged [...] Contact prescribing physician if questions or concerns Allergies Bee Stings (Anaphylactic reaction) Problems Ongoing - Any problem that you [...] are no longer receiving treatment for. Epididymitis Patient Survey You may receive a survey via text or e-mail asking about your office visit. Please share your experience with us by completing your survey. We appreciate your feedback and thank you for choosing us for your care. Education Materials Dietary Guidelines to Help Prevent Kidney Stones [...] for following this plan? Reading food labels ??? Choose foods with no salt added or low-salt labels. Limit your salt (sodium) intake to less than 1,500 mg a day. ??? Choose foods with calcium for each meal and snack. Try to eat about 300 mg of calcium at each meal. Foods that contain 200???500 mg of c (more content not included)... Normal [facility] Urology Office/Clinic Noteon 09-03-2024 Urology Office/Clinic Note Urology Office/Clinic Note Chief Complaint 1 yr kub HPI Staff 83 yo male here for 1 yr f/u w/ KUB. Previous Dx: BPH with obstruction, kidney stone, microscopic hematuria. *Effer-K 20mEq bid S/p Rezum 04/22/17. KUB done 09-01-24 ( image only) Dysuria: _no Incomplete bladder emptying: _no Hematuria: _no Frequency: _q3-4 hrs Urgency: _no Nocturia: _none Stream: _normal Leaking: _no Post void dripping: _no Wearing pads/ Depends: _no Urge incontinence: _no Stress incontinence: _no Incontinence without Sensory Awareness: _no Abdominal pain: _no Flank pain: _no Sexual complaints: _na History of Present Illness Tests reviewed: reviewed UA, KUB I have reviewed the previous health record information and history for this patient from Dr. Stephen. I have reviewed and verified the staff HPI to be accurate for this encounter. Review of Systems PHQ Score Initial [...] See HPI. Physical Exam Vitals & Measurements T: 37 ???C(Oral) HR: 58(Peripheral) BP: 150/56 HT: 63 in HT: 160 cm WT: 65.2 kg WT: 143.741 lb BMI: 25.47 General Appearance: alert, no distress, well nourished, well developed male. Assessment/Plan 1. BPH with urinary obstruction (N40.1: Benign prostatic hyperplasia with lower urinary tract symptoms) S/p Rezum 04/22/17. IPSS 0. UA today negative for blood and infection. Not taking any BPH meds. No urinary habit complaints. Continues to be satisfied with results of Rezum. -Cont sx monitoring. 2. Kidney stone (N20.0: Calculus of kidney) Hx of ESWL. Has passed stones on his own. Shares he was hospitalized in the 1980s for obstructing ureteral stone. Metabolic workup 09/08/22 - low urine volume. KUB 08/31/23 - probable 5 mm lower pole left renal calculus. Eval is limited due to overlying bowel contents. KUB 09/01/24 TB - Report pending. Personal review: stone in left kidney, bowel content limits view on right. Possible small right renal calculus Taking Effer-K 20mEq bid. Denies any stone episodes since last encounter. Reviewed imaging results with pt. Recommended pt to continue current regimen to prevent stone growth/formation. -Cont Effer-K. Pt to call for refills. -KUB in 1 year Follow-up With When Contact Information TIANA CLAYTON, Sotero R, URL [facility] [address], [place] [address] [phone] Additional Instructions: 1 yr w/ KUB Patient Education Dietary Documentation recorded by the scribe, Larissa Oreilly, accurately reflects the services(s) I performed and decisions made by me. Authenticated by Dr. Stephen on 09/03/2024 10:13:43.Guidelines to Help Prevent Kidney Stones I, Larissa Oreilly, personally scribed for Dr. Stephen on 09/03/2024 10:01:01. . .. Problem List/Past Medical History Ongoing Allergic rhinitis [...] SubLingual, q5min, PRN Vitamin D, Oral Allergies Bee Stings (Anaphylactic reaction) Social History Alcohol - Denies Alcohol Use, 01/29/2019 Current, 1-2 times per year, 06/18/2019 Substance Abuse - Denies Substance Abuse, 06/01/2022 Tobacco Former smoker, quit more than 30 days ago Tobacco Use:. Never Smokeless Tobacco Use:. Cig (more content not included)... Normal [facility] Comment on above: Result Comment: Elec tronically Signed By: Sotero STEPHEN MD\.br\Date and Time Signed: 09/03/24 10:13 EST\.br\Electronically Co-Signed By: Larissa Oreilly\.br\Date and Time Co-Signed: 09/03/24 10:05 EST Office Visiton 05-14-2024 Follow-up visit [id number] Chey Freire 1940 M Date Provider Department Center 05/14/2024 [facility], [facility] Family History Problem Relation Age of Onset Other Mother Hypertension Mother Heart attack Father Family Status - Relation Status Age at Mother Father Level of Service:19994 ME OFFICE/OUTPATIENT ESTABLISHED LOW MDM 20 MIN Normal [facility] ED Note-Physicianon 03-22-20 ED Note-Physician ED Note-Physician Basic Information Time Seen: Clint GOFF, Jeromy Gamino 03/19/2024 14:08 Chief Complaint Pt presents to [...] and Complexity of Problems Differential Diagnosis: [] [facility] Data External documents reviewed: [] My [...] anaphylaxis, # 1 EA, Refills(s) 0, Pharmacy: [facility], 160, cm, 03/19/24 14:08:00 EDT, [...] day(s), # 7 tab(s), Refills(s) 0, Pharmacy: [facility], 160, cm, 03/19/24 14:08:00 EDT, Height/Length Dosing, 63.3, kg, 03/19/24 14:08:00 EDT, Weight Dosing Basic Metabolic Panel CBC w/ Auto Diff ECG 12 Lead Adult ED Cardiac Monitoring eGFR Extra SST Tube Oxygen Saturation Oxygen Therapy PT & PTT Saline Lock Insert Troponin 0 Hr. Troponin 1 Hr. XR Chest Sing (more content not included)... Normal [facility] Comment on above: Result Comment: Elec tronically Signed By: Clint GOFF, Jeromy Gamino\.br\Date and Time Signed: 03/19/24 18:40 EDT\.br\Electronically Co-Signed By: Abelino Garcia MD\.br\Date and Time Co-Signed: 03/22/24 05:55 EDT BMPon 03-19-2024 Anion gap [Moles/Vol] 9 mmol/L Normal 6-16 [facility] Comment on above: Performed By: #### 2 [id number] #### [facility] [address] [place] [address] Calcium [Mass/Vol] 9.2 mg/dL Normal 8.9-11.1 [facility] Comment on above: Performed By: #### 2 [id number] #### [facility] [address] [place] [address] Chloride [Moles/Vol] 106 mmol/L Normal 101-111 [facility] Comment on above: Performed By: #### 2 [id number] #### [facility] [address] [place] [address] CO2 [Moles/Vol] 32 mmol/L High 21-31 [facility] Comment on above: Performed By: #### 2 [id number] #### [facility] [address] [place] [address] Creatinine [Mass/Vol] 1.1 mg/dL Normal 0.5-1.3 [facility] Comment on above: Performed By: #### 2 [id number] #### [facility] [address] [place] [address] Glucose [Mass/Vol] 134 mg/dL Normal 55-199 [facility] Comment on above: Performed By: #### 2 [id number] #### [facility] [address] [place] [address] Potassium [Moles/Vol] 4.0 mmol/L Normal 3.5-5.3 [facility] Comment on above: Performed By: #### 2 [id number] #### [facility] [address] [place] [address] Sodium [Moles/Vol] 143 mmol/L Normal 135-145 [facility] Comment on above: Performed By: #### 2 [id number] #### [facility] [address] [place] [address] Urea nitrogen [Mass/Vol] 17 mg/dL Normal 5-21 [facility] Comment on above: Performed By: #### 2 [id number] #### [facility] [address] [place] [address] Urea nitrogen/Creatinine [Mass ratio] 16 No Units Normal 10-20 [facility] Comment on above: Performed By: #### 2 [id number] #### [facility] [address] [place] [address] CBC w/ Auto Diffon 4 Basophils/100 WBC (Bld) 0.5 % Normal 0.0-2.0 [facility] Comment on above: Performed By: #### 2 [id number] #### [facility] [address] [place] [address] Basophils/Leukocytes Auto (Bld) [Pure # fraction] 0.0 E9/L Normal 0.0-0.2 [facility] Comment on above: Performed By: #### 2 [id number] #### [facility] [address] [place] [address] Eosinophils (Bld) [#/Vol] 0.2 E9/L Normal 0.0-0.5 [facility] Comment on above: Performed By: #### 2 [id number] #### [facility] [address] [place] [address] Eosinophils/100 WBC (Bld) 3.4 % Normal 0.0-8.0 [facility] Comment on above: Performed By: #### 2 [id number] #### [facility] [address] [place] [address] Erythrocyte distribution width (RBC) [Ratio] 13.7 % Normal 10.9-14.2 [facility] Comment on above: Performed By: #### 2 [id number] #### [facility] [address] [place] [address] Hematocrit (Bld) [Volume fraction] 41.8 % Normal 37.7-49.0 [facility] Comment on above: Performed By: #### 2 [id number] #### [facility] [address] [place] [address] Hemoglobin (Bld) [Mass/Vol] 14.4 g/dL Normal 13.5-17.5 [facility] Comment on above: Performed By: #### 2 [id number] #### [facility] [address] [place] [address] Lymphocytes (Bld) [#/Vol] 2.4 E9/L Normal 1.0-4.0 [facility] Comment on above: Performed By: #### 2 [id number] #### [facility] [address] [place] [address] Lymphocytes/100 WBC (Bld) 40.4 % Normal 14.0-50.0 [facility] Comment on above: Performed By: #### 2 [id number] #### [facility] [address] [place] [address] MCH (RBC) [Entitic mass] 30.6 pg Normal 27.0-34.0 [facility] Comment on above: Performed By: #### 2 [id number] #### [facility] [address] [place] [address] MCHC (RBC) [Mass/Vol] 34.4 g/dL Normal 31.4-36.0 [facility] Comment on above: Performed By: #### 2 [id number] #### [facility] [address] [place] [address] MCV (RBC) [Entitic vol] 88.9 fL Normal 80.0-100.0 [facility] Comment on above: Performed By: #### 2 [id number] #### [facility] [address] [place] [address] Monocytes (Bld) [#/Vol] 0.4 E9/L Normal 0.2-1.0 [facility] Comment on above: Performed By: #### 2 [id number] #### [facility] [address] [place] [address] Neutrophils (Bld) [#/Vol] 2.9 E9/L Normal 2.0-7.5 [facility] Comment on above: Performed By: #### 2 [id number] #### [facility] [address] [place] [address] Neutrophils/100 WBC (Bld) 49.2 % Normal 36.0-75.0 [facility] Comment on above: Performed By: #### 2 [id number] #### [facility] [address] [place] [address] Platelet 183.0 E9/L Normal 150.0-500.0 [facility] Comment on above: Performed By: #### 2 [id number] #### [facility] [address] [place] [address] Platelet mean volume (Bld) [Entitic vol] 9.1 fL Normal 6.4-10.8 [facility] Comment on above: Performed By: #### 2 [id number] #### [facility] [address] [place] [address] RBC (Bld) [#/Vol] 4.7 E12/L Normal 4.3-5.9 [facility] Comment on above: Performed By: #### 2 [id number] #### [facility] [address] [place] [address] WBC corrected for nucl RBC Auto (Bld) [#/Vol] 5.9 E9/L Normal 4.0-11.0 [facility] Comment on above: Performed By: #### 2 [id number] #### [facility] [address] [place] [address] CHEMISTRYOrdered By: SYSTEM SYSTEM on 03-19-2024 Troponin [...] High Sensitivity Troponin I Instructions For Use, [employer], February 2018) Anion gap [Moles/Vol] 9 mmol/L [...] High Sensitivity Troponin I Instructions For Use, Dennis Celina, February 2018) Urea nitrogen [Mass/Vol] 17 mg/dL Normal 5 - 21 mg/dL Remisol Chem Urea nitrogen/Creatinine [Mass ratio] 16 mg/mg Normal 10 - 20 Remisol [facility] COAGULATIONOrdered By: Aurelio Mix on 03-19-2024 aPTT Coag (PPP) [Time] 26.4 s Normal 25.1 - 36.5 second(s) [facility] Comment on above: Interpretive Data: [...] the same coagulation reagent and instrumentation as [facility]. Currently there are no coagulation studies available worldwide for children to 14 days, and no normal ranges. Heparin therapeutic range (represented by Anti-Factor Xa activity of 0.2 - 0.4 U/mL) corresponds to PTT of 56.6 - 109.0 sec. INR Coag (PPP) [Relative time] 1.13 {INR} Invalid Interpretation Code [facility] Comment on above: Interpretive Data: I NR results are specifically intended to assess patients stabilized on long-term Anticoagulation therapy suggested INR s Less Intensive Anticoagulation 2.0 3.0 Conventional Range 3.0 4.5 PT Coag (PPP) [Time] 12.7 s High 9.4 - 1 2.5 second(s) [facility] Comment on above: Interpretive Data: [...] the same coagulation reagent and instrumentation as [facility]. Currently there are no coagulation studies available worldwide for children to 14 days, and no normal ranges. ED Clinical Summaryon 2023 ED Clinical Summary ED Clinical Summary [address] [address] ED Clinical Summary Person Information Name: CHEY FREIRE/[facility] Age: 83 Years : 1940 Sex: Male Language: French PCP: Ang Chilel MD Marital Status: MRN: [id number] Visit Id: Visit Reason: Allergic reaction - [...] 03/19/2024 17:59:57 03/19/2024 17:59:57 03/19/2024 17:59:57 ADDRESS: [address] [place] [phone] PHYS DOC NOTES: MEDICAL INFORMATION: Prescriptions Given: New Medications [facility], [address] [place], [place] [id number], [phone] predniSONE (predniSONE 50 mg Tab) 1 Tablets [...] for chest pain. omega-3 polyunsaturated fatty acids (Nature's Bounty Red Krill Oil) 1 Milligram By Mouth every day. potassium bicarbonate (Effer-K 20 mEq oral tablet, effervescent) 1 Tablets By Mouth 2 times a day. Refills: 11. ubiquinone (CoQ10) By Mouth every day. PATIENT EDUCATION INFORMATION: Instructions: Anaphylactic Reaction, Adult, [id number] Follow up: With: Address: When: Ang Chilel [address] [place], [place] [id number] [facility] () In 3 days 03/22/2024 Comments: Call Dr for diagnosis based follow up DIAGNOSIS: Bee sting-induced anaphylaxis Normal [facility] ED Patient Summaryon 024 ED Patient Summary ED Patient Summary [place] [id number] Patient Discharge Instructions Person Information Name: CHEY FREIRE Age: 83 Years Arrival Date: 03/19/2024 14:01:03 Discharge Diagnosis: Bee sting-induced anaphylaxis Primary Care Physician: Ang Chilel MD Provider Information Primary Provider: Advanced [employer] Repairer:None The exam and treatment you received in the Emergency Department were for an urgent problem and are not intended as complete care. It is important that you follow up with a doctor, nurse practitioner, or physician?s orthopedic physician assistant for ongoing care. If your [...] Follow-up Instructions: With: Address: When: Ang [place]l [address] [place], [place] [id number] Bait[place] (1) In 3 days 03/22/2024 Comments: Call Dr for diagnosis based follow up In the event that this physician does not participate in your insurance network, please consult with your insurance company to find a nearby participating provider. Patient Education Materials: Anaphylactic Reaction, Adult, Wnxw-dy-Pswx A MESSAGE TO ALL PATIENTS REGARDING OPIOIDS PRESCRIPTION OPIOIDS: WHAT YOU NEED TO KNOW Prescription opioids can be used to help relieve ljaulscq-ch-ixicsh pain and are often prescribed following a [...] be struggling with addiction, tell your health home health care coordinator and ask for guidance or c (more content not included)... Normal [facility] HEMATOLOGYOrdered By: SYSTEM SYSTEM on 03-19-2024 [...] Coag (PPP) [Time] 26.4 second(s) Normal 25.1-36.5 [facility] Comment on above: Result Comment: Para [...] the same coagulation reagent and instrumentation as [facility]. Currently there are no coagulation studies available worldwide for children to 14 days, and no normal ranges. Heparin therapeutic range (represented by Anti-Factor Xa activity of 0.2 - 0.4 U/mL) corresponds to PTT of 56.6 - 109.0 sec. Performed By: #### 1 [id number] #### [facility] [address] [place] [address] INR Coag (PPP) [Relative time] 1.13 {INR} Invalid Interpretation Code [facility] Comment on above: Result Comment: INR results are specifically intended to assess patients stabilized on long-term Anticoagulation therapy suggested INR?s ?Less Intensive Anticoagulation? 2.0 ? 3.0 Conventional Range 3.0 ? 4.5 Performed By: #### 1 [id number] #### [facility] [address] [place] [address] PT Coag (PPP) [Time] 12.7 second(s) High 9.4-12.5 [facility] Comment on above: Result Comment: 15 [...] the same coagulation reagent and instrumentation as [facility]. Currently there are no coagulation studies available worldwide for children to 14 days, and no normal ranges. Performed By: #### 1 [id number] #### [facility] [address] [place] [address] Troponin 0 Hr.on 03-19-2024 Troponin HS 4.20 pg/mL Low 15.90-38.40 [facility] Comment on above: Result Comment: The 95% CI (Confidence Interval) PPV (Positive Predictive Value) for myocardial infarction in females is 38 pg/mL, in males 51 pg/mL. The results should be used in conjunction with clinical conditions of myocardial infarction. (Access High Sensitivity Troponin I Instructions For Use, [employer], February 2018) Performed By: #### 1 [id number] #### [facility] [address] [place] [address] Troponin 1 Hr.on 03-19-2024 Troponin HS 4.90 pg/mL Low 15.90-38.40 [facility] Comment on above: Result Comment: The 95% CI (Confidence Interval) PPV (Positive Predictive Value) for myocardial infarction in females is 38 pg/mL, in males 51 pg/mL. The results should be used in conjunction with clinical conditions of myocardial infarction. (Access High Sensitivity Troponin I Instructions For Use, [employer], February 2018) Performed By: #### 1 [id number] #### [facility] [address] [place] [address] XR Chest Single Viewon 03-19 XR Chest [...] mGy = . DAP = . Normal [facility] eGFRon 03-19-2024 eGFR 67 mL/min/1.73 m2 Normal >=59 [facility] Comment on above: Order Comment: Order added by Discern Expert. Performed By: #### 1 [id number] #### [facility] [address] [place] [address] CBC AUTO DIFFon 11-17-2022 BASO # 0.0 103/ul Normal 0.0-0.1 [facility] Comment on above: Performed By: #### C BC #### [facility] [address] [place] [address] Dr. Miguel Angel Cassidy Basophils/100 WBC (Bld) 0.4 % Normal 0.2-2.0 [facility] Comment on above: Performed By: #### C BC #### [facility] [address] [place] [address] Dr. Miguel Angel Cassidy EO # 0.2 103/ul Normal 0.0-0.7 [facility] Comment on above: Performed By: #### C BC #### [facility] [address] [place] [address] Dr. Miguel Angel Cassidy Eosinophils/100 WBC (Bld) 2.4 % Normal 0.9-7.0 [facility] Comment on above: Performed By: #### C BC #### [facility] [address] [place] [address] Dr. Miguel Angel Cassidy Erythrocyte distribution width (RBC) [Ratio] 12.5 % Normal 11.0-15.0 [facility] Comment on above: Performed By: #### C BC #### [facility] [address] [place] [address] Dr. Miguel Angel Cassidy Hematocrit (Bld) [Volume fraction] 44.1 % Normal 42.0-54.0 [facility] Comment on above: Performed By: #### C BC #### [facility] [address] [place] [address] Dr. Miguel Angel Cassidy Hemoglobin (Bld) [Mass/Vol] 14.4 g/dL Normal 14.0-18.0 [facility] Comment on above: Performed By: #### C BC #### [facility] [address] [place] [address] Dr. Miguel Angel Cassidy IG # 0.02 10e3/ul Normal 0.00-0.03 [facility] Comment on above: Performed By: #### C BC #### [facility] [address] [place] [address] Dr. Miguel Angel Cassidy IG % 0.3 % Normal 0.0-0.5 [facility] Comment on above: Performed By: #### C BC #### [facility] [address] [place] [address] Dr. Miguel Angel Cassidy LYMPH # 3.0 103/ul Normal 1.2-3.8 [facility] Comment on above: Performed By: #### C BC #### [facility] [address] [place] [address] Dr. Miguel Angel Cassidy Lymphocytes/100 WBC (Bld) 38.3 % Normal 20.5-60.0 [facility] Comment on above: Performed By: #### C BC #### [facility] [address] [place] [address] Dr. Miguel Angel Cassidy MANUAL DIFF REQ NO Normal [facility] Comment on above: Performed By: #### C BC #### [facility] [address] [place] [address] Dr. Miguel Angel Cassidy MCH (RBC) [Entitic mass] 29.3 pg Normal 25.9-34.0 [facility] Comment on above: Performed By: #### C BC #### [facility] [address] [place] [address] Dr. Miguel Angel Cassidy MCHC (RBC) [Mass/Vol] 32.7 g/dL Normal 29.9-35.2 [facility] Comment on above: Performed By: #### C BC #### [facility] [address] [place] [address] Dr. Miguel Angel Cassidy MCV (RBC) [Entitic vol] 89.6 fL Normal 80.0-94.0 [facility] Comment on above: Performed By: #### C BC #### [facility] [address] [place] [address] Dr. Miguel Angel Cassiyd MONO # 0.8 103/ul Normal 0.3-0.8 [facility] Comment on above: Performed By: #### C BC #### [facility] [address] [place] [address] Dr. Miguel Angel Cassidy Monocytes/100 WBC (Bld) 10.2 % Normal 1.7-12.0 [facility] Comment on above: Performed By: #### C BC #### [facility] [address] [place] [address] Dr. Migue lAngel Cassidy NEUT # 3.9 103/ul Normal 1.4-6.5 [facility] Comment on above: Performed By: #### C BC #### [facility] [address] [place] [address] Dr. Miguel Angel Cassidy Neutrophils/100 WBC (Bld) 48.4 % Normal 43.0-75.0 [facility] Comment on above: Performed By: #### C BC #### [facility] [address] [place] [address] Dr. Miguel Angel Cassidy Platelet mean volume (Bld) [Entitic vol] 11.6 fL Normal 9.5-13.5 [facility] Comment on above: Performed By: #### C BC #### [facility] [address] [place] [address] Dr. Miguel Angel Cassidy PLT 148 103/ul Critically low 150-450 [facility] Comment on above: Performed By: #### C BC #### [facility] [address] [place] [address] Dr. Miguel Angel Cassidy RBC 4.92 106/ul Normal 4.70-6.10 [facility] Comment on above: Performed By: #### C BC #### [facility] [address] [place] [address] Dr. Miguel Angel Cassidy WBC 7.9 103/ul Normal 4.0-11.0 [facility] Comment on above: Performed By: #### C BC #### [facility] [address] [place] [address] Dr. Miguel Angel Cassidy FREE THYROXINE INDEX T7on FTI 1.75 Normal 1.30-4.50 [facility] Comment on above: Performed By: #### U YESI 24 #### [facility] [address] [place] [address] Dr. Miguel Angel Cassidy T3U 33.0 % Normal 33.0-40.0 [facility] Comment on above: Performed By: #### U YESI 24 #### [facility] [address] [address] [address] Miguel Angel Cassidy T4 [Mass/Vol] 5.30 ug/dL Normal 4.50-12.10 [facility] Comment on above: Performed By: #### U YESI 24 #### [facility] [address] [address] [address] Miguel Angel Cassidy LIPID PROFILEon 11-17-2022 CHOL-HDL RATIO NORM SEE BELOW Normal [facility] Comment on above: Result Comment: 3.3 - 4.4 LOW RISK 4.4 - 7.1 AVERAGE RISK 7.1 - 11.0 MODERATE RISK >11.0 HIGH RISK Performed By: #### U YESI 24 #### [facility] [address] [place] [address] Dr. Miguel Angel Cassidy Cholesterol [Mass/Vol] 141 mg/dL Normal <=200 [facility] Comment on above: Performed By: #### U YESI 24 #### [facility] [address] [place] [address] Dr. Miguel Angel Cassidy Cholesterol in HDL [Mass/Vol] 48 mg/dL Normal 40-60 [facility] Comment on above: Performed By: #### U YESI 24 #### [facility] [address] [place] [address] Dr. Miguel Angel Cassidy Cholesterol in LDL [Mass/Vol] 80.4 mg/dL Normal [facility] Comment on above: Performed By: #### U YESI 24 #### [facility] [address] [address] [address] Miguel Angel Cassidy Cholesterol.total/Chol esterol in HDL [Mass ratio] 2.9 {ratio} Normal [facility] Comment on above: Performed By: #### U YESI 24 #### [facility] [address] [place] [address] Dr. Miguel Angel Cassidy HDL NORMAL > or = 60 mg/dl - LOW CARDIOVASCULAR RISK <40 mg/dl - HIGH CARDIOVASCULAR RISK Normal [facility] Comment on above: Performed By: #### U YESI 24 #### [facility] [address] [address] [address] Miguel Angel Cassidy LDL CALC NORMAL SEE BELOW Normal [facility] Comment on above: Result Comment: <100 mg/dl OPTIMAL 100 - 129 mg/dl NEAR OR ABOVE OPTIMAL 130 - 159 mg/dl BORDERLINE HIGH 160 - 189 mg/dl HIGH >190 mg/dl VERY HIGH Performed By: #### U YESI 24 #### [facility] [address] [address] [address] Miguel Angel Cassidy Triglyceride [Mass/Vol] 63 mg/dL Normal <=150 [facility] Comment on above: Performed By: #### U YESI 24 #### [facility] [address] [address] [address] Miguel Angel Cassidy VLDL CALC 12.6 mg/dL Normal [facility] Comment on above: Performed By: #### U YESI 24 #### [facility] [address] [address] [address] Miguel Angel Cassidy PROF CHEM 8 (BAS METB)on Anion gap [Moles/Vol] 13.1 mmol/L Normal [facility] Comment on above: Performed By: #### U YESI 24 #### [facility] [address] [address] [address] Miguel Angel Cassidy Calcium [Mass/Vol] 8.8 mg/dL Normal 8.5-10.1 [facility] Comment on above: Performed By: #### U YESI 24 #### [facility] [address] [address] [address] Miguel Angel Cassidy Chloride [Moles/Vol] 108 mmol/L Critically high 98-107 [facility] Comment on above: Performed By: #### U YESI 24 #### [facility] [address] [address] [address] Miguel Angel Cassidy CO2 [Moles/Vol] 29.7 mmol/L Normal 21.0-32.0 [facility] Comment on above: Performed By: #### U YESI 24 #### [facility] [address] [address] [address] Miguel Angel Cassidy Creatinine [Mass/Vol] 1.03 mg/dL Normal 0.70-1.30 [facility] Comment on above: Performed By: #### U YESI 24 #### [facility] [address] [address] [address] Miguel Angel Cassidy EGFR-AF ROMANIAN >60 Normal >=60 [facility] Comment on above: Performed By: #### U YESI 24 #### [facility] [address] [address] [address] Miguel Angel Cassidy EGFR-NON AF ROMANIAN >60 Normal >=60 [facility] Comment on above: Performed By: #### U YESI 24 #### [facility] [address] [address] [address] Miguel Angel Cassidy Glucose [Mass/Vol] 106 mg/dL Normal 74-106 [facility] Comment on above: Performed By: #### U YESI 24 #### [facility] [address] [place] [address] Dr. Miguel Angel Cassidy Potassium [Moles/Vol] 4.8 mmol/L Normal 3.5-5.1 [facility] Comment on above: Performed By: #### U YESI 24 #### [facility] [address] [address] [address] Miguel Angel Cassidy Sodium [Moles/Vol] 146 mmol/L Critically high 136-145 [facility] Comment on above: Performed By: #### U YESI 24 #### [facility] [address] [place] [address] Dr. Miguel Angel Cassidy Urea nitrogen [Mass/Vol] 14.0 mg/dL Normal 7.0-18.0 [facility] Comment on above: Performed By: #### U YESI 24 #### [facility] [address] [address] [address] Miguel Angel Cassidy Urea nitrogen/Creatinine [Mass ratio] 13.6 mg/mg Normal [facility] Comment on above: Performed By: #### U YESI 24 #### [facility] [address] [place] [address] Dr. Miguel Angel Cassidy TSHon 11-17-2022 TSH 2.017 uIU/mL Normal 0.358-3.740 [facility] Comment on above: Performed By: #### U YESI 24 #### [facility] [address] [address] [address] Miguel Angel Cassidy OXALATE 24HR URINEon 023 Oxalates, Urine 34 mg/L Normal Undefined [facility] Comment on above: Performed By: #### O [id number] #### [facility] [address] [id number] [address] Miguel Angel Cassidy Oxalates, Urine 24hr 34 mg/24 hr Normal 7-44 [facility] Comment on above: Performed By: #### O X24HR #### [facility] [address] [place] [address] Dr. Miguel Angel Cassidy CITRATE URINE 24HRon 023 Citric Acid, U, 24hr 1169 mg/24 hr Normal 320-1240 [facility] Comment on above: Result Comment: This test was developed and its performance characteristics determined by [employer]. It has not been cleared or approved by the Food and Drug Administration. Performed By: #### C ITRATU #### [facility] [address] [place] [address] Dr. Miguel Angel Cassidy Citric Acid, Urine 1169 mg/L Normal Undefined [facility] Comment on above: Performed By: #### C ITRATU #### [facility] [address] [place] [address] Dr. Miguel Angel Cassidy MAGNESIUM 24HR URINEon 09-09 Magnesium 24hr Urine 88.0 mg/24 hr Normal 12.0-293.0 [facility] Comment on above: Performed By: #### C ITRATU #### [facility] [address] [place] [address] Dr. Miguel Angel Cassidy Magnesium UR 8.8 mg/dL Normal Not Estab. [facility] Comment on above: Performed By: #### C ITRATU #### [facility] [address] [place] [address] Dr. Miguel Angel Cassidy PHOSPHORUS 24HR URINEon 08-19 Phosphorus, Urine 97.8 mg/dL Normal Not Estab. [facility] Comment on above: Performed By: #### C ITRATU #### [facility] [address] [address] [address] Miguel Angel Cassidy Phosphorus, Urine 24hr 978 mg/24 hr Normal 390-1425 [facility] Comment on above: Performed By: #### C ITRATU #### [facility] [address] [place] [address] Dr. Miguel Angel Cassidy PTH INTACTon 09-09-2022 PTH, Intact 15 pg/mL Normal 15-65 [facility] Comment on above: Performed By: #### U YESI 24 #### [facility] [address] [place] [address] Dr. Miguel Angel Cassidy URIC ACID 24 HR URINEon 08-19 Uric Acid, Urine 43.6 mg/dL Normal Not Estab. [facility] Comment on above: Performed By: #### U YESI 24 #### [facility] [address] [place] [address] Dr. Miguel Angel Cassidy Uric Acid, Urine 24hr 436.0 mg/24 hr Normal 136.1-771. 1 [facility] Comment on above: Performed By: #### U YESI 24 #### [facility] [address] [place] [address] Dr. Miguel Angel Cassidy BUNon 09-08-2022 Urea nitrogen [Mass/Vol] 13.0 mg/dL Normal 7.0-18.0 [facility] Comment on above: Performed By: #### U YESI 24 #### [facility] [address] [place] [address] Dr. Miguel Angel Cassidy CALCIUMon 09-08-2022 Calcium [Mass/Vol] 8.9 mg/dL Normal 8.5-10.1 [facility] Comment on above: Performed By: #### U YESI 24 #### [facility] [address] [place] [address] Dr. Miguel Angel Cassidy CALCIUM 24 HR URINEon 2022 CALC, 24 HR UR 138.0 mg/24 hr Normal 100.0-300.0 [facility] Comment on above: Performed By: #### U YESI 24 #### [facility] [address] [place], [place] [id number] Dr. Miguel Angel Cassidy UR CALCIUM 13.8 mg/dL Normal 5.1-21.0 [facility] Comment on above: Performed By: #### U YESI 24 #### [facility] [address] [place] [address] Dr. Miguel Angel Cassidy UR TOT VOL 1000 ml/24 HR Normal [facility] Comment on above: Performed By: #### U YESI 24 #### [facility] [address] [place] [address] Dr. Miguel Angel Cassidy Performed By: #### C ITRATU #### [facility] [address] [place] [address] Dr. Miguel Angel Cassidy CHLORIDEon 09-08-2022 Chloride [Moles/Vol] 107 mmol/L Normal 98-107 [facility] Comment on above: Performed By: #### B UN, CL, CO2, CREA, K, URIC, CA, NA #### [facility] [address] [place] [address] Dr. Miguel Angel Cassidy CO2on 09-08-2022 CO2 [Moles/Vol] 31.6 mmol/L Normal 21.0-32.0 [facility] Comment on above: Performed By: #### B UN, CL, CO2, CREA, K, URIC, CA, NA #### [facility] [address] [place] [address] Dr. Miguel Angel Cassidy CREA 24 HR URINEon 3 CREA, 24 HR UR 1343.30 mg/24 hr Normal 1,000.00- 2,0 00.00 [facility] Comment on above: Performed By: #### C ITRATU #### [facility] [address] [place] [address] Dr. Miguel Angel Cassidy URINE CREAT 134.33 mg/dL Normal 20.00-300.00 [facility] Comment on above: Performed By: #### C ITRATU #### [facility] [address] [place] [address] Dr. Miguel Angel Cassidy CREATININEon 09-08-2022 Creatinine [Mass/Vol] 0.89 mg/dL Normal 0.70-1.30 [facility] Comment on above: Performed By: #### B UN, CL, CO2, CREA, K, URIC, CA, NA #### [facility] [address] [place] [address] Dr. Miguel Angel Cassidy EGFR-AF ROMANIAN >60 Normal >=60 [facility] Comment on above: Performed By: #### B UN, CL, CO2, CREA, K, URIC, CA, NA #### [facility] [address] [place] [address] Dr. Miguel Angel Cassidy EGFR-NON AF ROMANIAN >60 Normal >=60 [facility] Comment on above: Performed By: #### B UN, CL, CO2, CREA, K, URIC, CA, NA #### [facility] [address] [place] [address] Dr. Miguel Angel Cassidy NAon 09-08-2022 Sodium [Moles/Vol] 143 mmol/L Normal 136-145 [facility] Comment on above: Performed By: #### B UN, CL, CO2, CREA, K, URIC, CA, NA #### [facility] [address] [place] [address] Dr. Miguel Angel Cassidy POTASSIUMon 09-08-2022 Potassium [Moles/Vol] 4.3 mmol/L Normal 3.5-5.1 [facility] Comment on above: Performed By: #### B UN, CL, CO2, CREA, K, URIC, CA, NA #### [facility] [address] [place] [address] Dr. Miguel Angel Cassidy SODIUM 24 HR URINEon 023 NA, 24 HR UR 127 mmol/24 hr Normal 40-220 [facility] Comment on above: Performed By: #### C ITRATU #### [facility] [address] [place] [address] Dr. Miguel Angel Cassidy Sodium (U) [Moles/Vol] 127 mmol/L Critically high 30-90 [facility] Comment on above: Performed By: #### C ITRATU #### [facility] [address] [place] [address] Dr. Miguel Angel Cassidy URIC ACID SERUMon 09-08-2022 Urate [Mass/Vol] 5.3 mg/dL Normal 3.5-7.2 [facility] Comment on above: Performed By: #### U EYSI 24 #### [facility] [address] [place] [address] [address] Miguel Angel Cassidy Covid-19 PCR ([facility])on SARS-CoV-2 (COVID-19) RNA SILVIA+probe Ql (Unsp spec) Not detected Normal NOT DETECTED [facility] Comment on above: Result Comment: This test is not yet approved or cleared by the [place] FDA. When there are no FDA-approved or cleared tests available, and other criteria are met, FDA can make tests available under an emergency access mechanism called an Emergency Use Authorization (EUA). The EUA for this test is supported by the [place] of Health and Human Service's (HHS's) declaration [...] Performed By: #### U YESI 24 #### [facility] [address] [place] [address] [address] [address] Miguel Angel Cassidy ECHOCARDIO M/2D COMPLETEon 0 02-10-2022 ECHOCARDIO M/2D COMPLETE Patient: CHEY FREIRE Exam Date: 02/10/2022 : 1940 Gender:M Ordering : DR ANGELINA ZIMMERMAN M.D. Admission #: [id number] Family : DR ANG CHILEL . Order #: [id number] CLICK HERE TO VIEW EXAM ECHOCARDIOGRAM REPORT [...] Daniel M.D. on 02/10/2022 at 15:50 Normal [facility] US KIDNEYS BLADDERon 02-07-2 022 US KIDNEYS BLADDER EXAMINATION: US KIDNEYS [...] by: FAIZA ARECHIGA Date: 2022-02-07 08:09 Normal [facility] XR KUB 1 VIEWon 02-05-2022 XR [...] by: FAIZA ARECHIGA Date: 2022-02-05 12:59 Normal [facility] Vital Signs Date Time Vital Sign Value Performing Clinician Juliette gamble 09-03-2024 09:40-0500 Blood Pressure Location Sotero STEPHEN [facility] 09-03-2024 09:40-0500 Body temperature 98.6 [degF] Sotero STEPHEN [facility] 09-03-2024 09:40-0500 Diastolic blood pressure 56 mm[Hg] Sotero STEPHEN [facility] 09-03-2024 09:40-0500 Heart rate 58 /min Sotero STEPHEN [facility] 09-03-2024 09:40-0500 Systolic blood pressure 150 mm[Hg] Sotero STEPHEN [facility] 03-19-2024 17:58-0400 Diastolic blood pressure 63 mm[Hg] Abelino Jose [facility] 03-19-2024 17:58-0400 Heart rate 60 /min Abelino Jose [facility] 03-19-2024 17:58-0400 Mean blood pressure 88 mm[Hg] Abelino Garcia [facility] 03-19-2024 17:58-0400 Respiratory rate 16 /min Abelino Garcia [facility] 03-19-2024 17:58-0400 SaO2% (BldA) [Mass fraction] 96 % Abelino Garcia [facility] 03-19-2024 17:58-0400 Systolic blood pressure 139 mm[Hg] Abelino Jose [facility] 03-19-2024 17:00-0400 Heart rate 56 /min Abelino Jsoe [facility] 03-19-2024 17:00-0400 Mean blood pressure 81 mm[Hg] Abelino Jose [facility] 03-19-2024 17:00-0400 SaO2% (BldA) [Mass fraction] 99 % Abelino Jose [facility] 03-19-2024 17:00-0400 Systolic blood pressure 132 mm[Hg] Abelino Jose [facility] 03-19-2024 16:30-0400 Diastolic blood pressure 56 mm[Hg] Abelino Jose [facility] 03-19-2024 16:30-0400 Heart rate 54 /min Abelino Jose [facility] 03-19-2024 16:30-0400 Mean blood pressure 83 mm[Hg] Abelino Jose [facility] 03-19-2024 16:30-0400 Respiratory rate 19 /min Abelino Jose [facility] 03-19-2024 16:30-0400 SaO2% (BldA) [Mass fraction] 98 % Abelino Jose [facility] 03-19-2024 16:30-0400 Systolic blood pressure 138 mm[Hg] Abelino Jose [facility] 03-19-2024 14:13-0400 Respiratory rate 18 /min Abelino Jose [facility] 03-19-2024 14:00-0400 Body temperature 97.7 [degF] Abelino Jose [facility] 03-19-2024 14:00-0400 Heart rate 53 /min Abelino Garcia [facility] 03-19-2024 14:00-0400 Respiratory rate 20 /min Abelino Garcia [facility] 09-02-2023 09:58-0500 Blood Pressure Location Soteroaminta STEPHEN [facility] 09-02-2023 09:58-0500 Diastolic blood pressure 64 mm[Hg] Sotero STEPHEN [facility] 09-02-2023 09:58-0500 Heart rate 65 /min Sotero STEPHEN [facility] 09-02-2023 09:58-0500 Respiratory rate 16 /min Sotero STEPHEN [facility] 09-02-2023 09:58-0500 Systolic blood pressure 122 mm[Hg] Sotero STEPHEN [facility] 09-03-2022 09:18-0500 Blood Pressure Location Sotero STEPHEN [facility] 09-03-2022 09:18-0500 Diastolic blood pressure 71 mm[Hg] Sotero STEPHEN [facility] 09-03-2022 09:18-0500 Heart rate 70 /min Sotero STEPHEN [facility] 09-03-2022 09:18-0500 Respiratory rate 16 /min Sotero STEPHEN [facility] 09-03-2022 09:18-0500 Systolic blood pressure 130 mm[Hg] Sotero STEPHEN [facility] 06-01-2022 15:52-0500 Blood Pressure Location Holli KENTDaisy [facility] [place] 06-01-2022 15:52-0500 Diastolic blood pressure 62 mm[Hg] Holli NILL [facility] [place] 06-01-2022 15:52-0500 Heart rate 68 /min Holli NILL [facility] [place] 06-01-2022 15:52-0500 Respiratory rate 16 /min Holli KENTL [facility] [place] 06-01-2022 15:52-0500 Systolic blood pressure 130 mm[Hg] Holli NILL [facility] [place] Encounters Encounter Date Encounter Type Care Provider Facility Start: 09-06-2025 ambulatory Sotero STEPHEN Facili ty:[facility] [place] Start: 09-03-2024 End: 09-03-2024 ambulatory Sotero STEPHNE Facility:[facility] [place] Start: 09-03-2024 End: 09-03-2024 Patient encounter procedure Sotero STEPHEN [facility] Start: 05-14-2024 End: 05-14-2024 ambulatory [facility] Start: 03-19-2024 End: 03-19-2024 Emergency department patient visit Abelino Garcia Facility:[facility] Start: 09-02-2023 End: 09-02-2023 Patient encounter procedure Sotero STEPHEN [facility] Start: 11-17-2022 End: 11-18-[address] ANG CHILEL . Facility: Start: 09-08-2022 End: 09-09-2022 ambulatory SOTERO STEPEHN Facility: Start: 09-03-2022 End: 09-03-2022 Patient encounter procedure Sotero STEPHEN [facility] Start: 06-26-2022 Encounter for preprocedural laboratory examination DR HOLLI BATEMAN . [facility] Start: 06-25-2022 End: 06-25-[address] ANG CHILEL . Facility:[facility] Start: 06-22-2022 End: 06-23-[address] HOLLI BATEMAN . Facility:[facility] Start: 06-22-2022 End: 06-23-2022 Encounter for preprocedural laboratory examination DR HOLLI BATEMAN . Facility:[facility] Start: 06-01-2022 End: 06-01-2022 Patient encounter procedure Holli BATEMAN [facility] [place] Start: 02-10-2022 End: 02-11-[address] ANGELINA ZIMMERMAN Facility:[facility] Start: 02-05-2022 End: 02-06-[address] ANG CHILEL . Facility:[facility] Start: 12-17-2021 End: 12-18-[address] ANG CHILEL . Facility:[facility] Procedures Date Procedure Procedure Detail Performing Clinician Start: 11-17-[address] MARIELA BATEMAN . Comment on above: Performed By: #### P [facility] #### [facility] [address] [place] [address] Dr. Miguel Angel Cassidy Start: 03-20-2019 cysto w/ stent removal Holli BATEMAN Start: 09-11-2015 Extracorporeal shock wave lithotripsy of calculus of kidney Holli BATEMAN Start: 04-03-2015 Extracorporeal shock wave lithotripsy of calculus of kidney Holli BATEMAN Start: 07-18-2009 Placement of stent i n cardiac conduit Holli BATEMAN History of operative procedure on thoracic spinal structure Holli BATEMAN Kidney stone (disorder) Flako ael NILL Comment on above: Surgery per Dr. Webster Repair of left ingui nal hernia Holli BATEMAN Tonsillectomy Holli BATEMAN Immunizations Immunization Date Immunization Notes Care Provider Fa cility 07-18-2020 SARS-CoV-2 (COVID-19 ) [id number] vaccine Holli BATEMAN [facility] Comment on above: Result Comment: Pt s tates he has had 3 shots to date but does not have his card for the dates today 03-10-2020 influenza virus vaccine, unspecified formulation Holli BATEMAN [facility] Payers Date Payer Category Payer Unknown [id number] 1957 Medicare [id number] 1957 Unknown [id number] 1940 Unknown [id number] 2.16.84 [id number] 1942 Unknown [id number] 2.16.84 [id number] 1942 Unknown [id number] 2.16.84 [id number] 1942 Unknown [id number] 2.16.84 [id number] 1942 Unknown [id number] 2.16.84 [id number] 1942 Unknown [id number] 2.16.84 [id number] 1942 Unknown [id number] 2.16.84 [id number] 1942 Unknown [id number] 2.16.8 [id number] 1942 Unknown [id number] 2.16.8 [id number] 1942 Unknown [id number] 2.16.8 [id number] 1942 Unknown [id number] 2.16.8 [id number] 1942 Unknown [id number] 2.16.8 [id number] Social History Date Type Detail Facility Start: 06-01-2022 End: 09-03-2024 Tobacco smoking status Ex-smoker (finding) [facility] [place] Tobacco smoking status Never [facility] [place] Sex Assigned At Male [facility] Functional Status Date Assessment Result Facility 09-03-2024 Functional Status N/A [facility] 03-19-2024 Functional Status N/A [facility] 09-02-2023 Functional Status N/A [facility] 09-03-2022 Functional Status N/A [facility] 06-01-2022 Functional Status N/A [facility] Clinical Notes 12-17-2021 to 09-03-2024 Note Date & Type Note Facility 09-03-2024 Hospital Discharge instructions Patient Education 09/03/2024 09:59:01 Dietary Guidelines to Help Prevent Kidney Stones [...] include: ?8 oz (237 mL) of milk, arwblcl-aomcdorbcywn-eiewu milk, and calcium-fortifiedfruit juice. Calcium-fortified means that [...] ?Spinach (cooked), rhubarb, beets, sweet potatoes, and Macedonian chard. ?Peanuts. ?Potato chips, swazi fries, and baked potatoes with skin on. ?Nuts and nut products. ?Chocolate. If you regularly take a diuretic medicine, make sure to eat at least 1 or 2 servings of fruits or vegetables that are high in potassium each day. These include: ?Avocado. ?Banana. ?[place], prune, carrot, or tomato juice. ?Baked potato. [...] magnesium, fish oil, or vitamin B6. Take pvif-bpa-ytielfv and prescription medicines only as told by [...] Casseroles. Pizza. Lasagna. Frozen meals. Potato chips. Hong Konger fries. The items listed above may not [...] provider. Document Revised: 10/14/2022 Document Reviewed: 10/14/2022 ElsePlay[employer] Patient Education 2023 [employer]Box. Follow Up Care 09/02/2023 11:05:36 With:TIANA CLAYTON, Sotero Mejai, URL Address: [facility] [address] , [place] [address] [phone] When: Unknown Comments:1 yr w/ JUANITA [facility] 09-03-2024 Note Patient Education Nephrology Dietary Guidelines to Help [...] for following this plan? Reading food labels ??? Choose foods with no salt added or low-salt labels. Limit your salt (sodium) intake to less than 1,500 mg a day. ??? Choose foods with calcium for each meal and snack. Try to eat about 300 mg of calcium at each meal. Foods that contain 200?500 mg of calcium a serving include: ? 8 oz (237 mL) of milk, pnwpwmp-pjunpmonjaef-ckvnj milk, and calcium-fortifiedfruit juice. Calcium-fortified means that [...] much calcium is recommended for you. Shopping ??? Buy plenty of fresh fruits and vegetables. Most people do not need to avoid fruits and vegetables, even if these foods contain nutrients that may contribute to kidney stones. ??? When shopping for convenience foods, choose: ? Whole pieces of fruit. ? Pre-made salads with dressing on the side. ? Low-fat fruit and yogurt smoothies. ??? Avoid buying frozen meals or prepared deli foods. These can be high in sodium. ??? Look for foods with live cultures, such as yogurt and kefir. ??? Choose high-fiber grains, such as whole-wheat breads, oat bran, and wheat cereals. Cooking ??? Do not add salt to food when cooking. Place a salt shaker on the table and allow each person to add their own salt to taste. ??? Use vegetable protein, such as beans, textured vegetable protein (TVP), or tofu, instead of meat in pasta, casseroles, and soups. Meal planning ??? Eat less salt, if told by your dietitian. To do this: ? Avoid eating processed or pre-made food. ? Avoid eating fast food. ??? Eat less animal protein, including cheese, meat, [...] size of the palm of your hand. ??? Eat at least five servings of fresh fruits and vegetables each day. To do this: ? Keep fruits and vegetables on hand for snacks. ? Eat one piece of fruit or a handful of berries with breakfast. ? Have a salad and fruit at lunch. ? Have two kinds of vegetables at dinner. ??? You may be told to limit foods that are high in a substance called oxalate. These include: ? Spinach (cooked), rhubarb, beets, sweet potatoes, and Macedonian chard. ? Peanuts. ? Potato chips, swazi fries, and baked potatoes with skin on. ? Nuts and nut products. ? Chocolate. ??? If you regularly take a diuretic medicine, make sure to eat at least 1 or 2 servings of fruits or vegetables that are high in potassium each day. These include: ? Avocado. ? Banana. ? [place], prune, carrot, or tomato juice. ? Baked potato. ? Cabbage. ? Beans and split peas. Lifestyle ??? Drink enough fluid to keep your urine pale yellow. This is the most important thing you can do. Spread your fluid intake throughout the day. ??? If you drink alcohol: ? Limit how [...] oz glass of hard liquor (44 mL). ??? Lose weight if told by your health care provider. Work with your dietitian to find an eating plan and weight loss strategies that work best for you. General information ??? Talk to your health care provider and [...] as magnesium, fish oil, or vitamin B6. ??? Take ramu-sru-pqasnze and prescription medicines only as told by your health (more content not included)... [facility] 05-14-2024 Note [facility] Cardiology Clinic Note Chief Complaint: Patient [...] history of COPD (chronic obstructive pulmonary disease) ([facility]), Coronary artery disease, Heart murmur, Heart valve [...] S/p PCI/stents I25.10: Atherosclerotic heart disease of [place] coronary artery without angina pectoris 2. 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 Mitral valve regurgitati (more content not included)... [facility] 03-19-2024 Hospital Discharge instructions Patient Education 03/19/2024 17:59:58 Anaphylactic Reaction, Adult, Ylqi-ib-Ymyg Anaphylactic Reaction, Adult An anaphylactic reaction is [...] What are the signs or symptoms? Feeling instant potato processor the face (flushed). Your face may turn [...] a very bad reaction. General instructions Take ayur-tbm-mqjgkgv and prescription medicines only as told by [...] you a bad reaction before. Tell your cafe server about your allergy when you go out to eat. If you are not sure if your meal contains food that you are allergic to, ask your cafe server before you eat it. Where to find more information [place] [employer]ergy, Asthma, and Immunology (AAAAI): [...] provider. Document Revised: 03/18/2023 Document Reviewed: 03/18/2023 SecureWave Patient Education 2023 PalindromX Follow Up Care 03/19/2024 14:02:06 With:Ang Chilel Address: [address] [place], [place] [id number] Business (1) When:03/22/2024 17:49:01 Comments:Call for diagnosis based follow up [facility] 03-19-2024 Note ED Patient Education Note [...] are the signs or symptoms? ? Feeling instant potato processor the face (flushed). Your face may turn [...] very bad reaction. General instructions ? Take iacg-kdy-xhyhmbq and prescription medicines only as told by [...] a bad reaction before. ? Tell your cafe server about your allergy when you go out to eat. If you are not sure if your meal contains food that you are allergic to, ask your cafe server before you eat it. Where to find more information ? [place] [employer] Allergy, Asthma, and Immunology (AAAAI): [...] provider. Document Revised: 03/18/2023 Document Reviewed: 03/18/2023 ElsePlaynery Patient Education ? 2023 [employer]Box[employer] [facility] 09-02-2023 Hospital Discharge instructions Patient Education [...] include: ?8 oz (237 mL) of milk, phsfnzn-zxxnyurjoeym-pnirz milk, and calcium-fortifiedfruit juice. Calcium-fortified means that [...] ?Spinach (cooked), rhubarb, beets, sweet potatoes, and Macedonian chard. ?Peanuts. ?Potato chips, swazi fries, and baked potatoes with skin on. ?Nuts and nut products. ?Chocolate. If you regularly take a diuretic medicine, make sure to eat at least 1 or 2 servings of fruits or vegetables that are high in potassium each day. These include: ?Avocado. ?Banana. ?[place], prune, carrot, or tomato juice. ?Baked potato. [...] magnesium, fish oil, or vitamin B6. Take camw-pbo-ehrnxis and prescription medicines only as told by [...] Casseroles. Pizza. Lasagna. Frozen meals. Potato chips. Hong Konger fries. The items listed above may not [...] Document Reviewed: 10/14/2022 Elsevier Patient Education 2022 BuyBox. Follow Up Care 09/03/2022 09:56:31 With:TIANA CLAYTON, Sotero Mejia, URL Address: [address] [place] [id number]- When: Unknown [facility] [employer] 09-03-2022 Hospital Discharge instructions Patient Education 09/03/2022 09:39:28 Kidney Stones, Jgvr-ob-Iabr Kidney Stones Kidney stones are rock-like masses [...] Follow these instructions at home: Medicines Take koyc-dji-dxnyllj and prescription medicines only as told by [...] 12/20/2008 Document Revised: 11/20/2019 Document Reviewed: 11/20/2019 SecureWave Patient Education 2020 BuyBox. Follow Up Care 08/31/2021 10:41:08 With:TIANA CLAYTON, Sotero Mejia, URL Address: [address] [place] [id number]- When: Unknown [facility] 06-25-2022 Note OPERATIVE NOTE OPERATION DATE: 06/25/2022 [...] require further screening. CC: Ang Chilel M.D. [facility] 12-17-2021 Note PROCEDURE: XR SHOULD ER [...] authenticated by: FAIZA ARECHIGA Date: 2021-12-17 17:22 [facility] Evaluation + Plan note Future Appointments Appointment Date:09/03/2022 09:45:00 AM Scheduled Provider:Sotero STEPHEN MD Location:[facility] Appointment Type:URO Office Visit [facility] [place] Evaluation + Plan note Future Appointments Appointment Date:09/02/2023 09:30:00 AM Scheduled Provider:Sotero STEPHEN MD Location:[facility] Appointment Type:URO Office Visit [facility] Evaluation + Plan note Future Appointments Appointment Date:09/03/2024 09:45:00 AM Scheduled Provider:Sotero STEPHEN MD Location:[facility] Appointment Type:URO Office Visit [facility] Evaluation + Plan note Future Appointments Appointment Date:09/06/2025 10:45:00 AM Scheduled Provider:Sotero STEPHEN MD Location:[facility] Appointment Type:URO Office Visit [facility] Hospital course Narrative No data available for this section [facility] [place] [facility] Discharge instructions No data available for this section [facility] [place] Progress note No data available for this section [facility] [place] Summary Purpose Family History No Family History [...] Found No data available for this section Advance Directives No Advanced Directives Records FoundNo Advanced Directives Records FoundNo Advanced Directives Records FoundNo Advanced Directives Records FoundNo Advanced Directives Records FoundNo Advanced Directives Records FoundNo Advanced Directives Records FoundNo Advanced Directives Records FoundNo Advanced Directives Records FoundNo Advanced Directives Records Found Additional Source Comments Patient Care team informatio n (unrecognized section and content) Personnel Name: Ang Chilel MD Address: Address: [address] [place] [address] Personnel Name: Ang Chilel MD Address: Address: [address] [place] [address] Personnel Name: Ang Chilel MD Address: Address: [address] [place] [address] Personnel Name: Ang Chilel MD Address: Address: [address] [place] [address] (unrecognized sect ion and content) No Status Records FoundNo Status Records FoundNo Status Records FoundNo Status Records FoundNo Status Records FoundNo Status Records FoundNo Status Records FoundNo Status Records FoundNo Status Records FoundNo Status Records Found INFORMATION SOURCE (unrecogn ized section and content) DATE CREATED AUTHOR 11/25/2022 [facility] DATE CREATED AUTHOR AUTHOR'S ORGANIZ ATION 03/19/2024 [facility] DATE CREATED AUTHOR AUTHOR'S ORGANESTEPHANIE ATION 05/15/2024 [facility] DATE CREATED AUTHOR AUTHOR'S ORGANIZ ATION 09/04/2024 [facility] FOR RECORDS PERTAINING TO PATIENTS WHO [...] BE BASED ON THE PRIMARY CLINICAL RECORDS. [employer] provides no warranty or guarantee of the accuracy or completeness of information in this document.
--- NOTE | 2025-03-28 09:38 | CA_ITS ---
Patient Name: CHEY DAVENPORT MR#: [id number] : 1940 Exam Date: 03/28/2025 Ordering Doctor: DR ANGELINA ZIMMERMAN M.D. ECHOCARDIOGRAM REPORT PROCEDURE: CA ECHO DOPPLER COMPLETE INDICATIONS: Aortic valve stenosis COMPARISON: None. DESCRIPTION: COMPLETE ECHOCARDIOGRAM Real-time transthoracic echocardiography with 2D, M-mode, spectral and color flow Doppler performed. QUALITY: Technical quality was good. LEFT VENTRICLE: Normal chamber size. Mild concentric left ventricular hypertrophy. Global left ventricular systolic function is normal without wall motion abnormalities. Visual estimation of left ventricular ejection fraction is hyperdynamic at 70-75%. LV EF: DIASTOLIC: Normal left ventricular diastolic function ATRIAL SEPTUM: Visually appears intact LEFT ATRIUM: Mild dilatation. RIGHT ATRIUM: Mild dilatation. RIGHT VENTRICLE: Normal chamber size. Normal right ventricular systolic function. TRICUSPID VALVE: Normal mobility and thickness. No stenosis with mild regurgitation. Mild pulmonary hypertension. RVSP 39mmHg. MITRAL VALVE: Normal mobility and thickness. No evidence of mitral valve stenosis. There is no mitral annular calcification. Mild mitral regurgitation. AORTIC VALVE: Normal trileaflet appearance. Moderately calcified aortic valve. Moderately diminished mobility. Doppler velocity suggest moderate aortic valve stenosis. DVI 0.34, MARQUIS 1.1cm2, Vmax 3.4m/s, peak/mean gradients 46/20mmHg.mild to moderate aortic regurgitation. AORTIC ROOT: Normal diameter and appearance measuring 3.6cm. The ascending aorta measures 3.5cm PULMONIC VALVE: Normal thickness and mobility. No stenosis. Trivial regurgitation. PERICARDIUM: No evidence of pericardial effusion. IVC: Collapes with inspirations. Mildly dilated measuring 2.2cm. PLEURA: CONCLUSION: Mild concentric left ventricular hypertrophy Hyperdynamic left ventricular systolic function without wall motion abnormalities, ejection fraction 70 to 75%. Normal left ventricular diastolic function Normal right ventricular size and systolic function Mildly pulmonary hypertension, RVSP 39 mmHg Mild biatrial dilatation Moderate aortic stenosis, mean pressure gradient 20 mmHg, aortic valve area 1.1 cm?, DVI 0.34 Mild to moderate aortic insufficiency Mild mitral regurgitation Mild tricuspid regurgitation Adult Echocardiography Procedure Report Left Ventricle LVEDD (3.7 - 5.6 cm): 4.10 cm LVESD (2.2 - 4.0 cm): 2.78 cm LVIVS thickness (0.6 - 1.2 cm): 1.40 cm LVPW thickness (0.5 - 1.0 cm): 1.29 cm e': 0.08 m/s E - e': 10.91 LVOT Max Gradient: 5.23 mm[Hg] LVOT Area (cm2): 1.14 m/s Peak Velocity (LVOT): 1.14 m/s Mean Velocity (LVOT): 0.69 m/s LVOT Diameter 2.00 cm Left Ventricular Ejection Fraction: 76.91 % Left Atrium LA Volume Index (2D A2C): 38.60 ml/m2 Left Atrium Systolic Dimension: 4.00 cm Mitral Valve MV E to A Ratio: 1 MV Max Gradient: MV Mean Gradient: Mitral Valve A-Wave Peak Velocity: 0.83 m/s Mitral Valve E-Wave Peak Velocity: 0.83 m/s Cardiovascular Orifice Area: Right Ventricle RV Internal Diastolic Dimension: 3.29 cm Aorta AO Root Diam: 3.64 cm Ascending Ao Diam: 3.53 cm Aortic Valve AoV Area (Peak Adolfo): 1.12 cm2, 1.19 cm2 AoV Area (VTI): 1.15 cm2, 1.19 cm2 Deceleration Polk: 2.26 m/s2, 2.67 m/s2, 3.06 m/s2 Pressure Half-Time: 492.96 ms, 438.32 ms, 406.00 ms Peak Velocity(Antegrade Flow): 3.02 m/s, 3.38 m/s, 3.20 m/s Peak Gradient(Antegrade Flow): 36.47 mm[Hg], 45.66 mm[Hg], 40.83 mm[Hg] Mean Velocity(Antegrade Flow): 1.93 m/s, 2.00 m/s, 2.09 m/s Mean Gradient(Antegrade Flow): 17.86 mm[Hg], 19.97 mm[Hg], 19.93 mm[Hg] Velocity Time Integral: 65.81 cm, 67.90 cm, 70.77 cm Tricuspid Valve Peak Velocity (Regurgitant Flow): 2.79 m/s, 2.76 m/s, 2.68 m/s Peak Velocity: Pulmonic Valve Mean Gradient: Mean Velocity: Peak Velocity: 0.88 m/s Peak Gradient: 2.95 mm[Hg], 3.33 mm[Hg] Right Atrium Right Atrium Systolic Pressure: 35.34 ml, 35.34 ml Dictated by: Yash Blackburn MD on 03/29/2025 at 18:30 Approved by: Yash Blackburn MD on 03/29/2025 at 18:39
== END 2025-03-28 09:14 | disposition home or self-care (01) ==
LOC: CARD 09:13
PROVIDERS: PCP Family Medicine; Visit Provider Internal Medicine Interventional Cardiology
DX: I35.0 Nonrheumatic aortic (valve) stenosis (principal)
CPT/HCPCS: 93306

== ENCOUNTER 2025-05-17 08:47 | Outpatient (OUT) | payer MEDICARE, SELFPAY ==
--- OUTSIDE RECORDS SUMMARY | 2025-05-16 09:00 | XMS_ITS ---
Author Organization [facility] in [place] Address [address] [place] [address] Care Team Providers Care Reservation Manager Name Role Phone Aldo Chilel Primary Care Provider [phone] Allergies Allergen (clinical drug ingredient) Drug/Non Drug Allergy documented on EMR Reaction Allergy Type Onset Date Status Bee Sting (uncoded)swelling facial, arm, itchingAllergyActive REASON FOR VISIT yearly check up- due for yearly labs, Patient states needs a CXR due to asbestos exposure in the past- has been coughing, Upper left arm pain- ongoing for a few months- hurts to reach back and get wallet out of pocket, Ropinirole- hasn't been taking for a while- has been having cramping again and wants to restart Medications Medication SIG (Take, Route, Frequency, Duration) Notes Start Date End Date Status Krill Oil ActiveLovastatin 40 MGTake 2 tablets by mouth once daily; Duration: 90Active Effer-K 20 MEQTAKE 1 TABLET BY MOUTH TWICE DAILY Oral; Duration: 30 DaysActive EpiPenActiveVitamin D3 50 MCG (1999)1 capsule Orally Once a dayActive rOPINIRole HCl 0.5 MG1 tablet 1 to 3 hours before bedtime Orally Once a day; Duration: 30 days03/07/2024ctiveCarvedilol 6.25 MG1/2 tablet with food Orally Twice a day; Duration: 90 daysActiveCo Q 10 10 MGas directed OrallyActiveEpiPen ActiveAspirin 81 81 MG1 tablet Orally Once a dayActive Social History Tobacco Use: Social History Observation Description Date Details (start date - stop date) Former Smoker 07/18/1954 - 07/18/1968 Tobacco Use/Smoking Question Answer Notes Patient is a former smoker When did you start smoking?07/18/1954When did you stop smoking?07/18/1968How long has it been since you last smoked?> 10 years Vital Signs Weight 142.0 lbs 05/16/2025 Height 63 in 05/16/2025 Blood pressure systolic 142 mm Hg 05/16/20 25 Blood pressure diastolic 68 mm Hg 025 BMI 25.15 kg/m2 05/16/2025 Encounters Encounter Location Date Provider Diagnosis [facility] [address] [place] [address] 05/16/2025 Aldo Hoy Pure hypercholestero lemia, unspecified E78.00 ; Hypertension I10 ; Chronic fatigue, unspecified R53.82 ; 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 and 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 Assessments Encounter Date Diagnosis (ICD Code) Assessment Notes Treatment Notes Treatment Clinical Notes Section Notes 05/16/2025 Pure hypercholesterolemia, unspe cified (ICD-10 - E78.00) 05/16/2025Hypertension (ICD-10 - I10)05/16/2025hronic fatigue, unspecified (ICD-10 - R53.82)05/16/2025therosclerotic heart disease of 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 (ICD-10 - I25.10)defers on PT05/16/2025Frozen shoulder (ICD-10 - M75.00) Plan Of Treatment Medication Medication Name Sig Start Date Stop Date Notes rOPINIRole HCl 0.5 MG 1 tablet 1 to 3 ho urs before bedtime Orally Once a day; Duration: 30 days 03/07/2024 Treatment Notes Assessment Notes Atherosclerotic heart diseas e of 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 defers on PT Pending Test Test Name Order Date HEMOGLOBIN A1C (GLYCO) 05/16/2025 LIPID PANEL (CHOL/TRIG/HDL/LDL) 05/16/20 25 URIC ACID 05/16/2025 XR CHEST 2 V 05/16/2025 XR SHOULDER LT 2V or > 05/16/2025 THYROID PANEL (T4/TSH/FREE T3) PSA, SCREENING 05/16/2025 CMP (COMP MET LUI) w/eGFR CKD-EPI 2024 CBC WITH DIFF 05/16/2025 Progress Notes * Faustino DAVENPORTDOB: 2 (84 yo M)Acc No.[id number]:05/16/2025 UNLOCKED PROGRESS NOTE Progress Note Patient: Faustino CASTRO :?Emil Chilel ([facility]), MDDOB:1940???Age: 84 Y???Sex:MaleDate:05/16/2025Phone:[phone]:[id number] , [place], [id number] In:12:59 PM ESTCheck Out:01:34 PM EST Subjective: * Chief Complaints: * 1 . Yearly check up- due for yearly labs. 2. Patient states needs a CXR due to asbestos exposure in the past- has been coughing. 3. Upper left arm pain- ongoing for a few months- hurts to reach back and get wallet out of pocket. 4. Ropinirole- hasn't been taking for a while- has been having cramping again and wants to restart. * ROS: ???EENT:?hearing changes?denies.?visual changes?denies. non-healing mouth sores?denies.?swollen glands or neck lumps?denies.?hoarseness?denies.?sore throat?denies.?difficulty swallowing?denies.?nose bleeds?denies.?nasal congestion?denies.?ear ache?denies.?ear discharge denies.?ringing in ears?denies.?light sensitivity?denies.?eye pain?denies.?blurring?denies.?eye irritation?denies.?double vision?denies. vision loss?denies.?General/Constitutional:?Sweats:?Denies.?Fatigue?denies.?Sleep proble ms?denies.?Anorexia?denies.?Malaise?denies.?Weight loss?denies. Fatigue or Weakness?denies.?Fever or Chills?denies.?Cardiovascular:?Shortness of Breath w/lying flat?denies.?Lightheadedne ss/dizziness?denies.?Chest tightness/ heavy pressure?denies.?Swelling of legs, a nkles, or feet?denies.?Waking up with shortness of breath?denies.?Chest pain&#16 0;denies.?Palpitations?denies.?Weight gain?denies.?Respiratory:?Chronic or frequent cough?denies.?Coughing up blood&#1 60;denies.?Difficulty breathing?denies.?Productive cough?denies.?Snoring&#1 60;denies.?Shortness of breath that awakens from sleep (PND)?denies.?Chest pain? denies.?Sputum production?denies.?Wheezing?denies.?Musculoskeletal:?Joint pain?denies.?Joint Fluid?denies.?Backpain?denies.?Knee pain?denies.?Neck pain?denies.?Joint Stiffness?denies.?Muscle cramps?denies.?Weakness of muscles?denies.?Arthritis?denies.?Muscle aches?denies.?Pain in shoulder(s)?denies.?Swollen joints?denies.? * Medical History: C alculus, kidney, Vitamin D deficiency, Degenerative cervical disc, Spondylolisthesis of lumbar region, Mitral valve prolapse, CAD (coronary artery disease), Dyslipidemia, Aortic sclerosis, Peyronie disease, Cardiac ischemia, Aortic insufficiency, Acute gout. * Surgical History: b ack surgery , hernia , vasectomy , eye , heart stent , tonsills/ adnoids . * Hospitalization/Major Diagno stic Procedure: [facility] Past Hospitalization. * Family History: F ather: , diagnosed with Heart Disease. M other: . D robbiedeandre(s): alive. 3 daughter(s) . . * Social History: ???Tobacco Use:?Tobacco Use/Smoking?Patient is a?former smoker ?When did you start smoking??07/18/1954 ?When did you stop smoking??07/18/1968 ?How long has it been since you last smoked? > 10 years * Medications: T aking Aspirin 81(Aspirin) 81 MG Tablet Delayed Release 1 tablet Orally Once a day , Taking Carvedilol 6.25 MG Tablet 1/2 tablet with food Orally Twice a day , Taking Co Q 10 10 MG Capsule as directed Orally , Taking Effer-K(Potassium Bicarb-Citric Acid) 20 MEQ Tablet Effervescent TAKE 1 TABLET BY MOUTH TWICE DAILY Oral , Taking EpiPen , Taking EpiPen , Taking Krill Oil , Taking Lovastatin 40 MG Tablet Take 2 tablets by mouth once daily , Taking rOPINIRole HCl 0.5 MG Tablet 1 tablet 1 to 3 hours before bedtime Orally Once a day , Taking Vitamin D3 50 MCG (1999 UT) Capsule 1 capsule Orally Once a day , Medication List reviewed and reconciled with the patient * Allergies: B ee Sting: swelling facial, arm, itching - Allergy - Criticality High. Objective: * Vitals: W t:142.0lbs, Ht: 63 in, BP:142/68mm Hg, BMI:25.15Index, Ht-cm: 160.02 cm, Wt-k.41 kg. * Examination: ???Physical Exam: ?GENERAL:?well developed, well nourished, in no acute distress.?HEAD:?normocephalic/atraumatic.?EYES:?pupils equal, round and reactive to light, conjunctivae and sclerae normal.?EARS:?no deformity or lesion of external ear, canals and TM appear normal bilaterally, TM's intact, not inflamed with normal light reflex, hearing grossly normal to conversational speech.?NOSE:?no deformity, discharge, inflammation, or lesions. ?MOUTH:?mucous membranes moist, normal oropharynx and posterior pharynx without lesions or exudates, tongue normal, dentition normal.?NECK:?neck supple, no masses or palpable cervical nodes, trachea midline, thyroid without nodules, masses, tenderness, or enlargement.?CHEST:?no chest wall deformity, no chest wall tenderness. ?LUNGS:?normal respiratory effort and clear to auscultation, no wheezes, rales, or rhonchi, good air exchange.?CARDIO:?regular rate and rhythm, normal S1 and S2, nor murmur, rub, or gallop.?PULSES:?normal capillary refill.?ABDOMEN:?soft, non-distended, non-tender, no masses.?MUSCULOSKELETAL:?no deformity or scoliosis noted, normal range of motion, joints normal, no erythema, edema, effusion, or ecchymosis.?EXTREMITY:?no clubbing, cyanosis, edema, or deformity withnormal ROM in both upper and lower bilateral extremities.?NEUROLOGIC:?grossly normal.?SKIN:?no rashes, ulcerations, or suspicious lesions.?LYMPH NODES:?no cervical adenopathy, nodes normal.?MENTAL STATUS:?alert and oriented x3, normal mood and affect.? 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 Plan: * Treatment: Refill rOPINIRole HCl Tablet, 0.5 MG, 1 tablet 1 to 3 hours before bedtime, Orally, Once a day, 30 days, 30, Refills 11.?LAB: HEMOGLOBIN A1C (GLYCO) ?LAB: LIPID PANEL (CHOL/TRIG/HDL/LDL) ?LAB: URIC ACID ?LAB: THYROID PANEL (T4/TSH/FREE T3) ?LAB: PSA, SCREENING ?LAB: CMP (COMP MET LUI) w/eGFR CKD-EPI ?LAB: CBC WITH DIFF ?Imaging: XR CHEST 2 V* asbestos exposure ?Imaging: XR SHOULDER LT 2V or >2.?Hypertension?LAB: HEMOGLOBIN A1C (GLYCO) ?LAB: LIPID PANEL (CHOL/TRIG/HDL/LDL) ?LAB: URIC ACID ?LAB: THYROID PANEL (T4/TSH/FREE T3) ?LAB: PSA, SCREENING ?LAB: CMP (COMP MET LUI) w/eGFR CKD-EPI ?LAB: CBC WITH DIFF3.?Chronic fatigue, unspecified?LAB: HEMOGLOBIN A1C (GLYCO) ?LAB: LIPID PANEL (CHOL/TRIG/HDL/LDL) ?LAB: URIC ACID ?LAB: THYROID PANEL (T4/TSH/FREE T3) ?LAB: PSA, SCREENING ?LAB: CMP (COMP MET LUI) w/eGFR CKD-EPI ?LAB: CBC WITH DIFF4.?Atherosclerotic heart disease of 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?LAB: HEMOGLOBIN A1C (GLYCO) ?LAB: LIPID PANEL (CHOL/TRIG/HDL/LDL) ?LAB: URIC ACID ?LAB: THYROID PANEL (T4/TSH/FREE T3) ?LAB: PSA, SCREENING ?LAB: CMP (COMP MET LUI) w/eGFR CKD-EPI ?LAB: CBC WITH DIFF Notes: defers on PT??5.?Frozen shoulder?Imaging: XR SHOULDER LT 2V or > * Procedure Codes: 3 078F DIAST BP < 80 MM HG, 3077F SYST BP > OR = 140 MM HG * Preventive Medicine: ??Screenings/Counseling:?BMI ACTION PLAN?Above Normal BMI Follow-up?Dietary management education, guidance, and counseling * * Electronic signature of Aldo Chilel MD, [id number] on 05/17/2025 at 09:00 AM EDT Sign off status: PendingVisit Status:?CHK (Check Out) * Provider: Keegan WONG)MD Date: Generated for Printing/[employer]g/eTransmitting on:?05/17/2025 09:00 AM EDT History and Physical Notes * Examination CategorySub-CategoryDetailNotesCategory NotesPhysical ExamGENERAL:well developed, well nourished, in no acute distressHEAD:normocephalic/atraumatic EYES:pupils equal, round and reactive to light, conjunctivae and sclerae normal EARS:no deformity or lesion of external ear, canals and TM appear normal bilaterally, TM's intact, not inflamed with normal light reflex, hearing grossly normal to conversational speechNOSE:no deformity, discharge, inflammation, or lesionsMOUTH:mucous membranes moist, normal oropharynx and posterior pharynx without lesions or exudates, tonguenormal, dentition normalNECK:neck supple, no masses or palpable cervical nodes, trachea midline, thyroid without nodules, masses, tenderness, or enlargementCHEST:no chest wall deformity, no chest wall tendernessLUNGS:normal respiratory effort and clear to auscultation, no wheezes, rales, or rhonchi, good air exchangeCARDIO:regular rate and rhythm, normal S1 and S2, nor murmur, rub, or gallopPULSES:normal capillary refillABDOMEN:soft, non-distended, non-tender, no massesRECTAL:MUSCULOSKELETAL:no deformity or scoliosis noted, normal range of motion, joints normal, no erythema, edema, effusion, or ecchymosisEXTREMITY:no clubbing, cyanosis, edema, or deformity with normal ROM in both upper and lower bilateral extremitiesNEUROLOGIC:grossly normalSKIN:no rashes, ulcerations, or suspicious lesionsLYMPH NODES:no cervical adenopathy, nodes normalMENTAL STATUS:alert and oriented x3, normal mood and affect
--- OUTSIDE RECORDS SUMMARY | 2025-05-17 08:59 | XMS_ITS | CCD ---
Author Organization [facility] CliniSywy Care Team Providers Care Electrician'S Assistant Name Role Phone Ang Chilel Primary Care [...] Unavailable CAYETANO, VAUGHN MORENO Consulting Unava emigdioable GEMBUSMERI Consulting Unavailable HOY ., DR FRY Admitting [...] RFY Consulting Unavailable HOY ., DR FRY Admitting Unavailable HOY ., DR FRY Attending Unavailable HOY ., DR FRY Consulting Unavailable HOY ., DR FRY Primary Care Unavailable FAIZA ARECHIGA Consulting Unavailable Abelino Garcia Attending Unavailable ELTAANGELINA MATA Attending Unavailable Sotero STEPHEN Attending Unavailable Sotero STEPHEN Attending Unavailable Abelino Garcia Attending Unavailable Allergies Allergy ClassificationReported Allergen(s)Allergy TypeDate of OnsetReaction(s) Facility (5 sources)Bee/Wasp/Ant venom; Translations: [Bee Stings]Propensity to adverse reactions (disorder)Anaphylactic reactionMartins Ferry Hospital Repository Medications Current Medications MedicationDrug Class(es)DatesSig (Normalized)Sig (Original)aspirin 81 mg oral tablet (5 sources)Platelet Aggregation Inhibitor, Nonsteroidal Anti-inflammatory Drug Start: 46-43-7571rihx 1 tablet by mouth once dailyaspirin 81 mg oral tablet 81 mg = 1 tab(s), Oral, Daily Start Date: 01/29/19 Status: Orderedclopidogrel 75 mg oral tablet (2 sources)P2Y12 Platelet InhibitorStart: 54-46-2309izjw 1 tablet by mouth once dailyPlavix 75 mg Tab 75 mg = 1 tab(s), Oral, Daily Start Date: 01/29/19 Status: NvjfxgaKkP10 (5 sources)Start: 24-72-1574fdev 1 mg by mouth once wscfsAzD18 mg, Oral, Daily Start Date: 01/29/19 Status: Orderedlovastatin 40 mg oral tablet (5 sources)HMG-CoA Reductase InhibitorStart: 16-53-2079dgbn 2 tablets by mouth once daily for hyperlipidemialovastatin 40 mg oral tablet TAKE 2 TABLETS BY MOUTH ONCE DAILY FOR CHOLESTEROL Start Date: 01/29/19Status: Orderedmetoprolol tartrate 25 mg oral tablet (5 sources)beta-Adrenergic BlockerStart: 23-03-6166Sabiydiruu tartrate 25 mg Tab 12.5 mg = 0.5 tab(s), Oral, BID, Refills(s) 0 Start Date: 05/27/22 Status: OrderedNature's Bounty Red Krill Oil (5 sources)Start: 62-20-0486xjsa 1 mg by mouth once dailyNature's Bounty Red Krill Oil 1 mg, Oral, Daily Start Date: 01/29/19 Status: Orderednitroglycerin 0.4 mg sublingual tablet (5 sources)Nitrate VasodilatorStart: 98-97-0452nwsqslqfqngwk 0.4 mg sublingual Tab 0.4 mg = 1 tab(s), SubLingual, q5min, PRN for chest pain, Refills(s) 0 Start Date: 05/27/22 Status: OrderedpredniSONE 50 mg oral tablet (1 source)Start: 03-19-2024 End: 53-45-3842atgi 1 tablet by mouth once dailypredniSONE 50 mg Tab 50 mg = 1 tab(s), Oral, Daily, X 7 day(s), # 7 tab(s), Refills(s) 0, Pharmacy:[facility], 160, cm, 03/19/24 14:08:00 EDT, Height/Length Dosing, 63.3, kg, 03/19/24 14:08:00 EDT, Weight Dosing Start Date: 03/19/24 Stop Date: 03/26/24 Status: OrderedVitamin D (5 sources)Start: 00-81-3608Vkiopqk D Oral Start Date: 01/29/19 Status: Ordered Completed/Discontinued Medications MedicationDrug Class(es)DatesSig (Normalized)Sig (Original)potassium bicarbonate 20 meq effervescent oral tablet (5 sources)Start: 98-05-0008rnvo 1 tablet by mouth twice dailyEffer-K 20 mEq oral tablet, effervescent 20 mEq = 1 tab(s), Oral, BID, # 60 tab(s), Refills(s) 11, DAGO, Pharmacy: [facility], 160, cm, 09/02/23 10:00:00 EST, Height/Length Dosing, 63.2, kg, 09/02/23 10:00:00 EST, Weight Dosing Start Date: 09/02/23 Status: OrderedStart: 51-70-3791oqod 1 tablet by mouth twice dailyEffer- K 20 mEq oral tablet, effervescent 20 mEq = 1 tab(s), Oral, BID, # 60 tab(s), Refills(s) DAGO, Pharmacy: [facility], 160.3, cm, 08/31/21 9:38:00 EST, Height/Length Dosing, 71, kg,08/31/21 9:38:00 EST, Weight Dosing Start Date: 05/17/22 Status: Ordered Problems Active Problems Problem ClassificationProblemDateDocumented DateEpisodic/ChronicCalculus of urinary tract (17 sources)History of calculus of kidney; Translations: [Kidney stone]Onset: 833686-08-9008XayuiyazOuvpfrip atherosclerosis and other heart disease (13 sources)Coronary arteriosclerosis; Translations: [Ischemic heart disease] Onset: 467147-21-9452FrdwyjvXftikelkw of lipid metabolism (7 sources)Hyperlipidemia; Translations: [Pure hypercholesterolemia, unspecified]Onset: 385941-55-3599DttewlgSolrvcsrv hypertension (6 sources)Hypertensive disorder; Translations: [Essential (primary) hypertension]Onset: 417829-57-9202XmavoaqSnqjtcdlejgxcxak hemorrhage (5 sources)Rectal hvdkoznggb57-29-1800GnemqbnjPyewieblxvrhk symptoms and ill- defined conditions (12 sources)Microscopic hematuria; Translations: [Urgent desire to urinate] Onset: 758900-07-0914ZufuptoaVxor and other crystal arthropathies (5 sources)Pybx22-97-3732UnlozxrOmtqt valve disorders (20 sources)Aortic valve regurgitation; Translations: [Aortic valve sclerosis] Onset: 154739-04-1375GwnurdqYrhwgqxnway of prostate (8 sources)Benign prostatic hypertrophy with outflow obstruction; Translations: [Benign prostatic hyperplasia with lower urinary tract symptoms]Onset: 640312-08-8726XbyiigiZnrwous and fatigue (4 sources)Chronic fatigue, unspecified; Translations: [CHRONIC FATIGUE UNSPECIFIED]Onset: 47-72-4415LcjqxnvSysucjznihp deficiencies (5 sources)Vitamin D wxakmfwfrh06-06-7240EbjqltjKwwfa male genital disorders (5 sources)Induratio penis tgiwtmxv07-81-2092EvckltzArovn nutritional; endocrine; and metabolic disorders (5 sources)Overweight in adulthood with body mass index of 25 or more but less than 9033-49-9202FzztgolfOccni screening for suspected conditions (not mental disorders or infectious disease) (6 sources)Screening for malignant neoplasm of colon done; Translations: [Encounter for screening for malignant neoplasm of colon]Onset: 06-01-2022 EpisodicOther upper respiratory disease (5 sources)Allergic vdtibqop39-23-6186QmkmhpmTtxzheqmr by nonmedicinal substances (1 source)Poisoning by bee sting; Translations: [Toxic effect of venom of bees, accidental (unintentional), initial encounter]Onset: 52-53-5422Dlhthmbs Spondylosis; intervertebral disc disorders; other back problems (10 sources)Cervical disc disorder; Translations: [Lumbar spondylosis]05-27-2022 ChronicUnclassified (5 sources)Patient encounter ytvgin83-08-8654Fucjzgorhgck (4 sources)Asymptomatic microscopic rxtzxljiv48-89-9308Eoqwyhbzwwky (1 source)CONTACT W/AND (SUSP) EXPOS COVID-19; Translations: [CONTACT W/AND (SUSP) EXPOS COVID-19]Onset: 30-62-0704Rbumu infection (5 sources)Genital herpes zdardut47-03-5399Jhpizkt Past or Other Problems Problem ClassificationProblemDateDocumented DateEpisodic/ChronicInflammatory conditions of male genital organs (5 sources)Epididymitis Resolved: 478203-64-7794IclaasffSldlt aftercare (1 source)care home (current) use of antithrombotics/antiplatelets; Translations: [COLUMNIST ANTITHROMBOT/ANTIPLATLETS]Onset: 65-29-5745Evedpemf Other aftercare (1 source)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; Translations: [USP CURRENT USE OF ASPIRIN]Onset: 16-37-0119QhziiuedRiscn aftercare (1 source)Other terminal operator (current) drug therapy; Translations: [OTH COLUMNIST CURRENT DRUG THERAPY]Onset: 70-44-4316YtibxkymTiyym non-traumatic joint disorders (4 sources)Pain in left shoulder; Translations: [PAIN IN LEFT SHOULDER]Onset: 02-25-9905VwsvnugnJckespmjm and history of mental health and substance abuse codes (1 source)Personal history of nicotine dependence; Translations: [PERSONAL HISTORY OF NICOTINE DEPEND]Onset: 38-58-4285Vyzjpang Results Test NameValueInterpretationReference RangeFacilityAmbulatory Visit Summaryon 70-68-4035Jhgyzyaueg Visit SummaryAmbulatory Visit Summary CHEY FREIRE :1940 Visit Date:09/03/2024 Ambulatory Visit Instructions Your Diagnosis BPH with urinary obstruction Kidney stone Tests Performed XR Abdomen 1 View -- Results Pending -- Please visit your patient portal for your results or contact your primary care physician. Your Care Team Attending Physician - TIANA CLAYTON, Sotero Mejia Primary Care Physician - Ang Chilel MD This Is Your Medications List potassium bicarbonate (Effer-K 20 mEq oral tablet, effervescent) Contact prescribing physician if questions or concerns aspirin (aspirin 81 mg oral tablet) ergocalciferol (Vitamin D) lovastatin (lovastatin 40 mg oral tablet) metoprolol (Metoprolol tartrate 25 mg Tab) nitroglycerin (nitroglycerin 0.4 mg sublingual Tab) omega-3 polyunsaturated fatty acids ([employer] hellofoody Red Krill Oil) ubiquinone (CoQ10) Procedures Performed cysto w/ stent removal (03/20/2019), ESWL - Extracorporeal shockwave lithotripsy for renal calculus(09/11/2015), ESWL - Extracorporeal shockwave lithotripsy for renal [...] Sotero STEPHEN MD Where: [facility] [address] [place] [address]- You Need to Schedule the Following Appointments Follow Up with Sotero STEPHEN MD, URL When: Comments: 1 yr w/ KUB Where: [facility] [address], [place] [address]- [phone] Medications What How Much When Instructions Unchanged [...] about 300 mg of calcium at each meal.Foods that contain 200???500 mg of c (more content not included)...[facility] Office/Clinic Noteon 70-15-2920Ruchotv Office/Clinic NoteUrology Office/Clinic Note Chief Complaint 1 yr kub [...] own. Shares he was hospitalized in the for obstructing ureteral stone. Metabolic workup 09/08/22 - low urine volume. KUB 08/31/23 - probable 5 mm lower pole left renal calculus. Eval is limited due to overlying bowelcontents. KUB 09/01/24 [facility] - Report pending. Personal review: stone in left kidney, bowel content limits viewon right. Possible small right renal calculus Taking Effer-K 20mEq bid. Denies any stone episodes since last encounter. Reviewed imaging results with pt. Recommended pt to continue current regimen to prevent stone growth/formation. -Cont Effer-K. Pt to call for refills. -JUANITA in 1 year Follow-up With When Contact Information TIANA CLAYTON, Sotero Mejia, [facility] [address], [place] [address]- [phone] Additional Instructions: 1 yr w/ KUB Patient Education Dietary Documentation recorded by the scribeLarissa, accurately reflects the services(s) I performed and [...] ESWL - Extracorporeal shockwave lithotripsy for renal calculus(09/11/2015), ESWL - Extracorporeal shockwave lithotripsy for renal [...] Smokeless Tobacco Use:. Cig (more content not included)...[facility] HospitalComment on above:Result Comment: Electronically Signed By: Sotero STEPHEN MD\.br\Date and Time Signed: 09/03/24 10:13 EST\.br\Electronically Co-Signed By: Larissa Oreilly\.br\Date and Time Co-Signed: 09/03/24 10:05 ESTOffice Visiton 05-14-2024 Follow-up [id number] Chey Freire 1940 M Date Provider Department Center 05/14/2024 271-TOMMYTAADOLFO, [facility] Family History Problem Relation Age of Onset Other Mother Hypertension Mother Heart attack Father Family Status - Relation Status Age at Mother Father Level of Service:41[address] [place] OFFICE/OUTPATIENT ESTABLISHED LOW MDM [address] [facility] CenterED Note-Physicianon [id number] Note-PhysicianED Note-Physician Basic Information Time Seen: Jeromy Jaramillo PA-C 03/19/2024 14:08 Chief Complaint Pt presents to [...] all over his body. Denies any feeling thathis throat is closing. Denies any known allergies to bees ever before. States he is never needed EpiPen before. States otherwise doing okay. Review of Systems No other aggravating or relieving factors no other associated symptoms no other prior treatments orcomplaints. Family: Reviewed and noncontributory Social: lives at [...] and Complexity of Problems Differential Diagnosis: [] [facility] Data External documents reviewed: [] My [...] well as did give the patient Solu-Medrol, Pepcid,and Benadryl. Did greatly improve his symptoms. Patient stated that he did have resolution within 10 minutes. Due to this, we did do lab work. Laboratory noted. No acute changes seen. I discussed thepatient I would like to observe him based [...] Toxic effect of venom of bees, accidental (unintentional),initial encounter) Orders: diphenhydrAMINE, 50 mg = 1 mL, Injection, IV Push, Once, Stop date 03/19/24 14:08:00 EDT, STAT, Start date 03/19/24 14:08:00 EDT, 03/19/24 14:08:00 EDT epinephrine, 0.3 mg = 0.3 mL, Injection, IntraMuscular, Once, Stop date 03/19/24 14:09:00 EDT, STAT, Start date 03/19/24 14:09:00 EDT, 03/19/24 14:09:00 EDT epinephrine, 0.15 mg, SubCutaneous, Once, PRN for anaphylaxis, # 1 EA, Refills(s) 0, Pharmacy: [facility], 160, cm, 03/19/24 14:08:00 EDT, Height/Length Dosing, 63.3, kg, 03/19/24 14:08:00EDT, Weight Dosing famotidine, 20 mg = 2 mL, Soln-IV, IV Push, Once, Stop date 03/19/24 14:08:00 EDT, STAT, Start date03/19/24 14:08:00 EDT, 03/19/24 14:08:00 EDT methylPREDNISolone, 125 mg = 2 mL, Injection, IV Push, Once, Stop date 03/19/24 14:08:00 EDT, STAT,Start date 03/19/24 14:08:00 EDT, 03/19/24 14:08:00 EDT predniSONE, 50 mg = 1 tab(s), Oral, Daily, X 7 day(s), # 7 tab(s), Refills(s) 0, [facility], cm, 03/19/24 14:08:00 EDT, Height/Length Dosing, 63.3, kg, 03/19/24 14:08:00 EDT, Weight Dosing Basic Metabolic Panel CBC w/ Auto Diff ECG 12 Lead Adult ED Cardiac Monitoring eGFR Extra SST Tube Oxygen Saturation Oxygen Therapy PT & PTT Saline Lock Insert Troponin 0 Hr. Troponin 1 Hr. XR Chest Sing (more content not included)...NormalMartins Ferry Hospital Comment on above:Result Comment: Electronically Signed By: Jeromy Jaramillo PA-C\.br\Date and Time Signed: 03/19/2418:40 EDT\.br\Electronically Co-Signed By: Abelino Garcia MD\.br\Date and Time Co-Signed: 03/22/24 05:55 EDTBMPon 03-19-2024 Anion gap [Moles/Vol]9 mmol/LNormal6-16Mart[facility] Ferry HospitalComment on above:Performed By: #### [id number] #### [facility] [address], [place] [address]Afuqzpb [Mass/Vol]9.2 mg/dLNormal8.9-11.1FMiddletown HospitalComment on above:Performed By: #### [id number] #### [facility] [address], [place] [address]Uhefyccn [Moles/Vol]106 mmol/QZkdvil877-593RoksgaMartins Ferry HospitalComment on above:Performed By: #### [id number] #### [facility] [address], [place] [address]JY8 [Moles/Vol]32 mmol/ZVeqe85-65OjwculMartins Ferry Hospital Comment on above:Performed By: #### [id number] #### [facility] [address], [place] [address]Vbcvsapqpr [Mass/Vol]1.1 mg/dLNormal0.5-1.3FMiddletown HospitalComment on above:Performed By: #### [id number] #### [facility] [address], [place] [address]Kfmlwsd [Mass/Vol]134 mg/pPQsolut08-324LtabzlMartins Ferry HospitalComment on above:Performed By: #### [id number] #### [facility] [address], [place] [address]Ssfnblhzx [Moles/Vol]4.0 mmol/LNormal3.5-5.3FMiddletown HospitalComment on above:Performed By: #### [id number] #### [facility] [address], [place] [address]Jihiub [Moles/Vol]143 mmol/FKpcevy023-449HgulkxMartins Ferry HospitalComment on above:Performed By: #### [id number] #### [facility] [address], [place] [address]Fbkq nitrogen [Mass/Vol]17 mg/dLNormal5-21Martins Ferry HospitalComment on above:Performed By: #### [id number] #### [facility] [address] [place] [address]Rwik nitrogen/Creatinine [Mass ratio]16 No FmklhYikmrw25-84 [facility] Ferry HospitalComment on above:Performed By: #### [id number] #### [facility] [address] [place] [address]EWJ w/ Auto Diffon 46-86-4193Nnpgyewkr/100 WBC (Bld)0.5 %Normal 0.0-2.0Martins Ferry HospitalComment on above:Performed By: #### [id number] #### [facility] [address] [place] [address]Xqphdtqki/Leukocytes Auto (Bld) [Pure # fraction]0.0 E9/LNormal 0.0-0.2FMiddletown HospitalComment on above:Performed By: #### [id number] #### [facility] [address] [place] [address]Xkczeaxhrqg (Bld) [#/Vol]0.2 E9/LNormal0.0-0.5FMiddletown HospitalComment on above:Performed By: #### [id number] #### [facility] [address], [place] [address]Tyjavimwplo/100 WBC (Bld)3.4 %Normal0.0-8.0Martins Ferry HospitalComment on above:Performed By: #### [id number] #### [facility] [address] [place] [address]Wvhtflhrtdj distribution width (RBC) [Ratio]13.7 %Normal 10.9-14.2FMiddletown HospitalComment on above:Performed By: #### [id number] #### [facility] [address] [place] [address]Cmbudntjis (Bld) [Volume fraction]41.8 %Ktjfcn03.7-49.0Martins Ferry HospitalComment on above:Performed By: #### [id number] #### [facility] [address] [place] [address]Pvhdmwtvhm (Bld) [Mass/Vol]14.4 g/gFJxlxpf70.5-17.5FMiddletown HospitalComment on above:Performed By: #### [id number] #### [facility] [address] [place] [address]Sqtsqpuepua (Bld) [#/Vol]2.4 E9/LNormal1.0-4.0[facility] Ferry HospitalComment on above:Performed By: #### [id number] #### [facility] [address] [place] [address]Tuiwkmcuepv/100 WBC (Bld)40.4 %Hlufdn32.0-50.0Mart[facility] Ferry HospitalComment on above:Performed By: #### [id number] #### [facility] [address] [place] [address]JNA (RBC) [Entitic mass]30.6 fuZpuadf37.0-34.0Mart[facility] Ferry HospitalComment on above:Performed By: #### [id number] #### [facility] [address] [place] [address]KFHV (RBC) [Mass/Vol]34.4 g/mWLfqhyv14.4-36.0Mart[facility] Ferry HospitalComment on above:Performed By: #### [id number] #### [facility] [address] [place] [address]HJU (RBC) [Entitic vol]88.9 qHYprzdb45.0-100.0Mart[facility] Ferry HospitalComment on above:Performed By: #### [id number] #### [facility] [address] [place] [address]Ydsifgeza (Bld) [#/Vol]0.4 E9/LNormal0.2-1.0[facility] Ferry HospitalComment on above:Performed By: #### [id number] #### [facility] [address] [place] [address]Gsxionenshb (Bld) [#/Vol]2.9 E9/LNormal2.0-7.5FMiddletown HospitalComment on above:Performed By: #### [id number] #### [facility] [address] [place] [address]Afxytgoknfe/100 WBC (Bld)49.2 %Kzmcxl94.0-75.0Martins Ferry HospitalComment on above:Performed By: #### [id number] #### [facility] [address] [place] [address]Yljjraqu386.0 E9/HGsycem692.0-500.0[facility] Comment on above:Performed By: #### [id number] #### [facility] [address] [place] [address]Fjvufict mean volume (Bld) [Entitic vol]9.1 fLNormal6.4-10.8 [facility] Ferry HospitalComment on above:Performed By: #### [id number] #### [facility] [address] [place] [address]WYM (Bld) [#/Vol]4.7 E12/LNormal4.3-5.9[facility]oka Medical CenterComment on above:Performed By: #### [id number] #### [facility] [address], [place] [address]LHL corrected for nucl RBC Auto (Bld) [#/Vol]5.9 E9/LNormal 4.0-11.0[facility] CenterComment on above:Performed By: #### [id number] #### [facility] [address], [place] [address]UNDMJONBWLzlwlqd By: SYSTEM SYSTEM on 16-71-5154Krnnzsie HS4.90 pg/mLLow15.90 - 38.40 pg/mLRemisol ChemComment on above:Interpretive Data: The 95% CI (Confidence Interval) PPV (Positive Predictive Value) for myocardial i nfarction in females is 38 pg/mL, in males 51 pg/mL. The results should be used in conjunction withclinical conditions of myocardial infarction. (Access High Sensitivity Troponin I Instructions For Use, Dennis Diana, February 2018)Anion gap [Moles/Vol]9 mmol/LNormal6 - 16 mEq/LRemisol ChemCalcium [Mass/Vol]9.2 mg/dLNormal8.9 - 11.1 mg/dLRemisol ChemChloride [Moles/Vol]106 mmol/CEcblww232 - 111 mmol/LRemisol ChemCO2 [Moles/Vol]32 mmol/LHigh21 - 31 mmol/LRemisol ChemCreatinine [Mass/Vol]1.1 mg/dLNormal0.5 - 1.3 mg/dLRemisol VrtvtTCD59 mL/min/1.73 f9Dnmyhe>=59mL/min/1.73 e3Nsfyalp ChemGlucose [Mass/Vol] 134 mg/xNIpqxae00 - 199 mg/dLRemisol ChemPotassium [Moles/Vol]4.0 mmol/LNormal 3.5 - 5.3 mmol/LRemisol ChemSodium [Moles/Vol]143 mmol/KAfgjtf539 - 145 mmol/L Remisol ChemTroponin HS4.20 pg/mLLow15.90 - 38.40 pg/mLRemisol ChemComment on above:Interpretive Data: The 95% CI (Confidence Interval) PPV (Positive Predictive Value) for myocardial infarction in females is 38 pg/mL, in males 51 pg/mL. The results should be used in conjunction withclinical conditions of myocardial infarction. (Access High Sensitivity Troponin I Instructions For Use, Dennis Anthony, February 2018)Urea nitrogen [Mass/Vol]17 mg/dLNormal5 - 21 mg/dLRemisol ChemUrea nitrogen/Creatinine [Mass ratio]16 mg/tlIxkuxj12 - 20Remisol ChemCOAGULATION Ordered By: Ankur Mix on 56-80-9262lJNZ Coag (PPP) [Time]26.4 vLzstig55.1 - 36.5 second(s)[facility] [place] [place] Auto CoagComment on above:Interpretive Data: Parameter 15 days - 4 weeks 1 - [...] the same coagulation reagent and instrumentation as [facility]. Currently there are no coagulation studies available worldwide for children to 14 days, andno normal ranges. Heparin therapeutic range (represented by Anti-Factor Xa activity of 0.2 - 0.4 U/mL) corresponds to PTT of 56.6 - 109.0 sec.INR Coag (PPP) [Relative time]1.13 {INR}Invalid Interpretation CodeOK [facility] [place] Auto CoagComment on above:Interpretive Data: INR results are specifically intended to assess patients stabilized on long-term Anticoagulation therapy suggested INR s Less Intensive Anticoagulation 2.0 3.0 Conventional Range 3.0 4.5PT Coag (PPP) [Time]12.7 sHigh9.4 - 12.5 second(s)[facility] [place] Auto CoagComment on above:Interpretive Data: 15 days - 4 weeks 1 - [...] the same coagulation reagent and instrumentation as [facility] [place]. Currently there are no coagulation studies available worldwide for children to 14 days, andno normal ranges.ED Clinical Summaryon [id number] Clinical SummaryED Clinical Summary [place] [address] ED Clinical Summary Person Information Name: CHEY FREIRE [facility] Age: 83 Years : 1940 Sex: Male Language: Maltese PCP: Ang Chilel MD Marital Status: Visit [...] 03/19/2024 17:59:57 03/19/2024 17:59:57 03/19/2024 17:59:57 ADDR[place]: [id number] [place] [id number] PHYS DOC NOTES: MEDICAL INFORMATION: Prescriptions Given: New Medications [facility], [address] [facility] [place], [place] [id number], [phone] predniSONE (predniSONE 50 mg Tab) 1 Tablets [...] for chest pain. omega-3 polyunsaturated fatty acids ([employer] B[employer] Red Krill Oil) 1 Milligram By Mouth every day. potassium bicarbonate (Effer-K 20 mEq oral tablet, effervescent) 1 Tablets By Mouth 2 times a day. Refills: 11. ubiquinone (CoQ10) By Mouth every day. PATIENT EDUCATION INFORMATION: Instructions: Anaphylactic Reaction, Adult, Wfqd-kq-Hioy Follow up: With: Address: When: Ang Chilel [address] [place] [address], [facility] [place] [address] Business (1) In 3 days 03/22/2024 Comments: Call Dr for diagnosis based follow up DIAGNOSIS: Bee sting-induced anaphylaxisNormalWhite Hospital CenterED Patient Summary on [id number] Patient SummaryED Patient Summary [address] [address] Patient Discharge Instructions Person Information Name: CHEY FREIRE Age: 83 Years Arrival Date: 03/19/2024 14:01:03 Discharge Diagnosis: Bee sting-induced anaphylaxis Primary Care Physician: Ang Chilel MD Provider Information Primary Provider: Advanced Feller Machine Operator:None The exam and treatment you received in the Emergency Department were for an urgent problem and are not intended as complete care. It is important that you follow up with a doctor, nurse practitioner,or physician?s commercial lines assistant for ongoing care. If your symptoms [...] Follow-up Instructions: With: Address: When: [facility] [facility], [address] [place] [id number] Business (1) In 3 days 03/22/2024 Comments: Call Dr for diagnosis based follow up In the event that this physician does not participate in your insurance network, please consult with your insurance company to find a nearby participating provider. Patient Education Materials: Anaphylactic Reaction, Adult, Qqwn-zk-Iulp A MESSAGE TO ALL PATIENTS REGARDING OPIOIDS PRESCRIPTION OPIOIDS: WHAT YOU NEED TO KNOW Prescription opioids can be used to help relieve yiitxuui-ms-enmpbl pain and are often prescribed following a [...] and have fewer risks and side effects. Optionsmay include: ? Pain relievers such as acetaminophen, [...] unused prescription opioids: Find your community drug take- back program or [employer] mail-back program, or flush them down the toilet, following guidance from the Food and Drug Administration (www.fda.gov/Drugs/ResourcesForYou). ? Visit www.cdc.gov/drugoverdose to learn about the risks of opioids abuse and overdose. ? If you believe you may be struggling with addiction, tell your health medicare compliance auditor and ask for guidance or c (more content not included)...Normal [facility] HospitalHEMATOLOGYOrdered By: SYSTEM SYSTEM on 03-19-2024 Basophils/100 WBC (Bld)0.5 %Normal0.0 - 2.0 %Remisol HemeBasophils/Leukocytes Auto (Bld) [Pure # fraction]0.0 E9/LNormal0.0 - 0.2 E9/LRemisol HemeEosinophils (Bld) [#/Vol]0.2 E9/LNormal0.0 - 0.5 E9/LRemisol HemeEosinophils/100 WBC (Bld) 3.4 %Normal0.0 - 8.0 %Remisol HemeErythrocyte distribution width (RBC) [Ratio] 13.7 %Xdlgvx15.9 - 14.2 %Remisol HemeHematocrit (Bld) [Volume fraction]41.8 % Hduyar18.7 - 49.0 %Remisol HemeHemoglobin (Bld) [Mass/Vol]14.4 g/wRVeydtu96.5 - 17.5 gm/dLRemisol HemeLymphocytes (Bld) [#/Vol]2.4 E9/LNormal1.0 - 4.0 E9/L Remisol HemeLymphocytes/100 WBC (Bld)40.4 %Ggflgc54.0 - 50.0 %Remisol HemeMCH (RBC) [Entitic mass]30.6 igJmbhwm90.0 - 34.0 pgRemisol HemeMCHC (RBC) [Mass/Vol] 34.4 g/wMTsunko91.4 - 36.0 gm/dLRemisol HemeMCV (RBC) [Entitic vol]88.9 fLNormal 80.0 - 100.0 fLRemisol HemeMonocytes (Bld) [#/Vol]0.4 E9/LNormal0.2 - 1.0 E9/L Remisol HemeMonocytes/100 WBC (Bld)6.5 %Normal4.0 - 14.0 %Remisol Heme Neutrophils (Bld) [#/Vol]2.9 E9/LNormal2.0 - 7.5 E9/LRemisol HemeNeutrophils/100 WBC (Bld)49.2 %Ozzazh16.0 - 75.0 %Remisol BikiZcwittbh357.0 E9/SNjvfsb552.0 - 500.0 E9/LRemisol HemePlatelet mean volume (Bld) [Entitic vol]9.1 fLNormal6.4 - 10.8 fLRemisol HemeRBC (Bld) [#/Vol]4.7 E12/LNormal4.3 - 5.9 E12/LRemisol Heme WBC corrected for nucl RBC Auto (Bld) [#/Vol]5.9 E9/LNormal4.0 - 11.0 E9/L Remisol HemePT & PTTon 55-10-4114lWNR Coag (PPP) [Time]26.4 second(s)Normal 25.1-36.5FMiddletown HospitalComment on above:Result Comment: Parameter 15 days - 4 weeks 1 - [...] the same coagulation reagent and instrumentation as [facility] [place]. Currently there are no coagulation studies available worldwide for children to 14 days, andno normal ranges. Heparin therapeutic range (represented by Anti-Factor Xa activity of 0.2 - 0.4 U/mL) corresponds to PTT of 56.6 - 109.0 sec.Performed By: #### [id number] #### [facility] [address], [place] [address]ZID Coag (PPP) [Relative time]1.13 {INR}Invalid Interpretation CodeDionicioGrace Medical CenterComment on above:Result Comment: INR results are specifically intended to assess patients stabilized on long-term Anticoagulation therapy suggested INR?s ?Less Intensive Anticoagulation? 2.0 ? 3.0 Conventional Range 3.0 ? 4.5Performed By: #### [id number] #### [facility] [address], [place] [address]HM Coag (PPP) [Time]12.7 second(s)High9.4-12.5FMiddletown HospitalComment on above:Result Comment: 15 days - 4 weeks 1 - [...] the same coagulation reagent and instrumentation as [facility] [place]. Currently there are no coagulation studies available worldwide for children to 14 days, andno normal ranges.Performed By: #### [id number] #### [facility] [address], [place] [address]Wxcwgqrw 0 Hr.on 47-54-7209Sjzekqlo HS4.20 pg/mLLow15.90-38.40 [facility] HospitalComment on above:Result Comment: The 95% CI (Confidence Interval) PPV (Positive Predictive Value) for myocardial infarction in females is 38 pg/mL, in males 51 pg/mL. The results should be used in conjunction with clinical conditions of myocardial infarction. (Access High Sensitivity Troponin I Instructions For Use, [employer] February 2018)Performed By: #### [id number] #### [facility] [address], [place] [address]Lgtssfgq 1 Hr.on 02-66-0134Dysdloqa HS4.90 pg/mLLow15.90-38.40 [facility] HospitalComment on above:Result Comment: The 95% CI (Confidence Interval) PPV (Positive Predictive Value) for myocardial infarction in females is 38 pg/mL, in males 51 pg/mL. The results should be used in conjunction with clinical conditions of myocardial infarction. (Access High Sensitivity Troponin I Instructions For Use, [employer] February 2018)Performed By: #### [id number] #### [facility] [address], [place] [address]FY Chest Single Viewon [id number] Chest Single ViewExam Date/Time: 03/19/2024 14:43 EDT Reason for Exam: [...] Ka,r in mGy = . DAP = .NormalMartins Ferry HospitaleGFRon [id number] mL/min/1.73 m2 Normal>=59[facility] Ferry HospitalComment on above:Order Comment: Order added by Discern Expert.Performed By: #### [id number] #### [facility] [address], [place] [address]OXN AUTO DIFFon [id number] #0.0 103/ulNormal0.0-0.1[facility] ShawComment on above:Performed By: #### CBC #### [facility] [address] [place] [address] [address] Miguel Angel CassidyBasophils/100 WBC (Bld)0.4 %Normal0.2-2.0[facility] Comment on above:Performed By: #### CBC #### [facility] [address] [address] [address] Miguel Angel Lorenzana #0.2 103/ulNormal0.0-0.7The [facility] HospitalComment on above: Performed By: #### CBC #### [facility] [address] [place] [address] [address] Miguel Angel Lockwoodosinophils/100 WBC (Bld)2.4 %Normal0.9-7.0[facility] Comment on above:Performed By: #### CBC #### [facility] [address] [place] [address] Dr. Miguel Angel Lockwoodrythrocyte distribution width (RBC) [Ratio]12.5 %Poevyz12.0-15.0 The [facility] HospitalComment on above:Performed By: #### CBC #### [facility] [address] [place] [address] Dr. Miguel Angel CassidyHematocrit (Bld) [Volume fraction]44.1 %Xeshdt30.0-54.0The [facility] HospitalComment on above:Performed By: #### CBC #### [facility] [address] [place] [address] Dr. Miguel Angel CassidyHemoglobin (Bld) [Mass/Vol]14.4 g/tIFofdre68.0-18.0The [facility] HospitalComment on above:Performed By: #### CBC #### [facility] [address] [place] [address] Dr. Miguel Angel Fountain #0.02 10e3/ulNormal0.00-0.03The [facility] HospitalComment on above:Performed By: #### CBC #### [facility] [address] [place] [address] Dr. Miguel Angel Fountain %0.3 %Normal0.0-0.5The [facility] HospitalComment on above: Performed By: #### CBC #### [facility] [address] [place] [address] Dr. Miguel Angel LondonoH #3.0 103/ulNormal1.2-3.8The [facility] HospitalComment on above:Performed By: #### CBC #### [facility] [address] [place] [address] Dr. Miguel Angel Hargrovemphocytes/100 WBC (Bld)38.3 %Jwgtmw63.5-60.0The [facility] HospitalComment on above:Performed By: #### CBC #### [facility] [address] [place] [address] Dr. Miguel Angel KennyUAL DIFF REQNONormalThe [facility] HospitalComment on above: Performed By: #### CBC #### [facility] [address] [place] [address] Dr. Miguel Angel James (RBC) [Entitic mass]29.3 zyTcojkf41.9-34.0The [facility] HospitalComment on above:Performed By: #### CBC #### [facility] [address] [place] [address] Dr. Miguel Angel James (RBC) [Mass/Vol]32.7 g/tPMumewb70.9-35.2The [facility] HospitalComment on above:Performed By: #### CBC #### [facility] [address] [place] [address] Dr. Miguel Angel James (RBC) [Entitic vol]89.6 fAKtojxf18.0-94.0The [facility] HospitalComment on above:Performed By: #### CBC #### [facility] [address] [place] [address] Dr. Miguel Angel Liang #0.8 103/ulNormal0.3-0.8The [facility] HospitalComment on above:Performed By: #### CBC #### [facility] [address] [place] [address] Dr. Miguel Angel Lopezocytes/100 WBC (Bld)10.2 %Normal1.7-12.0The [facility] Comment on above:Performed By: #### CBC #### [facility] [address] [place] [address] Dr. Miguel Angel Diaz #3.9 103/ulNormal1.4-6.5The [facility] HospitalComment on above:Performed By: #### CBC #### [facility] [address] [place] [address] Dr. Miguel Angel Coelloutrophils/100 WBC (Bld)48.4 %Xmvpfr72.0-75.0The [facility] HospitalComment on above:Performed By: #### CBC #### [facility] [address] [place] [address] Dr. Miguel Angel Becerrillet mean volume (Bld) [Entitic vol]11.6 fLNormal9.5-13.5The [facility] HospitalComment on above:Performed By: #### CBC #### [facility] [address] [place] [address] Dr. Miguel Angel CassidyPLT148 103/ulCritically auw152-351Sdk [facility] HospitalComment on above:Performed By: #### CBC #### [facility] [address] [place] [address] Dr. Miguel Angel CassidyRBC4.92 106/ulNormal4.70-6.10The [facility] HospitalComment on above:Performed By: #### CBC #### [facility] [address] [place] [address] Dr. Miguel Angel CassidyWBC7.9 103/ulNormal4.0-11.0[facility] ShawComment on above: Performed By: #### CBC #### [facility] [address] [place] [address] Dr. Miguel Angel Diaz THYROXINE INDEX T7on 70-27-1542TXA1.44Fvlgtw6.30-4.50[facility] ShawComment on above:Performed By: #### URIC 24 #### [facility] [address] [place] [address] Dr. Miguel Angel CassidyT3U33.0 %Nimdnm79.0-40.0[facility] ShawComment on above: Performed By: #### URIC 24 #### [facility] [address] [place] [address] Dr. Miguel Angel CassidyT4 [Mass/Vol]5.30 ug/dLNormal4.50-12.10ThSumma Health [facility] Comment on above:Performed By: #### URIC 24 #### [facility] [address] [place] [address] Dr. Miguel Angel CassidyLIPID PROFILEon 95-99-2881LBLV-HDL RATIO NORMSEE Mercy HospitalComment on above:Result Comment: 3.3 - 4.4 LOW RISK 4.4 - 7.1 AVERAGE RISK 7.1 - 11.0 MODERATE RISK >11.0 HIGH RISKPerformed By: #### URIC 24 #### [facility] [address] [address] [address] Miguel Angel CassidyCholesterol [Mass/Vol]141 mg/dLNormal<=200[facility] Comment on above:Performed By: #### URIC 24 #### [facility] [address] [address] [address] Miguel Angel CassidyCholesterol in HDL [Mass/Vol]48 mg/mCYjecif97-21Goj [facility] HospitalComment on above:Performed By: #### URIC 24 #### [facility] [address] [address] [address] Miguel Angel CassidyCholesterol in LDL [Mass/Vol]80.4 mg/dLCleveland Clinic Fairview HospitalComment on above:Performed By: #### URIC 24 #### [facility] [address] [place] [address] Dr. Miguel Angel Lagunasesterjohn.total/Cholesterol in HDL [Mass ratio]2.9 {ratio} NormalThe [facility] HospitalComment on above:Performed By: #### URIC 24 #### [facility] [address] [place] [address] Dr. Miguel Angel Lock NORMAL> or = 60 mg/dl - LOW CARDIOVASCULAR RISK <40 mg/dl - HIGH CARDIOVASCULAR RISKCleveland Clinic Fairview HospitalComment on above:Performed By: #### URIC 24 #### [facility] [address] [place] [address] Dr. Miguel Angel CassidyLDL CALC NORMALSEE BELOWNoSelect Medical Specialty Hospital - YoungstownComment on above:Result Comment: <100 mg/dl OPTIMAL 100 - 129 mg/dl NEAR OR ABOVE OPTIMAL 130 - 159 mg/dl BORDERLINE HIGH 160 - 189 mg/dl HIGH >190 mg/dl VERY HIGH Performed By: #### URIC 24 #### [facility] [address] [place] [address] Dr. Miguel Angel CassidyTriglyceride [Mass/Vol]63 mg/dLNormal<=150[facility] Comment on above:Performed By: #### URIC 24 #### [facility] [address] [place] [address] Dr. Miguel Angel CassidyVLDL CALC12.6 mg/dLNormalThe [facility] HospitalComment on above: Performed By: #### URIC 24 #### [facility] [address] [place] [address] Dr. Miguel Angel OrdazF CHEM 8 (BAS METB)on 98-93-6221Hemlh gap [Moles/Vol]13.1 mmol/LNormalThe [facility] HospitalComment on above:Performed By: #### URIC 24 #### [facility] [address] [place] [address] Dr. Miguel Angel CassidyCalcium [Mass/Vol]8.8 mg/dLNormal8.5-10.1The [facility] Comment on above:Performed By: #### URIC 24 #### [facility] [address] [place] [address] Dr. Miguel Angel CassidyChloride [Moles/Vol]108 mmol/LCritically xzec34-992Zcw [facility] HospitalComment on above:Performed By: #### URIC 24 #### [facility] [address] [place] [address] Dr. Miguel Angel CassidyCO2 [Moles/Vol]29.7 mmol/KYjtgql44.0-32.0The [facility] Comment on above:Performed By: #### URIC 24 #### [facility] [address] [place] [address] Dr. Miguel Angel CassidyCreatinine [Mass/Vol]1.03 mg/dLNormal0.70-1.30The [facility] HospitalComment on above:Performed By: #### URIC 24 #### [facility] [address] [place] [address] Dr. Miguel Angel LockwoodGFR-AF IVORIAN>60Normal>=60The [facility] HospitalComment on above:Performed By: #### URIC 24 #### [facility] [address] [place] [address] Dr. Miguel Angel LockwoodGFR-NON AF IVORIAN>60Normal>=60The [facility] HospitalComment on above:Performed By: #### URIC 24 #### [facility] [address] [place], [place] [id number] Dr. Miguel Angel CassidyGlucose [Mass/Vol]106 mg/rKFbfnrx77-942Zpl [facility] Comment on above:Performed By: #### URIC 24 #### [facility] [address] [place] [address] Dr. Miguel Angel CassidyPotassium [Moles/Vol]4.8 mmol/LNormal3.5-5.1The [facility] Comment on above:Performed By: #### URIC 24 #### [facility] [address] [place] [address] Dr. Miguel Angel CassidySodium [Moles/Vol]146 mmol/LCritically cfjq408-597Crk [facility] HospitalComment on above:Performed By: #### URIC 24 #### [facility] [address] [place] [address] Dr. Miguel Angel CassidyUrea nitrogen [Mass/Vol]14.0 mg/dLNormal7.0-18.0The [facility] HospitalComment on above:Performed By: #### URIC 24 #### [facility] [address] [place] [address] Dr. Miguel Angel CassidyUrea nitrogen/Creatinine [Mass ratio]13.6 mg/mgNormalThe [facility] HospitalComment on above:Performed By: #### URIC 24 #### [facility] [address] [place] [address] Dr. Miguel Angel CassidyTSHobeti 10-99-7277BGZ5.017 uIU/mLNormal0.358-3.740The [facility] HospitalComment on above:Performed By: #### URIC 24 #### [facility] [address] [place] [address] Dr. Miguel Angel CassidyOXALATE 24HR URINEon 99-62-4849Mwobcnrp, Urine34 mg/LNormal UndefinedThe [facility] HospitalComment on above:Performed By: #### OX24HR #### [facility] [address] [place] [address] Dr. Miguel Angel CassidyOxalates, Urine 24hr34 mg/24 hrNormal7-44The [facility] Comment on above:Performed By: #### OX24HR #### [facility] [address] [place] [address] Dr. Miguel Angel CassidyCITRATE URINE 24HRon 86-94-8699Qzrvda Acid, U, 03eh1311 mg/24 hr Vbrnmk383-8553Zwy [facility] on above:Result Comment: This test was developed and its performance characteristics determined by [facility]. It has not been cleared or approved by the Food and Drug Administration.Performed By: #### CITRATU #### [facility] [address] [place] [address] Dr. Miguel Angel CassidyCitric Acid, Pqqcv9724 mg/LNormalUndefinedThe [facility] Comment on above:Performed By: #### CITRATU #### [facility] [address] [place] [address] Dr. Miguel Angel CassidyMAGNESIUM 24HR URINEon 43-60-3448Wedjzhibl 24hr Urine88.0 mg/24 rwDpxsnz59.0-293.0The [facility] HospitalComment on above:Performed By: #### CITRATU #### [facility] [address] [place] [address] Dr. Miguel Angel CassidyMagnesium UR8.8 mg/dLNormalNot Estab.The [facility] HospitalComment on above:Performed By: #### CITRATU #### [facility] [address] [place] [address] Dr. Miguel Angel CassidyPHOSPHORUS 24HR URINEon 91-16-0612Mmilrsurcd, Urine97.8 mg/dL NormalNot Estab.The [facility] HospitalComment on above:Performed By: #### CITRATU #### [facility] [address] [place] [address] Dr. Miguel Angel CassidyPhosphorus, Urine 04qm417 mg/24 uiIpyazf380-9543Rbu [facility] HospitalComment on above:Performed By: #### CITRATU #### [facility] [address] [place] [address] Dr. Miguel Angel CassidyPTH INTACTon 78-95-3507AUL, Stnqui99 pg/wOEjswzb19-14Gho [facility] HospitalComment on above:Performed By: #### URIC 24 #### [facility] [address] [place] [address] Dr. Miguel Angel CassidyURIC ACID 24 HR URINEon 85-06-8888Yumn Acid, Urine43.6 mg/dL NormalNot Estab.The [facility] HospitalComformerly [facility] on above:Performed By: #### URIC 24 #### [facility] [address] [place] [address] Dr. Miguel Angel CassidyUric Acid, Urine 95lx946.0 mg/24 jfYddyqe611.1-771.1The [facility] HospitalComment on above:Performed By: #### URIC 24 #### [facility] [address] [place] [address] Dr. Miguel Angel GuerreroNon 74-28-2106Ziop nitrogen [Mass/Vol]13.0 mg/dLNormal7.0-18.0 The [facility] HospitalComformerly [facility] on above:Performed By: #### URIC 24 #### [facility] [address] [place] [address] Dr. Miguel Angel CassidyCALCIUMon 67-29-5696Qyfpgcf [Mass/Vol]8.9 mg/dLNormal8.5-10.1The [facility] HospitalComformerly [facility] on above:Performed By: #### URIC 24 #### [facility] [address] [place] [address] Dr. Miguel Angel CassidyCALCIUM 24 HR URINEon 13-55-0206BGJG, 24 HR UR138.0 mg/24 hr Hbzejb617.0-300.0The [facility] HospitalComformerly [facility] on above:Performed By: #### URIC 24 #### [facility] [address] [place] [address] Dr. Miguel Angel Mallory QNIJJWF61.8 mg/dLNormal5.1-21.0The [facility] on above:Performed By: #### URIC 24 #### [facility] [address] [place] [address] Dr. Miguel Angel Mallory TOT WLU7557 ml/24 HRNormalThe [facility] HospitalComformerly [facility] on above:Performed By: #### URIC 24 #### [facility] [address] [place] [address] Dr. Miguel Angel CassidyPerformed By: #### CITRATU #### [facility] [address] [place] [address] Dr. Miguel Angel CassidyCHLORIDEon 12-59-2779Uxnfjdry [Moles/Vol]107 mmol/KCcqdff26-300 The [facility] HospitalComment on above:Performed By: #### BUN, CL, CO2, CREA, K, URIC, CA, NA #### [facility] [address] [place] [address] Dr. Miguel Angel CassidyCO2on 59-92-1645AZ0 [Moles/Vol]31.6 mmol/MWgdupt43.0-32.0The [facility] HospitalComment on above:Performed By: #### BUN, CL, CO2, CREA, K, URIC, CA, NA #### [facility] [address] [place] [address] Dr. Miguel Angel Keys 24 HR URINEon 28-01-4475KDFI, 24 HR PJ4761.30 mg/24 hrNormal 1,000.00-2,000.00The [facility] HospitalComment on above:Performed By: #### CITRATU #### [facility] [facility] [address] [place] [address] Dr. Miguel Angel Roque UUQSQ761.33 mg/rKBctyqd91.00-300.00[facility] Comment on above:Performed By: #### CITRATU #### [facility] [address] [place] [address] Dr. Miguel Angel CassidyCREATININEon 32-44-6482Wgonzwpuvc [Mass/Vol]0.89 mg/dLNormal 0.70-1.30[facility] HospitalComment on above:Performed By: #### BUN, CL, CO2, CREA, K, URIC, CA, NA #### [facility] [address] [place] [address] Dr. Michelle ChangEGFR-AF IVORIAN>60Normal>=60[facility] HospitalComment on above:Performed By: #### BUN, CL, CO2, CREA, K, URIC, CA, NA #### [facility] [address] [place] [address] Dr. Miguel Angel LockwoodGFR-NON AF IVORIAN>60Normal>=60The [facility] on above:Performed By: #### BUN, CL, CO2, CREA, K, URIC, CA, NA #### [facility] [address] [place] [address] Dr. Miguel Angel CassidyNAon 35-04-4747Xbwhyh [Moles/Vol]143 mmol/HSnddbb015-825Pbl [facility] HospitalComformerly [facility] on above:Performed By: #### BUN, CL, CO2, CREA, K, URIC, CA, NA #### [facility] [address] [place] [address] Dr. Miguel Angel CassidyPOTASSIUMon 98-00-5071Edtyrbges [Moles/Vol]4.3 mmol/LNormal 3.5-5.1[facility] HospitalComment on above:Performed By: #### BUN, CL, CO2, CREA, K, URIC, CA, NA #### [facility] [address] [place] [address] Dr. Miguel Angel Young 24 HR URINEon 32-49-0580QD, 24 HR UR127 mmol/24 hrNormal 40-220The [facility] on above:Performed By: #### CITRATU #### [facility] [address] [place] [address] Dr. Miguel Angel Hopkinsum (U) [Moles/Vol]127 mmol/LCritically ejbe09-46Wou [facility] on above:Performed By: #### CITRATU #### [facility] [address] [place] [address] Dr. Miguel Angel CassidyURIC ACID SERUMon 08-51-5630Fupio [Mass/Vol]5.3 mg/dLNormal 3.5-7.2The [facility] on above:Performed By: #### URIC 24 #### [facility] [address] [place] [address] Dr. Miguel Angel Bartlett-19 PCR (CVDTBH)on 07-85-5341WCJW-CoV-2 (COVID-19) RNA SILVIA+probe Ql (Unsp spec)Not detectedNormalNOT DETECTEDThe [facility] Comment on above:Result Comment: This test is not yet approved or cleared by the [place] FDA. When there are no FDA-approved or cleared tests available, and other criteria are met, FDA can make tests available under an emergency access mechanism called an Emergency Use Authorization (EUA). The EUA for this test is supported by the Cable of Health and Human Service's (HHS's) declaration that circumstances exist to justify the emergency use of in vitro diagnostics for the detection and/or diagnosis of the virus that causes COVID- 19. This EUA will remain in effect (meaning [...] of clinical signs and symptoms consistent with SARS-CoV-2.Performed By: #### URIC 24 #### [facility] [address] [place] [address] Dr. Miguel Angel Vargas M/2D COMPLETEon 04-59-9818JTYIQPGBXO M/2D COMPLETE Patient: CHEY FREIRE Exam Date: 02/10/2022 : 1940 Gender:M Ordering : DR ANGELINA ZIMMERMAN M.D. Admission #: [id number] Family : DR ANG CHILEL . Order #: [id number] CLICK HERE TO VIEW EXAM ECHOCARDIOGRAM REPORT [...] by: Devang Daniel M.D. on 02/10/2022 at 15:50[facility] HospitalUS KIDNEYS BLADDERon 17-15-4373DI KIDNEYS BLADDEREXAMINATION: US KIDNEYS BLADDER HISTORY: Kidney stone COMPARISON: [...] Electronically authenticated by: FAIZA ARECHIGA Date: 2022-02-07 08:09[facility] HospitalXR KUB 1 VIEWon 79-63-1836DL KUB 1 VIEWEXAMINATION: XR KUB 1 VIEW HISTORY: Kidney stone [...] Electronically authenticated by: FAIZA ARECHIGA Date: 2022-02-05 12:59[facility] Vital Signs Date TimeVital SignValuePerforming UnelnngdxRbupqubi35-24-6318 09:40-0500Blood Pressure LocationPatrically STEPHEN [facility]02-17-2025 09:40-0500Body ruegppqgdhk95.6 [degF]Sotero STEPHEN [facility]02-17-2025 09:40-0500Diastolic blood mm[Hg]Sotero STEPHEN [facility]02-17-2025 09:40-0500Heart rate58 /minPaaamir TIANA [facility]02-17-2025 09:40-0500Systolic blood kjwobcgz074 mm[Hg]Sotero STEPHEN [facility]09-02-2024 17:58-0400Diastolic blood iujabsld51 mm[Hg]Abelino Garcia [facility]09-02-2024 17:58-0400Heart rate60 /minTim Jose [facility]09-02-2024 17:58-0400Mean blood hzfrncva38 mm[Hg]Abelino Garcia [facility]09-02-2024 17:58-0400 Respiratory rate16 /minTim Jose [facility]09-02-2024 17:58-9242LuG8% (BldA) [Mass fraction]96 %Abelino Garcia [facility]09-02-2024 17:58-0400 Systolic blood kqixhadr342 mm[Hg]Abelino Garcia [facility]09-02-2024 17:00-0400Heart rate56 /minTim Jose [address] [place], [place] 4628009-02-2024 17:00-0400Mean blood lgojxuty52 mm[Hg]Abelino Garcia [address] [place], [place] 4628009-02-2024 17:00-0292StO1% (BldA) [Mass fraction]99 %Abelino Garcia [address] [place], [place] 4628009-02-2024 17:00-0400 Systolic blood elwzfzdq390 mm[Hg]Abelino Garcia [address]09-02-2024 16:30-0400 Diastolic blood kdzvazus68 mm[Hg]Abelino Garcia [address]09-02-2024 16:30-0400Heart rate54 /minTim Jose [address]09-02-2024 16:30-0400Mean blood xaeuffvb99 mm[Hg]Abelino Garcia [address] [place], [place] 4628009-02-2024 16:30-0400 Respiratory rate19 /minTim Jose [address] [place], [place] 4628009-02-2024 16:30-2178FkR0% (BldA) [Mass fraction]98 %Abelino Garcia [address] [place], [place] 4628009-02-2024 16:30-0400 Systolic blood siumvsel595 mm[Hg]Abelino Garcia [address] [place], [place] 4628009-02-2024 14:13-0400 Respiratory rate18 /minTim Jose [address] [place], [place] 4628009-02-2024 14:00-0400Body qgkumldvzie40.7 [degF]Abelino Garcia [address] [place], [place] 4628009-02-2024 14:00-0400Heart rate53 /minTim Jose [facility]09-02-2024 14:00-0400 Respiratory rate20 /minTim Jose [facility]02-16-2024 09:58-0500Blood Pressure LocationPahazard [facility] centerally STEPHEN [facility]02-16-2024 09:58-0500Diastolic blood vvglqphe77 mm[Hg]Soteroaminta STEPHEN [facility]02-16-2024 09:58-0500Heart rate65 /minPatrick STEPHEN [facility]02-16-2024 09:58-0500Respiratory rate16 /minPatrick STEPHEN [facility]02-16-2024 09:58-0500Systolic blood pixxgjjz844 mm[Hg]Sotero STEPHEN [facility]02-17-2023 09:18-0500Blood Pressure LocationPatric STEPHEN [facility]02-17-2023 09:18-0500Diastolic blood spgacjmk59 mm[Hg]Soteroaminta STEPHEN [facility]02-17-2023 09:18-0500Heart rate70 /minPatrick STEPHEN [facility]02-17-2023 09:18-0500Respiratory rate16 /minPatrick STEPHEN [facility]02-17-2023 09:18-0500Systolic blood qdrvgfim192 mm[Hg]Sotero STEPHEN [facility]11-15-2022 15:52-0500Blood Pressure LocationMichael NILL [facility] Alcopeqt53-64-8887 15:52-0500Diastolic blood tdwqybyx74 mm[Hg]Holli NILL [facility] Vktcvfqz90-28-3996 15:52-0500Heart rate 68 /minMichael NILL [facility] Surgery Eoyczfpk99-76-9722 15:52-0500 Respiratory rate16 /minMichael NILL [facility] Surgery Lvdjjabz05-48-3626 15:52-0500Systolic blood mm[Hg]Holli NILL [facility] [place] Encounters Encounter DateEncounter TypeCare ProviderFacilityStart: 97-52-0271dmksflmvum Sotero STEPHENFacility:EU ueStart: 09-03-2024 End: 52-14-6081iedmmwhdcnVywmgua R WATERSFacility:EU Herbstertart: 09-03-2024 End: 27-20-9794Uqcsjui encounter procedurePaaamir STEPHEN [facility] start: 05-14-2024 End: 92-90-8870hvfgiwecnkPCGT [facility]tart: 03-19-2024 End: 99-62-0402Qjyxtbbrr department patient visitTim ThomasFacility:FTMCStart: 09-02-2023 End: 58-26-5209Nlqnbun encounter procedureSotero STEPHEN [facility] start: 11-17-2022 End: 35-10-7236knmcvlrxakWQ ANG HOY .Facility:P0Hxdju: 09-08-2022 End: 30-71-5976rhwsjtwidzFNGDQHO WATERSFacility:P8Zwwsu: 09-03-2022 End: 73-11-0798Auizzwc encounter procedurePatrick R STEPHEN [facility] start: 93-46-0590Wspesvctx for preprocedural laboratory examinationDR HOLLI BATEMAN .[facility] 06-25-2022 End: 29-26-4965pnukywlhvsAI ANG CHILEL .Facility:I0Qsdqa: 06-22-2022 End: 00-85-3716cnhsstxekdFW HOLLI BATEMAN .Facility:J8Wifvs: 06-22-2022 End: 48-94-3893Blwldwdac for preprocedural laboratory examinationDR HOLLI BATEMAN .Facility:O9Zspyi: 06-01-2022 End: 07-97-3774Jsvyycl encounter procedureMichael R NILL General Surgery Nill/Said [place] Start: 02-10-2022 End: 66-76-5243adecedwtatPM EHAB ELTAHAWYFacility:L3Qniup: 02-05-2022 End: 90-12-5947ezlpniwbcrPE ANG HOY .Facility:O0Aceay: 12-17-2021 End: 56-59-0972vksdqucxyaTO ANG HOY .Facility:H1 Procedures DateProcedureProcedure DetailPerforming ClinicianStart: 26-91-8173XFO screening DR HOLLI BATEMAN .Comment on above:Performed By: #### PSASC #### [facility] [address] [place] [address] Dr. Michelle ChangStart: 59-66-5513oomfg w/ stent removalMichael NILL Start: 48-93-2184Hesoavfjjwttov shockwave lithotripsy of calculus of kidneyMichael NILL Start: 61-14-1331Kbodlahbpudwss shockwave lithotripsy of calculus of kidneyMichaerani NILL Start: 00-61-3246Okudejdwb of stent in cardiac conduit Holli NILL History of operative procedure on thoracic spinal structureMichaerani NILL Kidney stone (disorder)Holli NILL Comment on above:Surgery per Dr. Haider of left inguinal herniaMichael NILL TonsillectomyMichael NILL Immunizations Immunization DateImmunizationNotesCare UuonvvhsSbbmpbot13-34-8366KTFC-FaP-8 (COVID-19) sVDH-9300 vaccineMichael NILL [facility] on above:Result Comment: Pt states he has had 3 shots to date but does not have his card for the dates -25-0468blzqgybbx virus vaccine, unspecified formulationMichael NILL [facility] Payers DatePayer CategoryPayerPolicy [id number] 1958Medicare [id number] 2.16.840.1.651511.3.57[id number] 2.16.840.1.452500.3.57[id number] 2.16.840.1.347130.3.57[id number] 2.16.840.1.485554.3.57[id number] 2.16.840.1.557863.3.57[id number] 2.16.840.1.154190.3.57[id number] 2.16.840.1.325739.3.57[id number] 2.16.840.1.469485.3.57[id number] 2.16.840.1.358810.3.57[id number] 2.16.840.1.622553.3.57[id number] 2.16.840.1.443882.3.57[id number] 2.16.840.1.225333.3.579.2.727 Social History DateTypeDetailFacilityStart: 06-01-2022 End: 74-70-0987Aprjfsp smoking statusEx-smoker (finding)General Surgery [place] Tobacco smoking statusNeverGeneral Surgery [facility]ere[facility] Assigned At [facility] Functional Status DuhfUbtkktmcykJkmmbyPbpdnmch25-29-2948Axssdwmkuu StatusN/A[facility]09-02-2024Functional StatusN/[facility]-16-2024Functional StatusN/A[facility]02-17-2023Functional StatusN/A[facility]11-15-2022Functional StatusN/AGeneral Surgery [place] Clinical Notes 12-17-2021 to 09-03-2024 Note Date & UbzxAxrxEnomtffz39-71-1662 Hospital Discharge instructions Patient Education 09/03/2024 09:59:01 [...] about 300 mg of calcium at each meal.Foods that contain 200 500 mg of calcium a serving include: ?8 oz (237 mL) of milk, sdzkpey-fcxfnrzxgvlj-dndgx milk, and calcium- fortifiedfruit juice. Calcium-fortified means that calcium has been [...] the table and allow each person to addtheir own salt to taste. Use vegetable protein, such as beans, textured vegetable protein (TVP), or tofu, instead of meat inpasta, casseroles, and soups. Meal planning Eat less salt, if told by your dietitian. To do this: ?Avoid eating processed or pre-made food. ?Avoid eating fast food. Eat less animal protein, including cheese, meat, poultry, or fish, if told by your dietitian. To dothis: ?Limit the number of times you have meat, poultry, fish, or cheese each week. Eat a diet free of meat at least 2 days a week. ?Eat only one serving each day of meat, poultry, fish, or seafood. ?When you prepare animal proteins, cut pieces into small portion sizes. For most meat and fish, oneserving is about the size of the palm [...] ?Spinach (cooked), rhubarb, beets, sweet potatoes, and Zambian chard. ?Peanuts. ?Potato chips, georgian fries, and baked potatoes with skin on. ?Nuts and nut products. ?Chocolate. If you regularly take a diuretic medicine, make sure to eat at least 1 or 2 servings of fruits or vegetables that are high in potassium each day. These include: ?Avocado. ?Banana. ?[place], prune, carrot, or tomato juice. ?Baked potato. [...] magnesium, fish oil, or vitamin B6. Take lgtm-jve-mzetipb and prescription medicines only as told by [...] Casseroles. Pizza. Lasagna. Frozen meals. Potato chips. Vincentian fries. The items listed above may not be a complete list of foods and beverages you should limit. Contact a dietitian for more information. What foods should I avoid? Talk to your dietitian about specific foods you should avoid based on the type of kidney stones youhave and your overall health. Fruits Grapefruit. The item listed above may not be a complete list of foods and beverages you should avoid. Contact adietitian for more information. Summary Kidney stones are [...] provider. Document Revised: 10/14/2022 Document Reviewed: 10/14/2022 [employer] Patient Education 2023 [employer]. Follow Up Care 09/02/2023 11:05:36 With:TIANA CLAYTON, Sotero Mejia, URL Address: [facility] [address], [place] [address]- [phone] When: Unknown Comments:1 yr w/ JUANITA [facility] 02-17-2025 NotePatient Education Nephrology Dietary Guidelines to Help Prevent [...] labels. Limit your salt (sodium) intake to lessthan 1,500 mg a day. ??? Choose foods with calcium for each meal and snack. Try to eat about 300 mg of calcium at each meal. Foods that contain 200?500 mg of calcium a serving include: ? 8 oz (237 mL) of milk, slukubt-uombrcrkuytk-ahmhe milk, and calcium- fortifiedfruit juice. Calcium-fortified means that calcium has been [...] on the table and allow each person toadd their own salt to taste. ??? Use [...] Spinach (cooked), rhubarb, beets, sweet potatoes, and Zambian chard. ? Peanuts. ? Potato chips, georgian fries, and baked potatoes with skin on. ? Nuts and nut products. ? Chocolate. ??? If you regularly take a diuretic medicine, make sure to eat at least 1 or 2 servings of fruits or vegetables that are high in potassium each day. These include: ? Avocado. ? Banana. ? [place], prune, carrot, or tomato juice. ? Baked potato. ? Cabbage. ? Beans and split peas. Lifestyle ??? Drink enough fluid to keep your urine pale yellow. This is the most important thing you can do.Spread your fluid intake throughout the day. ??? [...] fish oil, or vitamin B6. ??? Take stsd-kxu-rtyrill and prescription medicines only as told by your health (more content not included)...[facility]10-28-[address] [facility] Cardiology Clinic Note Chief Complaint: Patient [...] S/p PCI/stents I25.10: Atherosclerotic heart disease of [place] coronary artery without angina pectoris 2. 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 Mitral valve regurgitati (more content not included)...[facility]09-02-2024 Hospital Discharge instructions Patient Education 03/19/2024 17:59:58 Anaphylactic Reaction, Adult, Qxph-he-Wygt Anaphylactic Reaction, Adult An anaphylactic reaction is [...] What are the signs or symptoms? Feeling nutrition intern the face (flushed). Your face may turn [...] still get treated in the hospital. You maybe given: ?Medicines. ?Oxygen. ?Fluids in an IV [...] a very bad reaction. General instructions Take vgrf-ecf-iyqpxdy and prescription medicines only as told by [...] you a bad reaction before. Tell your banquet food server about your allergy when you go out to eat. If you are not sure if your meal contains food that you are allergic to, ask your banquet food server before you eat it. Where to find more information Citizen Of [place] Academy of Allergy, Asthma, and Immunology (AAAAI): [...] provider. Document Revised: 03/18/2023 Document Reviewed: 03/18/2023 [employer] Patient Education 2023 [employer]. Follow Up Care 03/19/2024 14:02:06 With:Ang Chilel Address: [address] [place] [address] Business (1) When:03/22/2024 17:49:01 Comments:Call for diagnosis based follow up [facility] 09-02-2024 NoteED Patient Education Note Immunology Anaphylactic Reaction, Adult [...] are the signs or symptoms? ? Feeling nutrition intern the face (flushed). Your face may turn [...] filled with epinephrine (auto-injector pen). Your doctor willteach you how to use the pen. ? [...] very bad reaction. General instructions ? Take qhqu-ojt-oodlwir and prescription medicines only as told by [...] a bad reaction before. ? Tell your banquet food server about your allergy when you go out to eat. If you are not sure if your meal contains food that you are allergic to, ask your banquet food server before you eat it. Where to find more information ? Citizen Of [place] Academy of Allergy, Asthma, and Immunology (AAAAI): [...] provider. Document Revised: 03/18/2023 Document Reviewed: 03/18/2023 [employer] Patient Education ? 2023 [employer].[facility] 09-02-2023 Hospital Discharge instructions Patient Education [...] about 300 mg of calcium at each meal.Foods that contain 200 500 mg of calcium a serving include: ?8 oz (237 mL) of milk, kzbupyu-nmunokyjhupp-rzinj milk, and calcium- fortifiedfruit juice. Calcium-fortified means that calcium has been [...] the table and allow each person to addtheir own salt to taste. Use vegetable protein, such as beans, textured vegetable protein (TVP), or tofu, instead of meat inpasta, casseroles, and soups. Meal planning Eat less salt, if told by your dietitian. To do this: ?Avoid eating processed or pre-made food. ?Avoid eating fast food. Eat less animal protein, including cheese, meat, poultry, or fish, if told by your dietitian. To dothis: ?Limit the number of times you have meat, poultry, fish, or cheese each week. Eat a diet free of meat at least 2 days a week. ?Eat only one serving each day of meat, poultry, fish, or seafood. ?When you prepare animal proteins, cut pieces into small portion sizes. For most meat and fish, oneserving is about the size of the palm [...] ?Spinach (cooked), rhubarb, beets, sweet potatoes, and [place]ambian chard. ?Peanuts. ?Potato chips, georgian fries, and baked potatoes with skin on. ?Nuts and nut products. ?Chocolate. If you regularly take a diuretic medicine, make sure to eat at least 1 or 2 servings of fruits or vegetables that are high in potassium each day. These include: ?Avocado. ?Banana. ?[place], prune, carrot, or tomato juice. ?Baked potato. [...] magnesium, fish oil, or vitamin B6. Take mctn-tvg-kqgdzwt and prescription medicines only as told by [...] Casseroles. Pizza. Lasagna. Frozen meals. Potato chips. Vincentian fries. The items listed above may not be a complete list of foods and beverages you should limit. Contact a dietitian for more information. What foods should I avoid? Talk to your dietitian about specific foods you should avoid based on the type of kidney stones youhave and your overall health. Fruits Grapefruit. The item listed above may not be a complete list of foods and beverages you should avoid. Contact adietitian for more information. Summary Kidney stones are [...] provider. Document Revised: 10/14/2022 Document Reviewed: 10/14/2022 [employer] Patient Education 2022 [employer]. Follow Up Care 09/03/2022 09:56:31 With:TIANA CLAYTON, Sotero Mejia, URL Address: [address] [place] [address]- When: Unknown [facility] 02-17-2023 Hospital Discharge instructions Patient Education 09/03/2022 09:39:28 Kidney Stones, Jawy-lf-Vbie Kidney Stones Kidney stones are rock-like masses [...] Follow these instructions at home: Medicines Take jjdq-sir-qzagfta and prescription medicines only as told by [...] 12/20/2008 Document Revised: 11/20/2019 Document Reviewed: 11/20/2019 [employer] Patient Education 2019 [employer] Follow Up Care 08/31/2021 10:41:08 With:TIANA CLAYTON, Sotero Mejia, URL Address: [address] [place] [address]- When: Unknown [facility] 12-09-2022 NoteOPERATIVE NOTE OPERATION DATE: 06/25/2022 PREOPERATIVE DIAGNOSIS: Colorectal [...] not require further screening. CC: Ang Chilel M.D.[facility] HospitalHspdogso32-42-1770 NotePROCEDURE: XR SHOULDER LT 2V or > HISTORY: Pain of [...] Electronically authenticated by: FAIZA ARECHIGA Date: 2021-12-17 17:22[facility] Future Appointments Appointment Date:09/03/2022 09:45:00 AM Scheduled Provider:Sotero STEPHEN MD Location:[facility] Appointment Type:URO Office Visit [facility] [place] Evaluation + Plan note Future Appointments Appointment Date:09/02/2023 09:30:00 AM Scheduled Provider:Sotero STEPHEN MD Location:[facility] Appointment Type:URO Office Visit [facility] evaluation + Plan note Future Appointments Appointment Date:09/03/2024 09:45:00 AM Scheduled Provider:Sotero STEPHEN MD Location:[facility] Appointment Type:URO Office Visit [facility] evaluation + Plan note Future Appointments Appointment Date:09/06/2025 10:45:00 AM Scheduled Provider:Sotero STEPHEN MD Location:[facility] Appointment Type:URO Office Visit [facility] Hospital course Narrative No data available for this section General Surgery [place] Hospital Discharge instructions No data available for this section General Surgery [place] Progress note No data available for this section General Surgery [place] Summary Purpose Family History No Family History [...] n (unrecognized section and content) Personnel Name: Hoy MD, Ang Address: Address: [address] [place] [address] [place] [address]- Personnel Name: Getachew CLAYTON Ang Address: Address: [address] [place] [address] [place] [address]- Personnel Name: Ang Chilel MD Address: Address: [address] [place] [address] [place], [place] [address] Personnel Name: Ang Chilel MD Address: Address: [address] [place] [address] (unrecognized sect ion and content) No Status Records FoundNo Status Records FoundNo Status Records FoundNo Status Records FoundNo Status Records FoundNo Status Records FoundNo Status Records FoundNo Status Records FoundNo Status Records FoundNo Status Records Found INFORMATION SOURCE (unrecogn ized section and content) DATE CREATED AUTHOR 11/25/2022 [facility] DATE CREATED AUTHOR AUTHOR'S ORGANIZ ATION 03/19/2024 [facility] DATE CREATED AUTHOR AUTHOR'S ORGANIZ ATION 05/15/2024 [facility] DATE CREATED AUTHOR AUTHOR'S ORGANIZ ATION 09/04/2024 [facility] FOR RECORDS PERTAINING TO PATIENTS WHO [...] BE BASED ON THE PRIMARY CLINICAL RECORDS. [facility] [employer] [facility]. provides no warranty or guarantee of the accuracy or completeness of information in this document.
--- OUTSIDE RECORDS SUMMARY | 2025-05-17 09:00 | XMS_ITS | Clinical Summary ---
Author Organization [facility] Address [address] [place] [address] Care Team Providers Care Beater Out Name Role Phone Emil Chilel MD Primary Care Provider [phone] Allergies No known active allergies Medications MedicationSigDispense QuantityRefillsLast FilledStart DateEnd DateStatus aspirin 81 mg chewable tablet Chew 1 tablet every day by oral route.Active clopidogrel (Plavix) 75 mg tablet Take 1 tablet by mouth in the morning.01/29/2019Active cholecalciferol, vitamin D3, 50 mcg (2,000 unit) capsule Take 1 capsule every day by oral route.Active lovastatin (Mevacor) 40 mg tablet Take 2 tablets by mouth at bedtime.Active potassium bicarb-citric acid (Effer-K) 20 mEq tablet, effervescent DISSOLVE & TAKE 1 TABLET BY MOUTH TWICE DAILY05/17/2022ctive carvedilol (Coreg) 6.25 mg tablet Indications:Essential hypertensionTake 1 tablet by mouth twice daily 180 tablet 5Active Active Problems ProblemNoted DateDiagnosed DateAllergic reaction to bee sting05/14/2024llergic jklqdzqb61ortic gnddxpuxjsuid60symptomatic microscopic xxefqjagc46MI 26.0-26.9,adult BPH with urinary jxhsgcxnxdb60ervical disc hzbrhli2104/06/2023 04/06/2023enital ifxlqt28outHistory of kidney fbztdu31AD (coronary artery disease)04/06/2023 04/06/20231869Vaiporbjqzko99Hyperlipidemia Lumbar mtseftwhbuc90eyronie's ydvsqak02 Rectal tpxlgeoh24Screening for malignant neoplasm of colon Urgency of zyujlocip51Vitamin D deficiency ortic valve hsnjaspb97/11/2013 Overview (05/14/2024): MILD (2013) Kidney stone Family History Medical HistoryRelationNameCommentsHeart attackFatherHypertensionMotherbrain bleedMotherRelationNameStatusCommentsFatherMother Social History Tobacco UseTypesPacks/DayYears UsedDateSmoking Tobacco: FormerCigarettes Smokeless Tobacco: Never Tobacco Cessation:Counseling Given: Not Answered Alcohol UseStandard Drinks/WeekCommentsNot Currently0 (1 standard drink = 0.6 oz pure alcohol)UT Safety & EnvironmentAnswerDate RecordedFear of Current or Ex-PartnerNot on file09/08/2023Emotionally AbusedNot on file09/08/2023hysically AbusedNot on file09/08/2023Sexually AbusedNot on 09/08/2023hysically or Sexually AbusedNot on file09/08/2023Sex and Gender InformationValueDate Recorded Sex Assigned at BirthNot on fileLegal VngKsco3601/13/2022 10:03 PM EDTGender IdentityNot on fileSexual OrientationNot on file Last Filed Vital Signs Vital SignReadingTime TakenCommentsBlood Sjirwafh364/5805/14/2024 10:35 AM EDT Juhnh529005/14/2024 10:35 AM EDTTemperature--Respiratory Rate--Oxygen Saturation 97%05/14/2024 10:35 AM EDTInhaled Oxygen Concentration--Bhadkr33.1 kg (137 lb) 05/14/2024 10:35 AM PBQQrzduo328.6 cm (5' 4 )05/14/2024 10:35 AM EDTBody Mass Index23.5205/14/2024 10:35 AM EDT Plan of Treatment DateTypeDepartmentCare Team (Latest Contact Info)Fewzvuipjby11/12/2025 1:00 PM ESTOffice Visit [facility] [address] [place] [address] Lenka Deutsch MD [address] [facility] [place] [phone] Health MaintenanceDue DateLast DoneCommentsMedicare Annual Wellness (AWV) 2Depression Hzztoxjsl50/21/1954Adult Puacbaa3706/07/1964Fall Risk Rlznfahvj17/21/2007COVID-19 Vaccine ( season)51, 04/03/2022, 10/30/2021, Additional history existsZoster VaccinesCompleted 03/18/2018, 11/01/2017, 02/16/2012Pneumococcal Vaccine: 50+ YearsCompleted 01/17/2024, 12/12/2018, 04/30/2016Influenza IalvfmpXvlrympwv98/27/2025, 03/25/2023, 04/11/2021, Additional history existsHIB VaccinesAged OutNo longer eligible based on patient's age to complete this topicHPV VaccinesAged OutNo longer eligible based on patient's age to complete this topicIPV VaccinesAged OutNo longer eligible based on patient's age to complete this topicMeningococcal B VaccineAged OutNo longer eligible based on patient's age to complete this topicMeningococcal VaccineAged OutNo longer eligible based on patient's age to complete this topicRotavirus VaccinesAged OutNo longer eligible based on patient's age to complete this topic Insurance Care Teams Team MemberRelationshipSpecialtyStart DateEnd Emil Chilel MD [address] [address] [facility]03/07/23
--- OUTSIDE RECORDS SUMMARY | 2025-05-17 09:00 | XMS_ITS | Patient Health Record ---
Author Organization [facility] Address [address] [place] [place] [address] Care Team Providers Care Tourist Information Assistant Name Role Phone Aldo Chilel Primary Care Provider Allergies Allergen (clinical drug ingredient) Drug/Non Drug Allergy documented on EMR Reaction Allergy Type Onset Date Status Bee Sting (uncoded)swelling facial, arm, itchingAllergyActive Results Component Value Reference Range Notes XR abdomen 1V Reviewed date:09/03/2024 06:22:56 PM Interpretation: Performing Lab: Notes/Report: Source Facility: [place] [address] XRay Report Signed Patient: CHEY FREIRE MR#: [id number] : 1940 Acct:[id number] Age/Sex: 84 / M ADM Date: 09/01/24 Loc: RAD Attending Dr: Sotero Stephen M.D. Ordering Physician: Sotero Stephen M.D. Date of Service: 09/01/24 Procedure(s): XR abdomen 1V Accession Number(s): [id number] cc: Ang Chilel M.D.; Sotero Stephen M.D. [place] [id number] Patient Name: CHEY FREIRE MRN: [id number] date: 1940 Sex: M Assigned Patient Location: RAD Current Patient Location: RAD Accession/Order Number: [id number] Exam Date: 09/01/2024 11:48 Report Date: 09/03/2024 17:27 At the request of: SOTERO STEPHEN Procedure: XR abdomen 1V EXAM: XR abdomen 1V HISTORY: Kidney stone COMPARISON: 08/31/2023. TECHNIQUE: KUB views of the abdomen. FINDINGS: Scattered gas and stool are seen overlying the renal silhouettes. Stable 5 mm calcification overlies the inferior pole of the left kidney. Small calcification overlies the upper pole of the right kidney, not previously seen. No certain calcifications along the expected course of ureters. No bowel obstruction. Convex right curvature of the lumbar spine with moderate degenerative disc disease. Asymmetric left hip joint osteoarthritis. XR/XR abdomen 1V IMPRESSION: 1. Bilateral nonobstructive renal stones. 2. No bowel obstruction. Electronically authenticated by: ZACH FLORES Date: 09/03/2024 17:27 Dictated By: Zach Flores M.D. Signed By: 09/03/241728 DD/ 26 TD/TT: Weight Recorder: CA echo doppler complete Reviewed date:03/31/2025 12:57:18 PM Interpretation: Performing Lab: Notes/Report: Source Facility: [place] [address] Cardiology Report Signed Patient: CHEY FREIRE MR#: [id number] : 1940 Acct:[id number] Age/Sex: 84 / M ADM Date: 03/28/25 Loc: CARD Attending Dr: Lenka Zimmerman M.D. Ordering Physician: Lenka Zimmerman M.D. Date of Service: 03/28/25 Procedure(s): CA echo doppler complete Accession Number(s): [id number] cc: Lenka Zimmerman M.D.; Ang Chilel M.D. Patient Name: CHEY FREIRE MR#: [id number] : 1940 Exam Date: 03/28/2025 Ordering Doctor: DR LENKA ZIMMERMAN M.D. ECHOCARDIOGRAM REPORT PROCEDURE: CA ECHO DOPPLER COMPLETE INDICATIONS: Aortic valve stenosis COMPARISON: None. DESCRIPTION: COMPLETE ECHOCARDIOGRAM Real-time transthoracic echocardiography with 2D, M-mode, spectral and color flow Doppler performed. QUALITY: Technical quality was good. LEFT VENTRICLE: Normal chamber size. Mild concentric left ventricular hypertrophy. Global left ventricular systolic function is normal without wall motion abnormalities. Visual estimation of left ventricular ejection fraction is hyperdynamic at 70-75%. LV EF: DIASTOLIC: Normal left ventricular diastolic function ATRIAL SEPTUM: Visually appears intact LEFT ATRIUM: Mild dilatation. RIGHT ATRIUM: Mild dilatation. RIGHT VENTRICLE: Normal chamber size. Normal right ventricular systolic function. TRICUSPID VALVE: Normal mobility and thickness. No stenosis with mild regurgitation. Mild pulmonary hypertension. RVSP 39mmHg. MITRAL VALVE: Normal mobility and thickness. No evidence of mitral valve stenosis. There is no mitral annular calcification. Mild mitral regurgitation. AORTIC VALVE: Normal trileaflet appearance. Moderately calcified aortic valve. Moderately diminished mobility. Doppler velocity suggest moderate aortic valve stenosis. DVI 0.34, MARQUIS 1.1cm2, Vmax 3.4m/s, peak/mean gradients 46/20mmHg.mild to moderate aortic regurgitation. AORTIC ROOT: Normal diameter and appearance measuring 3.6cm. The ascending aorta measures 3.5cm PULMONIC VALVE: Normal thickness and mobility. No stenosis. Trivial regurgitation. PERICARDIUM: No evidence of pericardial effusion. IVC: Collapes with inspirations. Mildly dilated measuring 2.2cm. PLEURA: CONCLUSION: Mild concentric left ventricular hypertrophy Hyperdynamic left ventricular systolic function without wall motion abnormalities, ejection fraction 70 to 75%. Normal left ventricular diastolic function Normal right ventricular size and systolic function Mildly pulmonary hypertension, RVSP 39 mmHg Mild biatrial dilatation Moderate aortic stenosis, mean pressure gradient 20 mmHg, aortic valve area 1.1 cm???, DVI 0.34 Mild to moderate aortic insufficiency Mild mitral regurgitation Mild tricuspid regurgitation Adult Echocardiography Procedure Report Left Ventricle LVEDD (3.7 - 5.6 cm): 4.10 cm LVESD (2.2 - 4.0 cm): 2.78 cm LVIVS thickness (0.6 - 1.2 cm): 1.40 cm LVPW thickness (0.5 - 1.0 cm): 1.29 cm e': 0.08 m/s E - e': 10.91 LVOT Max Gradient: 5.23 mm[Hg] LVOT Area (cm2): 1.14 m/s Peak Velocity (LVOT): 1.14 m/s Mean Velocity (LVOT): 0.69 m/s LVOT Diameter 2.00 cm Left Ventricular Ejection Fraction: 76.91 % Left Atrium LA Volume Index (2D A2C): 38.60 ml/m2 Left Atrium Systolic Dimension: 4.00 cm Mitral Valve MV E to A Ratio: 1 MV Max Gradient: MV Mean Gradient: Mitral Valve A-Wave Peak Velocity: 0.83 m/s Mitral Valve E-Wave Peak Velocity: 0.83 m/s Cardiovascular Orifice Area: Right Ventricle RV Internal Diastolic Dimension: 3.29 cm Aorta AO Root Diam: 3.64 cm Ascending Ao Diam: 3.53 cm Aortic Valve AoV Area (Peak Adolfo): 1.12 cm2, 1.19 cm2 AoV Area (VTI): 1.15 cm2, 1.19 cm2 Deceleration Bay: 2.26 m/s2, 2.67 m/s2, 3.06 m/s2 Pressure Half-Time: 492.96 ms, 438.32 ms, 406.00 ms Peak Velocity(Antegrade Flow): 3.02 m/s, 3.38 m/s, 3.20 m/s Peak Gradient(Antegrade Flow): 36.47 mm[Hg], 45.66 mm[Hg], 40.83 mm[Hg] Mean Velocity(Antegrade Flow): 1.93 m/s, 2.00 m/s, 2.09 m/s Mean Gradient(Antegrade Flow): 17.86 mm[Hg], 19.97 mm[Hg], 19.93 mm[Hg] Velocity Time Integral: 65.81 cm, 67.90 cm, 70.77 cm Tricuspid Valve Peak Velocity (Regurgitant Flow): 2.79 m/s, 2.76 m/s, 2.68 m/s Peak Velocity: Pulmonic Valve Mean Gradient: Mean Velocity: Peak Velocity: 0.88 m/s Peak Gradient: 2.95 mm[Hg], 3.33 mm[Hg] Right Atrium Right Atrium Systolic Pressure: 35.34 ml, 35.34 ml Dictated by: Yash Blackburn MD on 03/29/2025 at 18:30 Approved by: Yash Blackburn MD on 03/29/2025 at 18:39 Dictated By: Yash Blackburn M.D. Signed By: 03/29/251839 DD/ 38 TD/TT: Weight Recorder: TSH Reviewed date:06/11/2024 02:25:40 PM Interpretation: Performing Lab: Notes/Report: [facility] , Thyroid Stimulating Hormone 3.300 0.358-3.740 u IU/mL Performing Lab:see note - [facility] LBT4 Reviewed date:06/11/2024 02:25:40 PM Interpretation: Performing Lab: Notes/Report: [facility] ,T4 Thyroxine6.404.50-12.10 ug/dLPerforming Lab:see note - [facility] LBPROF 14(COMP METB) Reviewed date:06/11/2024 02:25:40 PM Interpretation: Performing Lab: Notes/Report: [facility] ,Lvignj468765-063 mmol/LPotassium4.23.5-5.1 mmol/ZKixorlhf06507-923 mmol/LCarbon Tgpithr97.421.0-32.0 mmol/LAnion Gap11.6Iptjwfx4079-788 mg/dLBlood Urea Jdpjotzc80.07.0-18.0 mg/dLCreatinine0.970.70-1.30 mg/dLEstimated GFR ( Destiny>60>=60 mL/min/1.73m 2Estimated GFR (Non- Anne>60>=60 mL/min/1.73m 2BUN Creatinine Ratio13.4Wjglhyr9.58.5-10.1 mg/dLBilirubin Total0.80.2-1.0 mg/dL Aspartate Amino Glkolaivswx4112-09 U/LAlanine Ylgsadtcyolmomaa3956-67 U/L Alkaline Ngjjsijukwl0268-227 U/LTotal Protein6.06.4-8.2 g/dLAlbumin Level3.13.4- 5.0 g/dLGlobulin2.9Albumin Globulin Ratio1.1Performing Lab:see note - [facility] LBLIPID PROFILE Reviewed date:06/11/2024 02:25:40 PM Interpretation: Performing Lab: Notes/Report: [facility] ,Hvwehkfbjcwfv05<=150 mg/mDZbllppuvnhg160<=200 mg/dLHDL Jriepeqzyyy5764-19 mg/dL > or =60 mg/dl - LOW CARDIOVASCULAR RISK <40 mg/dl - HIGH CARDIOVASCULAR RISK LDL Cholesterol Haxlzqcoav50.2 <100 mg/dl OPTIMAL 100-129 mg/dl NEAR OR ABOVE OPTIMAL 130-159 mg/dl BORDERLINE HIGH 160-189 mg/dl HIGH >190 mg/dl VERY HIGH VLDL VMJTRKYDEDY87.8Chol HDL Ratio2.8 3.3 - 4.4 LOW RISK 4.4 - 7.1 AVERAGE RISK 7.1 - 11.0 MODERATE RISK >11.0 HIGH RISK Performing Lab:see noteML - [facility] LBGLYCOHEMOGLOBIN A1C Reviewed date:06/11/2024 02:25:40 PM Interpretation: Performing Lab: Notes/Report: [facility] ,Glycohemoglobin A1C5.94.5-6.2 % ADA RECOMMENDED LIMIT 4.0 - 6.0 ADA THERAPEUTIC TARGET < 7.0 ACTION SUGGESTED > 7.0 Estimated Average Ywjksfo053Hwthmrluis Lab:see note - [facility] LB FREE T3 Reviewed date:06/11/2024 02:25:40 PM Interpretation: Performing Lab: Notes/Report: [facility] ,Free T33.002.18-3.98 pg/mLPerforming Lab:see note - [facility] LB CBC AUTO DIFF Reviewed date:06/11/2024 02:25:40 PM Interpretation: Performing Lab: Notes/Report: [facility] ,White Blood Count7.44.0-11.0 10 3/uLRed Blood Count4.784.70-6.10 10 6/uL Vscuezahxm04.214.0-18.0 g/rIXhzhblqvcc49.242.0-54.0 %Mean Corpuscular Fflszo18.4 80.0-94.0 fLMean Corpuscular Ffvvptcacr99.725.9-34.0 pgMean Corpuscular HGB Conc 32.929.9-35.2 g/dLRed Cell Distribution Width12.711.0-15.0 %Platelet Txrnk877 150-450 10 3/uLMean Platelet Zcctyz82.79.5-13.5 fLNeutrophils Percent Auto49.5 43.0-75.0 %Lymphocytes Percent Auto37.720.5-60.0 %Monocytes Percent Auto8.91.7- 12.0 %Eosinophils Percent Auto3.10.9-7.0 %Basophils Percent Auto0.70.2-2.0 % Immature Granulocytes Pct Auto0.10.0-0.5 %Neutrophils Absolute Auto3.71.4-6.5 10 3/uLLymphocytes Absolute Auto2.81.2-3.8 10 3/uLMonocytes Absolute Auto0.70.3- 0.8 10 3/uLEosinophils Absolute Auto0.20.0-0.7 10 3/uLBasophils Absolute Auto0.1 0.0-0.1 10 3/uLImmature Granulocytes Abs Auto0.010.00-0.03 10 3/uLPerforming Lab:see noteML - [facility] LBOccult Blood* Reviewed date:06/11/2024 08:28:58 PM Interpretation: Performing Lab: Notes/Report: [facility] ,Occult BloodPositivePerforming Lab:see note - [facility] LBXR chest 2V Reviewed date:06/11/2024 02:25:40 PM Interpretation: Performing Lab: Notes/Report: Source Facility: [place] [address] XRay Report Signed Patient: CHEY FREIRE MR#: [id number] : 1940 Acct:[id number] Age/Sex: 84 / M ADM Date: 06/09/24 Loc: LAB Attending Dr: Ang Chilel M.D. Ordering Physician: Ang Chilel M.D. Date of Service: 06/09/24 Procedure(s): XR chest 2V Accession Number(s): [id number] cc: Ang Chilel M.D. [place] [address] Patient Name: CHEY FREIRE MRN: [id number] date: 1940 Sex: M Assigned Patient Location: LAB Current Patient Location: LAB Accession/Order Number: [id number] Exam Date: 06/09/2024 08:28 Report Date: 06/09/2024 09:19 At the request of: ANG CHILEL Procedure: XR chest 2V EXAMINATION: XR chest 2V HISTORY: I25.10 Atherosclerotic heart disease COMPARISON: No relevant comparison available. FINDINGS: LUNGS: Mild chronic interstitial changes. No acute infiltrates or mass. VASCULATURE: No increased pulmonary vasculature. PLEURA: No pneumothorax, effusion, or pleural thickening. CARDIAC: No cardiomegaly or cardiac silhouette abnormality. MEDIASTINUM: No visible mass or adenopathy. BONES: No fracture or visible bone lesion. OTHER: Negative. XR/XR chest 2V IMPRESSION: 1. No acute cardiac pulmonary process or suspicious findings. 2. Mild chronic, likely age related, changes. Electronically authenticated by: HECTOR RAMEY Date: 06/09/2024 09:19 Dictated By: Hector Ramey M.D. Signed By: 06/09/24920 DD/ 8 TD/TT: Weight Recorder:PSA SCREENING Reviewed date:06/11/2024 02:25:40 PM Interpretation: Performing Lab: Notes/Report: [facility] ,Prostate Specific Antigen Scrn2.27<=4.00 ng/mLPerforming Lab:see noteML - [facility] LB Reason For Referral No Information Medications Medication SIG (Take, Route, Frequency, Duration) Notes Start Date End Date Status Krill Oil ActiveLovastatin 40 MGTake 2 tablets by mouth once daily; Duration: 90Active rOPINIRole HCl 0.5 MG1 tablet 1 to 3 hours before bedtime Orally Once a day; Duration: 30 days03/07/2024ctiveCarvedilol 6.25 MG1/2 tablet with food Orally Twice a day; Duration: 90 daysActiveCo Q 10 10 MGas directed OrallyActiveEffer-K 20 MEQTAKE 1 TABLET BY MOUTH TWICE DAILY Oral; Duration: 30 DaysActiveEpiPen ActiveVitamin D3 50 MCG (1999 UT)1 capsule Orally Once a dayActiveEpiPenActive Aspirin 81 81 MG1 tablet Orally Once a dayActive Social History Tobacco Use: Social History Observation Description Date Details (start date - stop date) Former Smoker 07/18/1954 - 07/18/1968 Tobacco Use/Smoking Question Answer Notes Patient is a former smoker When did you start smoking?01/01/1955When did you stop smoking?07/18/1968How long has it been since you last smoked?> 10 yearsAlcohol Screen (Audit-C) Question Answer Notes Did you have a drink containing alcohol in the p ast year? No Kyyoof4HvejtsbskoupvuJsssfssrQXMPS-X (Standard) Question Answer Notes Did you have a drink containing alcohol in the p ast year? 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)ActiveconfirmedProblemPure hypercholesterolemia (983893514)Pure hypercholesterolemia, unspecified (E78.00) ActiveconfirmedProblemLow back pain associated with a spinal disorder other than radiculopathy or spinal stenosis (M54.50)Activeconfirmed Vital Signs Blood pressure diastolic 68 mm Hg 05/16/2025 Banlnx31 in05/16/2025lood pressure mm Hg05/16/20253959Rcbjpn914.0 lbs 05/16/2025BMI25.15 kg/m205/16/2025 Encounters Encounter Location Date Provider Diagnosis [place] [address] [place] [address] 05/16/2025 Aldo Hoy Pure hypercholestero lemia, unspecified E78.00 ; Hypertension I10 ; Chronic fatigue, unspecified R53.82 ; Atherosclerotic heart disease of [place] coronary artery without angina pectoris I25.10 and 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 [facility] [address] [place] [address] 06/08/2024 Aldo Hoy Pure hypercholestero lemia, unspecified E78.00 ; Atherosclerotic heart disease of [place] coronary artery without angina pectoris I25.10 ; Low back pain associated with a spinal disorder other than radiculopathy or spinal stenosis M54.50 and Hypertension I10 [facility] [address] [place] [address] 06/11/2024 Aldo Getachew [facility] [place] [address] [facility] [place] [address]/facundoserina Chilel Assessments Encounter Date Diagnosis (ICD Code) Assessment Notes Treatment Notes Treatment Clinical Notes Section Notes 06/08/2024 Pure hypercholesterolemia, unspe cified (ICD-10 - E78.00) 06/08/2024therosclerotic heart disease of [place] coronary artery without angina pectoris (ICD-10 - I25.10)05/16/2025Pure hypercholesterolemia, unspecified (ICD-10 - E78.00)05/16/2025Hypertension (ICD-10 - I10)05/16/2025hronic fatigue, unspecified (ICD-10 - R53.82)06/08/2024Low back pain associated with a spinal disorder other than radiculopathy or spinal stenosis (ICD-10- M54.50)06/08/2024 Hypertension (ICD-10 - I10)05/16/2025therosclerotic heart disease of [place] coronary artery without angina pectoris (ICD-10 - I25.10)defers on PT05/16/2025 Frozen shoulder (ICD-10 - M75.00) Plan Of Treatment Pending Test Test Name Order Date CMP (COMPLETE METABOLIC PANEL) 4 CMP (COMPLETE METABOLIC PANEL) 4 HEMOGLOBIN A1C (GLYCO) 06/08/2024 HEMOGLOBIN A1C (GLYCO) 08/11/2023 HEMOGLOBIN A1C (GLYCO) 05/16/2025 LIPID PANEL (CHOL/TRIG/HDL/LDL) 08/11/19 24 LIPID PANEL (CHOL/TRIG/HDL/LDL) 05/16/20 LIPID PANEL (CHOL/TRIG/HDL/LDL) 06/08/20 24 CBC WITH DIFF 06/08/2024 CBC WITH DIFF 08/11/2023 BMP (BASIC MET PANEL - W/GFR) 11/15/2022 PSA, PROSTATE-SPECIFIC ANTIGEN 3 PSA, PROSTATE-SPECIFIC ANTIGEN 4 URIC ACID 05/16/2025 CBC W/AUTO DIFF 11/15/2022 PSA, TOTAL 06/08/2024 STOOL OCCULT BLOOD 06/08/2024 ZOEY Ankle Brachial Index (53368) 024 JANE - LIPID PROFILE 11/15/2022 XR CHEST 2 V 05/16/2025 XR CHEST 2 V 06/08/2024 XR LSPINE 2_3 VIEWS 08/11/2023 XR SHOULDER LT 2V or > 05/16/2025 THYROID PANEL (T4/TSH/FREE T3) 5 THYROID PANEL (T4/TSH/FREE T3) 3 THYROID PANEL (T4/TSH/FREE T3) 4 THYROID PANEL (T4/TSH/FREE T3) 4 PSA, SCREENING 05/16/2025 ZOEY Segmental Pressure Study of Lower Ex tremity 03/07/2024 CMP (COMP MET LUI) w/eGFR CKD-EPI 2024 CBC WITH DIFF 05/16/2025 Insurance Providers Payer Name Payer Address Payer Phone Subscriber Number Group Number Insured Name Patient Relationship to Insured Coverage Start Date Coverage End Date [facility]IC[facility] [address] [address] [place], [place] [id number] Kelechi Freire - patient is the [id number] MEDICARE SUPPLEMENT[address] [place] [phone], [place] - patient is the [id number] 2018 Medical (General) History Medical History History ICD Code Calculus, kidney N20.0 Vitamin D deficiency E55.9 Degenerative cervical disc M50.30 Spondylolisthesis of lumbar region M43.1 6 Mitral valve prolapse I34.1 CAD (coronary artery disease) I25.10 Dyslipidemia E78.5 Aortic sclerosis I70.0 Peyronie disease N48.6 Cardiac ischemia I25.9 Aortic insufficiency I35.1 Acute gout M10.9 Surgical History Surgery Date(Month/Year) tonsills/ adnoids heart stenteyevasectomyherniaback surgery
--- OUTSIDE RECORDS SUMMARY | 2025-05-17 09:00 | XMS_ITS | Clinical Summary ---
Author Organization [facility] Address [address], [address] [place] [address] Care Team Providers Care Cafeteria Supervisor Name Role Phone Unavailable Primary Care Provider Unavailabl e Allergies No known active allergies Medications MedicationSigDispense QuantityRefillsLast FilledStart DateEnd DateStatus lovastatin (ALTOPREV) 40 MG extended release tablet Take 40 mg by mouth 2 times dailyActive clopidogrel (PLAVIX) 75 MG tablet Take 75 mg by mouth dailyActive metoprolol tartrate (LOPRESSOR) 25 MG tablet Take 25 mg by mouth 2 times dailyActive aspirin 81 MG tablet Take 81 mg by mouth dailyActive Active Problems No known active problems Social History Tobacco UseTypesPacks/DayYears UsedDateSmoking Tobacco: NeverSmokeless Tobacco: NeverSex and Gender InformationValueDate RecordedSex Assigned at BirthNot on fileLegal KwiLbtx0508/27/2012 7:53 PM ESTGender IdentityNot on fileSexual OrientationNot on file Last Filed Vital Signs Vital SignReadingTime TakenCommentsBlood Pressure--Pulse--Ktqizzaqmjx50.4 ??C (97.6 ??F)01/27/2018 11:48 AM EDTRespiratory Rate--Oxygen Saturation--Inhaled Oxygen Concentration--Xjupay74 kg (150 lb)01/27/2018 11:48 AM UUTJtrcqp619 cm (5' 3 )01/27/2018 11:48 AM EDTBody Mass Index26.57001/27/2018 11:48 AM EDT Plan of Treatment Not on file Insurance
--- NOTE | 2025-05-17 09:17 | XR_ITS ---
The [address] [address] Patient Name: CHEY DAVENPORT MRN: [id number] date: 1940 Sex: M Assigned Patient Location: LAB Current Patient Location: LAB Accession/Order Number: [id number] Exam Date: 05/17/2025 09:20 Report Date: 05/17/2025 11:03 At the request of: ANG HI MD Procedure: XR shoulder LT min 2V LEFT SHOULDER - 3 views CLINICAL HISTORY: frozen shoulder. Chronic pain and decreased range of motion. COMPARISON: 12/17/2021 AP, Y and Grashey views were obtained. There is osteopenia. There is no acute fracture or dislocation. There is moderate hypertrophy at the acromioclavicular and inferior glenohumeral joints. There is sclerosis at the greater tuberosity. There is down sloping of the acromion which could predispose to rotator cuff impingement. There are no significant soft tissue abnormalities. XR/XR shoulder LT min 2V IMPRESSION: OSTEOPENIA AND DEGENERATIVE CHANGES. NO ACUTE BONY FINDINGS. Impression dictated by: Bernadette Borden M.D. 05/17/2025 11:03 AM Dictation Location: [place] [address] Electronically authenticated by: [id number] Y Date: 05/17/2025 11:03
--- NOTE | 2025-05-17 09:17 | XR_ITS ---
The [address] [address] Patient Name: CHEY DAVENPORT MRN: [id number] date: 1940 Sex: M Assigned Patient Location: LAB Current Patient Location: LAB Accession/Order Number: [id number] Exam Date: 05/17/2025 09:20 Report Date: 05/17/2025 11:03 At the request of: ANG HI MD Procedure: XR chest 2V PA AND LATERAL CHEST: CLINICAL HISTORY: asbestos exposure. Cough. COMPARISON: 06/09/2024 There is mild hyperinflation. There is no focal parenchymal consolidation, effusion or pneumothorax. The cardiac, hilar and mediastinal silhouettes are within normal limits. There is no vascular congestion. The visualized bony structures are osteopenic. There is slight thoracolumbar scoliotic curvature as well as endplate spurring. Degenerative change is also noted at the shoulders where there could be rotator cuff disease. XR/XR chest 2V IMPRESSION: NO ACUTE CARDIOPULMONARY ABNORMALITY. Impression dictated by: Bernadette Borden M.D. 05/17/2025 11:03 AM Dictation Location: [place] [address] Electronically authenticated by: [id number] Y Date: 05/17/2025 11:03
[2025-05-17 09:57] LABS: Hematocrit 44.1 % (42.0-54.0); Hemoglobin 14.5 g/dL (14.0-18.0); Immature Granulocytes Abs Auto 0.01 10^3/uL (0.00-0.03); Immature Granulocytes Pct Auto 0.1 % (0.0-0.5); Lymphocytes Absolute Auto 2.7 10^3/uL (1.2-3.8); Mean Corpuscular HGB Conc 32.9 g/dL (29.9-35.2); Mean Corpuscular Hemoglobin 30.1 pg (25.9-34.0); Mean Corpuscular Volume 91.7 fL (80.0-94.0); Platelet Count 141 10^3/uL (150-450); Red Blood Count 4.81 10^6/uL (4.70-6.10); White Blood Count 8.1 10^3/uL (4.0-11.0)
[2025-05-17 10:56] LABS: Alanine Aminotransferase 20 U/L (16-63); Albumin Globulin Ratio 1.1; Albumin Level 3.3 g/dL (3.4-5.0); Alkaline Phosphatase 58 U/L (46-116); Anion Gap 12.1; Aspartate Amino Transferase 20 U/L (15-37); Blood Urea Nitrogen 17.0 mg/dL (7.0-18.0); Calcium 9.0 mg/dL (8.5-10.1); Carbon Dioxide 29.3 mmol/L (21.0-32.0); Chloride 110 mmol/L (98-107); Cholesterol 150 mg/dL (<=200); Estimated GFR (African America >60 (>=60 mL/min/1.73m^2); Estimated GFR (Non-African Ame >60 (>=60 mL/min/1.73m^2); Free T3 2.94 pg/mL (2.18-3.98); Globulin 3.1 g/dL; Glucose 95 mg/dL (74-106); HDL Cholesterol 55 mg/dL (40-60); Potassium 4.4 mmol/L (3.5-5.1); Sodium 147 mmol/L (136-145); Thyroid Stimulating Hormone 2.324 uIU/mL (0.358-3.740); Total Protein 6.4 g/dL (6.4-8.2); Triglycerides 49 mg/dL (<=150); Uric Acid 5.1 mg/dL (3.5-7.2); VLDL CHOLESTEROL 9.8 mg/dL
== END 2025-05-17 08:48 | disposition home or self-care (01) ==
LOC: LAB 08:56
PROVIDERS: PCP Family Medicine; Visit Provider Family Medicine
DX: E78.00 Pure hypercholesterolemia, unspecified (principal); I10 Essential (primary) hypertension; R53.82 Chronic fatigue, unspecified; I25.10 Atherosclerotic heart disease of native coronary artery without angina pectoris; Z12.5 Encounter for screening for malignant neoplasm of prostate; M75.00 Adhesive capsulitis of unspecified shoulder; M85.88 Other specified disorders of bone density and structure, other site
CPT/HCPCS: 36415; 71046; 73030; 80053; 80061; 83036; 84436; 84443; 84481; 84550; 85025; G0103